=== PATIENT | female | born 1980 | race African-American/Black ===

== ENCOUNTER 2016-12-01 13:32 | Observation (INO) | payer MEDICAID, OTHER ==
--- NOTE | 2016-12-01 14:06 | ED ---
Chest Pain HPI - General Source: patient, RN notes reviewed Mode of arrival: EMS Limitations: no limitations <Stefany Garcia - Last Filed: 12/01/16 17:13> <Anthony House - Last Filed: 12/01/16 17:14> - General Chief Complaint: Chest Pain Stated Complaint: CHEST PAIN Time Seen by Provider: 12/01/16 13:35 - History of Present Illness Initial Comments: 36-year-old female with past medical history of hypertension and anxiety presents to the emergency Department chief complaint of chest pain. Patient states she woke up with is achy type chest pain that wraps around her left breast down her left arm and up the side of her left face. Patient states she has chest pain on and off that she normally attributed to anxiety. Patient states that this seemed different. Patient states that she had no nausea vomiting that she was sweating throughout the night. Patient denies any cough cold runny nose like symptoms with this. Patient states the EMS to give her aspirin and nitro and her pain is down to about a 3. Patient states that she was concerned due to the pain so she thought that she should be evaluated. Patient denies any recent fever, chills, shortness of breath, back pain, abdominal pain, nausea vomiting, numbness or tingling, dysuria or hematuria, constipation or diarrhea, headaches or visual changes, or any other current symptoms. (Stefany Garcia) - Related Data Home Medications Medication Instructions Recorded Confirmed Loratadine [Claritin] 10 mg PO DAILY 05/04/14 12/01/16 Montelukast Sodium [Singulair] 10 mg PO HS 05/04/14 12/01/16 Dicyclomine [Bentyl] 20 mg PO TID PRN 05/05/14 12/01/16 Albuterol Nebulized [Ventolin 2.5 mg INHALATION RT-Q6H PRN 09/01/15 12/01/16 Nebulized] Diphenox-Atrop 2.5-0.025 mg 1 tab PO QID PRN 09/01/15 12/01/16 [Lomotil] Albuterol Sulfate [Proair Hfa] 1 - 2 puff INHALATION RT-Q6H PRN 04/02/16 Venlafaxine HCl [Effexor XR] 225 mg PO DAILY 07/03/16 12/01/16 Acetaminophen [Tylenol Arthritis] 650 mg PO Q6HR PRN 08/04/16 12/01/16 Butalbital/Aspirin/Caffeine 1 cap PO DAILY PRN 08/04/16 12/01/16 [Kbypcgiutl-WKZ-Aesnceyr Cap] Hydrochlorothiazide 25 mg PO DAILY 08/04/16 12/01/16 SUMAtriptan SUCCINATE [Imitrex] 100 mg PO BID PRN 09/02/16 12/01/16 Mometasone/Formoterol [Dulera 100 2 puff INHALATION RT-BID 12/01/16 12/01/16 Mcg/5 Mcg Inhaler] Topiramate [Topamax] 25 mg PO DAILY 12/01/16 12/01/16 amLODIPine [Norvasc] 10 mg PO DAILY 12/01/16 12/01/16 Previous Rx's Medication Instructions Recorded Ibuprofen [Motrin] 800 mg PO Q6HR PRN #20 tab 08/20/14 predniSONE 20 mg PO BID #10 tab 10/13/16 Allergies Allergy/AdvReac Type Severity Reaction Status Date / Time metronidazole [From Flagyl] Allergy Dyspnea Verified 12/01/16 14:02 Metronidazole HCl Allergy Dyspnea Verified 12/01/16 14:02 [From Flagyl] morphine Allergy Rash/Hives Verified 12/01/16 14:02 orange flavor AdvReac Abdominal Verified 12/01/16 14:02 Pain tomato [Tomato] AdvReac Abdominal Verified 12/01/16 14:02 Pain wheat AdvReac Abdominal Verified 12/01/16 14:02 Pain Review of Systems ROS Other: All systems not noted in ROS Statement are negative. <Stefany Garcia - Last Filed: 12/01/16 17:13> ROS Other: All systems not noted in ROS Statement are negative. <Anthony House - Last Filed: 12/01/16 17:14> ROS Statement: Those systems with pertinent positive or pertinent negative responses have been documented in the HPI. EKG Findings - EKG Comments: EKG Findings:: normal sinus rhythm 75 bpm, normal axis, no atopy, no S-T depressions or elevations, patient does appear to have a T wave inversion in aVF as well as lead 3 <Stefany Garcia - Last Filed: 12/01/16 17:13> Past Medical History Past Medical History: Asthma, Chest Pain / Angina, GERD/Reflux, Pneumonia Additional Past Medical History / Comment(s): HIATAL HERNIA, ibs, chronic sinusitis/seasonal allergies,UTI, ATYPICAL CHEST PAIN 05/04/14 THEN 05-20-14 STRESS TEST NEG., adjustment disorder, and major depressive disorder. History of Any Multi-Drug Resistant Organisms: None Reported Past Surgical History: Section, Cholecystectomy, Tubal Ligation Additional Past Surgical History / Comment(s): sinus surgery Past Anesthesia/Blood Transfusion Reactions: Previous Problems w/ Anesthesia Additional Past Anesthesia/Blood Transfusion Reaction / Comment(s): Pt did not go all the way under. Pt could hear, but not feel anything Past Psychological History: Anxiety, Bipolar, Depression Additional Psychological History / Comment(s): pt stated is under some personal stress at home and has trouble getting and staying alseep and appetite decreased this past month. 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 Smoking Status: Current some day smoker Past Alcohol Use History: Occasional Additional Past Alcohol Use History / Comment(s): STARTED SMOKING AGE 22,QUIT 2012, SMOKED 1/2 TO 1 PPD. Past Drug Use History: None Reported Additional Drug Use History / Comment(s): STOPPED MARIJANA 2005 - Past Family History Father Family Medical History: Congestive Heart Failure (CHF), Coronary Artery Disease (CAD), Diabetes Mellitus Additional Family Medical History / Comment(s): stents,depression anxiety Mother Family Medical History: Cancer, Diabetes Mellitus, Hypertension Additional Family Medical History / Comment(s): colon cancer, adha, bipolar, split personaltiy disorder. <Stefany Garcia - Last Filed: 12/01/16 17:13> General Exam Limitations: no limitations <Stefany Garcai - Last Filed: 12/01/16 17:13> <Anthony House - Last Filed: 12/01/16 17:14> - General Exam Comments Initial Comments: General: The patient is awake and alert, in no distress, and does not appear acutely ill. Eye: Pupils are equal, round and reactive to light, extra-ocular movements are intact; there is normal conjunctiva bilaterally. No signs of icterus. Ears, nose, mouth and throat: There are moist mucous membranes and no oral lesions. Neck: The neck is supple, there is no tenderness. Cardiovascular: There is a regular rate and rhythm. No murmur, rub or gallop is appreciated. Respiratory: Lungs are clear to auscultation, respirations are non-labored, breath sounds are equal. No wheezes, stridor, rales, or rhonchi. Gastrointestinal: Soft, non-distended, non-tender abdomen without masses or organomegaly noted. There is no rebound or guarding present. No CVA tenderness. Bowel sounds are unremarkable. Back: There is no tenderness to palpation in the midline. There is no obvious deformity. No rashes noted. Musculoskeletal: Normal ROM, no tenderness, There is no pedal edema. There is no calf tenderness or swelling. Sensation intact. Pulses equal bilaterally 2+. Neurological: CN II-XII intact, There are no obvious motor or sensory deficits. Coordination appears grossly intact. Speech is normal. Skin: Skin is warm and dry and no rashes or lesions are noted. Psychiatric: Cooperative, appropriate mood & affect, normal judgment. (Stefany Garcia) Course <Stefany Garcia - Last Filed: 12/01/16 17:13> <Anthony House - Last Filed: 12/01/16 17:14> Vital Signs 12/01/16 12/01/16 13:34 15:01 Temperature 99.2 F 97.7 F Pulse Rate 75 81 Respiratory 18 16 Rate Blood Pressure 134/63 142/63 O2 Sat by Pulse 97 98 Oximetry - Reevaluation(s) Reevaluation #1: 12/01/16 17:13 Patient reevaluated by myself, Dr. House. Patient is resting comfortably in bed. Patient states she got better with nitroglycerin. Patient had an ache in her chest with associated dyspnea that is near resolved. Case was discussed in detail with Dr. Shelton, who will admit his patient. No consults at this time. (Anthony House) Chest Pain MDM <Stefany Garcia - Last Filed: 12/01/16 17:13> <Anthony House - Last Filed: 12/01/16 17:14> - MDM This patient's lab work was reviewed. There does appear to be normal troponin at this time. Patient did however have improvement with the nitro. Dr. Barton was called regarding case we will admit to Dr. Barton we will start heparin for the patient as well as Nitropaste. This was discussed with patient she is negative. The plan. All her questions have been answered. She will be admitted. (Stefany Garcia) Disposition Time of Disposition: 16:57 Decision Date: 12/01/16 Decision Time: 17:13 <Stefany Garcia - Last Filed: 12/01/16 17:13> <Anthoyn House - Last Filed: 12/01/16 17:14> Clinical Impression: Unstable angina pectoris Disposition: ADMITTED IP TO THIS HOSP Condition: Stable Referrals: Sang Shelton MD [Primary Care Provider] - 1-2 days
[2016-12-01] MEDS ORDERED: SODIUM CHLORIDE 0.9% 500 ML IV STA (14:07)
[2016-12-01] MEDS ORDERED: METOCLOPRAMIDE 5 MG/ML 2 ML VIAL IVP STA (14:24)
[2016-12-01 15:05] LABS: ALT 47 U/L (9-52); AST 35 U/L (14-36); Alkaline Phosphatase 81 U/L (38-126); Anion Gap 10 mmol/L; Blood Urea Nitrogen 10 mg/dL (7-17); Calcium 9.1 mg/dL (8.4-10.2); Carbon Dioxide 28 mmol/L (22-30); Chloride 102 mmol/L (98-107); Glucose 109 mg/dL (74-99); Non-African American GFR(MDRD) >60 (>60 ml/min/1.73 sqM); Potassium 4.4 mmol/L (3.5-5.1); Sodium 140 mmol/L (137-145); Total Bilirubin 0.7 mg/dL (0.2-1.3); Total Protein 7.2 g/dL (6.3-8.2)
[2016-12-01 15:07] LABS: Basophils % (A) 0 %; CH 27.8; CHCM 33.5; Eosinophils # (A) 0.2 k/uL (0-0.7); Eosinophils % (A) 2 %; HGB 12.7 gm/dL (11.4-16.0); Large Platelets Flag Moderate; Luc # (Auto) 0.13; Luc % (Auto) 1; Lymphocytes % (A) 34 %; MCH 27.9 pg (25.0-35.0); MCHC 33.5 g/dL (31.0-37.0); MCV 83.2 fL (80.0-100.0); Monocytes # (A) 0.4 k/uL (0-1.0); Monocytes % (A) 4 %; Neutrophils # (A) 5.2 k/uL (1.3-7.7); Neutrophils % (A) 59 %; RBC 4.57 m/uL (3.80-5.40); RDW 13.3 % (11.5-15.5); WBC 8.9 k/uL (3.8-10.6); WBC (Perox) 8.99
[2016-12-01 15:11] LABS: Creatine Kinase 88 U/L (30-135)
[2016-12-01 15:18] LABS: Manual Review Performed; RBC Morphology Normal
[2016-12-01 15:24] LABS: Creatine Kinase MB 0.6 ng/mL (0.0-2.4); Troponin I <0.012 ng/mL (0.000-0.034)
--- NOTE | 2016-12-01 15:25 | XR ---
EXAMINATION TYPE: XR chest 2V DATE OF EXAM: 12/01/2016 3:19 PM COMPARISON: Prior chest x-ray four October 2016 HISTORY: Chest pain TECHNIQUE: Frontal and lateral views of the chest are obtained. FINDINGS: There is no focal air space opacity, pleural effusion, or pneumothorax seen. The cardiac silhouette size is within normal limits. There are overlying cardiac leads. The osseous structures a re intact. IMPRESSION: No acute cardiopulmonary process.
[2016-12-01] MEDS ORDERED: HEPARIN SODIUM,PORCINE 5,000 UNIT/ML 1 ML VIAL IV ONE (17:13)
[2016-12-01] MEDS ORDERED: NITROGLYCERIN SL TABS 0.4 MG TAB SUBLINGUAL PRN (17:13)
[2016-12-01] MEDS ORDERED: DIPHENOX-ATROP 2.5-0.025 MG 1 EACH TAB PO PRN (17:15)
[2016-12-01] MEDS ORDERED: ACETAMINOPHEN TAB 325 MG TAB PO PRN (17:15)
[2016-12-01] MEDS ORDERED: BUTALBITAL PO PRN (17:15)
[2016-12-01] MEDS ORDERED: HEPARIN SODIUM,PORCINE/D5W PMX 25,000 UNIT in DEXTROSE/WATER 1 500ML.BAG IV SCH (17:15)
[2016-12-01] MEDS ORDERED: IBUPROFEN 800 MG TAB PO PRN (17:15)
[2016-12-01] MEDS ORDERED: ALBUTEROL NEBULIZED 2.5 MG/3 ML INHALATION PRN ×2 (17:15)
[2016-12-01] MEDS ORDERED: DICYCLOMINE 20 MG TAB PO PRN (17:15)
[2016-12-01] MEDS ORDERED: CAFFEINE PO PRN (17:15)
[2016-12-01] MEDS ORDERED: ASPIRIN PO PRN (17:15)
[2016-12-01] MEDS ORDERED: SUMAtriptan SUCCINATE 50 MG TAB PO PRN (17:15)
[2016-12-01 17:36] LABS: Partial Thromboplastin Time 23.1 sec (22.0-30.0); Prothrombin Time 9.8 sec (9.0-12.0)
[2016-12-01] MEDS: SODIUM CHLORIDE 0.9% 1,000 ML IV SCH (18:23)
[2016-12-01 20:45] LABS: Creatine Kinase 83 U/L (30-135)
[2016-12-01 20:59] LABS: Creatine Kinase MB 0.5 ng/mL (0.0-2.4); Troponin I <0.012 ng/mL (0.000-0.034)
[2016-12-01] MEDS ORDERED: predniSONE 20 MG TAB PO SCH (21:00)
[2016-12-01] MEDS: SYMBICORT 80-4.5 MCG INHALER INHALATION SCH (22:42)
[2016-12-02 03:19] LABS: Cholesterol 176 mg/dL (<200); HDL Cholesterol 62 mg/dL (40-60); Triglycerides 105 mg/dL (<150)
[2016-12-02 03:26] LABS: Creatine Kinase 76 U/L (30-135)
[2016-12-02 03:40] LABS: Creatine Kinase MB 0.5 ng/mL (0.0-2.4); Troponin I <0.012 ng/mL (0.000-0.034)
[2016-12-02] MEDS ORDERED: HEPARIN SODIUM,PORCINE 5,000 UNIT/ML 1 ML VIAL IV STA (04:08)
[2016-12-02] MEDS: SODIUM CHLORIDE 0.9% 1,000 ML IV SCH (04:54)
[2016-12-02] MEDS: MONTELUKAST 10 MG TAB PO SCH ×2 (05:00→05:16)
[2016-12-02] MEDS: NITROGLYCERIN OINT 1 INCH/GM PACKET TOPICAL SCH (07:13)
[2016-12-02 07:52] VITALS: BP 125/74
[2016-12-02] MEDS: SYMBICORT 80-4.5 MCG INHALER INHALATION SCH (08:43)
[2016-12-02] MEDS ORDERED: VENLAFAXINE HCL ER 75 MG CAP PO SCH (09:00)
[2016-12-02] MEDS ORDERED: HYDROCHLOROTHIAZIDE 25 MG TAB PO SCH (09:00)
[2016-12-02] MEDS ORDERED: LORATADINE 10 MG TAB PO SCH (09:00)
[2016-12-02] MEDS ORDERED: TOPIRAMATE 25 MG TAB PO SCH (09:00)
[2016-12-02] MEDS ORDERED: ASPIRIN 325 MG TAB PO SCH (09:00)
[2016-12-02] MEDS ORDERED: amLODIPine 10 MG TAB PO SCH (09:00)
--- NOTE | 2016-12-02 09:35 | P.DS ---
Providers Date of admission: 12/01/16 17:13 Expected date of discharge: 12/02/16 Attending physician: Sang Saldaña Primary care physician: Sang Saldaña [facility] Course: 36-year-old female presented on the day of admission to the emergency room with a chief complaint of developing chest discomfort that wrapped around the left breast down the left arm and left side of the face on the left. Patient stated that it was intermittent. Patient stated that she normally contributed to anxiety. But this morning woke up with the symptoms. Patient does have a past medical history of hypertension and anxiety. Patient states she was started on new blood pressure medication by her PCP Mike and had been compliant with taking her pain medication. Patient states that she does see a primary home and family living professor Milly Villaseñor. Patient was seen on 08/06/2016 at that time did undergo a dobutamine stress echo which was normal additionally underwent an echocardiogram left ventricular systolic function was normal EF between 55 and 60%. Patient states in the emergency room her blood pressure was elevated systolic in the 150s. Patient troponin 3 were negative. The chest pain was felt not to be cardiac in origin. The 12-lead EKG showed no ischemic changes. Patient stated that her PCP had been discussing with her that the Effexor may be contributing to her blood pressure being elevated and that he would start tapering it in the office in the outpatient setting Patient was felt to be hemodynamically stable and appropriate proceed with a discharge home with the plan the patient with see the PCP in the office within the next 24-48 hours Impression discharge diagnosis Present on admission chest pain atypical no evidence of acute coronary syndrome Anxiety disorder Morbid obesity BMI 48 History of hypertension a central benign Echocardiogram July 2016 normal EF between 55 and 60% A stress test 08/05/2016 negative no evidence of ischemia The above dictated assessment and findings were discussed with dr saldaña Impression and the plan of care have been dictated as directed. Rissa Meneses nurse practitioner acting as a scribe for dr saldaña Patient Condition at Discharge: Stable Plan - Discharge Summary Discharge Medication List Loratadine [Claritin] 10 mg PO DAILY 05/04/14 [History] Montelukast Sodium [Singulair] 10 mg PO HS 05/04/14 [History] Dicyclomine [Bentyl] 20 mg PO TID PRN 05/05/14 [History] Ibuprofen [Motrin] 800 mg PO Q6HR PRN #20 tab 08/20/14 [Rx] Albuterol Nebulized [Ventolin Nebulized] 2.5 mg INHALATION RT-Q6H PRN 09/01/15 [ History] Diphenox-Atrop 2.5-0.025 mg [Lomotil] 1 tab PO QID PRN 09/01/15 [History] Albuterol Sulfate [Proair Hfa] 1 - 2 puff INHALATION RT-Q6H PRN 04/02/16 [ History] Venlafaxine HCl [Effexor XR] 225 mg PO DAILY 07/03/16 [History] Acetaminophen [Tylenol Arthritis] 650 mg PO Q6HR PRN 08/04/16 [History] Butalbital/Aspirin/Caffeine [Jwdfckwzvm-KHG-Tubgevmf Cap] 1 cap PO DAILY PRN [History] Hydrochlorothiazide 25 mg PO DAILY 08/04/16 [History] SUMAtriptan SUCCINATE [Imitrex] 100 mg PO BID PRN 09/02/16 [History] predniSONE 20 mg PO BID #10 tab 10/13/16 [Rx] Mometasone/Formoterol [Dulera 100 Mcg/5 Mcg Inhaler] 2 puff INHALATION RT-BID [History] Topiramate [Topamax] 25 mg PO DAILY 12/01/16 [History] amLODIPine [Norvasc] 10 mg PO DAILY 12/01/16 [History] Follow up Appointment(s)/Referral(s): Sang Saldaña MD [Primary Care Provider] - 1-2 days Discharge Disposition: HOME SELF-CARE
[2016-12-02 09:58] VITALS: PULSE 88; RESP 17; TEMP 97.7
--- NOTE | 2016-12-02 19:16 | HP ---
DATE OF ADMISSION: 12/01/2016 CHIEF COMPLAINT: Chest pain. HISTORY OF PRESENT ILLNESS: This is another recent admission for this 36-year-old female. She went through cardiac work-up last fall here, and then another in [place] and nothing could be found. She came back in this time again complaining of chest pain. She had no associated shortness of breath, diaphoresis, nausea, vomiting, or radiation of the pain, etc. Enzymes in the emergency room ( ), but she was admitted to observation to complete the series. REVIEW OF SYSTEMS: She has had no headaches, chest pain, cough, hemoptysis, pleurisy, history of heart disease, orthopnea, PND, murmurs, abdominal pain, indigestion, nausea, vomiting, hematemesis, melena, hematochezia, jaundice, renal disease, diabetes, etc. Past medical history, family history and personal and social histories are all otherwise unremarkable and unchanged. She is on: 1. Effexor 225 once a day. 2. Imitrex 100 mg p.r.n. migraine. 3. Lomotil p.r.n. 4. Dulera updrafts q.i.d. and p.r.n. 5. Hydrochlorothiazide 25 mg once a day. 6. Pro-Air HFA MDI. 7. Fiorinal p.r.n. 8. Loratadine 10 mg once a day. 9. Ibuprofen 800 mg q.i.d. p.r.n. 10. Bentyl 20 4 times a day. 11. Xolair 150 mg IM once a month. 12. Singulair 10. 13. Albuterol MDI p.r.n. The remainder of her history is unremarkable and unchanged. She used to smoke but does not any longer. PHYSICAL EXAMINATION: VITAL SIGNS: Blood pressure 128/90 with a pulse of 86 and regular, respiration 18, temperature 97.8. GENERAL: She appeared to be overweight and in no acute distress. SKIN: Skin color is normal. Skin is warm and dry. Lymph nodes are not enlarged. Head, ears, eyes, nose, mouth, and throat were normal. NECK: Neck veins not distended. Thyroid is not enlarged. Chest is clear. Cardiac exam is normal. No murmurs or extra sounds. She is in sinus rhythm. ABDOMEN: Soft, protuberant. EXTREMITIES: Normal. Neurologically she intact. IMPRESSION: Chest pain, noncardiac. PLAN: 1. Bed rest. 2. IV fluids. 3. Serial EKGs and enzymes and then home if they are negative.
--- NOTE | 2016-12-02 20:24 | PN ---
DATE OF SERVICE: 12/02/2016 HISTORY OF PRESENT ILLNESS: This young lady is doing well and pain is gone. She has had no other trouble. Enzymes have been normal. PHYSICAL EXAMINATION: Chest is clear. Cardiac exam is normal. ABDOMEN: Soft, nontender. Vital signs are normal. IMPRESSION: Chest pain, atypical. PLAN: Home and followup in the office.
== END 2016-12-02 09:57 | disposition home or self-care (01) ==
LOC: EC 13:32 → 3OBS 17:13
PROVIDERS: ADMIT Family Medicine; ATTEND Family Medicine
DX: R07.89 Other chest pain (principal); F41.9 Anxiety disorder, unspecified; E66.01 Morbid (severe) obesity due to excess calories; Z68.42 Body mass index [BMI] 45.0-49.9, adult; I10 Essential (primary) hypertension; J45.909 Unspecified asthma, uncomplicated; K21.9 Gastro-esophageal reflux disease without esophagitis; K58.9 Irritable bowel syndrome, unspecified; F32.9 Major depressive disorder, single episode, unspecified; F43.20 Adjustment disorder, unspecified; F17.200 Nicotine dependence, unspecified, uncomplicated; Z79.899 Other long term (current) drug therapy; Z88.1 Allergy status to other antibiotic agents; Z88.5 Allergy status to narcotic agent; Z88.8 Allergy status to other drugs, medicaments and biological substances; Z82.49 Family history of ischemic heart disease and other diseases of the circulatory system
CPT/HCPCS: 96375 ×3; 96366 ×17; 96376 ×4; 96361 ×2; 96365 ×2; 99285 ×2; 36415; 94640; 93005 ×2; 80061; 80053; 82550 ×2; 82553 ×2; 83735; 84484 ×2; 85025; 85610; 85730 ×2; 71020; G0378 ×2; J1644 ×3; J2765; J7512

== ENCOUNTER 2017-02-22 19:52 | Emergency (ER) | payer MEDICAID, OTHER ==
[2017-02-22] MEDS ORDERED: ACETAMINOPHEN TAB 500 MG TAB PO STA (20:05)
--- NOTE | 2017-02-22 20:35 | ED ---
URI HPI - General Chief Complaint: Upper Respiratory Infection Stated Complaint: chest congestion KATIUSKA Time Seen by Provider: 02/22/17 20:05 Source: patient, family, RN notes reviewed Mode of arrival: ambulatory Limitations: no limitations - History of Present Illness Initial Comments: Patient is a 29-year-old female chief complaint of cough and laryngitis for approximately one week. She reports that she is that he auvv-lao-adiseei medication is not helping. She reports that she has had a fever but had no Motrin or Tylenol today. She denies any specific chest pain. She denies any shortness of breath. She states that she's had a sore throat to the multiple episodes of coughing. Patient states that she's tried lxnu-kvy-axlbkvr products such as Mucinex and Robitussin over does not help. Patient denies any recent fever, chills, shortness of breath, chest pain, back pain, abdominal pain , nausea vomiting, numbness or tingling, dysuria or hematuria, constipation or diarrhea, headaches or visual changes, or any other current symptoms - Related Data Home Medications Medication Instructions Recorded Confirmed Loratadine [Claritin] 10 mg PO DAILY 05/04/14 02/22/17 Montelukast Sodium [Singulair] 10 mg PO HS 05/04/14 02/22/17 Dicyclomine [Bentyl] 20 mg PO TID PRN 05/05/14 02/22/17 Albuterol Nebulized [Ventolin 2.5 mg INHALATION RT-Q6H PRN 09/01/15 02/22/17 Nebulized] Diphenox-Atrop 2.5-0.025 mg 1 tab PO QID PRN 09/01/15 02/22/17 [Lomotil] Albuterol Sulfate [Proair Hfa] 1 - 2 puff INHALATION RT-Q6H PRN 04/02/16 Acetaminophen [Tylenol Arthritis] 650 mg PO Q6HR PRN 08/04/16 02/22/17 Butalbital/Aspirin/Caffeine 1 cap PO DAILY PRN 08/04/16 02/22/17 [Jfohmyqore-KZY-Vrwqbyry Cap] Hydrochlorothiazide 25 mg PO DAILY 08/04/16 02/22/17 SUMAtriptan SUCCINATE [Imitrex] 100 mg PO BID PRN 09/02/16 02/22/17 Mometasone/Formoterol [Dulera 100 2 puff INHALATION RT-BID 12/01/16 02/22/17 Mcg/5 Mcg Inhaler] Topiramate [Topamax] 50 mg PO DAILY 12/01/16 02/22/17 amLODIPine [Norvasc] 10 mg PO DAILY 12/01/16 02/22/17 Amitriptyline HCl [Elavil] 50 mg PO HS 02/22/17 02/22/17 Venlafaxine HCl [Effexor] 150 mg PO DIRECTED 02/22/17 02/22/17 Previous Rx's Medication Instructions Recorded Ibuprofen [Motrin] 800 mg PO Q6HR PRN #20 tab 08/20/14 predniSONE 20 mg PO BID #10 tab 10/13/16 Azithromycin [Zithromax Z-pack] 250 mg PO DIRECTED #6 tab 02/22/17 methylPREDNISolone Dose Pack 4 mg PO DIRECTED #21 package 02/22/17 [Medrol Dose Pack] Allergies Allergy/AdvReac Type Severity Reaction Status Date / Time metronidazole [From Flagyl] Allergy Dyspnea Verified 02/22/17 19:59 Metronidazole HCl Allergy Dyspnea Verified 02/22/17 19:59 [From Flagyl] morphine Allergy Rash/Hives Verified 02/22/17 19:59 orange flavor AdvReac Abdominal Verified 02/22/17 19:59 Pain tomato [Tomato] AdvReac Abdominal Verified 02/22/17 19:59 Pain wheat AdvReac Abdominal Verified 02/22/17 19:59 Pain Review of Systems ROS Statement: Those systems with pertinent positive or pertinent negative responses have been documented in the HPI. ROS Other: All systems not noted in ROS Statement are negative. Past Medical History Past Medical History: Asthma, Chest Pain / Angina, GERD/Reflux, Pneumonia Additional Past Medical History / Comment(s): HIATAL HERNIA, ibs, chronic sinusitis/seasonal allergies,UTI, ATYPICAL CHEST PAIN, 7--14 STRESS TEST NEG. , bronchitis, colitis, IBS, migraines, occasional low back pain. History of Any Multi-Drug Resistant Organisms: None Reported Past Surgical History: Section, Cholecystectomy, Tubal Ligation Additional Past Surgical History / Comment(s): sinus surgery, D&C, x 4 , EGD/colonoscopy. Past Anesthesia/Blood Transfusion Reactions: Previous Problems w/ Anesthesia, Postoperative Nausea & Vomiting (PONV) Additional Past Anesthesia/Blood Transfusion Reaction / Comment(s): Pt did not go all the way under. Pt could hear, but not feel anything Past Psychological History: Anxiety, Depression Additional Psychological History / Comment(s): Pt resides with family and 4 children, 2 of which are under age 18 yrs. She is independent. She states her medication for depression works well. She denies bipolar. 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 Smoking Status: Former smoker Past Alcohol Use History: None Reported Additional Past Alcohol Use History / Comment(s): STARTED SMOKING AGE 22,QUIT 2012, SMOKED 1/2 TO 1 PPD. Past Drug Use History: None Reported Additional Drug Use History / Comment(s): STOPPED MARIJANA 2005 - Past Family History Father Family Medical History: Congestive Heart Failure (CHF), Coronary Artery Disease (CAD), Diabetes Mellitus Additional Family Medical History / Comment(s): stents,depression anxiety Mother Family Medical History: Cancer, Diabetes Mellitus, Hypertension Additional Family Medical History / Comment(s): colon cancer, adhd, bipolar, split personaltiy disorder. General Exam - General Exam Comments Initial Comments: Pleasant 29-year-old female. No distress. Limitations: no limitations General appearance: alert, in no apparent distress Head exam: Present: atraumatic, normocephalic, normal inspection Eye exam: Present: normal appearance, PERRL, EOMI. Absent: scleral icterus, conjunctival injection, periorbital swelling ENT exam: Present: normal exam, mucous membranes moist Neck exam: Present: normal inspection. Absent: tenderness, meningismus, lymphadenopathy Respiratory exam: Present: normal lung sounds bilaterally, other (Patient has a scratchy voice consistent with laryngitis.). Absent: respiratory distress, wheezes, rales, rhonchi, stridor Cardiovascular Exam: Present: regular rate, normal rhythm, normal heart sounds. Absent: systolic murmur, diastolic murmur, rubs, gallop, clicks GI/Abdominal exam: Present: soft, normal bowel sounds. Absent: distended, tenderness, guarding, rebound, rigid Extremities exam: Present: normal inspection, full ROM, normal capillary refill. Absent: tenderness, pedal edema, joint swelling, calf tenderness Back exam: Present: normal inspection Neurological exam: Present: alert, oriented X3, CN II-XII intact Psychiatric exam: Present: normal affect, normal mood Course Vital Signs 02/22/17 02/22/17 19:56 21:10 Temperature 100 F H 98.0 F Pulse Rate 115 H 67 Respiratory 20 18 Rate Blood Pressure 173/95 130/79 O2 Sat by Pulse 97 98 Oximetry Medical Decision Making - Medical Decision Making Patient is a 37 year old female with cough, and losing her voice for 1 week. patient has erythematous oropharynx, and fever. Influenza is negative. Will treat patient with azithromycin and medrol dose pack. Discussed follow up with PCP. Return parameters discussed. - Lab Data Lab Results 02/22/17 Range/Units 20:16 Influenza Type A RNA Not Detected (Not Detectd) Influenza Type B (PCR) Not Detected (Not Detectd) Disposition Clinical Impression: Upper respiratory infection, Bronchitis Disposition: HOME SELF-CARE Condition: Good Instructions: Upper Respiratory Infection (ED) Additional Instructions: Patient is to rest, increase fluids. Patient needs to take Motrin Tylenol for fever. Completely anabiotic prescription. Return to emergency Department if any alarming signs or symptoms occur. Prescriptions: Azithromycin [Zithromax Z-pack] 250 mg PO DIRECTED #6 tab methylPREDNISolone Dose Pack [Medrol Dose Pack] 4 mg PO DIRECTED #21 package Referrals: Sang Shelton MD [Primary Care Provider] - 1-2 days Time of Disposition: 20:59
--- NOTE | 2017-02-22 20:44 | XR ---
EXAMINATION TYPE: XR chest 2V DATE OF EXAM: 02/22/2017 8:25 PM COMPARISON: Prior chest x-ray 01 December 2016 HISTORY: Cough and congestion, shortness of breath TECHNIQUE: Frontal and lateral views of the chest are obtained. FINDINGS: There is no focal air space opacity, pleural effusion, or pneumothorax seen. The cardiac silhouette size is within normal limits. The osseous structures are intact. IMPRESSION: No acute cardiopulmonary process.
[2017-02-22 21:11] VITALS: BP 130/79; PULSE 67; RESP 18; TEMP 98
== END 2017-02-22 21:10 | disposition home or self-care (01) ==
LOC: EC 19:52
DX: J06.9 Acute upper respiratory infection, unspecified (principal); J45.909 Unspecified asthma, uncomplicated; F32.9 Major depressive disorder, single episode, unspecified; F41.9 Anxiety disorder, unspecified; Z87.891 Personal history of nicotine dependence; Z79.51 Long term (current) use of inhaled steroids; Z79.899 Other long term (current) drug therapy; Z88.1 Allergy status to other antibiotic agents; Z88.5 Allergy status to narcotic agent; Z91.018 Allergy to other foods
CPT/HCPCS: 71020; 87502; 99283

== ENCOUNTER 2017-03-07 12:32 | Emergency (ER) | payer MEDICAID, OTHER ==
[2017-03-07] MEDS ORDERED: IPRATROPIUM-ALBUTEROL 3 ML NEB INHALATION STA (13:26)
--- NOTE | 2017-03-07 13:28 | ED ---
URI HPI - General Chief Complaint: Upper Respiratory Infection Stated Complaint: KATIUSKA- Congestion Time Seen by Provider: 03/07/17 13:05 Source: patient, RN notes reviewed Mode of arrival: ambulatory Limitations: no limitations - History of Present Illness Initial Comments: Patient is a 37-year-old female presents to the emergency room for evaluation of cough. Patient states she was here about 2 weeks ago and was diagnosed with bronchitis. Patient states she was placed on a Z-Theo and Medrol Dosepak. Patient states she finished her medications and was feeling better. Patient states Friday night she began developing a cough again. Patient states after she coughs she felt short of breath. Patient does admit to having a history of asthma. Patient denies smoking. Patient states she had a low-grade fever last night. Patient states she is up-to-date on her immunizations. Patient states her ears are popping but denies any pain. Patient states her throat feels scratchy but denies any pain. Patient denies chest pain. Patient denies abdominal pain. Patient denies nausea or vomiting. - Related Data Home Medications Medication Instructions Recorded Confirmed Loratadine [Claritin] 10 mg PO DAILY 05/04/14 03/07/17 Montelukast Sodium [Singulair] 10 mg PO HS 05/04/14 03/07/17 Dicyclomine [Bentyl] 20 mg PO TID PRN 05/05/14 03/07/17 Albuterol Nebulized [Ventolin 2.5 mg INHALATION RT-Q6H PRN 09/01/15 03/07/17 Nebulized] Diphenox-Atrop 2.5-0.025 mg 1 tab PO QID PRN 09/01/15 03/07/17 [Lomotil] Albuterol Sulfate [Proair Hfa] 1 - 2 puff INHALATION RT-Q6H PRN 04/02/16 Acetaminophen [Tylenol Arthritis] 650 mg PO Q6HR PRN 08/04/16 03/07/17 Butalbital/Aspirin/Caffeine 1 cap PO DAILY PRN 08/04/16 03/07/17 [Zkpnmeqwbs-JBO-Nwaptrml Cap] Hydrochlorothiazide 25 mg PO DAILY 08/04/16 03/07/17 SUMAtriptan SUCCINATE [Imitrex] 100 mg PO BID PRN 09/02/16 03/07/17 Mometasone/Formoterol [Dulera 100 2 puff INHALATION RT-BID 12/01/16 03/07/17 Mcg/5 Mcg Inhaler] Topiramate [Topamax] 50 mg PO DAILY 12/01/16 03/07/17 amLODIPine [Norvasc] 10 mg PO DAILY 12/01/16 03/07/17 Amitriptyline HCl [Elavil] 50 mg PO HS 02/22/17 03/07/17 Venlafaxine HCl [Effexor] 150 mg PO DIRECTED 02/22/17 03/07/17 Previous Rx's Medication Instructions Recorded Ibuprofen [Motrin] 800 mg PO Q6HR PRN #20 tab 08/20/14 Albuterol Inhaler [Ventolin Hfa 1 - 2 puff INHALATION Q6HR PRN #1 03/07/17 Inhaler] inhaler Albuterol Nebulized [Ventolin 2.5 mg INHALATION Q6H PRN #30 nebu 03/07/17 Nebulized] methylPREDNISolone Dose Pack 4 mg PO DIRECTED #21 package 03/07/17 [Medrol Dose Pack] Allergies Allergy/AdvReac Type Severity Reaction Status Date / Time metronidazole [From Flagyl] Allergy Dyspnea Verified 03/07/17 13:37 Metronidazole HCl Allergy Dyspnea Verified 03/07/17 13:37 [From Flagyl] morphine Allergy Rash/Hives Verified 03/07/17 13:37 orange flavor AdvReac Abdominal Verified 03/07/17 13:37 Pain tomato [Tomato] AdvReac Abdominal Verified 03/07/17 13:37 Pain wheat AdvReac Abdominal Verified 03/07/17 13:37 Pain Review of Systems ROS Statement: Those systems with pertinent positive or pertinent negative responses have been documented in the HPI. ROS Other: All systems not noted in ROS Statement are negative. Past Medical History Past Medical History: Asthma, Chest Pain / Angina, GERD/Reflux, Pneumonia Additional Past Medical History / Comment(s): HIATAL HERNIA, ibs, chronic sinusitis/seasonal allergies,UTI, ATYPICAL CHEST PAIN, 05-20-14 STRESS TEST NEG. , bronchitis, colitis, IBS, migraines, occasional low back pain. History of Any Multi-Drug Resistant Organisms: None Reported Past Surgical History: Section, Cholecystectomy, Tubal Ligation Additional Past Surgical History / Comment(s): sinus surgery, D&C, x 4 , EGD/colonoscopy. Past Anesthesia/Blood Transfusion Reactions: Previous Problems w/ Anesthesia, Postoperative Nausea & Vomiting (PONV) Additional Past Anesthesia/Blood Transfusion Reaction / Comment(s): Pt did not go all the way under. Pt could hear, but not feel anything Past Psychological History: Anxiety, Depression Additional Psychological History / Comment(s): Pt resides with family and 4 children, 2 of which are under age 18 yrs. She is independent. She states her medication for depression works well. She denies bipolar. 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 Smoking Status: Former smoker Past Alcohol Use History: None Reported Additional Past Alcohol Use History / Comment(s): STARTED SMOKING AGE 22,QUIT 2012, SMOKED 1/2 TO 1 PPD. Past Drug Use History: None Reported Additional Drug Use History / Comment(s): STOPPED MARIJANA 2005 - Past Family History Father Family Medical History: Congestive Heart Failure (CHF), Coronary Artery Disease (CAD), Diabetes Mellitus Additional Family Medical History / Comment(s): stents,depression anxiety Mother Family Medical History: Cancer, Diabetes Mellitus, Hypertension Additional Family Medical History / Comment(s): colon cancer, adhd, bipolar, split personaltiy disorder. General Exam - General Exam Comments Initial Comments: Sitting in exam room, no acute distress. Limitations: no limitations General appearance: alert, in no apparent distress Head exam: Present: atraumatic, normocephalic, normal inspection Eye exam: Present: normal appearance ENT exam: Present: normal exam Neck exam: Present: normal inspection Respiratory exam: Present: wheezes. Absent: respiratory distress Cardiovascular Exam: Present: regular rate, normal rhythm, normal heart sounds GI/Abdominal exam: Present: soft, normal bowel sounds. Absent: distended, tenderness, guarding, rebound, rigid Extremities exam: Present: normal inspection Back exam: Present: normal inspection Neurological exam: Present: alert, oriented X3, CN II-XII intact, normal gait Psychiatric exam: Present: normal affect, normal mood Skin exam: Present: warm, dry, intact, normal color. Absent: rash Course Vital Signs 03/07/17 03/07/17 03/07/17 12:37 13:49 14:05 Temperature 98.7 F Pulse Rate 90 92 94 Respiratory 20 Rate Blood Pressure 142/92 O2 Sat by Pulse 98 Oximetry Medical Decision Making - Medical Decision Making Patient is a 37-year-old female presents emergency room for about a cough. Patient does have a history of asthma. Patient denies smoking. Chest x-ray shows no signs of pneumonia, pleural effusions or pneumothorax. Will place patient on another Medrol dose pack, rescue inhaler and albuterol nebulizer treatments. Advised patient to follow-up with her primary care provider on Friday she still not feeling better. Patient states she understands everything that was discussed with her. Return parameters discussed. Case discussed with Dr. Dumont. - Radiology Data Radiology results: report reviewed, image reviewed Disposition Clinical Impression: Asthmatic bronchitis Disposition: HOME SELF-CARE Condition: Good Instructions: Wheezing (ED), Acute Bronchitis (ED) Additional Instructions: Take medications as directed. Please follow up with primary care provider if symptoms are not improving on Friday. If any new symptom arises or symptoms worsen, return to ER as soon as possible. Prescriptions: Albuterol Inhaler [Ventolin Hfa Inhaler] 1 - 2 puff INHALATION Q6HR PRN #1 inhaler PRN Reason: Shortness Of Breath Albuterol Nebulized [Ventolin Nebulized] 2.5 mg INHALATION Q6H PRN #30 nebu PRN Reason: Shortness Of Breath methylPREDNISolone Dose Pack [Medrol Dose Pack] 4 mg PO DIRECTED #21 package Referrals: Sang Shelton MD [Primary Care Provider] - 1-2 days Time of Disposition: 14:09
--- NOTE | 2017-03-07 13:50 | XR ---
EXAMINATION TYPE: XR chest 2V DATE OF EXAM: 03/07/2017 1:44 PM COMPARISON: Prior chest x-ray February 22, 2017. HISTORY: Cough, congestion, and difficulty in breathing. TECHNIQUE: Frontal and lateral views of the chest are obtained. FINDINGS: There is no focal air space opacity, pleural effusion, or pneumothorax seen. The cardiac silhouette size is within normal limits. The osseous structures are intact. IMPRESSION: No acute cardiopulmonary process. No significant change from prior.
[2017-03-07 14:24] VITALS: BP 136/89; PULSE 69; RESP 16; TEMP 99
== END 2017-03-07 14:28 | disposition home or self-care (01) ==
LOC: EC 12:32
DX: J45.909 Unspecified asthma, uncomplicated (principal); R50.9 Fever, unspecified; F41.9 Anxiety disorder, unspecified; F32.9 Major depressive disorder, single episode, unspecified; Z87.891 Personal history of nicotine dependence; Z88.1 Allergy status to other antibiotic agents; Z88.5 Allergy status to narcotic agent; Z91.018 Allergy to other foods; Z91.02 Food additives allergy status; Z79.899 Other long term (current) drug therapy; Z79.51 Long term (current) use of inhaled steroids; G43.909 Migraine, unspecified, not intractable, without status migrainosus
CPT/HCPCS: 71020; 94640; 99283

== ENCOUNTER 2017-03-10 12:52 | Emergency (ER) | payer MEDICAID, OTHER ==
[2017-03-10 12:57] VITALS: TEMP 97.7
[2017-03-10] MEDS ORDERED: SODIUM CHLORIDE 0.9% 1,000 ML IV STA ×2 (13:15)
--- NOTE | 2017-03-10 13:21 | ED ---
General Adult HPI - General Chief complaint: Neuro Symptoms/Deficit Stated complaint: neck pain Time Seen by Provider: 03/10/17 13:07 Source: patient Mode of arrival: EMS Limitations: no limitations - History of Present Illness Initial comments: This 37-year-old -[place] female presents with a complaint of some facial numbness. She states that she feels somewhat in a fog or out of sorts. She relates a 3 week history of bronchitis. She initially was treated with some antibiotics and seemed to get better but then her symptoms recurred this past week. She was seen in the emergency department 2 days ago and was told that it likely was a virus. She was prescribed albuterol as well as a Medrol Dosepak. She states that her symptoms of the facial numbness started today. She denies any actual pain anywhere. She is still had a dry cough. She complains of a low-grade fever between 99 and 100. She denies any previous similar incidents. She denies any possibility of . She's been drinking well but has had a decrease in her appetite. She denies any chest pain or shortness of breath. She does have a history of asthma. She denies any other complaints or modifying factors. - Related Data Home Medications Medication Instructions Recorded Confirmed Loratadine [Claritin] 10 mg PO DAILY 05/04/14 03/10/17 Montelukast Sodium [Singulair] 10 mg PO HS 05/04/14 03/10/17 Dicyclomine [Bentyl] 20 mg PO TID PRN 05/05/14 03/10/17 Albuterol Nebulized [Ventolin 2.5 mg INHALATION RT-Q6H PRN 09/01/15 03/10/17 Nebulized] Diphenox-Atrop 2.5-0.025 mg 1 tab PO QID PRN 09/01/15 03/10/17 [Lomotil] Albuterol Sulfate [Proair Hfa] 2 puff INHALATION RT-Q6H PRN 04/02/16 03/10/17 Butalbital/Aspirin/Caffeine 1 cap PO DAILY PRN 08/04/16 03/10/17 [Gckzutesby-HWA-Vkhzcuzo Cap] Hydrochlorothiazide 25 mg PO DAILY 08/04/16 03/10/17 SUMAtriptan SUCCINATE [Imitrex] 100 mg PO BID PRN 09/02/16 03/10/17 Mometasone/Formoterol [Dulera 100 2 puff INHALATION RT-BID 12/01/16 03/10/17 Mcg/5 Mcg Inhaler] Topiramate [Topamax] 50 mg PO DAILY 12/01/16 03/10/17 amLODIPine [Norvasc] 10 mg PO DAILY 12/01/16 03/10/17 Amitriptyline HCl [Elavil] 50 mg PO HS 02/22/17 03/10/17 Venlafaxine HCl [Effexor] 150 mg PO DIRECTED 02/22/17 03/10/17 Previous Rx's Medication Instructions Recorded Ibuprofen [Motrin] 800 mg PO Q6HR PRN #20 tab 08/20/14 methylPREDNISolone Dose Pack 4 mg PO DIRECTED #21 package 03/07/17 [Medrol Dose Pack] Amoxic-Pot Clav 875-125Mg 1 each PO Q12HR #20 tablet 03/10/17 [Augmentin Xr 875-125] Allergies Allergy/AdvReac Type Severity Reaction Status Date / Time metronidazole [From Flagyl] Allergy Dyspnea Verified 03/10/17 14:41 Metronidazole HCl Allergy Dyspnea Verified 03/10/17 14:41 [From Flagyl] morphine Allergy Rash/Hives Verified 03/10/17 14:41 orange flavor AdvReac Abdominal Verified 03/10/17 14:41 Pain tomato [Tomato] AdvReac Abdominal Verified 03/10/17 14:41 Pain wheat AdvReac Abdominal Verified 03/10/17 14:41 Pain Review of Systems ROS Statement: Those systems with pertinent positive or pertinent negative responses have been documented in the HPI. ROS Other: All systems not noted in ROS Statement are negative. Past Medical History Past Medical History: Asthma, Chest Pain / Angina, GERD/Reflux, Pneumonia Additional Past Medical History / Comment(s): HIATAL HERNIA, ibs, chronic sinusitis/seasonal allergies,UTI, ATYPICAL CHEST PAIN, 7--14 STRESS TEST NEG. , bronchitis, colitis, IBS, migraines, occasional low back pain. History of Any Multi-Drug Resistant Organisms: None Reported Past Surgical History: Section, Cholecystectomy, Tubal Ligation Additional Past Surgical History / Comment(s): sinus surgery, D&C, x 4 , EGD/colonoscopy. Past Anesthesia/Blood Transfusion Reactions: Previous Problems w/ Anesthesia, Postoperative Nausea & Vomiting (PONV) Additional Past Anesthesia/Blood Transfusion Reaction / Comment(s): Pt did not go all the way under. Pt could hear, but not feel anything Past Psychological History: Anxiety, Depression Additional Psychological History / Comment(s): Pt resides with family and 4 children, 2 of which are under age 18 yrs. She is independent. She states her medication for depression works well. She denies bipolar. 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. Smoking Status: Former smoker Past Alcohol Use History: None Reported Additional Past Alcohol Use History / Comment(s): STARTED SMOKING AGE 22,QUIT 2012, SMOKED 1/2 TO 1 PPD. Past Drug Use History: None Reported Additional Drug Use History / Comment(s): STOPPED MARIJANA 2005 - Past Family History Father Family Medical History: Congestive Heart Failure (CHF), Coronary Artery Disease (CAD), Diabetes Mellitus Additional Family Medical History / Comment(s): stents,depression anxiety Mother Family Medical History: Cancer, Diabetes Mellitus, Hypertension Additional Family Medical History / Comment(s): colon cancer, adhd, bipolar, split personaltiy disorder. General Exam - General Exam Comments Initial Comments: GENERAL: The patient is well nourished and well hydrated. VITAL SIGNS: Heart rate, blood pressure, respiratory rate reviewed as recorded in nurse's notes. EYES: Pupils are round and reactive. Extraocular movements are intact. No conjunctival / lid redness or swelling. ENT: No external evidence of injury, swelling, or ecchymosis. Airway is patent. Throat is clear. NECK: Nontender. No swelling or evidence of injury. No subcutaneous emphysema. Trachea is midline. No thyroid mass. HEART: Regular rate and rhythm. Good peripheral pulses. LUNGS/CHEST: Breath sounds clear and equal bilaterally. No rales, rhonchi, or wheezes. No ecchymosis, subcutaneous emphysema, or tenderness. ABDOMEN: Abdomen soft without tenderness. No palpable masses or organomegaly. No peritoneal signs. No abdominal wall swelling or ecchymosis. EXTREMITIES: No extremity tenderness. Normal muscle tone and function. No thoracolumbar tenderness. NEUROLOGIC: There is some subjective numbness to face bilaterally. Cranial nerve exam reveals face is symmetrical, tongue is midline, speech is clear. SKIN: No abrasions or ecchymosis is noted. No induration or masses noted. PSYCHIATRIC: Alert and oriented. Appropriate behavior and judgment. Limitations: no limitations Course Vital Signs 03/10/17 12:54 Temperature 97.7 F Pulse Rate 85 Respiratory 16 Rate Blood Pressure 146/85 O2 Sat by Pulse 100 Oximetry Medical Decision Making - Medical Decision Making The patient was seen and examined. All diagnostics were reviewed. An EKG was done and shows a normal sinus rhythm at a rate of 81. No acute ST-T wave changes are identified. The ME interval is 154, QRS duration is 92, and the QTc interval is 427. The chest x-ray did not show any acute processes. The laboratory showed mild leukocytosis. She is in no distress on recheck. The exact cause of her symptoms are not definitively determined. The possibility of her having a recurrent bronchitis certainly is possible. Another course of antibiotics will be prescribed. Is felt as though she is stable for discharge and leaves in no identifiable distress. - Lab Data Result diagrams: 03/10/17 13:55 03/10/17 13:55 Lab Results 03/10/17 03/10/17 Range/Units 13:55 13:55 WBC 12.0 H (3.8-10.6) k/uL RBC 4.54 (3.80-5.40) m/uL Hgb 12.3 (11.4-16.0) gm/dL Hct 37.9 (34.0-46.0) % MCV 83.5 (80.0-100.0) fL MCH 27.1 (25.0-35.0) pg MCHC 32.5 (31.0-37.0) g/dL RDW 14.3 (11.5-15.5) % Plt Count 266 (150-450) k/uL Neutrophils % 61 % Lymphocytes % 31 % Monocytes % 4 % Eosinophils % 3 % Basophils % 1 % Neutrophils # 7.3 (1.3-7.7) k/uL Lymphocytes # 3.7 (1.0-4.8) k/uL Monocytes # 0.4 (0-1.0) k/uL Eosinophils # 0.4 (0-0.7) k/uL Basophils # 0.1 (0-0.2) k/uL Sodium 137 (137-145) mmol/L Potassium 4.1 (3.5-5.1) mmol/L Chloride 104 (98-107) mmol/L Carbon Dioxide 25 (22-30) mmol/L Anion Gap 8 mmol/L BUN 10 (7-17) mg/dL Creatinine 0.59 (0.52-1.04) mg/dL Est GFR (MDRD) Af Amer >60 (>60 ml/min/1.73 sqM) Est GFR (MDRD) Non-Af >60 (>60 ml/min/1.73 sqM) Glucose 116 H (74-99) mg/dL Calcium 9.2 (8.4-10.2) mg/dL Phosphorus 3.7 (2.5-4.5) mg/dL Magnesium 2.0 (1.6-2.3) mg/dL Total Bilirubin 0.4 (0.2-1.3) mg/dL AST 22 (14-36) U/L ALT 43 (9-52) U/L Alkaline Phosphatase 90 (38-126) U/L Total Protein 7.2 (6.3-8.2) g/dL Albumin 4.0 (3.5-5.0) g/dL TSH 2.630 (0.465-4.680) mIU/L Disposition Clinical Impression: Facial numbness, Bronchitis, Paresthesia, Leukocytosis Disposition: HOME SELF-CARE Condition: Good Instructions: Acute Bronchitis (ED), Paresthesia (ED) Prescriptions: Amoxic-Pot Clav 875-125Mg [Augmentin Xr 875-125] 1 each PO Q12HR #20 tablet Referrals: Sang Shelton MD [Primary Care Provider] - 1-2 days Time of Disposition: 15:13
--- NOTE | 2017-03-10 13:50 | XR ---
EXAMINATION TYPE: XR chest 2V DATE OF EXAM: 03/10/2017 1:45 PM HISTORY: altered mental status. REFERENCE: Previous study dated 03/07/2017. FINDINGS: The lungs are clear. Pleural spaces are clear. Heart size is normal. IMPRESSION: NORMAL CHEST.
[2017-03-10 14:12] LABS: Basophils # (A) 0.1 k/uL (0-0.2); Basophils % (A) 1 %; CH 27.3; CHCM 32.8; Eosinophils # (A) 0.4 k/uL (0-0.7); Eosinophils % (A) 3 %; HCT 37.9 % (34.0-46.0); HGB 12.3 gm/dL (11.4-16.0); Luc # (Auto) 0.11; Luc % (Auto) 1; Lymphocytes # (A) 3.7 k/uL (1.0-4.8); Lymphocytes % (A) 31 %; MCH 27.1 pg (25.0-35.0); MCHC 32.5 g/dL (31.0-37.0); MCV 83.5 fL (80.0-100.0); Mean Platelet Volume 6.7; Monocytes # (A) 0.4 k/uL (0-1.0); Monocytes % (A) 4 %; Neutrophils # (A) 7.3 k/uL (1.3-7.7); Neutrophils % (A) 61 %; RBC 4.54 m/uL (3.80-5.40); RDW 14.3 % (11.5-15.5); WBC (Perox) 11.56
[2017-03-10 14:19] LABS: ALT 43 U/L (9-52); AST 22 U/L (14-36); Alkaline Phosphatase 90 U/L (38-126); Anion Gap 8 mmol/L; Blood Urea Nitrogen 10 mg/dL (7-17); Calcium 9.2 mg/dL (8.4-10.2); Carbon Dioxide 25 mmol/L (22-30); Chloride 104 mmol/L (98-107); Glucose 116 mg/dL (74-99); Non-African American GFR(MDRD) >60 (>60 ml/min/1.73 sqM); Phosphorous 3.7 mg/dL (2.5-4.5); Potassium 4.1 mmol/L (3.5-5.1); Sodium 137 mmol/L (137-145); Total Bilirubin 0.4 mg/dL (0.2-1.3); Total Protein 7.2 g/dL (6.3-8.2)
[2017-03-10 15:25] VITALS: BP 137/86; PULSE 82; RESP 18
== END 2017-03-10 15:24 | disposition home or self-care (01) ==
LOC: EC 12:52
DX: R20.0 Anesthesia of skin (principal); J40 Bronchitis, not specified as acute or chronic; R20.9 Unspecified disturbances of skin sensation; D72.829 Elevated white blood cell count, unspecified; M54.2 Cervicalgia; K21.9 Gastro-esophageal reflux disease without esophagitis; K58.9 Irritable bowel syndrome, unspecified; F32.9 Major depressive disorder, single episode, unspecified; F41.9 Anxiety disorder, unspecified; Z87.891 Personal history of nicotine dependence; Z79.51 Long term (current) use of inhaled steroids; Z79.899 Other long term (current) drug therapy; Z88.1 Allergy status to other antibiotic agents; Z88.5 Allergy status to narcotic agent; Z91.018 Allergy to other foods
CPT/HCPCS: 36415; 71020; 80053; 83735; 84100; 84443; 85025; 93005; 96360; 99284

== ENCOUNTER 2017-04-24 07:29 | Emergency (ER) | payer MEDICAID, OTHER ==
[2017-04-24] MEDS: SODIUM CHLORIDE 0.9% 1,000 ML IV STA (08:26)
[2017-04-24] MEDS: KETOROLAC 30 MG/ML 1 ML VIAL IVP STA (08:27)
[2017-04-24] MEDS: ONDANSETRON 4 MG/2 ML VIAL IVP STA (08:27)
[2017-04-24] MEDS: HYDROmorphone 1 MG/ML 1 ML SYRINGE IVP STA ×2 (08:28→10:20)
[2017-04-24 08:30] LABS: Basophils % (A) 0 %; CH 27.7; CHCM 33.3; Eosinophils # (A) 0.2 k/uL (0-0.7); Eosinophils % (A) 3 %; HCT 36.6 % (34.0-46.0); HDW 2.71; HGB 12.2 gm/dL (11.4-16.0); Luc # (Auto) 0.19; Luc % (Auto) 2; Lymphocytes # (A) 2.7 k/uL (1.0-4.8); Lymphocytes % (A) 30 %; MCH 27.9 pg (25.0-35.0); MCHC 33.3 g/dL (31.0-37.0); MCV 83.6 fL (80.0-100.0); Mean Platelet Volume 6.8; Monocytes # (A) 0.3 k/uL (0-1.0); Monocytes % (A) 3 %; Neutrophils # (A) 5.5 k/uL (1.3-7.7); Neutrophils % (A) 62 %; RBC 4.38 m/uL (3.80-5.40); RDW 14.3 % (11.5-15.5); WBC (Perox) 9.65
--- NOTE | 2017-04-24 08:33 | ED ---
General Adult HPI - General Chief complaint: Abdominal Pain Stated complaint: kidney stone pain Time Seen by Provider: 04/24/17 08:09 Source: patient, RN notes reviewed Mode of arrival: ambulatory Limitations: no limitations - History of Present Illness Initial comments: Patient 37-year-old female significant past medical history of kidney stones, who presents emergency room today with a chief complaint of increased left- sided flank pain. Does admit that she was recently at [facility] just [address] obtained showing kidney stone. She states she also had a urinary tract infection at that time is currently on Macrobid. States been using Douglas at home for the pain with little relief over the last day. Does have an appointment with her urologist this afternoon at 2 PM. Missed the pain left flank and nausea currently. Patient denies any recent fever, chills, shortness of breath, chest pain, numbness or tingling, dysuria or hematuria, constipation or diarrhea, headaches or visual changes, or any other complaints. - Related Data Home Medications Medication Instructions Recorded Confirmed Loratadine [Claritin] 10 mg PO DAILY 05/04/14 04/24/17 Montelukast Sodium [Singulair] 10 mg PO HS 05/04/14 04/24/17 Dicyclomine [Bentyl] 20 mg PO TID PRN 05/05/14 04/24/17 Albuterol Nebulized [Ventolin 2.5 mg INHALATION RT-Q6H PRN 09/01/15 04/24/17 Nebulized] Diphenox-Atrop 2.5-0.025 mg 1 tab PO QID PRN 09/01/15 04/24/17 [Lomotil] Albuterol Sulfate [Proair Hfa] 2 puff INHALATION RT-Q6H PRN 04/02/16 04/24/17 Hydrochlorothiazide 25 mg PO DAILY 08/04/16 04/24/17 SUMAtriptan SUCCINATE [Imitrex] 100 mg PO BID PRN 09/02/16 04/24/17 Mometasone/Formoterol [Dulera 100 2 puff INHALATION RT-BID 12/01/16 04/24/17 Mcg/5 Mcg Inhaler] Topiramate [Topamax] 50 mg PO DAILY 12/01/16 04/24/17 amLODIPine [Norvasc] 10 mg PO DAILY 12/01/16 04/24/17 HYDROcodone/APAP 5-325MG [Douglas 1 tab PO Q6H PRN 04/24/17 04/24/17 5-325] Nitrofurantoin Monohyd/M-Cryst 100 mg PO Q12HR 04/24/17 04/24/17 [Macrobid] Venlafaxine HCl [Effexor] 37.5 mg PO DAILY 04/24/17 04/24/17 Previous Rx's Medication Instructions Recorded Ibuprofen [Motrin] 800 mg PO Q6HR PRN #20 tab 08/20/14 Allergies Allergy/AdvReac Type Severity Reaction Status Date / Time metronidazole [From Flagyl] Allergy Dyspnea Verified 04/24/17 08:20 Metronidazole HCl Allergy Dyspnea Verified 04/24/17 08:20 [From Flagyl] morphine Allergy Rash/Hives Verified 04/24/17 08:20 orange flavor AdvReac Abdominal Verified 04/24/17 08:20 Pain tomato [Tomato] AdvReac Abdominal Verified 04/24/17 08:20 Pain wheat AdvReac Abdominal Verified 04/24/17 08:20 Pain Review of Systems ROS Statement: Those systems with pertinent positive or pertinent negative responses have been documented in the HPI. ROS Other: All systems not noted in ROS Statement are negative. Past Medical History Past Medical History: Asthma, Chest Pain / Angina, GERD/Reflux, Pneumonia Additional Past Medical History / Comment(s): HIATAL HERNIA, ibs, chronic sinusitis/seasonal allergies,UTI, ATYPICAL CHEST PAIN, 7-11-14 STRESS TEST NEG. , bronchitis, colitis, IBS, migraines, occasional low back pain. KIDNEY STONES History of Any Multi-Drug Resistant Organisms: None Reported Past Surgical History: Section, Cholecystectomy, Tubal Ligation Additional Past Surgical History / Comment(s): sinus surgery, D&C, x 4 , EGD/colonoscopy. Past Anesthesia/Blood Transfusion Reactions: Previous Problems w/ Anesthesia, Postoperative Nausea & Vomiting (PONV) Additional Past Anesthesia/Blood Transfusion Reaction / Comment(s): Pt did not go all the way under. Pt could hear, but not feel anything Past Psychological History: Anxiety, Depression Additional Psychological History / Comment(s): Pt resides with family and 4 children, 2 of which are under age 18 yrs. She is independent. She states her medication for depression works well. She denies bipolar. 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 Smoking Status: Former smoker Past Alcohol Use History: None Reported Additional Past Alcohol Use History / Comment(s): STARTED SMOKING AGE 22,QUIT 2012, SMOKED 1/2 TO 1 PPD. Past Drug Use History: None Reported Additional Drug Use History / Comment(s): STOPPED MARIJANA 2005 - Past Family History Father Family Medical History: Congestive Heart Failure (CHF), Coronary Artery Disease (CAD), Diabetes Mellitus Additional Family Medical History / Comment(s): stents,depression anxiety Mother Family Medical History: Cancer, Diabetes Mellitus, Hypertension Additional Family Medical History / Comment(s): colon cancer, adhd, bipolar, split personaltiy disorder. General Exam - General Exam Comments Initial Comments: General: The patient is awake and alert, in no distress, and does not appear acutely ill. Eye: Pupils are equal, round and reactive to light, extra-ocular movements are intact. No nystagmus. There is normal conjunctiva bilaterally. No signs of icterus. Ears, nose, mouth and throat: There are moist mucous membranes and no oral lesions. Neck: The neck is supple, there is no tenderness or JVD. Cardiovascular: There is a regular rate and rhythm. No murmur, rub or gallop is appreciated. Respiratory: Lungs are clear to auscultation, respirations are non-labored, breath sounds are equal. No wheezes, stridor, rales, or rhonchi. Gastrointestinal: [Soft, non-distended, non-tender abdomen without masses or organomegaly noted. There is no rebound or guarding present. No CVA tenderness. Bowel sounds are unremarkable.] Musculoskeletal: Normal ROM, no tenderness. Strength 5/5. Sensation intact. Pulses equal bilaterally 2+. Neurological: A&O x 3. CN II-XII intact, There are no obvious motor or sensory deficits. Coordination appears grossly intact. Speech is normal. Skin: Skin is warm and dry and no rashes or lesions are noted. Psychiatric: Cooperative, appropriate mood & affect, normal judgment. Limitations: no limitations Course Vital Signs 04/24/17 04/24/17 04/24/17 07:42 08:33 09:01 Temperature 98.1 F 98.0 F 98.0 F Pulse Rate 85 76 81 Respiratory 17 16 16 Rate Blood Pressure 146/83 148/72 131/79 O2 Sat by Pulse 97 98 96 Oximetry Medical Decision Making - Medical Decision Making Case discussed in detail with attending physician Dr. Whitney. Patient reexamined at this time shows no signs of distress resting comfortable. States still experiencing some pain left flank does have an appointment with urologist she states at 145 this afternoon. Patient's urinalysis reviewed and does show evidence for infection. Patient's vitals are stable. No fever. No elevated white count. Patient's CT from [facility] was reviewed and does show or renal calculi on the left measuring approximately 3 mm. These results were discussed with the patient. At this time is felt to be beneficial to make her urology appointment down in [place]. Patient has been given dose of Rocephin here in the emergency room to cover for infection and a culture is pending. Patient will be discharged home advised to make her urology appointment return for any other concerns. She states understanding and is in agreement. - Lab Data Result diagrams: 04/24/17 08:15 04/24/17 08:46 Lab Results 04/24/17 04/24/17 04/24/17 Range/Units 08:12 08:15 08:46 WBC 9.0 (3.8-10.6) k/uL RBC 4.38 (3.80-5.40) m/uL Hgb 12.2 (11.4-16.0) gm/dL Hct 36.6 (34.0-46.0) % MCV 83.6 (80.0-100.0) fL MCH 27.9 (25.0-35.0) pg MCHC 33.3 (31.0-37.0) g/dL RDW 14.3 (11.5-15.5) % Plt Count 256 (150-450) k/uL Neutrophils % 62 % Lymphocytes % 30 % Monocytes % 3 % Eosinophils % 3 % Basophils % 0 % Neutrophils # 5.5 (1.3-7.7) k/uL Lymphocytes # 2.7 (1.0-4.8) k/uL Monocytes # 0.3 (0-1.0) k/uL Eosinophils # 0.2 (0-0.7) k/uL Basophils # 0.0 (0-0.2) k/uL Sodium 139 (137-145) mmol/L Potassium 3.9 (3.5-5.1) mmol/L Chloride 109 H (98-107) mmol/L Carbon Dioxide 19 L (22-30) mmol/L Anion Gap 11 mmol/L BUN 10 (7-17) mg/dL Creatinine 0.55 (0.52-1.04) mg/dL Est GFR (MDRD) Af Amer >60 (>60 ml/min/1.73 sqM) Est GFR (MDRD) Non-Af >60 (>60 ml/min/1.73 sqM) Glucose 125 H (74-99) mg/dL Calcium 8.8 (8.4-10.2) mg/dL Total Bilirubin 0.6 (0.2-1.3) mg/dL AST 25 (14-36) U/L ALT 39 (9-52) U/L Alkaline Phosphatase 63 (38-126) U/L Total Protein 6.9 (6.3-8.2) g/dL Albumin 3.8 (3.5-5.0) g/dL Amylase 37 (30-110) U/L Lipase 75 (23-300) U/L Urine Color Yellow Urine Appearance Cloudy H (Clear) Urine pH 6.0 (5.0-8.0) Ur Specific [place] 1.017 (1.001-1.035) Urine Protein Trace H (Negative) Urine Glucose (UA) Negative (Negative) Urine Ketones 1+ H (Negative) Urine Blood Trace H (Negative) Urine Nitrite Negative (Negative) Urine Bilirubin Negative (Negative) Urine Urobilinogen <2.0 (<2.0) mg/dL Ur Leukocyte Esterase Large H (Negative) Urine RBC 78 H (0-5) /hpf Urine WBC 63 H (0-5) /hpf Ur Squamous Epith Cells 12 H (0-4) /hpf Disposition Clinical Impression: Kidney stone Disposition: HOME SELF-CARE Condition: Good Instructions: Kidney Stones (ED) Additional Instructions: Please make it to your urology appointment at 145 this afternoon. Please continue previous to prescribed medications. Please return to emergency room symptoms increase or worsen or for any other concerns. Referrals: Morena Garcia MD [Primary Care Provider] - 1-2 days Time of Disposition: 09:45
[2017-04-24 08:39] LABS: Appearance,Urine Cloudy (Clear); Bilirubin,Urine Negative (Negative); Glucose,Urine (UA) Negative (Negative); Ketones,Urine 1+ (Negative); Leukocyte Esterase,Urine Large (Negative); Nitrite,Urine Negative (Negative); Particle Count 19769; Protein,Urine Trace (Negative); RBC,Urine 78 /hpf (0-5); Specific Gravity,Urine 1.017 (1.001-1.035); Squamous Epithelial Cell,Urine 12 /hpf (0-4); UA Billing (MACRO vs. MICRO) MICRO; Urobilinogen,Urine <2.0 mg/dL (<2.0); WBC,Urine 63 /hpf (0-5)
[2017-04-24 08:41] VITALS: RESP 16
--- NOTE | 2017-04-24 09:07 | XR ---
EXAMINATION TYPE: XR KUB DATE OF EXAM: 04/24/2017 COMPARISON: 05/09/2015 HISTORY: Left flank pain TECHNIQUE: One view abdominal series FINDINGS: The osseous structures are intact. The bowel gas pattern is nonspecific. Lung bases are clear. Surg ical clips in the right upper quadrant. Stable right-sided hemipelvic calcifications likely vascular. IMPRESSION: 1. Nonspecific abdomen.
[2017-04-24 09:32] LABS: ALT 39 U/L (9-52); AST 25 U/L (14-36); Alkaline Phosphatase 63 U/L (38-126); Amylase 37 U/L (30-110); Anion Gap 11 mmol/L; Blood Urea Nitrogen 10 mg/dL (7-17); Calcium 8.8 mg/dL (8.4-10.2); Carbon Dioxide 19 mmol/L (22-30); Chloride 109 mmol/L (98-107); Glucose 125 mg/dL (74-99); Non-African American GFR(MDRD) >60 (>60 ml/min/1.73 sqM); Potassium 3.9 mmol/L (3.5-5.1); Sodium 139 mmol/L (137-145); Total Bilirubin 0.6 mg/dL (0.2-1.3); Total Protein 6.9 g/dL (6.3-8.2)
[2017-04-24 10:07] VITALS: BP 137/72; TEMP 97.8
[2017-04-24 10:29] VITALS: PULSE 89
== END 2017-04-24 10:33 | disposition home or self-care (01) ==
LOC: EC 07:29
DX: N20.0 Calculus of kidney (principal); R11.0 Nausea; J45.909 Unspecified asthma, uncomplicated; F32.9 Major depressive disorder, single episode, unspecified; F41.9 Anxiety disorder, unspecified; Z87.891 Personal history of nicotine dependence; Z79.51 Long term (current) use of inhaled steroids; Z79.899 Other long term (current) drug therapy; Z88.1 Allergy status to other antibiotic agents; Z88.5 Allergy status to narcotic agent; Z91.018 Allergy to other foods; Z87.440 Personal history of urinary (tract) infections; Z86.79 Personal history of other diseases of the circulatory system
CPT/HCPCS: 99284; 96365; 96375 ×3; 96376; 96361; 36415; 80053; 82150; 83690; 85025; 81001; 87086; 74000; J2405; J0696; J1885; J1170

== ENCOUNTER 2017-04-24 21:08 | Emergency (ER) | payer MEDICAID, OTHER ==
[2017-04-24 21:14] VITALS: TEMP 98.8
[2017-04-24] MEDS ORDERED: SODIUM CHLORIDE 0.9% 1,000 ML IV STA (21:56)
[2017-04-24] MEDS ORDERED: HYDROmorphone 1 MG/ML 1 ML SYRINGE IVP STA (21:56)
--- NOTE | 2017-04-24 22:01 | ED ---
Abdominal Pain HPI - General Chief Complaint: Abdominal Pain Stated Complaint: Flank Pain Time Seen by Provider: 04/24/17 21:17 Source: patient, RN notes reviewed, old records reviewed Mode of arrival: ambulatory Limitations: no limitations - History of Present Illness Initial Comments: This is a 37-year-old female presenting to the emergency Department chief complaint into the left flank pain. Patient was seen earlier today and was given IV Rocephin and pain medication before she could see her urologist appointment this afternoon. Patient was discovered to have found multiple kidney stones within the left ureter. Patient reports that she follow up with her urologist today and her urologist placed her on Bactrim for a kidney infection. Patient reports that she has been taking Warroad for the past few days due to her pain and is close to being out of it. Patient reports that she called her primary care provider she is continuing to have pain despite the antibiotics and taking the Warroad. Patient's primary care provider recommended that she come to the emergency department for IV antibiotics. Patient denies any fever. She denies any changes in urination or bowel movement. She states that she's had no vomiting. Patient reports that her primary care provider did not like the choice of antibiotic because it does not cover for a kidney infection well. - Related Data Home Medications Medication Instructions Recorded Confirmed Loratadine [Claritin] 10 mg PO DAILY 05/04/14 04/24/17 Montelukast Sodium [Singulair] 10 mg PO HS 05/04/14 04/24/17 Dicyclomine [Bentyl] 20 mg PO TID PRN 05/05/14 04/24/17 Albuterol Nebulized [Ventolin 2.5 mg INHALATION RT-Q6H PRN 09/01/15 04/24/17 Nebulized] Diphenox-Atrop 2.5-0.025 mg 1 tab PO QID PRN 09/01/15 04/24/17 [Lomotil] Albuterol Sulfate [Proair Hfa] 2 puff INHALATION RT-Q6H PRN 04/02/16 04/24/17 Hydrochlorothiazide 25 mg PO DAILY 08/04/16 04/24/17 SUMAtriptan SUCCINATE [Imitrex] 100 mg PO BID PRN 09/02/16 04/24/17 Mometasone/Formoterol [Dulera 100 2 puff INHALATION RT-BID 12/01/16 04/24/17 Mcg/5 Mcg Inhaler] Topiramate [Topamax] 50 mg PO DAILY 12/01/16 04/24/17 amLODIPine [Norvasc] 10 mg PO DAILY 12/01/16 04/24/17 HYDROcodone/APAP 5-325MG [Warroad 1 tab PO Q6H PRN 04/24/17 04/24/17 5-325] Nitrofurantoin Monohyd/M-Cryst 100 mg PO Q12HR 04/24/17 04/24/17 [Macrobid] Venlafaxine HCl [Effexor] 37.5 mg PO DAILY 04/24/17 04/24/17 Previous Rx's Medication Instructions Recorded Ibuprofen [Motrin] 800 mg PO Q6HR PRN #20 tab 08/20/14 Ciprofloxacin HCl [Cipro] 500 mg PO Q12HR #14 tablet 04/24/17 HYDROcodone/APAP 10-325MG [Warroad 1 tab PO Q6H PRN #15 tab 04/24/17 10-325] Allergies Allergy/AdvReac Type Severity Reaction Status Date / Time metronidazole [From Flagyl] Allergy Dyspnea Verified 04/24/17 21:17 Metronidazole HCl Allergy Dyspnea Verified 04/24/17 21:17 [From Flagyl] morphine Allergy Rash/Hives Verified 04/24/17 21:17 orange flavor AdvReac Abdominal Verified 04/24/17 21:17 Pain tomato [Tomato] AdvReac Abdominal Verified 04/24/17 21:17 Pain wheat AdvReac Abdominal Verified 04/24/17 21:17 Pain Review of Systems ROS Statement: Those systems with pertinent positive or pertinent negative responses have been documented in the HPI. ROS Other: All systems not noted in ROS Statement are negative. Past Medical History Past Medical History: Asthma, Chest Pain / Angina, GERD/Reflux, Pneumonia Additional Past Medical History / Comment(s): HIATAL HERNIA, ibs, chronic sinusitis/seasonal allergies,UTI, ATYPICAL CHEST PAIN, 05-20-14 STRESS TEST NEG. , bronchitis, colitis, IBS, migraines, occasional low back pain. KIDNEY STONES History of Any Multi-Drug Resistant Organisms: None Reported Past Surgical History: Section, Cholecystectomy, Tubal Ligation Additional Past Surgical History / Comment(s): sinus surgery, D&C, x 4 , EGD/colonoscopy. Past Anesthesia/Blood Transfusion Reactions: Previous Problems w/ Anesthesia, Postoperative Nausea & Vomiting (PONV) Additional Past Anesthesia/Blood Transfusion Reaction / Comment(s): Pt did not go all the way under. Pt could hear, but not feel anything Past Psychological History: Anxiety, Depression Smoking Status: Former smoker Past Alcohol Use History: None Reported Past Drug Use History: None Reported - Past Family History Father Family Medical History: Congestive Heart Failure (CHF), Coronary Artery Disease (CAD), Diabetes Mellitus Additional Family Medical History / Comment(s): stents,depression anxiety Mother Family Medical History: Cancer, Diabetes Mellitus, Hypertension Additional Family Medical History / Comment(s): colon cancer, adhd, bipolar, split personaltiy disorder. General Exam - General Exam Comments Initial Comments: Pleasant 37-year-old female. No acute distress. Limitations: no limitations General appearance: alert, in no apparent distress Head exam: Present: atraumatic, normocephalic, normal inspection Eye exam: Present: normal appearance, PERRL, EOMI. Absent: scleral icterus, conjunctival injection, periorbital swelling ENT exam: Present: normal exam, mucous membranes moist Neck exam: Present: normal inspection. Absent: tenderness, meningismus, lymphadenopathy Respiratory exam: Present: normal lung sounds bilaterally. Absent: respiratory distress, wheezes, rales, rhonchi, stridor Cardiovascular Exam: Present: regular rate, normal rhythm, normal heart sounds. Absent: systolic murmur, diastolic murmur, rubs, gallop, clicks GI/Abdominal exam: Present: soft, normal bowel sounds. Absent: distended, tenderness, guarding, rebound, rigid Extremities exam: Present: normal inspection, full ROM, normal capillary refill. Absent: tenderness, pedal edema, joint swelling, calf tenderness Back exam: Present: normal inspection Neurological exam: Present: alert, oriented X3, CN II-XII intact Psychiatric exam: Present: normal affect, normal mood Skin exam: Present: warm, dry, intact, normal color. Absent: rash Course Vital Signs 04/24/17 21:12 Temperature 98.8 F Pulse Rate 84 Respiratory 16 Rate Blood Pressure 173/98 O2 Sat by Pulse 99 Oximetry Medical Decision Making - Medical Decision Making Is a 37-year-old female presenting to emergency Department with chief complaint of left flank pain. She was seen in the emergency department earlier today and given IM of the Rocephin. She did follow-up with her urologist to recommended she be placed on Bactrim for a kidney infection. She called her primary care provider who is unhappy with the choice of antibiotic in urgent patient to come in for IV antibiotic. Patient was given repeat lab work. White count is stable and patient is afebrile. Urine does show some improvement from earlier today, no red blood cells or significant decrease in white blood cells. This could be related to the antibiotic dose of Rocephin earlier today. Patient states that she plans to follow-up with her primary care provider for other issues, including needing to schedule a colonoscopy shortly. She does deny any difficulty with bowel movements including constipation or blood in her stools. Patient case was discussed with Dr. Carr. Per her primary care provider we can switch the antibiotic to something with better coverage for nephritis including ciprofloxacin. will be started on Cipro twice a day for the next week. Patient also be written for more Warroad. Patient does not meet admission requirements at this time. Patient was advised on return parameters and patient understands treatment plan will comply. - Lab Data Result diagrams: 04/24/17 22:18 04/24/17 22:15 Lab Results 04/24/17 04/24/17 04/24/17 Range/Units 22:15 22:18 22:34 WBC 7.6 (3.8-10.6) k/uL RBC 4.28 (3.80-5.40) m/uL Hgb 11.8 (11.4-16.0) gm/dL Hct 36.7 (34.0-46.0) % MCV 85.7 (80.0-100.0) fL MCH 27.6 (25.0-35.0) pg MCHC 32.2 (31.0-37.0) g/dL RDW 14.5 (11.5-15.5) % Plt Count 201 (150-450) k/uL Neutrophils % 49 % Lymphocytes % 41 % Monocytes % 4 % Eosinophils % 4 % Basophils % 0 % Neutrophils # 3.8 (1.3-7.7) k/uL Lymphocytes # 3.1 (1.0-4.8) k/uL Monocytes # 0.3 (0-1.0) k/uL Eosinophils # 0.3 (0-0.7) k/uL Basophils # 0.0 (0-0.2) k/uL Sodium 138 (137-145) mmol/L Potassium 3.8 (3.5-5.1) mmol/L Chloride 104 (98-107) mmol/L Carbon Dioxide 24 (22-30) mmol/L Anion Gap 10 mmol/L BUN 9 (7-17) mg/dL Creatinine 0.58 (0.52-1.04) mg/dL Est GFR (MDRD) Af Amer >60 (>60 ml/min/1.73 sqM) Est GFR (MDRD) Non-Af >60 (>60 ml/min/1.73 sqM) Glucose 125 H (74-99) mg/dL Calcium 9.0 (8.4-10.2) mg/dL Total Bilirubin 0.5 (0.2-1.3) mg/dL AST 30 (14-36) U/L ALT 38 (9-52) U/L Alkaline Phosphatase 70 (38-126) U/L Total Protein 7.5 (6.3-8.2) g/dL Albumin 4.1 (3.5-5.0) g/dL Amylase 45 (30-110) U/L Lipase 103 (23-300) U/L Urine Color Light Yellow Urine Appearance Clear (Clear) Urine pH 6.5 (5.0-8.0) Ur Specific [place] 1.011 (1.001-1.035) Urine Protein Negative (Negative) Urine Glucose (UA) Negative (Negative) Urine Ketones Negative (Negative) Urine Blood Negative (Negative) Urine Nitrite Negative (Negative) Urine Bilirubin Negative (Negative) Urine Urobilinogen <2.0 (<2.0) mg/dL Ur Leukocyte Esterase Large H (Negative) Urine RBC 1 (0-5) /hpf Urine WBC 5 (0-5) /hpf Urine WBC Clumps Rare H (None) /hpf Ur Squamous Epith Cells 1 (0-4) /hpf Urine Bacteria Rare H (None) /hpf Urine Mucus Rare H (None) /hpf Disposition Clinical Impression: Left flank pain Disposition: HOME SELF-CARE Condition: Good Instructions: Flank Pain (ED) Additional Instructions: Follow-up tomorrow morning with her primary care physician. Return to the emergency department if any alarming signs or symptoms occur. Prescriptions: Ciprofloxacin HCl [Cipro] 500 mg PO Q12HR #14 tablet HYDROcodone/APAP 10-325MG [Warroad 10-325] 1 tab PO Q6H PRN #15 tab PRN Reason: Pain Referrals: Morena Garcia MD [Primary Care Provider] - 1-2 days Time of Disposition: 23:30
[2017-04-24 22:28] LABS: Basophils % (A) 0 %; CH 27.6; CHCM 32.4; Eosinophils # (A) 0.3 k/uL (0-0.7); Eosinophils % (A) 4 %; HCT 36.7 % (34.0-46.0); HDW 2.55; HGB 11.8 gm/dL (11.4-16.0); Luc % (Auto) 1; Lymphocytes # (A) 3.1 k/uL (1.0-4.8); Lymphocytes % (A) 41 %; MCH 27.6 pg (25.0-35.0); MCHC 32.2 g/dL (31.0-37.0); MCV 85.7 fL (80.0-100.0); Mean Platelet Volume 8.3; Monocytes # (A) 0.3 k/uL (0-1.0); Monocytes % (A) 4 %; Neutrophils # (A) 3.8 k/uL (1.3-7.7); Neutrophils % (A) 49 %; RBC 4.28 m/uL (3.80-5.40); RDW 14.5 % (11.5-15.5); WBC 7.6 k/uL (3.8-10.6); WBC (Perox) 8.32
[2017-04-24 22:46] LABS: ALT 38 U/L (9-52); AST 30 U/L (14-36); Alkaline Phosphatase 70 U/L (38-126); Amylase 45 U/L (30-110); Anion Gap 10 mmol/L; Blood Urea Nitrogen 9 mg/dL (7-17); Carbon Dioxide 24 mmol/L (22-30); Chloride 104 mmol/L (98-107); Glucose 125 mg/dL (74-99); Non-African American GFR(MDRD) >60 (>60 ml/min/1.73 sqM); Potassium 3.8 mmol/L (3.5-5.1); Sodium 138 mmol/L (137-145); Total Bilirubin 0.5 mg/dL (0.2-1.3); Total Protein 7.5 g/dL (6.3-8.2)
[2017-04-24 23:12] LABS: Appearance,Urine Clear (Clear); Bacteria,Urine Rare /hpf; Bilirubin,Urine Negative (Negative); Glucose,Urine (UA) Negative (Negative); Ketones,Urine Negative (Negative); Leukocyte Esterase,Urine Large (Negative); Mucus,Urine Rare /hpf; Nitrite,Urine Negative (Negative); PH, Urine 6.5 (5.0-8.0); Particle Count 832; Protein,Urine Negative (Negative); RBC,Urine 1 /hpf (0-5); Specific Gravity,Urine 1.011 (1.001-1.035); Squamous Epithelial Cell,Urine 1 /hpf (0-4); UA Billing (MACRO vs. MICRO) MICRO; Urobilinogen,Urine <2.0 mg/dL (<2.0); WBC,Urine 5 /hpf (0-5)
[2017-04-24] MEDS ORDERED: KETOROLAC 30 MG/ML 1 ML VIAL IVP STA (23:32)
[2017-04-24 23:50] VITALS: BP 149/90; PULSE 66; RESP 18
== END 2017-04-24 23:51 | disposition home or self-care (01) ==
LOC: EC 21:08
DX: R10.9 Unspecified abdominal pain (principal); K21.9 Gastro-esophageal reflux disease without esophagitis; F32.9 Major depressive disorder, single episode, unspecified; F41.9 Anxiety disorder, unspecified; Z87.891 Personal history of nicotine dependence; Z79.899 Other long term (current) drug therapy; Z88.1 Allergy status to other antibiotic agents; Z88.5 Allergy status to narcotic agent; Z91.018 Allergy to other foods; Z90.49 Acquired absence of other specified parts of digestive tract
CPT/HCPCS: 36415; 80053; 81001; 82150; 83690; 85025; 96374; 96375; 99284

== ENCOUNTER 2017-04-27 18:52 | Emergency (ER) | payer MEDICAID, OTHER ==
[2017-04-27] MEDS ORDERED: PHENAZOPYRIDINE 200 MG TAB PO STA (19:43)
--- NOTE | 2017-04-27 20:25 | US ---
EXAMINATION TYPE: US kidneys/renal and bladder DATE OF EXAM: 04/27/2017 COMPARISON: NONE CLINICAL HISTORY: Pain Lt flank. Hx kidney stones per pt EXAM MEASUREMENTS: Right Kidney: 01.4 x 3.9 x 5.1 cm Left Kidney: 10.1 x 4.9 x 4.8 cm Limited due to bowel gas and body habitus. Right Kidney: No hydronephrosis or masses seen, appears wnl Left Kidney: Appears to have small echogenic foci 2 measured in upper and mid pole possible kidney st ones Bladder: appears wnl Bilateral Jets seen: Yes There is no evidence for hydronephrosis at this point in time. Possible nephrolithiasis' seen in the Left Kidney. No masses are identified. The urinary bladder is anechoic. Bilateral ureteral jets a re seen. IMPRESSION: 1. Possible nonobstructing renal stones discussed above
--- NOTE | 2017-04-27 20:46 | ED ---
General Adult HPI - General Chief complaint: Recheck/Abnormal Lab/Rx Stated complaint: rt flank pain Time Seen by Provider: 04/27/17 19:13 Source: patient Mode of arrival: ambulatory Limitations: no limitations - History of Present Illness Initial comments: Patient's a 37-year-old female presenting with worsening left flank pain. She was seen multiple times in different emergency rooms for her left flank pain. She was started on Arley's 5 and escalated to Arley's 10 for her pain. Nothing seems to help her pain. Patient states she had a CAT scan that showed possible kidney stones - not ureteral stones or hydronephrosis. She was diagnosed with a possible urinary tract infection and started on Macrobid which was changed to Bactrim and later changed to Cipro. Patient states she went to [facility] 04/20/2017 diagnosed with nephrolithiasis and urinary tract infection. She was started on Macrobid at that time. Patient presented to the clinic for here on 04/24/2017 for worsening pain. Patient had a UA which was contaminated showing 12 epithelial cells with 63 urine WBCs, 78 urine RBCs. Urine culture from that time showed skin and genital anayeli. Patient had normal vital signs and unremarkable laboratory workup. Patient was given a total of 2 mg Dilaudid and 30 mg of Toradol. Patient was also given IV Rocephin. Patient states she follow up with her urologist Dr. Lockwood in [place] who placed her on Bactrim for possible kidney infection. Patient return to the ER the evening of 04/24/2017 for worsening pain. At that time she was given 0.5mg of Dilaudid and 30 mg of Toradol. - Related Data Home Medications Medication Instructions Recorded Confirmed Loratadine [Claritin] 10 mg PO DAILY 05/04/14 04/27/17 Montelukast Sodium [Singulair] 10 mg PO HS 05/04/14 04/27/17 Dicyclomine [Bentyl] 20 mg PO TID PRN 05/05/14 04/27/17 Albuterol Nebulized [Ventolin 2.5 mg INHALATION RT-QID PRN 09/01/15 04/27/17 Nebulized] Diphenox-Atrop 2.5-0.025 mg 1 tab PO QID PRN 09/01/15 04/27/17 [Lomotil] Albuterol Sulfate [Proair Hfa] 2 puff INHALATION RT-QID PRN 04/02/16 04/27/17 Hydrochlorothiazide 25 mg PO DAILY 08/04/16 04/27/17 SUMAtriptan SUCCINATE [Imitrex] 100 mg PO BID PRN 09/02/16 04/27/17 Mometasone/Formoterol [Dulera 100 2 puff INHALATION RT-BID 12/01/16 04/27/17 Mcg/5 Mcg Inhaler] amLODIPine [Norvasc] 10 mg PO DAILY 12/01/16 04/27/17 Ibuprofen [Motrin] 800 mg PO TID PRN 04/27/17 04/27/17 Topiramate [Topamax] 50 mg PO DAILY 04/27/17 04/27/17 Venlafaxine HCl [Effexor XR] 75 mg PO DAILY 04/27/17 04/27/17 Previous Rx's Medication Instructions Recorded Ciprofloxacin HCl [Cipro] 500 mg PO Q12HR #14 tablet 04/24/17 HYDROcodone/APAP 10-325MG [Arley 1 tab PO Q6H PRN #15 tab 04/24/17 10-325] Allergies Allergy/AdvReac Type Severity Reaction Status Date / Time metronidazole [From Flagyl] Allergy Dyspnea Verified 04/27/17 18:57 morphine Allergy Rash/Hives Verified 04/27/17 18:57 orange flavor AdvReac Abdominal Verified 04/27/17 18:57 Pain tomato [Tomato] AdvReac Abdominal Verified 04/27/17 18:57 Pain wheat AdvReac Abdominal Verified 04/27/17 18:57 Pain Review of Systems ROS Statement: Those systems with pertinent positive or pertinent negative responses have been documented in the HPI. Constitutional: No fever and no chills. HENT: No congestion, no rhinorrhea and no sore throat. Eyes: No discharge and no redness. Respiratory: No cough and no shortness of breath. Cardiovascular: No chest pain and no palpitations. Gastrointestinal: No nausea, no vomiting, no abdominal pain and no diarrhea. Genitourinary: + Left flank pain. No dysuria and no hematuria. Musculoskeletal: No back pain and no arthralgias. Skin: No pallor and no rash. Neurological: No dizziness and No headaches. ROS Other: All systems not noted in ROS Statement are negative. Past Medical History Past Medical History: Asthma, Chest Pain / Angina, GERD/Reflux, Pneumonia Additional Past Medical History / Comment(s): HIATAL HERNIA, ibs, chronic sinusitis/seasonal allergies,UTI, ATYPICAL CHEST PAIN, 7--14 STRESS TEST NEG. , bronchitis, colitis, IBS, migraines, occasional low back pain. KIDNEY STONES History of Any Multi-Drug Resistant Organisms: None Reported Past Surgical History: Section, Cholecystectomy, Tubal Ligation Additional Past Surgical History / Comment(s): sinus surgery, D&C, x 4 , EGD/colonoscopy. Past Anesthesia/Blood Transfusion Reactions: Previous Problems w/ Anesthesia, Postoperative Nausea & Vomiting (PONV) Additional Past Anesthesia/Blood Transfusion Reaction / Comment(s): Pt did not go all the way under. Pt could hear, but not feel anything Past Psychological History: Anxiety, Depression Smoking Status: Former smoker Past Alcohol Use History: None Reported Past Drug Use History: None Reported - Past Family History Father Family Medical History: Congestive Heart Failure (CHF), Coronary Artery Disease (CAD), Diabetes Mellitus Additional Family Medical History / Comment(s): stents,depression anxiety Mother Family Medical History: Cancer, Diabetes Mellitus, Hypertension Additional Family Medical History / Comment(s): colon cancer, adhd, bipolar, split personaltiy disorder. General Exam - General Exam Comments Initial Comments: Constitutional: Patient appears well-developed and well-nourished. No distress. Obese. Head: Normocephalic and atraumatic. Eyes: Conjunctivae and EOM are normal. Right eye exhibits no discharge. Left eye exhibits no discharge. No scleral icterus. Neck: Normal range of motion. Neck supple. Cardiovascular: Normal rate and regular rhythm. No murmur heard. Pulmonary/Chest: Effort normal and breath sounds normal. No respiratory distress. No wheezes. Abdominal: Soft. No distension. There is no tenderness. There is no rebound and no guarding. Musculoskeletal: Normal range of motion. No edema or tenderness. Neurological: Patient alert and oriented to person, place, and time. Skin: Skin is warm and dry. Not diaphoretic. No rash. Nursing notes and vitals reviewed. Limitations: no limitations Course Vital Signs 04/27/17 04/27/17 04/27/17 18:55 20:48 21:53 Temperature 98.5 F 98.1 F Pulse Rate 90 79 Respiratory 20 20 16 Rate Blood Pressure 139/75 142/94 O2 Sat by Pulse 98 98 Oximetry 04/27/17 21:59 Temperature 97.8 F Pulse Rate 65 Respiratory 18 Rate Blood Pressure 151/85 O2 Sat by Pulse 95 Oximetry - Reevaluation(s) Reevaluation #1: 04/27/17 22:02 Patient updated on results and feeling better/stable to home with follow-up with PCP tomorrow. Medical Decision Making - Medical Decision Making Patient is a 37-year-old female presenting with flank pain that started since . Initial concern was for urinary tract infection for which she was on Macrobid which was later switched which she is currently on Cipro. Multiple urinalysis do not show concern for urinary tract infection. Patient with nephrolithiasis without ureterolithiasis or hydronephrosis. Patient afebrile and vital signs stable. Patient with normal CBC, BMP. UA shows moderate blood. Abdominal x-ray as well as abdominal ultrasound shows concern for left nephrolithiasis without hydronephrosis or ureterolithiasis. Patient was given a trial of Pyridium to see if numbing the urinary tract would changed symptoms. Patient did not notice a difference here. Patient does have enough pain pills at home patient is not requesting a refill. She is agreeable to following up with PCP for further evaluation of the cause for left flank pain. Prior to discharge, patient was resting comfortably in bed. Course of stay stable for outpatient management. Tolerable pain. Discussed physical exam and diagnostic tests with patient. Questions answered and patient is agreeable to discharge with close follow up with Primary Care Physician. Instructed to return to Emergency Department if symptoms worsen. - Lab Data Result diagrams: 04/27/17 20:40 04/27/17 20:40 Lab Results 04/27/17 04/27/17 04/27/17 Range/Units 20:40 20:40 21:10 WBC 8.2 (3.8-10.6) k/uL RBC 4.28 (3.80-5.40) m/uL Hgb 11.6 (11.4-16.0) gm/dL Hct 36.0 (34.0-46.0) % MCV 84.0 (80.0-100.0) fL MCH 27.0 (25.0-35.0) pg MCHC 32.1 (31.0-37.0) g/dL RDW 14.3 (11.5-15.5) % Plt Count 245 (150-450) k/uL Neutrophils % 65 % Lymphocytes % 28 % Monocytes % 2 % Eosinophils % 3 % Basophils % 1 % Neutrophils # 5.4 (1.3-7.7) k/uL Lymphocytes # 2.3 (1.0-4.8) k/uL Monocytes # 0.2 (0-1.0) k/uL Eosinophils # 0.2 (0-0.7) k/uL Basophils # 0.0 (0-0.2) k/uL Sodium 139 (137-145) mmol/L Potassium 4.0 (3.5-5.1) mmol/L Chloride 105 (98-107) mmol/L Carbon Dioxide 24 (22-30) mmol/L Anion Gap 10 mmol/L BUN 8 (7-17) mg/dL Creatinine 0.60 (0.52-1.04) mg/dL Est GFR (MDRD) Af Amer >60 (>60 ml/min/1.73 sqM) Est GFR (MDRD) Non-Af >60 (>60 ml/min/1.73 sqM) Glucose 151 H (74-99) mg/dL Calcium 9.3 (8.4-10.2) mg/dL Urine Color Yellow Urine Appearance Clear (Clear) Urine pH 6.5 (5.0-8.0) Ur Specific [place] 1.011 (1.001-1.035) Urine Protein Negative (Negative) Urine Glucose (UA) Negative (Negative) Urine Ketones Negative (Negative) Urine Blood Moderate H (Negative) Urine Nitrite Negative (Negative) Urine Bilirubin Negative (Negative) Urine Urobilinogen <2.0 (<2.0) mg/dL Ur Leukocyte Esterase Trace H (Negative) Urine RBC 41 H (0-5) /hpf Urine WBC 4 (0-5) /hpf Disposition Clinical Impression: Hematuria, Left flank pain Disposition: HOME SELF-CARE Condition: Good Instructions: Hematuria (ED), Flank Pain (ED) Referrals: Morena Garcia MD [Primary Care Provider] - 1-2 days
[2017-04-27 20:51] LABS: Basophils % (A) 1 %; CH 27.6; Eosinophils # (A) 0.2 k/uL (0-0.7); Eosinophils % (A) 3 %; HGB 11.6 gm/dL (11.4-16.0); Luc # (Auto) 0.11; Luc % (Auto) 1; Lymphocytes # (A) 2.3 k/uL (1.0-4.8); Lymphocytes % (A) 28 %; MCHC 32.1 g/dL (31.0-37.0); Mean Platelet Volume 6.9; Monocytes # (A) 0.2 k/uL (0-1.0); Monocytes % (A) 2 %; Neutrophils # (A) 5.4 k/uL (1.3-7.7); Neutrophils % (A) 65 %; RBC 4.28 m/uL (3.80-5.40); RDW 14.3 % (11.5-15.5); WBC 8.2 k/uL (3.8-10.6); WBC (Perox) 8.53
[2017-04-27 21:12] LABS: Anion Gap 10 mmol/L; Blood Urea Nitrogen 8 mg/dL (7-17); Calcium 9.3 mg/dL (8.4-10.2); Carbon Dioxide 24 mmol/L (22-30); Chloride 105 mmol/L (98-107); Glucose 151 mg/dL (74-99); Non-African American GFR(MDRD) >60 (>60 ml/min/1.73 sqM); Sodium 139 mmol/L (137-145)
[2017-04-27 21:25] LABS: Appearance,Urine Clear (Clear); Bilirubin,Urine Negative (Negative); Glucose,Urine (UA) Negative (Negative); Ketones,Urine Negative (Negative); Leukocyte Esterase,Urine Trace (Negative); Nitrite,Urine Negative (Negative); PH, Urine 6.5 (5.0-8.0); Particle Count 1257; Protein,Urine Negative (Negative); RBC,Urine 41 /hpf (0-5); Specific Gravity,Urine 1.011 (1.001-1.035); UA Billing (MACRO vs. MICRO) MICRO; Urobilinogen,Urine <2.0 mg/dL (<2.0); WBC,Urine 4 /hpf (0-5)
--- NOTE | 2017-04-27 21:27 | XR ---
EXAMINATION TYPE: XR KUB DATE OF EXAM: 04/27/2017 COMPARISON: NONE INDICATION: Pain TECHNIQUE: Single view abdomen upright view FINDINGS: There is a normal bowel gas pattern. No free air is evident. Cholecystectomy clips are present. A arnoldo nt 0.4 cm calcification overlying the inferior pole left kidney. Psoas margins are normal. No organomegaly is present. IMPRESSION: 1. Possible left renal stone. 2. Nonspecific abdomen.
[2017-04-27 22:00] VITALS: BP 151/85; PULSE 65; RESP 18; TEMP 97.8
== END 2017-04-27 22:00 | disposition home or self-care (01) ==
LOC: EC 18:52
DX: R31.9 Hematuria, unspecified (principal); R10.9 Unspecified abdominal pain; F41.9 Anxiety disorder, unspecified; F32.9 Major depressive disorder, single episode, unspecified; J45.909 Unspecified asthma, uncomplicated; E66.9 Obesity, unspecified; Z87.891 Personal history of nicotine dependence; Z79.51 Long term (current) use of inhaled steroids; Z79.899 Other long term (current) drug therapy; Z88.1 Allergy status to other antibiotic agents; Z88.5 Allergy status to narcotic agent; Z91.018 Allergy to other foods; Z86.69 Personal history of other diseases of the nervous system and sense organs; Z87.01 Personal history of pneumonia (recurrent); Z90.49 Acquired absence of other specified parts of digestive tract; Z80.0 Family history of malignant neoplasm of digestive organs; Z68.42 Body mass index [BMI] 45.0-49.9, adult
CPT/HCPCS: 36415; 74000; 76770; 80048; 81001; 85025; 87086; 99284

== ENCOUNTER → 2017-04-29 | Outpatient (CLI) | payer MEDICAID, OTHER ==
--- NOTE | 2017-04-29 16:05 | XR ---
PA chest x-ray with left RIBS HISTORY: Left flank pain, R 10.9 Frontal view of the chest and 4 views of the left ribs correlated to prior chest x-ray 03/10/2017 There is no increased lung opacity, pneumothorax, or pleural effusion. Cardiac mediastinal silhouette , pulmonary vascularity and robert are stable. No evident displaced rib fracture. IMPRESSION: No acute abnormality. Bone scan could be performed for increased sensitivity as indicated .
== END | disposition home or self-care (01) ==
LOC: RADXRMAIN 15:11
PROVIDERS: ATTEND Family Medicine
DX: R10.9 Unspecified abdominal pain (principal)

== ENCOUNTER 2017-05-16 23:21 | Emergency (ER) | payer MEDICAID, OTHER ==
[2017-05-16 23:56] VITALS: RESP 18
[2017-05-17] MEDS ORDERED: CHLORPHEN-HYDROcod 8-10mg/5ml 5 ML ORAL.SYRG PO STA (00:04)
[2017-05-17] MEDS ORDERED: IPRATROPIUM-ALBUTEROL 3 ML NEB INHALATION STA (00:04)
[2017-05-17] MEDS ORDERED: predniSONE 50 MG TAB PO STA (00:06)
[2017-05-17] MEDS ORDERED: IBUPROFEN 600 MG TAB PO STA (00:06)
--- NOTE | 2017-05-17 00:44 | ED ---
URI HPI - General Chief Complaint: Upper Respiratory Infection Stated Complaint: Congestion Time Seen by Provider: 05/16/17 23:59 Source: patient, family, RN notes reviewed Mode of arrival: ambulatory Limitations: no limitations - History of Present Illness Initial Comments: 37-year-old female presented emergency Department chief complaint of cough and cold like symptoms since 2 days. Patient was seen at her work and which she works at [employer] and states that they did a strep, chest x-ray and told that she had a sinus pressure. Patient was started on Augmentin today. Patient states that she has not developed fever states that she's having difficulty with her asthma. She has been doing updrafts which helped. She states that she cannot stop coughing at times and feels that she still wheezing. Patient denies any headache, dizziness persisted to some facial pressure and pressure in her ears. - Related Data Home Medications Medication Instructions Recorded Confirmed Loratadine [Claritin] 10 mg PO DAILY 05/04/14 05/16/17 Montelukast Sodium [Singulair] 10 mg PO HS 05/04/14 05/16/17 Dicyclomine [Bentyl] 20 mg PO TID PRN 05/05/14 05/16/17 Albuterol Nebulized [Ventolin 2.5 mg INHALATION RT-QID PRN 09/01/15 05/16/17 Nebulized] Albuterol Sulfate [Proair Hfa] 2 puff INHALATION RT-QID PRN 04/02/16 05/16/17 Hydrochlorothiazide 25 mg PO DAILY 08/04/16 05/16/17 SUMAtriptan SUCCINATE [Imitrex] 100 mg PO BID PRN 09/02/16 05/16/17 Mometasone/Formoterol [Dulera 100 2 puff INHALATION RT-BID 12/01/16 05/16/17 Mcg/5 Mcg Inhaler] amLODIPine [Norvasc] 10 mg PO DAILY 12/01/16 05/16/17 Ibuprofen [Motrin] 800 mg PO TID PRN 04/27/17 05/16/17 Topiramate [Topamax] 50 mg PO DAILY 04/27/17 05/16/17 Venlafaxine HCl [Effexor XR] 75 mg PO DAILY 04/27/17 05/16/17 Amoxic-Pot Clav 500-125 mg 1 tab PO Q12HR 05/16/17 05/16/17 [Augmentin 500-125 mg] Previous Rx's Medication Instructions Recorded CHLORPHEN-HYDROcod 8-10mg/5ml 5 ml PO Q12HR #120 ml 05/17/17 [Tussionex] predniSONE 50 mg PO DAILY #4 tab 05/17/17 Allergies Allergy/AdvReac Type Severity Reaction Status Date / Time metronidazole [From Flagyl] Allergy Dyspnea Verified 05/16/17 23:42 morphine Allergy Rash/Hives Verified 05/16/17 23:42 orange flavor AdvReac Abdominal Verified 05/16/17 23:42 Pain tomato [Tomato] AdvReac Abdominal Verified 05/16/17 23:42 Pain wheat AdvReac Abdominal Verified 05/16/17 23:42 Pain Review of Systems ROS Statement: Those systems with pertinent positive or pertinent negative responses have been documented in the HPI. ROS Other: All systems not noted in ROS Statement are negative. Past Medical History Past Medical History: Asthma, Chest Pain / Angina, GERD/Reflux, Pneumonia Additional Past Medical History / Comment(s): HIATAL HERNIA, ibs, chronic sinusitis/seasonal allergies,UTI, ATYPICAL CHEST PAIN, 7--14 STRESS TEST NEG. , bronchitis, colitis, IBS, migraines, occasional low back pain. KIDNEY STONES History of Any Multi-Drug Resistant Organisms: None Reported Past Surgical History: Section, Cholecystectomy, Tubal Ligation Additional Past Surgical History / Comment(s): sinus surgery, D&C, x 4 , EGD/colonoscopy. Past Anesthesia/Blood Transfusion Reactions: Previous Problems w/ Anesthesia, Postoperative Nausea & Vomiting (PONV) Additional Past Anesthesia/Blood Transfusion Reaction / Comment(s): Pt did not go all the way under. Pt could hear, but not feel anything Past Psychological History: Anxiety, Depression Smoking Status: Former smoker Past Alcohol Use History: None Reported Past Drug Use History: None Reported - Past Family History Father Family Medical History: Congestive Heart Failure (CHF), Coronary Artery Disease (CAD), Diabetes Mellitus Additional Family Medical History / Comment(s): stents,depression anxiety Mother Family Medical History: Cancer, Diabetes Mellitus, Hypertension Additional Family Medical History / Comment(s): colon cancer, adhd, bipolar, split personaltiy disorder. General Exam Limitations: no limitations General appearance: alert, in no apparent distress Head exam: Present: atraumatic, normocephalic, normal inspection Eye exam: Present: normal appearance, PERRL, EOMI. Absent: scleral icterus, conjunctival injection, periorbital swelling ENT exam: Present: mucous membranes moist, TM's normal bilaterally, normal external ear exam. Absent: normal exam, normal oropharynx (Postnasal drainage) Neck exam: Present: normal inspection. Absent: tenderness, meningismus, lymphadenopathy Respiratory exam: Present: normal lung sounds bilaterally. Absent: respiratory distress, wheezes, rales, rhonchi, stridor Cardiovascular Exam: Present: normal rhythm, tachycardia, normal heart sounds. Absent: systolic murmur, diastolic murmur, rubs, gallop, clicks GI/Abdominal exam: Present: soft, normal bowel sounds. Absent: distended, tenderness, guarding, rebound, rigid Neurological exam: Present: alert, oriented X3, CN II-XII intact Skin exam: Present: warm, dry, intact, normal color. Absent: rash Course Vital Signs 05/16/17 05/16/17 05/17/17 23:28 23:48 00:25 Temperature 100 F H Pulse Rate 101 H 100 Respiratory 20 18 Rate Blood Pressure 162/93 O2 Sat by Pulse 98 Oximetry 05/17/17 00:30 Temperature Pulse Rate 104 H Respiratory Rate Blood Pressure O2 Sat by Pulse Oximetry Medical Decision Making - Medical Decision Making 37-year-old female presented for URI symptoms. Patient has acute sinusitis diagnosed bipolar [facility]. Patient did develop fever but there is no evidence of pneumonia. Patient feels better after cough syrup and breathing treatment. Patient does have albuterol at home. She'll be given steroids for last few days along with cough syrup. Return parameters were discussed. Disposition Clinical Impression: Sinusitis, Asthma Disposition: HOME SELF-CARE Condition: Stable Instructions: Upper Respiratory Infection (ED) Additional Instructions: Please return to the Emergency Department if symptoms worsen or any other concerns. Prescriptions: CHLORPHEN-HYDROcod 8-10mg/5ml [Tussionex] 5 ml PO Q12HR #120 ml predniSONE 50 mg PO DAILY #4 tab Referrals: Morena Garcia MD [Primary Care Provider] - 1-2 days Time of Disposition: 01:03
--- NOTE | 2017-05-17 01:00 | XR ---
EXAM: XR Chest, 2 Views CLINICAL HISTORY: Reason: Cough/pain TECHNIQUE: Frontal and lateral views of the chest. COMPARISON: PA and lateral views of the chest dated 03/10/2017 FINDINGS: Lungs: Unremarkable. No consolidation. Pleural space: Unremarkable. No pneumothorax. Heart: Unremarkable. No cardiomegaly. Mediastinum: Unremarkable. Bones/joints: Unremarkable. IMPRESSION: Normal chest x-rays. No significant interval change.
[2017-05-17 01:09] VITALS: BP 132/64; PULSE 79; TEMP 98.2
== END 2017-05-17 01:09 | disposition home or self-care (01) ==
LOC: EC 23:21
DX: J32.9 Chronic sinusitis, unspecified (principal); J45.909 Unspecified asthma, uncomplicated; F32.9 Major depressive disorder, single episode, unspecified; Z87.891 Personal history of nicotine dependence; Z88.1 Allergy status to other antibiotic agents; Z88.5 Allergy status to narcotic agent; Z91.02 Food additives allergy status; Z91.018 Allergy to other foods; Z79.51 Long term (current) use of inhaled steroids; Z79.899 Other long term (current) drug therapy
CPT/HCPCS: 99283; 94640; 71020; J7512

== ENCOUNTER 2017-08-03 14:31 | Emergency (ER) | payer MEDICAID, OTHER ==
[2017-08-03] MEDS ORDERED: methylPREDNISolone SOD SUCCI 125 MG/2 ML VIAL IV STA (14:56)
[2017-08-03] MEDS ORDERED: diphenhydrAMINE 50 MG/ML 1 ML VIAL IVP STA (14:56)
[2017-08-03] MEDS ORDERED: FAMOTIDINE 20 MG/2 ML VIAL IV STA (14:56)
[2017-08-03 16:10] LABS: Basophils % (A) 0 %; CH 27.7; CHCM 33.2; Eosinophils # (A) 0.1 k/uL (0-0.7); Eosinophils % (A) 1 %; HCT 40.4 % (34.0-46.0); HDW 2.66; HGB 12.8 gm/dL (11.4-16.0); Luc # (Auto) 0.13; Luc % (Auto) 1; Lymphocytes # (A) 3.5 k/uL (1.0-4.8); Lymphocytes % (A) 31 %; MCH 26.6 pg (25.0-35.0); MCHC 31.7 g/dL (31.0-37.0); MCV 83.9 fL (80.0-100.0); Mean Platelet Volume 7.7; Monocytes # (A) 0.3 k/uL (0-1.0); Monocytes % (A) 2 %; Neutrophils # (A) 7.1 k/uL (1.3-7.7); Neutrophils % (A) 64 %; RBC 4.82 m/uL (3.80-5.40); RDW 14.9 % (11.5-15.5); WBC 11.1 k/uL (3.8-10.6); WBC (Perox) 11.89
[2017-08-03 16:22] LABS: Anion Gap 12 mmol/L; Blood Urea Nitrogen 8 mg/dL (7-17); Calcium 9.4 mg/dL (8.4-10.2); Carbon Dioxide 21 mmol/L (22-30); Chloride 104 mmol/L (98-107); Glucose 153 mg/dL (74-99); Non-African American GFR(MDRD) >60 (>60 ml/min/1.73 sqM); Sodium 137 mmol/L (137-145)
--- NOTE | 2017-08-03 16:45 | ED ---
Allergic Reaction HPI - General Chief complaint: Allergic Reaction Stated complaint: Rash/Neck Time Seen by Provider: 08/03/17 14:42 Source: patient Mode of arrival: ambulatory Limitations: no limitations - History of Present Illness Initial Comments: 37-year-old -[place] female presented for evaluation of ALLERGIC reaction. She states that she was recently started on metronidazole and states that she has an ALLERGY to it. Last time she had Trichomonas she was admitted and sent to the ICU for sensitization therapy and a slow infusion. At that time she had no reaction however she was informed to use with caution in the future. Her Trichomonas continued and she was told by her tractor trailer truck driver to cut her pills in half and take them slowly throughout the weekend. She started on Friday and finished on Friday however at 1 AM this morning she started to have pruritic urticaria show up on her right upper thigh which has since spread to bilateral thighs, trunk, and proximal arms. She denies any shortness of breath, cough, deep breathing, airway swelling. There is no flushing of the skin to her face, fevers, chills, intractable nausea and vomiting, and she denies alcohol use. She has no other complaints at this time. - Related Data Home Medications Medication Instructions Recorded Confirmed Loratadine [Claritin] 10 mg PO DAILY 05/04/14 08/03/17 Montelukast Sodium [Singulair] 10 mg PO HS 05/04/14 08/03/17 Dicyclomine [Bentyl] 20 mg PO TID PRN 05/05/14 08/03/17 Albuterol Nebulized [Ventolin 2.5 mg INHALATION RT-QID PRN 09/01/15 08/03/17 Nebulized] Albuterol Sulfate [Proair Hfa] 2 puff INHALATION RT-QID PRN 04/02/16 08/03/17 Hydrochlorothiazide 25 mg PO DAILY 08/04/16 08/03/17 SUMAtriptan SUCCINATE [Imitrex] 100 mg PO BID PRN 09/02/16 08/03/17 Mometasone/Formoterol [Dulera 100 2 puff INHALATION RT-BID 12/01/16 08/03/17 Mcg/5 Mcg Inhaler] amLODIPine [Norvasc] 10 mg PO DAILY 12/01/16 08/03/17 Ibuprofen [Motrin] 800 mg PO TID PRN 04/27/17 08/03/17 Topiramate [Topamax] 50 mg PO DAILY 04/27/17 08/03/17 Diphenox-Atrop 2.5-0.025 mg 1 tab PO QID PRN 08/03/17 08/03/17 [Lomotil] Escitalopram [Lexapro] 10 mg PO HS 08/03/17 08/03/17 Omalizumab [Xolair] 1 dose SQ Q14D 08/03/17 08/03/17 Tiotropium 18 Mcg/Puff [Spiriva] 1 cap INHALATION RT-DAILY 08/03/17 08/03/17 Previous Rx's Medication Instructions Recorded Famotidine [Pepcid] 40 mg PO HS #20 tab 08/03/17 predniSONE 50 mg PO DAILY #5 tab 08/03/17 Allergies Allergy/AdvReac Type Severity Reaction Status Date / Time metronidazole [From Flagyl] Allergy Dyspnea Verified 08/03/17 15:03 morphine Allergy Rash/Hives Verified 08/03/17 15:03 orange flavor AdvReac Abdominal Verified 08/03/17 15:03 Pain tomato [Tomato] AdvReac Abdominal Verified 08/03/17 15:03 Pain wheat AdvReac Abdominal Verified 08/03/17 15:03 Pain Review of Systems ROS Statement: Those systems with pertinent positive or pertinent negative responses have been documented in the HPI. ROS Other: All systems not noted in ROS Statement are negative. Constitutional: Denies: fever, chills Eyes: Denies: eye pain, eye discharge ENT: Denies: ear pain, throat pain Respiratory: Denies: cough, dyspnea, wheezes, stridor Cardiovascular: Denies: chest pain, palpitations Endocrine: Denies: fatigue, polydipsia Gastrointestinal: Denies: abdominal pain, nausea, vomiting Genitourinary: Denies: urgency, dysuria Musculoskeletal: Denies: back pain, joint swelling, myalgia Skin: Reports: rash, change in color, pruritus Neurological: Denies: headache, weakness Psychiatric: Denies: anxiety, depression Hematological/Lymphatic: Denies: easy bleeding, easy bruising Past Medical History Past Medical History: Asthma, Chest Pain / Angina, GERD/Reflux, Pneumonia Additional Past Medical History / Comment(s): HIATAL HERNIA, ibs, chronic sinusitis/seasonal allergies,UTI, ATYPICAL CHEST PAIN, 7--14 STRESS TEST NEG. , bronchitis, colitis, IBS, migraines, occasional low back pain. KIDNEY STONES History of Any Multi-Drug Resistant Organisms: None Reported Past Surgical History: Section, Cholecystectomy, Tubal Ligation Additional Past Surgical History / Comment(s): sinus surgery, D&C, x 4 , EGD/colonoscopy. Past Anesthesia/Blood Transfusion Reactions: Previous Problems w/ Anesthesia, Postoperative Nausea & Vomiting (PONV) Additional Past Anesthesia/Blood Transfusion Reaction / Comment(s): Pt did not go all the way under. Pt could hear, but not feel anything Past Psychological History: Anxiety, Depression Smoking Status: Current some day smoker Past Alcohol Use History: None Reported Past Drug Use History: None Reported - Past Family History Father Family Medical History: Congestive Heart Failure (CHF), Coronary Artery Disease (CAD), Diabetes Mellitus Additional Family Medical History / Comment(s): stents,depression anxiety Mother Family Medical History: Cancer, Diabetes Mellitus, Hypertension Additional Family Medical History / Comment(s): colon cancer, adhd, bipolar, split personaltiy disorder. General Exam Limitations: no limitations General appearance: alert, in no apparent distress Head exam: Present: atraumatic, normocephalic, normal inspection Eye exam: Present: normal appearance, PERRL, EOMI. Absent: scleral icterus, conjunctival injection, periorbital swelling ENT exam: Present: normal exam, mucous membranes moist Neck exam: Present: normal inspection. Absent: tenderness, meningismus, lymphadenopathy Respiratory exam: Present: normal lung sounds bilaterally. Absent: respiratory distress, wheezes, rales, rhonchi, stridor Cardiovascular Exam: Present: regular rate, normal rhythm, normal heart sounds. Absent: systolic murmur, diastolic murmur, rubs, gallop, clicks GI/Abdominal exam: Present: soft, normal bowel sounds. Absent: distended, tenderness, guarding, rebound, rigid Rectal exam: Present: deferred Extremities exam: Present: normal inspection, full ROM, normal capillary refill. Absent: tenderness, pedal edema, joint swelling, calf tenderness Back exam: Present: normal inspection Neurological exam: Present: alert, oriented X3, CN II-XII intact Psychiatric exam: Present: normal affect, normal mood Skin exam: Present: warm, dry, intact, normal color. Absent: rash Course Vital Signs 08/03/17 14:38 Temperature 98.6 F Pulse Rate 95 Respiratory 18 Rate Blood Pressure 115/78 O2 Sat by Pulse 99 Oximetry Medical Decision Making - Medical Decision Making 37 year-old female presenting for evaluation of ALLERGIC reaction. She states that she has an ALLERGY to metronidazole and on her previous use was admitted to the ICU for sensitization and slow infusion. At that time she had no reaction but was receiving concomitant therapy. She started taking her metronidazole over the weekend and states she is completed the course on of the instruction of her tractor trailer truck driver however 1 AM this morning the pruritic and urticarial lesions started. On physical examination there is no stridor or wheezing noted however there is an urticarial rash across the proximal upper and lower extremities and her trunk. Consistent with allergic reaction and less so for disufirum reaction. We'll obtain baseline labs and provide ALLERGIC reaction cocktail. Following cocktail patient had near complete resolution of symptoms. She states she is completed the course of metronidazole and that she will not be taking any more. She is advised to follow-up with her primary care doctor or her tractor trailer truck driver as an outpatient this week. She is further informed that she would be given prescriptions for Axid and prednisone. She was offered a prescription for Benadryl however she states that she has at home and she was instructed on the appropriate dosing. She was further advised to return to this facility if her symptoms should worsen or persist. The patient acknowledged an understanding of this information and agreed with this plan of care. - Lab Data Result diagrams: 08/03/17 15:48 08/03/17 15:48 Lab Results 08/03/17 08/03/17 Range/Units 15:48 15:48 WBC 11.1 H (3.8-10.6) k/uL RBC 4.82 (3.80-5.40) m/uL Hgb 12.8 (11.4-16.0) gm/dL Hct 40.4 (34.0-46.0) % MCV 83.9 (80.0-100.0) fL MCH 26.6 (25.0-35.0) pg MCHC 31.7 (31.0-37.0) g/dL RDW 14.9 (11.5-15.5) % Plt Count 306 (150-450) k/uL Neutrophils % 64 % Lymphocytes % 31 % Monocytes % 2 % Eosinophils % 1 % Basophils % 0 % Neutrophils # 7.1 (1.3-7.7) k/uL Lymphocytes # 3.5 (1.0-4.8) k/uL Monocytes # 0.3 (0-1.0) k/uL Eosinophils # 0.1 (0-0.7) k/uL Basophils # 0.0 (0-0.2) k/uL Sodium 137 (137-145) mmol/L Potassium 4.0 (3.5-5.1) mmol/L Chloride 104 (98-107) mmol/L Carbon Dioxide 21 L (22-30) mmol/L Anion Gap 12 mmol/L BUN 8 (7-17) mg/dL Creatinine 0.60 (0.52-1.04) mg/dL Est GFR (MDRD) Af Amer >60 (>60 ml/min/1.73 sqM) Est GFR (MDRD) Non-Af >60 (>60 ml/min/1.73 sqM) Glucose 153 H (74-99) mg/dL Calcium 9.4 (8.4-10.2) mg/dL Disposition Clinical Impression: Allergic reaction Disposition: HOME SELF-CARE Condition: Stable Instructions: Anaphylaxis (ED) Additional Instructions: Please use medication as discussed. Please follow up with family doctor if symptoms have not improved over the next two days. Please return to the emergency room if your symptoms increase or worsen or for any other concerns. Prescriptions: Famotidine [Pepcid] 40 mg PO HS #20 tab predniSONE 50 mg PO DAILY #5 tab Referrals: Morena Garcia MD [Primary Care Provider] - 1-2 days Time of Disposition: 16:45
[2017-08-03 17:21] VITALS: BP 119/73; PULSE 84; RESP 16; TEMP 97.8
== END 2017-08-03 17:30 | disposition home or self-care (01) ==
LOC: EC 14:31
DX: L50.0 Allergic urticaria (principal); T37.8X5A Adverse effect of other specified systemic anti-infectives and antiparasitics, initial encounter; J45.909 Unspecified asthma, uncomplicated; F32.9 Major depressive disorder, single episode, unspecified; F41.9 Anxiety disorder, unspecified; F17.200 Nicotine dependence, unspecified, uncomplicated; Z88.1 Allergy status to other antibiotic agents; Z88.5 Allergy status to narcotic agent; Z91.018 Allergy to other foods; Z79.51 Long term (current) use of inhaled steroids; Z79.899 Other long term (current) drug therapy
CPT/HCPCS: 99283; 96374; 96375 ×2; 36415; 80048; 85025; J1200; J2930

== ENCOUNTER 2017-08-06 14:23 | Inpatient (IN) | payer MEDICAID ==
[2017-08-06] MEDS ORDERED: methylPREDNISolone SOD SUCCI 125 MG/2 ML VIAL IV STA (15:14)
[2017-08-06] MEDS ORDERED: EPINEPHrine 1 MG/ML 1 ML AMP IM STA (15:14)
[2017-08-06] MEDS ORDERED: SODIUM CHLORIDE 0.9% 1,000 ML IV STA (15:14)
[2017-08-06] MEDS ORDERED: diphenhydrAMINE 50 MG CAP PO STA (15:14)
[2017-08-06] MEDS ORDERED: FAMOTIDINE 20 MG/2 ML VIAL IV STA (15:14)
[2017-08-06] MEDS ORDERED: KETOROLAC 30 MG/ML 1 ML VIAL IVP STA (15:15)
[2017-08-06] MEDS ORDERED: ACETAMINOPHEN IV (For NPO) 1,000 MG in EMPTY BAG 1 BAG IVPB STA (15:15)
--- NOTE | 2017-08-06 16:07 | ED ---
General Adult HPI - General Chief complaint: Allergic Reaction Stated complaint: allergic reaction/meds-revisit Time Seen by Provider: 08/06/17 14:57 Source: patient, RN notes reviewed, old records reviewed Mode of arrival: ambulatory Limitations: no limitations - History of Present Illness Initial comments: This is a 29-year-old female to the ER for evaluation today. Patient has a for evaluation regarding ALLERGIC reaction. This patient's fourth evaluation in regards to ALLERGIC reaction. Patient states she has been seen both on an outpatient basis and he had emergency room regarding ALLERGIC reaction to Flagyl. Patient has no reaction to Flagyl, she does and did take Flagyl recently for urinary tract infection, patient states during while taking the medication she had no ALLERGIC reaction with ALLERGIC reaction has continued to persist since. Patient complaining of diffuse hives all over body itching and urticaria. No shortness of breath - Related Data Home Medications Medication Instructions Recorded Confirmed Loratadine [Claritin] 10 mg PO HS 05/04/14 08/06/17 Montelukast Sodium [Singulair] 10 mg PO HS 05/04/14 08/06/17 Dicyclomine [Bentyl] 20 mg PO TID PRN 05/05/14 08/06/17 Albuterol Nebulized [Ventolin 2.5 mg INHALATION RT-QID PRN 09/01/15 08/06/17 Nebulized] Albuterol Sulfate [Proair Hfa] 2 puff INHALATION RT-QID PRN 04/02/16 08/06/17 Hydrochlorothiazide 25 mg PO DAILY 08/04/16 08/06/17 SUMAtriptan SUCCINATE [Imitrex] 100 mg PO BID PRN 09/02/16 08/06/17 Mometasone/Formoterol [Dulera 100 2 puff INHALATION RT-BID 12/01/16 08/06/17 Mcg/5 Mcg Inhaler] amLODIPine [Norvasc] 10 mg PO DAILY 12/01/16 08/06/17 Ibuprofen [Motrin] 800 mg PO TID PRN 04/27/17 08/06/17 Topiramate [Topamax] 50 mg PO DAILY 04/27/17 08/06/17 Diphenox-Atrop 2.5-0.025 mg 1 tab PO QID PRN 08/03/17 08/06/17 [Lomotil] Escitalopram [Lexapro] 10 mg PO HS 08/03/17 08/06/17 Omalizumab [Xolair] 150 mg SQ Q14D 08/03/17 08/06/17 Tiotropium 18 Mcg/Puff [Spiriva] 1 cap INHALATION RT-DAILY 08/03/17 08/06/17 Famotidine [Pepcid] 40 mg PO DAILY 08/05/17 08/06/17 diphenhydrAMINE ELIXIR [Benadryl 50 mg PO Q4H 08/05/17 08/06/17 Elixir] Previous Rx's Medication Instructions Recorded predniSONE 50 mg PO DAILY #5 tab 08/03/17 hydrOXYzine HCL [Atarax] 25 mg PO QID PRN #20 tab 08/05/17 Allergies Allergy/AdvReac Type Severity Reaction Status Date / Time metronidazole [From Flagyl] Allergy Dyspnea Verified 08/06/17 15:29 morphine Allergy Rash/Hives Verified 08/06/17 15:29 orange flavor AdvReac Abdominal Verified 08/06/17 15:29 Pain tomato [Tomato] AdvReac Abdominal Verified 08/06/17 15:29 Pain wheat AdvReac Abdominal Verified 08/06/17 15:29 Pain Review of Systems ROS Statement: Those systems with pertinent positive or pertinent negative responses have been documented in the HPI. ROS Other: All systems not noted in ROS Statement are negative. Past Medical History Past Medical History: Asthma, Chest Pain / Angina, GERD/Reflux, Pneumonia Additional Past Medical History / Comment(s): HIATAL HERNIA, ibs, chronic sinusitis/seasonal allergies,UTI, ATYPICAL CHEST PAIN, 7--14 STRESS TEST NEG. , bronchitis, colitis, IBS, migraines, occasional low back pain. KIDNEY STONES History of Any Multi-Drug Resistant Organisms: None Reported Past Surgical History: Section, Cholecystectomy, Tubal Ligation Additional Past Surgical History / Comment(s): sinus surgery, D&C, x 4 , EGD/colonoscopy. Past Anesthesia/Blood Transfusion Reactions: Previous Problems w/ Anesthesia, Postoperative Nausea & Vomiting (PONV) Additional Past Anesthesia/Blood Transfusion Reaction / Comment(s): Pt did not go all the way under. Pt could hear, but not feel anything Past Psychological History: Anxiety, Depression Smoking Status: Current some day smoker Past Alcohol Use History: None Reported Past Drug Use History: None Reported - Past Family History Father Family Medical History: Congestive Heart Failure (CHF), Coronary Artery Disease (CAD), Diabetes Mellitus Additional Family Medical History / Comment(s): stents,depression anxiety Mother Family Medical History: Cancer, Diabetes Mellitus, Hypertension Additional Family Medical History / Comment(s): colon cancer, adhd, bipolar, split personaltiy disorder. General Exam - General Exam Comments Initial Comments: Diffuse urticaria Limitations: no limitations General appearance: alert, in no apparent distress Head exam: Present: atraumatic, normocephalic, normal inspection Eye exam: Present: normal appearance, PERRL, EOMI. Absent: scleral icterus, conjunctival injection, periorbital swelling ENT exam: Present: normal exam, mucous membranes moist Neck exam: Present: normal inspection. Absent: tenderness, meningismus, lymphadenopathy Respiratory exam: Present: normal lung sounds bilaterally. Absent: respiratory distress, wheezes, rales, rhonchi, stridor Cardiovascular Exam: Present: regular rate, normal rhythm, normal heart sounds. Absent: systolic murmur, diastolic murmur, rubs, gallop, clicks GI/Abdominal exam: Present: soft, normal bowel sounds. Absent: distended, tenderness, guarding, rebound, rigid Extremities exam: Present: normal inspection, full ROM, normal capillary refill. Absent: tenderness, pedal edema, joint swelling, calf tenderness Back exam: Present: normal inspection Neurological exam: Present: alert, oriented X3, CN II-XII intact Psychiatric exam: Present: normal affect, normal mood Skin exam: Present: warm, dry, intact, normal color. Absent: rash Course Vital Signs 08/06/17 08/06/17 14:28 18:31 Temperature 100 F H Pulse Rate 94 89 Respiratory 18 17 Rate Blood Pressure 147/82 158/85 O2 Sat by Pulse 100 97 Oximetry - Reevaluation(s) Reevaluation #1: 08/06/17 18:52 Patient does have improvement here in the emergency room with urticaria Reevaluation #2: 08/06/17 18:52 Patient's medical records and prior ER visits are thoroughly reviewed Medical Decision Making - Medical Decision Making 37 female to ER for evaluation. Patient was SCI today for evaluation regarding urticaria. Diffuse body reaction rash. Patient will be admitted for symptom management and symptom control. Further evaluation and treatment - Lab Data Result diagrams: 08/06/17 16:25 08/06/17 16:25 Lab Results 08/06/17 08/06/17 08/06/17 Range/Units 16:25 16:25 16:41 WBC 17.6 H (3.8-10.6) k/uL RBC 4.59 (3.80-5.40) m/uL Hgb 12.6 (11.4-16.0) gm/dL Hct 39.1 (34.0-46.0) % MCV 85.1 (80.0-100.0) fL MCH 27.4 (25.0-35.0) pg MCHC 32.2 (31.0-37.0) g/dL RDW 14.3 (11.5-15.5) % Plt Count 244 (150-450) k/uL Neutrophils % 88 % Lymphocytes % 8 % Monocytes % 3 % Eosinophils % 1 % Basophils % 0 % Neutrophils # 15.4 H (1.3-7.7) k/uL Lymphocytes # 1.5 (1.0-4.8) k/uL Monocytes # 0.5 (0-1.0) k/uL Eosinophils # 0.1 (0-0.7) k/uL Basophils # 0.0 (0-0.2) k/uL Hypochromasia Slight Sodium 137 (137-145) mmol/L Potassium 5.1 (3.5-5.1) mmol/L Chloride 107 (98-107) mmol/L Carbon Dioxide 19 L (22-30) mmol/L Anion Gap 11 mmol/L BUN 16 (7-17) mg/dL Creatinine 0.60 (0.52-1.04) mg/dL Est GFR (MDRD) Af Amer >60 (>60 ml/min/1.73 sqM) Est GFR (MDRD) Non-Af >60 (>60 ml/min/1.73 sqM) Glucose 305 H (74-99) mg/dL Calcium 9.3 (8.4-10.2) mg/dL Total Bilirubin 0.6 (0.2-1.3) mg/dL AST 31 (14-36) U/L ALT 36 (9-52) U/L Alkaline Phosphatase 71 (38-126) U/L Total Protein 7.0 (6.3-8.2) g/dL Albumin 3.8 (3.5-5.0) g/dL Urine Color Yellow Urine Appearance Clear (Clear) Urine pH 6.5 (5.0-8.0) Ur Specific [place] 1.022 (1.001-1.035) Urine Protein Trace H (Negative) Urine Glucose (UA) 4+ H (Negative) Urine Ketones 1+ H (Negative) Urine Blood Negative (Negative) Urine Nitrite Negative (Negative) Urine Bilirubin Negative (Negative) Urine Urobilinogen <2.0 (<2.0) mg/dL Ur Leukocyte Esterase Negative (Negative) Disposition Clinical Impression: Urticaria, Allergic reaction, Failure of outpatient treatment Disposition: HOME SELF-CARE Condition: Good
[2017-08-06 16:45] LABS: Basophils % (A) 0 %; CH 26.5; CHCM 31.3; Eosinophils # (A) 0.1 k/uL (0-0.7); Eosinophils % (A) 1 %; HCT 39.1 % (34.0-46.0); HDW 2.81; HGB 12.6 gm/dL (11.4-16.0); Hypochromasia Slight; Luc % (Auto) 1; Lymphocytes # (A) 1.5 k/uL (1.0-4.8); Lymphocytes % (A) 8 %; MCH 27.4 pg (25.0-35.0); MCHC 32.2 g/dL (31.0-37.0); MCV 85.1 fL (80.0-100.0); Monocytes # (A) 0.5 k/uL (0-1.0); Monocytes % (A) 3 %; Neutrophils # (A) 15.4 k/uL (1.3-7.7); Neutrophils % (A) 88 %; RBC 4.59 m/uL (3.80-5.40); RDW 14.3 % (11.5-15.5); WBC 17.6 k/uL (3.8-10.6); WBC (Perox) 17.86
[2017-08-06 16:53] LABS: ALT 36 U/L (9-52); AST 31 U/L (14-36); Alkaline Phosphatase 71 U/L (38-126); Anion Gap 11 mmol/L; Blood Urea Nitrogen 16 mg/dL (7-17); Calcium 9.3 mg/dL (8.4-10.2); Carbon Dioxide 19 mmol/L (22-30); Chloride 107 mmol/L (98-107); Glucose 305 mg/dL (74-99); Non-African American GFR(MDRD) >60 (>60 ml/min/1.73 sqM); Sodium 137 mmol/L (137-145); Total Bilirubin 0.6 mg/dL (0.2-1.3)
[2017-08-06 16:53] LABS: Appearance,Urine Clear (Clear); Bilirubin,Urine Negative (Negative); Glucose,Urine (UA) 4+ (Negative); Ketones,Urine 1+ (Negative); Leukocyte Esterase,Urine Negative (Negative); Nitrite,Urine Negative (Negative); PH, Urine 6.5 (5.0-8.0); Protein,Urine Trace (Negative); Specific Gravity,Urine 1.022 (1.001-1.035); UA Billing (MACRO vs. MICRO) CHEM; Urobilinogen,Urine <2.0 mg/dL (<2.0)
[2017-08-06 17:19] LABS: Potassium 5.1 mmol/L (3.5-5.1)
[2017-08-06] MEDS ORDERED: ALBUTEROL NEBULIZED 2.5 MG/3 ML INHALATION PRN (18:55)
[2017-08-06] MEDS ORDERED: DIPHENOX-ATROP 2.5-0.025 MG 1 EACH TAB PO PRN (18:55)
[2017-08-06] MEDS ORDERED: ALBUTEROL INHALER 60 PUFF/8 GM INHALER INHALATION PRN (18:55)
[2017-08-06] MEDS ORDERED: SUMAtriptan SUCCINATE 50 MG TAB PO PRN (18:55)
[2017-08-06] MEDS ORDERED: DICYCLOMINE 20 MG TAB PO PRN (18:55)
[2017-08-06] MEDS: SODIUM CHLORIDE 0.9% 1,000 ML IV STA ×2 (18:56→20:59)
[2017-08-06] MEDS ORDERED: OMALIZUMAB 150 MG VIAL SQ SCH (19:00)
--- NOTE | 2017-08-06 19:00 | P.HPIM ---
History of Present Illness H&P Date: 08/06/17 Chief Complaint: carie Patient is a 37-year-old -Hung[place] female with a past medical history of hypertension, GERD, persistent severe asthma, and ALLERGIES who presented with complaints of hives. She has a known history of ALLERGIC reaction to Flagyl. 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 She had been desensitized to Flagyl in the ICU in the past. She started taking Flagyl and small doses on Friday with increasing doses. She took her final dose of 500 mg of Flagyl Friday morning at midnight. She reports that Friday and Friday she had some dizziness and confusion. Friday afternoon she developed generalized itching and diarrhea. She then developed a rash on her hip. By 5 AM on Friday morning she had hives and went to the emergency department. She received steroids Benadryl and Pepcid and had resolution of her symptoms. She was discharged home. On Friday she had worsening of her symptoms again and went to the ER at [facility] there she was given IM Solu-Medrol and by mouth Benadryl and discharged home. Her symptoms were worse again yesterday and she re-presented here again got IV steroids Pepcid and Benadryl. She had a prescription for Atarax written. She has been taking her steroids Benadryl and Atarax at home without improvement. Today her rash and itching again got worse as well as some shortness of breath and she therefore presented to the emergency department. She is also been taking hydrocortisone cream. She denies any other triggers such as changes in her food, hair products, detergents , cleaning supplies, spray for pesticides, or any other allergen use. She does note that she resumed Lexapro approximately one week ago after having been off of it for 2 years. She sees an solar photovoltaic designer and called him when all of this started and he instructed her to come to the ER. Denies any shortness of breath , choking, or problems dealing with her saliva. She does report an intermittent scratchy throat. She has not had any other symptoms. She denies any exposure to poison hany or poison oak or prolonged periods outside. In the ER she underwent an extensive evaluation. She was found to have a leukocytosis. Her blood sugars on the elevated at 305 and she was slightly acidotic. She had no anion gap. She was given IV steroids, Pepcid, Benadryl, and a dose of epinephrine. She'll be admitted for observation of her ALLERGIC reaction. Review of Systems General: no fever/chills, no rigors, no weight loss/weight gain, no change in appetite Eyes: No double vision, no unusual blurry vision, no loss of vision ENT: No rhinorrhea, congestion, no trush Cardiovascular: No chest pain, no palpitations, no syncope, no edema, No paroxysmal nocturnal dyspnea, No dizziness Pulmonary: No shortness of breath, no wheezing, no cough, hemoptysis Abdominal: No abdominal pain, no constipation, no diarrhea, no vomiting, no nausea, no distention Genitourinary: No dysuria, no urinary frequency, no hematuria, no unusual discharge/odor Neuro: No unusual paresthesias, no unusual paresis/paralysis, no headache Dermatologic: Diffuse hives, no unusual lesions, no unusual changes in nails Endocrinology: No intolerance to heat/cold, no excessive thirst,] no unusual fatigue Hematologic: No unusual bruising or bleeding, no unusual cervical lymphadenopathy Psychiatric: No changes in mood or behaviors, no changes in sleep pattern Past Medical History Past Medical History: Asthma, Chest Pain / Angina, GERD/Reflux, Hypertension, Pneumonia Additional Past Medical History / Comment(s): HIATAL HERNIA, ibs, chronic sinusitis/seasonal allergies,UTI, ATYPICAL CHEST PAIN, 7--14 STRESS TEST NEG. , bronchitis, colitis, IBS, migraines, occasional low back pain. KIDNEY STONES History of Any Multi-Drug Resistant Organisms: None Reported Past Surgical History: Section, Cholecystectomy, Tubal Ligation Additional Past Surgical History / Comment(s): sinus surgery, D&C, x 4 , EGD/colonoscopy. Past Anesthesia/Blood Transfusion Reactions: Previous Problems w/ Anesthesia, Postoperative Nausea & Vomiting (PONV) Additional Past Anesthesia/Blood Transfusion Reaction / Comment(s): Pt did not go all the way under. Pt could hear, but not feel anything Past Psychological History: Anxiety, Depression Smoking Status: Former smoker Past Alcohol Use History: None Reported Past Drug Use History: None Reported - Past Family History Father Family Medical History: Congestive Heart Failure (CHF), Coronary Artery Disease (CAD), Diabetes Mellitus Additional Family Medical History / Comment(s): stents,depression anxiety Mother Family Medical History: Cancer, Diabetes Mellitus, Hypertension Additional Family Medical History / Comment(s): colon cancer, adhd, bipolar, split personaltiy disorder. Medications and Allergies Home Medications Medication Instructions Recorded Confirmed Type Loratadine [Claritin] 10 mg PO HS 05/04/14 08/06/17 History Montelukast Sodium [Singulair] 10 mg PO HS 05/04/14 08/06/17 History Dicyclomine [Bentyl] 20 mg PO TID PRN 05/05/14 08/06/17 History Albuterol Nebulized [Ventolin 2.5 mg INHALATION RT-QID PRN 09/01/15 08/06/17 History Nebulized] Albuterol Sulfate [Proair Hfa] 2 puff INHALATION RT-QID PRN 04/02/16 08/06/17 History Hydrochlorothiazide 25 mg PO DAILY 08/04/16 08/06/17 History SUMAtriptan SUCCINATE [Imitrex] 100 mg PO BID PRN 09/02/16 08/06/17 History Mometasone/Formoterol [Dulera 100 2 puff INHALATION RT-BID 12/01/16 08/06/17 History Mcg/5 Mcg Inhaler] amLODIPine [Norvasc] 10 mg PO DAILY 12/01/16 08/06/17 History Ibuprofen [Motrin] 800 mg PO TID PRN 04/27/17 08/06/17 History Topiramate [Topamax] 50 mg PO DAILY 04/27/17 08/06/17 History Diphenox-Atrop 2.5-0.025 mg 1 tab PO QID PRN 08/03/17 08/06/17 History [Lomotil] Escitalopram [Lexapro] 10 mg PO HS 08/03/17 08/06/17 History Omalizumab [Xolair] 150 mg SQ Q14D 08/03/17 08/06/17 History Tiotropium 18 Mcg/Puff [Spiriva] 1 cap INHALATION RT-DAILY 08/03/17 08/06/17 History predniSONE 50 mg PO DAILY #5 tab 08/03/17 08/06/17 Rx Famotidine [Pepcid] 40 mg PO DAILY 08/05/17 08/06/17 History diphenhydrAMINE ELIXIR [Benadryl 50 mg PO Q4H 08/05/17 08/06/17 History Elixir] hydrOXYzine HCL [Atarax] 25 mg PO QID PRN #20 tab 08/05/17 08/06/17 Rx Allergies Allergy/AdvReac Type Severity Reaction Status Date / Time metronidazole [From Flagyl] Allergy Dyspnea Verified 08/06/17 15:29 morphine Allergy Rash/Hives Verified 08/06/17 15:29 orange flavor AdvReac Abdominal Verified 08/06/17 15:29 Pain tomato [Tomato] AdvReac Abdominal Verified 08/06/17 15:29 Pain wheat AdvReac Abdominal Verified 08/06/17 15:29 Pain Physical Exam Osteopathic Statement: *. No significant issues noted on an osteopathic structural exam other than those noted in the History and Physical/Consult. Vitals: Vital Signs Temp Pulse Resp BP Pulse Ox 08/06/17 14:28 100 F H 94 18 147/82 100 Intake and Output 08/06/17 08/06/17 08/06/17 06:59 14:59 22:59 Other: Weight 113.398 kg Patient Weight 08/07/17 06:59 Weight 113.398 kg General: non toxic, no distress, appears at stated age, obese Derm: : Diffuse urticaria with dermatographia over chest, back, face, upper extremities, and lower extremities, no lesions, no ulcers, no unusual ecchymoses Head: atraumatic, normocephalic, symmetric Eyes: EOMI, no lid lag, anicteric sclera, pupils equal round reactive to light ENT: no post nasal drip, no thrush , nearest patent, no pharyngeal erythema Neck: No thyromegaly, no cervical lymphadenopathy, trachea midline, supple Mouth: no lip lesion, mucus membranes moist Cardiovascular: S1S2 reg, no murmur, positive posterior tibial pulse bilateral, no edema , no JVD, no clubbing, no cyanosis, capillary refill less than 2 seconds Lungs: CTA bilateral, no rhonchi, no rales , no accessory muscle use Abdominal: soft, nontender to palpation, no guarding, no appreciable organomegaly, normal bowel sounds Ext: no gross muscle atrophy, muscle strength 5 out of 5 in all 4 extremities grossly, no contractures, Neuro: CN II-XI grossly intact, light touch intact all 4 extremities, finger to nose within normal limits, Psych: Alert, oriented, appropriate affect Results CBC & Chem 7: 08/06/17 16:25 08/06/17 16:25 Labs: Abnormal Lab Results - Last 24 Hours (Table) 08/06/17 08/06/17 08/06/17 Range/Units 16:25 16:25 16:41 WBC 17.6 H (3.8-10.6) k/uL Neutrophils # 15.4 H (1.3-7.7) k/uL Carbon Dioxide 19 L (22-30) mmol/L Glucose 305 H (74-99) mg/dL Urine Protein Trace H (Negative) Urine Glucose (UA) 4+ H (Negative) Urine Ketones 1+ H (Negative) Thrombosis Risk Factor Assmnt - DVT/VTE Prophylaxis DVT/VTE Prophylaxis: Mechanical Prophylaxis ordered Assessment and Plan Plan: #Diffuse urticaria secondary to drug eruption -Status post epinephrine -IV steroids, Pepcid, Benadryl, Claritin -Can have diet for now -May need to stop Lexapro if symptoms do not wear off greater than 72 hours from Flagyl use #Hyperglycemia -Accu-Cheks, sliding scale insulin -Check hemoglobin A1c to rule out diabetes #Hypertension, controlled -Follow up though blood pressures -Continue home medications of #Obesity -Structured outpatient weight loss #Severe persistent asthma without exacerbation -Continue home inhaler and nebulizer regimen -Patient states she sometimes has recurrent exacerbations with weaning from steroids and she will need a slow steroid taper #GERD -H2 jose Chronic: IBS Seasonal ALLERGIES Depression Bronchitis Colitis Surrogate decision-maker: Mother Kiya Carnes [phone] CODE STATUS:full DVT prophylaxis: scd Discussed with: patient, family, ED physician Anticipated discharge: 24-[address]: home A total of 65 minutes was spent on the care of this complex patient more than 50 % of the time was spent in counseling and care coordination.
[2017-08-06] MEDS: SYMBICORT 80-4.5 MCG INHALER INHALATION SCH (20:16)
[2017-08-06] MEDS: MONTELUKAST 10 MG TAB PO SCH (20:58)
[2017-08-06] MEDS: FAMOTIDINE 20 MG/2 ML VIAL IV SCH (20:58)
[2017-08-06] MEDS: ESCITALOPRAM 10 MG TAB PO SCH (20:58)
[2017-08-06] MEDS: SODIUM CHLORIDE 0.9% 1,000 ML IV SCH (20:59)
[2017-08-06 21:17] LABS: Glucose,Whole Blood 389 mg/dL (75-99)
[2017-08-06] MEDS: INSULIN LISPRO (humaLOG) 300 UNIT/3 ML VIAL SQ SCH (21:24)
[2017-08-06] MEDS: LORATADINE 10 MG TAB PO SCH (21:24)
[2017-08-06] MEDS: HYDROCORTISONE 1% CREAM 30 GM TUBE TOPICAL PRN (21:36)
[2017-08-06] MEDS: hydrOXYzine HCL 25 MG TAB PO PRN (23:01)
[2017-08-06] MEDS: diphenhydrAMINE 50 MG/ML 1 ML VIAL IVP PRN (23:02)
[2017-08-06] MEDS: methylPREDNISolone SOD SUCCI 125 MG/2 ML VIAL IV SCH (23:33)
[2017-08-07] MEDS: SODIUM CHLORIDE 0.9% 1,000 ML IV SCH ×3 (03:53→20:51)
[2017-08-07] MEDS: hydrOXYzine HCL 25 MG TAB PO PRN (04:39)
[2017-08-07] MEDS: diphenhydrAMINE 50 MG/ML 1 ML VIAL IVP PRN (04:40)
[2017-08-07] MEDS: methylPREDNISolone SOD SUCCI 125 MG/2 ML VIAL IV SCH ×2 (05:55→12:25)
[2017-08-07 06:50] LABS: Glucose,Whole Blood 228 mg/dL (75-99)
[2017-08-07] MEDS: SYMBICORT 80-4.5 MCG INHALER INHALATION SCH ×2 (08:23→20:06)
[2017-08-07] MEDS: IPRATROPIUM 0.5 MG/2.5 ML NEBU INHALATION SCH ×4 (08:24→19:47)
[2017-08-07] MEDS: TOPIRAMATE 25 MG TAB PO SCH (08:42)
[2017-08-07] MEDS: amLODIPine 10 MG TAB PO SCH (08:42)
[2017-08-07] MEDS: HYDROCHLOROTHIAZIDE 25 MG TAB PO SCH (08:42)
[2017-08-07] MEDS: FAMOTIDINE 20 MG/2 ML VIAL IV SCH (08:43)
[2017-08-07] MEDS: INSULIN LISPRO (humaLOG) 300 UNIT/3 ML VIAL SQ SCH ×4 (08:43→20:42)
[2017-08-07] MEDS ORDERED: NON-FORMULARY DRUG (Famotidine [Pepcid] 40 MG) PO SCH (09:00)
[2017-08-07 09:33] LABS: Anion Gap 13 mmol/L; Blood Urea Nitrogen 12 mg/dL (7-17); C Reactive Protein 24.5 mg/L (<10.0); Calcium 9.1 mg/dL (8.4-10.2); Carbon Dioxide 20 mmol/L (22-30); Chloride 105 mmol/L (98-107); Glucose 326 mg/dL (74-99); Non-African American GFR(MDRD) >60 (>60 ml/min/1.73 sqM); Potassium 4.1 mmol/L (3.5-5.1); Sodium 138 mmol/L (137-145)
[2017-08-07] MEDS ORDERED: ALPRAZolam 0.5 MG TAB PO PRN (10:45)
[2017-08-07 11:52] LABS: CH 26.6; CHCM 31.3; HCT 38.1 % (34.0-46.0); HDW 2.61; HGB 12.1 gm/dL (11.4-16.0); Hypochromasia Slight; MCH 27.1 pg (25.0-35.0); MCHC 31.7 g/dL (31.0-37.0); MCV 85.4 fL (80.0-100.0); Mean Platelet Volume 7.9; RBC 4.46 m/uL (3.80-5.40); RDW 14.1 % (11.5-15.5); WBC 21.8 k/uL (3.8-10.6)
[2017-08-07 11:56] LABS: Glucose,Whole Blood 218 mg/dL (75-99)
[2017-08-07 12:20] LABS: Hepatitis B Surface Ag Index 0.05
--- NOTE | 2017-08-07 12:31 | P.PN ---
Subjective Principal diagnosis: rash Patient is a 37-year-old -[place]ren[place] female with a past medical history of hypertension, GERD, persistent severe asthma, and ALLERGIES who presented with complaints of hives. She has a known history of ALLERGIC reaction to Flagyl. 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 She had been desensitized to Flagyl in the ICU in the past. She started taking Flagyl and small doses on Friday with increasing doses. She took her final dose of 500 mg of Flagyl Friday morning at midnight. She reports that Friday and Friday she had some dizziness and confusion. Friday afternoon she developed generalized itching and diarrhea. She then developed a rash on her hip. By 5 AM on Friday morning she had hives and went to the emergency department. She received steroids Benadryl and Pepcid and had resolution of her symptoms. She was discharged home. On Friday she had worsening of her symptoms again and went to the ER at [facility] there she was given IM Solu-Medrol and by mouth Benadryl and discharged home. Her symptoms were worse again yesterday and she re-presented here again got IV steroids Pepcid and Benadryl. She had a prescription for Atarax written. She has been taking her steroids Benadryl and Atarax at home without improvement. In the ER she underwent an extensive evaluation. She was found to have a leukocytosis. Her blood sugars on the elevated at 305 and she was slightly acidotic. She had no anion gap. She was given IV steroids, Pepcid, Benadryl, and a dose of epinephrine. She was admitted for observation of her hives. She had slight improvement in her hives until approximately midnight. She then noted a worsening of the rash, increase in intensity, and increase in itching and painfulness. Her CRP was slightly elevated. Patient seen and examined at bedside. She states her rash is painful to the touch and feels slightly burning. She states it is worse than yesterday. It is now involving the soles of her feet and she has red palms. She has also noted hand swelling. She does state that she has chronic joint pain and flank pain. She states she has been worked up for lupus in the past. She reports a butterfly rash intermittently. She states that she was tested for hepatitis B and C in the past and they were negative. She denies any family history of vasculitis. She is not having any headache confusion. She denies any shortness of breath or wheezing. She states that her rash got better after a dose of epinephrine but then came back starting at midnight and she has been unable to sleep. She now describes the rash being painful when touched. Objective - Vital Signs Vital signs: Vital Signs Temp 98.1 F 08/07/17 08:00 Pulse 72 08/07/17 08:36 Resp 18 08/07/17 08:00 BP 150/91 08/07/17 08:00 Pulse Ox 95 08/07/17 08:00 Intake & Output 08/06/17 08/07/17 08/07/17 18:59 06:59 18:59 Intake Total 1999 240 Balance 1999 240 Weight 112.945 kg 115.8 kg Intake: Intake, IV Titration 700 Amount Sodium Chloride 0.9% 1, 700 000 ml @ 100 mls/hr IV . Q10H LIANNA Rx#:[id number] Oral 1300 240 Other: Voiding Method Toilet Toilet # Voids 3 - Exam General: non toxic, mild distress, appears at stated age, obese Derm: Diffuse rash, linear with areas of bradycardia, reddening of palms and soles., no lesions Head: atraumatic, normocephalic, symmetric Eyes: EOMI, no lid lag, anicteric sclera ENT: no post nasal drip, no thrush Mouth: no lip lesion, mucus membranes moist Cardiovascular: S1S2 reg, no murmur, positive posterior tibial pulse bilateral, Lungs: CTA bilateral, no rhonchi, no rales , no accessory muscle use Abdominal: soft, nontender to palpation, no guarding, no appreciable organomegaly Ext: no gross muscle atrophy, edema bilateral hands, no contractures Neuro: CN II-XI grossly intact, no focal neuro deficits Psych: Alert, oriented, appropriate affect - Labs CBC & Chem 7: 08/07/17 10:51 08/07/17 08:27 Labs: Abnormal Lab Results - Last 24 Hours (Table) 08/06/17 08/06/17 08/06/17 Range/Units 16:25 16:25 16:41 WBC 17.6 H (3.8-10.6) k/uL Neutrophils # 15.4 H (1.3-7.7) k/uL Carbon Dioxide 19 L (22-30) mmol/L Glucose 305 H (74-99) mg/dL POC Glucose (mg/dL) (75-99) mg/dL C-Reactive Protein (<10.0) mg/L Urine Protein Trace H (Negative) Urine Glucose (UA) 4+ H (Negative) Urine Ketones 1+ H (Negative) 08/06/17 08/07/17 08/07/17 Range/Units 21:13 06:47 08:27 WBC (3.8-10.6) k/uL Neutrophils # (1.3-7.7) k/uL Carbon Dioxide 20 L (22-30) mmol/L Glucose 326 H (74-99) mg/dL POC Glucose (mg/dL) 389 H 228 H (75-99) mg/dL C-Reactive Protein 24.5 H (<10.0) mg/L Urine Protein (Negative) Urine Glucose (UA) (Negative) Urine Ketones (Negative) 08/07/17 08/07/17 Range/Units 10:51 11:52 WBC 21.8 H (3.8-10.6) k/uL Neutrophils # (1.3-7.7) k/uL Carbon Dioxide (22-30) mmol/L Glucose (74-99) mg/dL POC Glucose (mg/dL) 218 H (75-99) mg/dL C-Reactive Protein (<10.0) mg/L Urine Protein (Negative) Urine Glucose (UA) (Negative) Urine Ketones (Negative) Microbiology - Last 24 Hours (Table) 08/06/17 16:41 Urine Culture - Preliminary Urine,Voided Assessment and Plan Plan: #Diffuse urticaria -Possibly secondary to drug eruption but Flagyl should be out of her system and she has not taken any since Friday morning. Also could consider urticarial vasculitis, infectious mediated, vs other -CRP elevated -Status post epinephrine -IV steroids, Pepcid, Benadryl, Claritin - xanax for anxeity - Consult ID for possible rxn to viral illness (more likely children), infectious mediated - CRP is elevated, we ESR, check an GUICHO & complement levels to rule out vasculitis -Rheumatology consult could be consistent with urticarial vasculitis as it is now painful to the touch and she is having vision changes. #Hyperglycemia -Accu-Cheks, sliding scale insulin -await hemoglobin A1c to rule out diabetes #Hypertension, controlled -Follow up though blood pressures -Continue home medications #Obesity -Structured outpatient weight loss #Severe persistent asthma without exacerbation -Continue home inhaler and nebulizer regimen -Patient states she sometimes has recurrent exacerbations with weaning from steroids and she will need a slow steroid taper #GERD -H2 jose Chronic: IBS Seasonal ALLERGIES Depression Bronchitis Colitis DVT prophylaxis: scd Discussed with: patient Anticipated discharge: [address]: home A total of 45 minutes was spent on the care of this complex patient more than 50 % of the time was spent in counseling and care coordination.
[2017-08-07 12:37] LABS: Hepatitis C Virus IgG Ab Negative (Negative); Hepatitis C Virus IgG Index 0.01
[2017-08-07 13:35] LABS: Erythrocyte Sedimentation Rate 20 mm/hr (0-20)
[2017-08-07 16:13] LABS: Hepatitis B Surface Antibody Reactive (Non-Reactive)
[2017-08-07] MEDS: diphenhydrAMINE 50 MG CAP PO PRN (16:56)
[2017-08-07] MEDS: HYDROCORTISONE 1% CREAM 30 GM TUBE TOPICAL PRN (16:56)
[2017-08-07 16:59] LABS: Glucose,Whole Blood 278 mg/dL (75-99)
[2017-08-07] MEDS: methylPREDNISolone SOD SUCCI 125 MG/2 ML VIAL IM SCH (18:08)
[2017-08-07 18:28] LABS: ANA w/Reflex to Titer NEGATIVE (NEGATIVE)
[2017-08-07 20:31] LABS: Glucose,Whole Blood 344 mg/dL (75-99)
[2017-08-07] MEDS: FAMOTIDINE 20 MG TAB PO SCH (20:42)
[2017-08-07] MEDS: LORATADINE 10 MG TAB PO SCH (20:42)
[2017-08-07] MEDS: ESCITALOPRAM 10 MG TAB PO SCH (20:42)
[2017-08-07] MEDS: MONTELUKAST 10 MG TAB PO SCH (20:42)
[2017-08-07] MEDS: DOXEPIN 25 MG CAP PO SCH (21:00)
--- NOTE | 2017-08-07 21:06 | P.CONS ---
History of Present Illness - Reason for Consult Consult date: 08/07/17 - Chief Complaint Pruritic rash - History of Present Illness 37-year-old -[place] female presents emergency center actually several days in a row because of difficulties with hives increasing pruritus and feeling quite poorly. The patient relates that during the earlier part of the year she is having difficulties with Trichomonas. She apparently was desensitized with metronidazole and was treated in the past. She relates that she's had difficulties with relapse over time. She does relate a prior partner was treated but has not been sexually active as of late. Despite this she was having increasing amounts of vaginal drainage and pruritus. She was again diagnosed with Trichomonas. She was getting a treatment with metronidazole instead of a 2 g dose having a broken up to 250 mg doses. She did well for the first few doses then she started to develop the pruritic rash with hives. Is not she presented to the emergency center and was treated with steroids, Benadryl and Pepcid. She improved the symptoms then again worsened and she again was treated in the emergency center. Had improvement and went and was sent back to home. However she now is considerably worse. The hives have markedly worsened. She has diffuse pruritus including the palms of her hands. Fortunately no she's not had any difficulties with her respiratory status. Also no difficulties with swallowing. She constantly has been admitted to hospital and treated with multiple agents that include Solu-Medrol, Benadryl, Atarax and Pepcid. She was given 1 dose of epinephrine which gave some significant relief of the hives, but his epinephrine waned she then had significant worsening of the hives again. Today she is having significant pruritus, hives and generalized malaise and feels quite poorly. This evening she has no shortness of breath or throat tightening. She is denying fevers, chills or rigors. She's having no severe cough or sputum production. No abdominal pain or diarrhea. The hives are pruritic but they are not blistering opening or draining. She relates that her vaginal discharge has improved with the most recent treatment. Review of Systems HEENT:Denies headache or acute visual change. Denies sinus or mouth discomforts. Denies neck stiffness or pain. Denies significant oral cavity pain. Denies difficulty on swallowing. Lungs: Denies significant shortness of breath, cough, sputum production, or hemoptysis. Cardiovascular: Denies significant shortness of breath, chest pain, chest wall pain, orthopnea, dyspnea on exertion, syncope Gastrointestinal:Denies nausea, vomiting, diarrhea, constipation, hematemesis, melena, hematochezia. No no significant change of bowel habit noticed. Musculoskeletal: denies significant myalgias or arthralgias. No new joint swelling. Denies new back pain. Skin: As per the HPI Neuro: Denies headache or visual change. Denies any new onset weakness or difficulty with ambulation. Denies falls or seizures. Psychiatric:Denies anxiety or depression. Endocrine: Denies significant fatigue, denies significant weight loss or weight gain. Past Medical History Past Medical History: Asthma, Chest Pain / Angina, GERD/Reflux, Hypertension, Pneumonia Additional Past Medical History / Comment(s): HIATAL HERNIA, ibs, chronic sinusitis/seasonal allergies,UTI, ATYPICAL CHEST PAIN, 7-14 STRESS TEST NEG. , bronchitis, colitis, IBS, migraines, occasional low back pain. KIDNEY STONES History of Any Multi-Drug Resistant Organisms: None Reported Past Surgical History: Section, Cholecystectomy, Tubal Ligation Additional Past Surgical History / Comment(s): sinus surgery, D&C, x 4 , EGD/colonoscopy. Past Anesthesia/Blood Transfusion Reactions: Previous Problems w/ Anesthesia, Postoperative Nausea & Vomiting (PONV) Additional Past Anesthesia/Blood Transfusion Reaction / Comm: Pt did not go all the way under. 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 No current tobacco use. No alcohol use. No recreational drug use. Relates that she is currently not sexually active. Her prior partner was treated for Trichomonas. Adult daughter is well. No animals in the home. No international travel. No experience. Smoking Status: Former smoker Past Alcohol Use History: None Reported Past Drug Use History: None Reported - Past Family History Father Family Medical History: Congestive Heart Failure (CHF), Coronary Artery Disease (CAD), Diabetes Mellitus Additional Family Medical History / Comment(s): stents,depression anxiety Mother Family Medical History: Cancer, Diabetes Mellitus, Hypertension Additional Family Medical History / Comment(s): colon cancer, adhd, bipolar, split personaltiy disorder. Medications and Allergies Home Medications and Allergies Comment(s): Current Medications Albuterol Sulfate (Ventolin Nebulized) 2.5 mg INHALATION RT-QID PRN PRN Reason: Shortness Of Breath Last Admin: 08/06/17 20:17 Dose: 2.5 mg Alprazolam (Xanax) 0.5 mg PO TID PRN PRN Reason: Anxiety Last Admin: 08/07/17 12:23 Dose: 0.5 mg Amlodipine Besylate (Norvasc) 10 mg PO DAILY [facility] Last Admin: 08/07/17 08:42 Dose: 10 mg Budesonide/Formoterol Fumarate (Symbicort 80-4.5 Mcg Inhaler) 2 puff INHALATION RT-BID [facility] Last Admin: 08/07/17 08:23 Dose: 2 puff Dicyclomine HCl (Bentyl) 20 mg PO TID PRN PRN Reason: IBS Diphenhydramine HCl (Benadryl) 25 mg IVP Q6HR PRN PRN Reason: Allergy Symptoms Last Admin: 08/07/17 04:40 Dose: 25 mg Diphenhydramine HCl (Benadryl) 50 mg PO QID PRN PRN Reason: Itching Last Admin: 08/07/17 16:56 Dose: 50 mg Diphenoxylate HCl/Atropine (Lomotil) 1 each PO QID PRN PRN Reason: Loose Stool Doxepin HCl (Sinequan) 50 mg PO TID [facility] Last Admin: 08/07/17 21:00 Dose: 50 mg Escitalopram Oxalate (Lexapro) 10 mg PO HS [facility] Last Admin: 08/07/17 20:42 Dose: 10 mg Famotidine (Pepcid) 20 mg PO Q12HR [facility] Last Admin: 08/07/17 20:42 Dose: 20 mg Hydrochlorothiazide (Hydrodiuril) 25 mg PO DAILY [facility] Last Admin: 08/07/17 08:42 Dose: 25 mg Hydrocortisone (Hydrocortisone 1% Cream) 1 applic TOPICAL QID PRN PRN Reason: Skin Irritation Last Admin: 08/07/17 16:56 Dose: 1 applic Hydroxyzine HCl (Atarax) 25 mg PO QID PRN PRN Reason: Itching Last Admin: 08/07/17 04:39 Dose: 25 mg Sodium Chloride (Saline 0.9%) 1,000 mls @ 100 mls/hr IV .Q10H [facility] Last Admin: 08/07/17 20:51 Dose: Not Given Insulin Human Lispro (Humalog) 0 unit SQ ACHS [facility] PRN Reason: Protocol Last Admin: 08/07/17 20:42 Dose: 9 unit Ipratropium [place] (Atrovent Nebulized) 0.5 mg INHALATION RT-QID [facility] Last Admin: 08/07/17 19:47 Dose: Not Given Loratadine (Claritin) [address] [facility] Last Admin: 08/07/17 20:42 Dose: 10 mg Methylprednisolone Sodium Succinate (Solu-Medrol) 60 mg IM Q6HR [facility] Last Admin: 08/07/17 18:08 Dose: 60 mg Montelukast Sodium (Singulair) [address] [facility] Last Admin: 08/07/17 20:42 Dose: 10 mg Sumatriptan Succinate (Imitrex) 100 mg PO BID PRN PRN Reason: Migraine Headache Topiramate (Topamax) 50 mg PO DAILY [facility] Last Admin: 08/07/17 08:42 Dose: 50 mg Home Medications Medication Instructions Recorded Confirmed Type Loratadine [Claritin] 10 mg PO 05/04/14 08/06/17 History Montelukast Sodium [Singulair] 10 mg PO 05/04/14 08/06/17 History Dicyclomine [Bentyl] 20 mg PO TID PRN 05/05/14 08/06/17 History Albuterol Nebulized [Ventolin 2.5 mg INHALATION RT-QID PRN 09/01/15 08/06/17 History Nebulized] Albuterol Sulfate [Proair Hfa] 2 puff INHALATION RT-QID PRN 04/02/16 08/06/17 History Hydrochlorothiazide 25 mg PO DAILY 08/04/16 08/06/17 History SUMAtriptan SUCCINATE [Imitrex] 100 mg PO BID PRN 09/02/16 08/06/17 History Mometasone/Formoterol [Dulera 100 2 puff INHALATION RT-BID 12/01/16 08/06/17 History Mcg/5 Mcg Inhaler] amLODIPine [Norvasc] 10 mg PO DAILY 12/01/16 08/06/17 History Ibuprofen [Motrin] 800 mg PO TID PRN 04/27/17 08/06/17 History Topiramate [Topamax] 50 mg PO DAILY 04/27/17 08/06/17 History Diphenox-Atrop 2.5-0.025 mg 1 tab PO QID PRN 08/03/17 08/06/17 History [Lomotil] Escitalopram [Lexapro] 10 mg PO HS 08/03/17 08/06/17 History Omalizumab [Xolair] 150 mg SQ Q14D 08/03/17 08/06/17 History Tiotropium 18 Mcg/Puff [Spiriva] 1 cap INHALATION RT-DAILY 08/03/17 08/06/17 History predniSONE 50 mg PO DAILY #5 tab 08/03/17 08/06/17 Rx Famotidine [Pepcid] 40 mg PO DAILY 08/05/17 08/06/17 History diphenhydrAMINE ELIXIR [Benadryl 50 mg PO Q4H 08/05/17 08/06/17 History Elixir] hydrOXYzine HCL [Atarax] 25 mg PO QID PRN #20 tab 08/05/17 08/06/17 Rx Melatonin 3 mg PO HS PRN 08/06/17 08/06/17 History Allergies Allergy/AdvReac Type Severity Reaction Status Date / Time metronidazole [From Flagyl] Allergy Dyspnea Verified 08/06/17 20:45 morphine Allergy Rash/Hives Verified 08/06/17 20:45 orange flavor AdvReac Abdominal Verified 08/06/17 20:45 Pain tomato [Tomato] AdvReac Abdominal Verified 08/06/17 20:45 Pain wheat AdvReac Abdominal Verified 08/06/17 20:45 Pain Physical Exam Vitals: Vital Signs Temp Pulse Pulse Resp BP Pulse Ox 08/07/17 19:42 75 18 08/07/17 16:09 84 08/07/17 15:57 83 08/07/17 15:42 97.8 F 75 18 154/82 97 08/07/17 13:09 84 08/07/17 13:00 84 08/07/17 08:36 72 08/07/17 08:24 68 08/07/17 08:00 98.1 F 58 L 18 150/91 95 08/07/17 04:00 69 18 08/07/17 00:15 98.4 F 69 18 146/86 97 08/07/17 00:00 69 18 Intake and Output 08/07/17 08/07/17 08/07/17 06:59 14:59 22:59 Intake Total 1500 480 240 Balance 1500 480 240 Intake: Intake, IV Titration 700 Amount Sodium Chloride 0.9% 1, 700 000 ml @ 100 mls/hr IV . Q10H [facility] Rx#:[id number] Oral 800 480 240 Other: Voiding Method Toilet Toilet Toilet # Voids 3 1 Pleasant 37-year-old woman who is complaining of some generalized rash and pruritus. Did not sleep well last night. Currently the arms and legs significant area of the greatest pruritus. Room the day it was her anterior chest wall and her scratching resulted in a few bruising. HEENT: Anicteric conjunctiva are pink and moist nasal mucosa grossly intact without significant lesions, there is no thrush. Neck: The neck is supple without significant lymphadenopathy or thyromegaly. Lungs: Good bilateral air entry without significant crackles or wheezing. There is no significant bronchial sounds. There is no egophony or dullness. Heart: Regular rate and rhythm with an audible S1-S2, no S3 no S4. There is no significant murmur click or rub, PMI was nondisplaced. Abdomen: Obese, Positive bowel sounds soft and nontender without palpable masses or organomegaly. There was no guarding or rebound. Extremities: The upper extremities have excellent pulses they are symmetric, no significant petechiae or telangiectasia. No splinter hemorrhages were noted. The lower extremities are free from significant edema. The peripheral pulses were 2+ and symmetric. Skin: Evidence of a somewhat patchy with diffuse erythematous raised papular rash. There are no vesicles. There is no drainage. It is not distinctly tender. He has noted it is very pruritic. It involves her face, neck, anterior chest wall, abdominal wall, upper and lower extremities. The palms have some erythema but no hives. The soles are spared. There are a few areas on her back and on the dorsum of the feet. Neuro: Awake alert oriented to person place and time. There are no acute new gross focal sensory motor deficits. Results CBC & Chem 7: 08/07/17 10:51 08/07/17 08:27 Labs: Abnormal Lab Results - Last 24 Hours (Table) 0908/07/17 08/07/17 Range/Units 21:13 06:47 08:27 WBC (3.8-10.6) k/uL Carbon Dioxide 20 L (22-30) mmol/L Glucose 326 H (74-99) mg/dL POC Glucose (mg/dL) 389 H 228 H (75-99) mg/dL Hemoglobin A1c (4.2-6.1) % C-Reactive Protein 24.5 H (<10.0) mg/L 08/07/17 08/07/17 08/07/17 Range/Units 08:27 10:51 11:52 WBC 21.8 H (3.8-10.6) k/uL Carbon Dioxide (22-30) mmol/L Glucose (74-99) mg/dL POC Glucose (mg/dL) 218 H (75-99) mg/dL Hemoglobin A1c 7.0 H (4.2-6.1) % C-Reactive Protein (<10.0) mg/L 08/07/17 08/07/17 Range/Units 16:57 20:28 WBC (3.8-10.6) k/uL Carbon Dioxide (22-30) mmol/L Glucose (74-99) mg/dL POC Glucose (mg/dL) 278 H 344 H (75-99) mg/dL Hemoglobin A1c (4.2-6.1) % C-Reactive Protein (<10.0) mg/L Microbiology - Last 24 Hours (Table) 08/06/17 17:42 Blood Culture - Preliminary Blood No Growth after 24 hours 08/06/17 16:41 Urine Culture - Preliminary Urine,Voided Laboratory Results WBC 21.8 k/uL (3.8-10.6) H 08/07/17 10:51 RBC 4.46 m/uL (3.80-5.40) 08/07/17 10:51 Hgb 12.1 gm/dL (11.4-16.0) 08/07/17 10:51 Hct 38.1 % (34.0-46.0) 08/07/17 10:51 MCV 85.4 fL (80.0-100.0) 08/07/17 10:51 MCH 27.1 pg (25.0-35.0) 08/07/17 10:51 MCHC 31.7 g/dL (31.0-37.0) 08/07/17 10:51 RDW 14.1 % (11.5-15.5) 08/07/17 10:51 Plt Count 279 k/uL (150-450) 08/07/17 10:51 Neutrophils % 88 % 08/06/17 16:25 Lymphocytes % 8 % 08/06/17 16:25 Monocytes % 3 % 08/06/17 16:25 Eosinophils % 1 % 08/06/17 16:25 Basophils % 0 % 08/06/17 16:25 Neutrophils # 15.4 k/uL (1.3-7.7) H 08/06/17 16:25 Lymphocytes # 1.5 k/uL (1.0-4.8) 08/06/17 16:25 Monocytes # 0.5 k/uL (0-1.0) 08/06/17 16:25 Eosinophils # 0.1 k/uL (0-0.7) 08/06/17 16:25 Basophils # 0.0 k/uL (0-0.2) 08/06/17 16:25 Hypochromasia Slight 08/07/17 10:51 ESR 20 mm/hr (0-20) 08/07/17 10:51 Sodium 138 mmol/L (137-145) 08/07/17 08:27 Potassium 4.1 mmol/L (3.5-5.1) 08/07/17 08:27 Chloride 105 mmol/L (98-107) 08/07/17 08:27 Carbon Dioxide 20 mmol/L (22-30) L 08/07/17 08:27 Anion Gap 13 mmol/L 08/07/17 08:27 BUN 12 mg/dL (7-17) 08/07/17 08:27 Creatinine 0.60 mg/dL (0.52-1.04) 08/07/17 08:27 Est GFR (MDRD) Af Amer >60 (>60 ml/min/1.73 sqM) 08/07/17 08:27 Est GFR (MDRD) Non-Af >60 (>60 ml/min/1.73 sqM) 08/07/17 08:27 Glucose 326 mg/dL (74-99) H 08/07/17 08:27 POC Glucose (mg/dL) 344 mg/dL (75-99) H 08/07/17 20:28 POC Glu Polygraph Technician ID Karina Lima 08/07/17 20:[address] Glu mg/dL 154 mg/dL 08/07/17 08:27 Hemoglobin A1c 7.0 % (4.2-6.1) H 08/07/17 08:27 Calcium 9.1 mg/dL (8.4-10.2) 08/07/17 08:27 Total Bilirubin 0.6 mg/dL (0.2-1.3) 08/06/17 16:25 AST 31 U/L (14-36) 08/06/17 16:25 ALT 36 U/L (9-52) 08/06/17 16:25 Alkaline Phosphatase 71 U/L (38-126) 08/06/17 16:25 C-Reactive Protein 24.5 mg/L (<10.0) H 08/07/17 08:27 Total Protein 7.0 g/dL (6.3-8.2) 08/06/17 16:25 Albumin 3.8 g/dL (3.5-5.0) 08/06/17 16:25 Urine Color Yellow 08/06/17 16:41 Urine Appearance Clear (Clear) 08/06/17 16:41 Urine pH 6.5 (5.0-8.0) 08/06/17 16:41 Ur Specific [place] 1.022 (1.001-1.035) 08/06/17 16:41 Urine Protein Trace (Negative) H 08/06/17 16:41 Urine Glucose (UA) 4+ (Negative) H 08/06/17 16:41 Urine Ketones 1+ (Negative) H 08/06/17 16:41 Urine Blood Negative (Negative) 08/06/17 16:41 Urine Nitrite Negative (Negative) 08/06/17 16:41 Urine Bilirubin Negative (Negative) 08/06/17 16:41 Urine Urobilinogen <2.0 mg/dL (<2.0) 08/06/17 16:41 Ur Leukocyte Esterase Negative (Negative) 08/06/17 16:41 Complement C4 28 mg/dL (14-44) 08/07/17 10:51 Chlamydia Source Urine 08/06/17 16:41 Chlamydia DNA (PCR) Negative (Neg,Equiv) 08/06/17 16:41 Hep Bs Antigen Negative 08/07/17 10:51 Hep C IgG Ab Negative (Negative) 08/07/17 10:51 N. gonorrhoeae Source Urine 08/06/17 16:41 N.gonorrhoeae DNA Probe Negative (Neg,Equiv) 08/06/17 16:41 Assessment and Plan (1) Acute urticaria Narrative/Plan: 37-year-old woman presents to Hospital with increasing difficulties to her skin with hives, rash and intense pruritus. She had several outpatient treatments that did not lower significant improvement. Currently without IV access she is receiving intramuscular steroids and several oral agents that include Benadryl, Atarax and Pepcid. She is still quite miserable. We'll add doxepin to see if this cannot help with her severe pruritus. It is likely she's having eruption related to the rechallenge of metronidazole. After the last dose it takes at least 4 days for the metronidazole to be metabolized away. In likely is still driving some of the significant pruritus. As the drug level fades she should hopefully have some improvement. Other concern is underlying viral infection causing erythema migrans, herpes virus titers are requested. Checking urine for Trichomonas PCR has been requested to ensure that she has cleared the infection. Continue oral fluids and general supportive care. She is urged to not scratch to prevent secondary infection. Status: Acute (2) Failure of outpatient treatment Status: Acute
[2017-08-08] MEDS: methylPREDNISolone SOD SUCCI 125 MG/2 ML VIAL IM SCH ×2 (00:21→06:16)
[2017-08-08 06:54] LABS: Glucose,Whole Blood 278 mg/dL (75-99)
[2017-08-08] MEDS: SYMBICORT 80-4.5 MCG INHALER INHALATION SCH ×2 (06:54→19:20)
[2017-08-08] MEDS: IPRATROPIUM 0.5 MG/2.5 ML NEBU INHALATION SCH ×4 (06:54→19:21)
[2017-08-08] MEDS: diphenhydrAMINE 50 MG CAP PO PRN (07:29)
[2017-08-08] MEDS: DOXEPIN 25 MG CAP PO SCH ×3 (08:20→21:47)
[2017-08-08] MEDS: amLODIPine 10 MG TAB PO SCH (08:20)
[2017-08-08] MEDS: FAMOTIDINE 20 MG TAB PO SCH ×2 (08:20→20:33)
[2017-08-08] MEDS: HYDROCHLOROTHIAZIDE 25 MG TAB PO SCH (08:20)
[2017-08-08] MEDS: TOPIRAMATE 25 MG TAB PO SCH (08:21)
[2017-08-08] MEDS ORDERED: LIDOCAINE 2% INJ 20 MG/ML SQ ONE (09:03)
[2017-08-08] MEDS: INSULIN LISPRO (humaLOG) 300 UNIT/3 ML VIAL SQ SCH ×4 (09:27→20:29)
[2017-08-08 09:29] LABS: Glucose,Whole Blood 267 mg/dL (75-99)
[2017-08-08 10:08] LABS: CH 27.4; HDW 2.66; HGB 12.9 gm/dL (11.4-16.0); MCH 27.1 pg (25.0-35.0); MCHC 32.3 g/dL (31.0-37.0); MCV 83.6 fL (80.0-100.0); Mean Platelet Volume 9.4; RBC 4.78 m/uL (3.80-5.40); RDW 14.7 % (11.5-15.5); WBC 16.9 k/uL (3.8-10.6)
[2017-08-08 10:25] LABS: ALT 32 U/L (9-52); AST 14 U/L (14-36); Alkaline Phosphatase 70 U/L (38-126); Anion Gap 10 mmol/L; Blood Urea Nitrogen 15 mg/dL (7-17); Calcium 9.2 mg/dL (8.4-10.2); Carbon Dioxide 26 mmol/L (22-30); Chloride 100 mmol/L (98-107); Glucose 293 mg/dL (74-99); Non-African American GFR(MDRD) >60 (>60 ml/min/1.73 sqM); Sodium 136 mmol/L (137-145); Total Bilirubin 0.6 mg/dL (0.2-1.3); Total Protein 6.8 g/dL (6.3-8.2)
--- NOTE | 2017-08-08 10:29 | P.PN ---
Subjective Principal diagnosis: rash Patient is a 37-year-old -Citizen Of [place] female with a past medical history of hypertension, GERD, persistent severe asthma, and ALLERGIES who presented with complaints of hives. She has a known history of ALLERGIC reaction to Flagyl. 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 She had been desensitized to Flagyl in the ICU in the past. She started taking Flagyl and small doses on Friday with increasing doses. She took her final dose of 500 mg of Flagyl Friday morning at midnight. She reports that Friday and Friday she had some dizziness and confusion. Friday afternoon she developed generalized itching and diarrhea. She then developed a rash on her hip. By 5 AM on Friday morning she had hives and went to the emergency department. She received steroids Benadryl and Pepcid and had resolution of her symptoms. She was discharged home. On Friday she had worsening of her symptoms again and went to the ER at [facility] there she was given IM Solu-Medrol and by mouth Benadryl and discharged home. Her symptoms were worse again yesterday and she re-presented here again got IV steroids Pepcid and Benadryl. She had a prescription for Atarax written. She has been taking her steroids Benadryl and Atarax at home without improvement. In the ER she underwent an extensive evaluation. She was found to have a leukocytosis. Her blood sugars on the elevated at 305 and she was slightly acidotic. She had no anion gap. She was given IV steroids, Pepcid, Benadryl, and a dose of epinephrine. She was admitted for observation of her hives. She had slight improvement in her hives until approximately midnight. She then noted a worsening of the rash, increase in intensity, and increase in itching and painfulness. Her CRP was slightly elevated. Disease was consult it felt this might still be a reaction secondary to Flagyl. She was maintained on IV steroids. Her hemoglobin A1c did come back and 7 and she will be initiated on metformin therapy for discharge. Patient seen and examined at bedside. She states that after the doxepin her rash became less itchy but became more painful. She states that her rash was more violaceous last night and then improved again this morning. She states that her hands are feeling stiff secondary to swelling. Discussed case with rheumatology over follow feels that this may be a vasculitis. They recommend prednisone therapy at discharge with a slow taper and follow-up with them in 4 weeks. Objective - Vital Signs Vital signs: Vital Signs Temp 98.0 F 08/08/17 07:36 Pulse 69 08/08/17 07:36 Resp 18 08/08/17 07:36 BP 142/89 08/08/17 07:36 Pulse Ox 99 08/08/17 07:36 Intake & Output 08/07/17 08/08/17 08/08/17 18:59 06:59 18:59 Intake Total 720 1200 Balance 720 1200 Intake: Oral 720 1200 Other: Voiding Method Toilet Toilet Toilet # Voids 1 2 - Exam General: non toxic, mild distress, appears at stated age, obese Derm: Diffuse rash, linear with areas of bradycardia, reddening of palms and soles., no lesions Head: atraumatic, normocephalic, symmetric Eyes: EOMI, no lid lag, anicteric sclera ENT: no post nasal drip, no thrush Mouth: no lip lesion, mucus membranes moist Cardiovascular: S1S2 reg, no murmur, positive posterior tibial pulse bilateral, Lungs: CTA bilateral, no rhonchi, no rales , no accessory muscle use Abdominal: soft, nontender to palpation, no guarding, no appreciable organomegaly Ext: no gross muscle atrophy, + edema bilateral hands, no contractures Neuro: CN II-XI grossly intact, no focal neuro deficits Psych: Alert, oriented, appropriate affect - Labs CBC & Chem 7: 08/08/17 09:42 08/08/17 09:42 Labs: Abnormal Lab Results - Last 24 Hours (Table) 08/07/17 08/07/17 08/07/17 Range/Units 08:27 10:51 10:51 WBC 21.8 H (3.8-10.6) k/uL Sodium (137-145) mmol/L Glucose (74-99) mg/dL POC Glucose (mg/dL) (75-99) mg/dL Hemoglobin A1c 7.0 H (4.2-6.1) % Hep Bs Antibody Reactive H (Non-Reactive) 08/07/17 08/07/17 08/07/17 Range/Units 11:52 16:57 20:28 WBC (3.8-10.6) k/uL Sodium (137-145) mmol/L Glucose (74-99) mg/dL POC Glucose (mg/dL) 218 H 278 H 344 H (75-99) mg/dL Hemoglobin A1c (4.2-6.1) % Hep Bs Antibody (Non-Reactive) 08/08/17 08/08/17 08/08/17 Range/Units 06:52 09:26 09:42 WBC 16.9 H (3.8-10.6) k/uL Sodium (137-145) mmol/L Glucose (74-99) mg/dL POC Glucose (mg/dL) 278 H 267 H (75-99) mg/dL Hemoglobin A1c (4.2-6.1) % Hep Bs Antibody (Non-Reactive) 08/08/17 Range/Units 09:42 WBC (3.8-10.6) k/uL Sodium 136 L (137-145) mmol/L Glucose 293 H (74-99) mg/dL POC Glucose (mg/dL) (75-99) mg/dL Hemoglobin A1c (4.2-6.1) % Hep Bs Antibody (Non-Reactive) Microbiology - Last 24 Hours (Table) 08/06/17 16:41 Urine Culture - Final Urine,Voided Strep agalactiae - (group b) 08/06/17 17:42 Blood Culture - Preliminary Blood No Growth after 24 hours Assessment and Plan Plan: #Diffuse urticaria, with urticarial vaculitis -Possibly secondary to drug eruption but Flagyl should be out of her system and she has not taken any since Friday morning. Also could consider urticarial vasculitis, infectious mediated, vs other -CRP elevated -Status post epinephrine -IV steroids, Pepcid, Benadryl, Claritin - xanax for anxeity - IV recommendations appreciated - CRP is elevated, ESR and GUICHO are negative, complement levels are normal which I would anticipate to be high in this case -Rheumatology has recommended outpatient slow steroid taper #Type 2 diabetes mellitus, newly discovered -Accu-Cheks, sliding scale insulin - hemoglobin A1c 7 -Consult credit correspondence clerk -Consult dietitian #Hypertension, controlled -Follow up though blood pressures -Continue home medications #Obesity -Structured outpatient weight loss #Severe persistent asthma without exacerbation -Continue home inhaler and nebulizer regimen -Patient states she sometimes has recurrent exacerbations with weaning from steroids and she will need a slow steroid taper #GERD -H2 jose Chronic: IBS Seasonal ALLERGIES Depression Bronchitis Colitis DVT prophylaxis: scd Discussed with: patient Anticipated discharge: [address]: home A total of 35 minutes was spent on the care of this complex patient more than 50 % of the time was spent in counseling and care coordination.
[2017-08-08 11:57] LABS: Glucose,Whole Blood 380 mg/dL (75-99)
[2017-08-08] MEDS: methylPREDNISolone SOD SUCCI 125 MG/2 ML VIAL IV SCH ×2 (16:08→23:30)
[2017-08-08 16:31] LABS: HSV I IgG Interp NEGATIVE (NEGATIVE); HSV II IgG Interp NEGATIVE (NEGATIVE)
[2017-08-08 17:09] LABS: Glucose,Whole Blood 342 mg/dL (75-99)
--- NOTE | 2017-08-08 17:35 | P.PN ---
Subjective Principal diagnosis: Uticaria 37-year-old -[place] female presents emergency center actually several days in a row because of difficulties with hives increasing pruritus and feeling quite poorly. The patient relates that during the earlier part of the year she is having difficulties with Trichomonas. She apparently was desensitized with metronidazole and was treated in the past. She relates that she's had difficulties with relapse over time. She does relate a prior partner was treated but has not been sexually active as of late. Despite this she was having increasing amounts of vaginal drainage and pruritus. She was again diagnosed with Trichomonas. She was getting a treatment with metronidazole instead of a 2 g dose having a broken up to 250 mg doses. She did well for the first few doses then she started to develop the pruritic rash with hives. Is not she presented to the emergency center and was treated with steroids, Benadryl and Pepcid. She improved the symptoms then again worsened and she again was treated in the emergency center. Had improvement and went and was sent back to home. However she now is considerably worse. The hives have markedly worsened. She has diffuse pruritus including the palms of her hands. Fortunately no she's not had any difficulties with her respiratory status. Also no difficulties with swallowing. She constantly has been admitted to hospital and treated with multiple agents that include Solu-Medrol, Benadryl, Atarax and Pepcid. She was given 1 dose of epinephrine which gave some significant relief of the hives, but his epinephrine waned she then had significant worsening of the hives again. Today she is having significant pruritus, hives and generalized malaise and feels quite poorly. This evening she has no shortness of breath or throat tightening. She is denying fevers, chills or rigors. She's having no severe cough or sputum production. No abdominal pain or diarrhea. The hives are pruritic but they are not blistering opening or draining. She relates that her vaginal discharge has improved with the most recent treatment. Objective - Vital Signs Vital signs: Vital Signs Temp 98.8 F 08/08/17 16:00 Pulse 76 08/08/17 16:00 Resp 18 08/08/17 16:00 BP 124/74 08/08/17 16:00 Pulse Ox 96 08/08/17 16:00 Intake & Output 08/07/17 08/08/17 08/08/17 18:59 06:59 18:59 Intake Total 720 1200 Balance 720 1200 Intake: Oral 720 1200 Other: Voiding Method Toilet Toilet Toilet # Voids 1 2 1 - Exam Pleasant 37-year-old woman who is complaining of some generalized rash and pruritus. Did not sleep well last night. Currently the arms and legs significant area of the greatest pruritus. Room the day it was her anterior chest wall and her scratching resulted in a few bruising. HEENT: Anicteric conjunctiva are pink and moist nasal mucosa grossly intact without significant lesions, there is no thrush. Neck: The neck is supple without significant lymphadenopathy or thyromegaly. Lungs: Good bilateral air entry without significant crackles or wheezing. There is no significant bronchial sounds. There is no egophony or dullness. Heart: Regular rate and rhythm with an audible S1-S2, no S3 no S4. There is no significant murmur click or rub, PMI was nondisplaced. Abdomen: Obese, Positive bowel sounds soft and nontender without palpable masses or organomegaly. There was no guarding or rebound. Extremities: The upper extremities have excellent pulses they are symmetric, no significant petechiae or telangiectasia. No splinter hemorrhages were noted. The lower extremities are free from significant edema. The peripheral pulses were 2+ and symmetric. Skin: Evidence of a somewhat patchy with diffuse erythematous raised papular rash. There are no vesicles. There is no drainage. It is not distinctly tender. He has noted it is very pruritic. It involves her face, neck, anterior chest wall, abdominal wall, upper and lower extremities. The palms have some erythema but no hives. The soles are spared. There are a few areas on her back and on the dorsum of the feet. Fortunately the skin is somewhat improved today. Neuro: Awake alert oriented to person place and time. There are no acute new gross focal sensory motor deficits. - Labs CBC & Chem 7: 08/08/17 09:42 08/08/17 09:42 Labs: Abnormal Lab Results - Last 24 Hours (Table) 08/07/17 08/07/17 08/08/17 Range/Units 10:51 20:28 06:52 WBC (3.8-10.6) k/uL Sodium (137-145) mmol/L Glucose (74-99) mg/dL POC Glucose (mg/dL) 344 H 278 H (75-99) mg/dL Hep Bs Antibody Reactive H (Non-Reactive) 08/08/17 08/08/17 08/08/17 Range/Units 09:26 09:42 09:42 WBC 16.9 H (3.8-10.6) k/uL Sodium 136 L (137-145) mmol/L Glucose 293 H (74-99) mg/dL POC Glucose (mg/dL) 267 H (75-99) mg/dL Hep Bs Antibody (Non-Reactive) 08/08/17 08/08/17 Range/Units 11:54 16:59 WBC (3.8-10.6) k/uL Sodium (137-145) mmol/L Glucose (74-99) mg/dL POC Glucose (mg/dL) 380 H 342 H (75-99) mg/dL Hep Bs Antibody (Non-Reactive) Microbiology - Last 24 Hours (Table) 08/06/17 16:41 Urine Culture - Final Urine,Voided Strep agalactiae - (group b) 08/06/17 17:42 Blood Culture - Preliminary Blood No Growth after 24 hours Assessment and Plan (1) Acute urticaria Narrative/Plan: 37-year-old woman presents to Hospital with increasing difficulties to her skin with hives, rash and intense pruritus. She had several outpatient treatments that did not lower significant improvement. Currently without IV access she is receiving intramuscular steroids and several oral agents that include Benadryl, Atarax and Pepcid. She is still quite miserable. We'll add doxepin to see if this cannot help with her severe pruritus. It is likely she's having eruption related to the rechallenge of metronidazole. After the last dose it takes at least 4 days for the metronidazole to be metabolized away. In likely is still driving some of the significant pruritus. As the drug level fades she should hopefully have some improvement. Other concern is underlying viral infection causing erythema migrans, herpes virus titers are requested. Checking urine for Trichomonas PCR has been requested to ensure that she has cleared the infection. Continue oral fluids and general supportive care. She is urged to not scratch to prevent secondary infection. 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 Status: Acute (2) Failure of outpatient treatment Status: Acute
[2017-08-08] MEDS: metFORMIN 500 MG TAB PO SCH (18:40)
[2017-08-08 20:15] LABS: Glucose,Whole Blood 347 mg/dL (75-99)
[2017-08-08] MEDS: ESCITALOPRAM 10 MG TAB PO SCH (20:33)
[2017-08-08] MEDS: LORATADINE 10 MG TAB PO SCH (20:33)
[2017-08-08] MEDS: MONTELUKAST 10 MG TAB PO SCH (20:33)
[2017-08-08] MEDS ORDERED: INSULIN DETEMIR 100 UNIT/ML 10 ML VIAL SQ SCH (21:00)
[2017-08-09] VITALS: RESP 16
[2017-08-09 06:35] LABS: CH 27.6; CHCM 32.8; HCT 36.9 % (34.0-46.0); HGB 11.9 gm/dL (11.4-16.0); MCH 27.3 pg (25.0-35.0); MCHC 32.3 g/dL (31.0-37.0); MCV 84.4 fL (80.0-100.0); Mean Platelet Volume 7.8; RBC 4.37 m/uL (3.80-5.40); RDW 14.9 % (11.5-15.5); WBC 14.4 k/uL (3.8-10.6)
[2017-08-09 06:47] LABS: ALT 31 U/L (9-52); AST 10 U/L (14-36); Alkaline Phosphatase 62 U/L (38-126); Anion Gap 9 mmol/L; Blood Urea Nitrogen 16 mg/dL (7-17); Carbon Dioxide 28 mmol/L (22-30); Chloride 99 mmol/L (98-107); Glucose 279 mg/dL (74-99); Non-African American GFR(MDRD) >60 (>60 ml/min/1.73 sqM); Potassium 3.9 mmol/L (3.5-5.1); Sodium 136 mmol/L (137-145); Total Bilirubin 0.4 mg/dL (0.2-1.3); Total Protein 6.2 g/dL (6.3-8.2)
[2017-08-09] MEDS: SYMBICORT 80-4.5 MCG INHALER INHALATION SCH (07:20)
[2017-08-09] MEDS: IPRATROPIUM 0.5 MG/2.5 ML NEBU INHALATION SCH ×2 (07:24→11:35)
[2017-08-09] MEDS: methylPREDNISolone SOD SUCCI 125 MG/2 ML VIAL IV SCH (08:46)
[2017-08-09] MEDS: metFORMIN 500 MG TAB PO SCH (08:46)
[2017-08-09] MEDS: TOPIRAMATE 25 MG TAB PO SCH (08:46)
[2017-08-09] MEDS: amLODIPine 10 MG TAB PO SCH (08:46)
[2017-08-09] MEDS: FAMOTIDINE 20 MG TAB PO SCH (08:46)
[2017-08-09] MEDS: DOXEPIN 25 MG CAP PO SCH (08:46)
[2017-08-09] MEDS: HYDROCHLOROTHIAZIDE 25 MG TAB PO SCH (08:46)
[2017-08-09 08:51] LABS: Glucose,Whole Blood 306 mg/dL (75-99)
[2017-08-09] MEDS: INSULIN LISPRO (humaLOG) 300 UNIT/3 ML VIAL SQ SCH ×2 (08:56→13:13)
[2017-08-09 09:01] VITALS: BP 143/86; PULSE 74; TEMP 98.1
[2017-08-09 10:52] VITALS: BMI 45.1
[2017-08-09 12:22] LABS: Glucose,Whole Blood 299 mg/dL (75-99)
--- NOTE | 2017-08-09 17:42 | P.DS ---
Providers Date of admission: 08/08/17 15:00 Expected date of discharge: 08/09/17 Attending physician: Zee Green DO Consults: 08/07/17 10:42 Consult Physician Routine Consulting Provider: Jarret Hernandez Consult Reason/Comments: rash, recent trichamonas Do you want consulting provider notified?: Yes 08/07/17 12:32 Consult Physician Routine Consulting Provider: Bell King Consult Reason/Comments: possible vasculitis Do you want consulting provider notified?: Yes Primary care physician: [place] [facility] Course: Patient is a 37-year-old -[place]ones[place] female with a past medical history of hypertension, GERD, persistent severe asthma, and ALLERGIES who presented with complaints of hives. She has a known history of ALLERGIC reaction to Flagyl. 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 She had been desensitized to Flagyl in the ICU in the past. She started taking Flagyl in small doses on Friday with increasing doses. She took her final dose of 500 mg of Flagyl Friday morning at midnight. She reports that Friday and Friday she had some dizziness and confusion. Friday afternoon she developed generalized itching and diarrhea. She then developed a rash on her hip. By 5 AM on Friday morning she had hives and went to the emergency department. She received steroids Benadryl and Pepcid and had resolution of her symptoms. She was discharged home. On Friday she had worsening of her symptoms again and went to the ER at [facility] there she was given IM Solu-Medrol and by mouth Benadryl and discharged home. Her symptoms were worse again yesterday and she re-presented here again got IV steroids Pepcid and Benadryl. She had a prescription for Atarax written. She has been taking her steroids Benadryl and Atarax at home without improvement. In the ER she underwent an extensive evaluation. She was found to have a leukocytosis. Her blood sugars on the elevated at 305 and she was slightly acidotic. She had no anion gap. She was given IV steroids, Pepcid, Benadryl, and a dose of epinephrine. She was admitted for observation of her hives. She had slight improvement in her hives until approximately midnight. She then noted a worsening of the rash, increase in intensity, and increase in itching and painfulness. Her CRP was slightly elevated. Infectious disease was consult it felt this might still be a reaction secondary to Flagyl. She was maintained on IV steroids. Her hemoglobin A1c did come back and 7 and she was initiated on metformin therapy for discharge. 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 DAVID was negative, complements were normal. Rheumatology recommended a slow steroid wean over 6 weeks. Her rash finally improved on 9:30 after multiple doses of IV steroids and she was determined stable for discharge home. She was transitioned off of insulin into oral metformin. She was given instructions on a diabetic diet. [place] paperwork was filled I will cover her acute hospitalization. I stressed with her the importance of following up with her family physician next week for more diabetic education and a repeat on her blood sugars. She is given a prescription for a glucometer. She was discharged home in stable condition. Patient seen and examined at bedside. States that rashes better, pain is decreasing, no shortness of breath. As needed fill out [facility] paperwork and I discussed that I would cover her acute hospitalization and through part of next week but she must follow up with her family doctor if she needs further time off. Vital signs reviewed and stable. General: non toxic, no distress, appears at stated age Derm: Severity, intensity, and number of hives significantly decreased, resolution of palpable hives, no lesions Head: atraumatic, normocephalic, symmetric Eyes: EOMI, no lid lag, anicteric sclera ENT: no post nasal drip, no thrush Mouth: no lip lesion, mucus membranes moist Cardiovascular: S1S2 reg, no murmur, positive posterior tibial pulse bilateral, Lungs: CTA bilateral, no rhonchi, no rales , no accessory muscle use Abdominal: soft, nontender to palpation, no guarding, no appreciable organomegaly Ext: no gross muscle atrophy, no edema, no contractures Neuro: CN II-XI grossly intact, no focal neuro deficits Psych: Alert, oriented, appropriate affect A total of 35 minutes of time were spent preparing this complex discharge summary . Pertinent Studies: None Patient Condition at Discharge: Good Plan - Discharge Summary New Discharge Prescriptions: New diphenhydrAMINE [Benadryl] 50 mg PO QID PRN cap PRN Reason: Itching Doxepin [SINEquan] 25 mg PO HS #14 cap Hydrocortisone Cream [Hydrocortisone 1% Cream] 1 applic TOPICAL QID PRN dose PRN Reason: Skin Irritation metFORMIN HCL [Glucophage] 500 mg PO BID-W/MEALS #60 tab predniSONE 10 mg PO DIRECTED #100 tab Continue Montelukast Sodium [Singulair] 10 mg PO HS Loratadine [Claritin] 10 mg PO HS Dicyclomine [Bentyl] 20 mg PO TID PRN PRN Reason: IBS Albuterol Nebulized [Ventolin Nebulized] 2.5 mg INHALATION RT-QID PRN PRN Reason: Shortness Of Breath Albuterol Sulfate [Proair Hfa] 2 puff INHALATION RT-QID PRN PRN Reason: Shortness Of Breath Hydrochlorothiazide 25 mg PO DAILY SUMAtriptan SUCCINATE [Imitrex] 100 mg PO BID PRN PRN Reason: Migraine Headache amLODIPine [Norvasc] 10 mg PO DAILY Mometasone/Formoterol [Dulera 100 Mcg/5 Mcg Inhaler] 2 puff INHALATION RT-BID Topiramate [Topamax] 50 mg PO DAILY Tiotropium 18 Mcg/Puff [Spiriva] 1 cap INHALATION RT-DAILY Omalizumab [Xolair] 150 mg SQ Q14D Diphenox-Atrop 2.5-0.025 mg [Lomotil] 1 tab PO QID PRN PRN Reason: Loose Stool Escitalopram [Lexapro] 10 mg PO HS Famotidine [Pepcid] 40 mg PO DAILY hydrOXYzine HCL [Atarax] 25 mg PO QID PRN #20 tab PRN Reason: Itching Melatonin 3 mg PO HS PRN PRN Reason: insomnia Discontinued Ibuprofen [Motrin] 800 mg PO TID PRN PRN Reason: Pain predniSONE 50 mg PO DAILY #5 tab diphenhydrAMINE ELIXIR [Benadryl Elixir] 50 mg PO Q4H Discharge Medication List Loratadine [Claritin] 10 mg PO HS 05/04/14 [History] Montelukast Sodium [Singulair] 10 mg PO HS 05/04/14 [History] Dicyclomine [Bentyl] 20 mg PO TID PRN 05/05/14 [History] Albuterol Nebulized [Ventolin Nebulized] 2.5 mg INHALATION RT-QID PRN 09/01/15 [ History] Albuterol Sulfate [Proair Hfa] 2 puff INHALATION RT-QID PRN 04/02/16 [History] Hydrochlorothiazide 25 mg PO DAILY 08/04/16 [History] SUMAtriptan SUCCINATE [Imitrex] 100 mg PO BID PRN 09/02/16 [History] Mometasone/Formoterol [Dulera 100 Mcg/5 Mcg Inhaler] 2 puff INHALATION RT-BID [History] amLODIPine [Norvasc] 10 mg PO DAILY 12/01/16 [History] Topiramate [Topamax] 50 mg PO DAILY 04/27/17 [History] Diphenox-Atrop 2.5-0.025 mg [Lomotil] 1 tab PO QID PRN 08/03/17 [History] Escitalopram [Lexapro] 10 mg PO HS 08/03/17 [History] Omalizumab [Xolair] 150 mg SQ Q14D 08/03/17 [History] Tiotropium 18 Mcg/Puff [Spiriva] 1 cap INHALATION RT-DAILY 08/03/17 [History] Famotidine [Pepcid] 40 mg PO DAILY 08/05/17 [History] hydrOXYzine HCL [Atarax] 25 mg PO QID PRN #20 tab 08/05/17 [Rx] Melatonin 3 mg PO HS PRN 08/06/17 [History] Doxepin [SINEquan] 25 mg PO HS #14 cap 08/09/17 [Rx] Hydrocortisone Cream [Hydrocortisone 1% Cream] 1 applic TOPICAL QID PRN dose [Rx] diphenhydrAMINE [Benadryl] 50 mg PO QID PRN cap 08/09/17 [Rx] metFORMIN HCL [Glucophage] 500 mg PO BID-W/MEALS #60 tab 08/09/17 [Rx] predniSONE 10 mg PO DIRECTED #100 tab 08/09/17 [Rx] Follow up Appointment(s)/Referral(s): Morena Garcia MD [Primary Care Provider] - 1-2 days Bell King MD [STAFF PHYSICIAN] - 09/05/17 9:30 am (Arrive to office 30 minutes early for registration) Patient Instructions/Handouts: Urticaria (GEN), Antibiotic Medication Allergy ( DC) Activity/Diet/Wound Care/Special Instructions: Low carb diet, activity as tolerated. Follow-up with your health policy nurse next week Discharge Disposition: HOME SELF-CARE Pending Studies Pending Results: Trichmonas PCR Herpes IgG 1and 2
--- NOTE | 2017-08-11 08:59 | IR ---
PICC LINE PLACEMENT: HISTORY: Infection requiring long-term antibiotic therapy PROCEDURE: Ultrasound and fluoroscopic guidance of PICC line placement. COMPLICATIONS: None ANESTHESIA: 1. 1% Lidocaine locally. FINDINGS/TECHNIQUE: The procedure was explained to the patient. The risks, complications, benefits and alternatives were discussed and any questions were answered. Informed consent was obtained. The patient was placed supine on the fluoroscopic table and prepped and draped in the usual sterile fas ion. Utilizing a 21 gauge needle and sonographic and fluoroscopic guidance, access in the vein was achieved and there is placement of a 0.018 guidewire. The vein is patent. A 4-F sheath was placed o ivette the guidewire. The guidewire and dilator were removed and a 4-F. PICC line was placed through th e sheath with the tip at the level of the SVC. The sheath was removed, the catheter was flushed and sutured into position. The patient was stable throughout the procedure and remained stable upon disc harge from the Department of Radiology. The vein puncture was patent under ultrasound. A collado scale image was obtained to document patency of the vein punctured. All elements of the maximal barrier technique were utilized. FLUOROSCOPY TIME: 0.6 minutes, one image submitted. IMPRESSION: Successful PICC line placement under ultrasound and fluoroscopic guidance.
== END 2017-08-09 15:19 | disposition home or self-care (01) | DRG 607 ==
LOC: EC 14:23 → 3OBS 17:39 → OBSVTOIN 08-08 15:00 → 5MS5E 08-08 21:05
PROVIDERS: ADMIT Internal Medicine; ATTEND Internal Medicine
PROC: 02HV33Z Insertion of Infusion Device into Superior Vena Cava, Percutaneous Approach (ICD-10-PCS; principal; 2017-08-08 08:45)
DX: L27.0 Generalized skin eruption due to drugs and medicaments taken internally (principal); E87.2 Acidosis; Z68.42 Body mass index [BMI] 45.0-49.9, adult; T37.3X5A Adverse effect of other antiprotozoal drugs, initial encounter; I10 Essential (primary) hypertension; J45.50 Severe persistent asthma, uncomplicated; E11.65 Type 2 diabetes mellitus with hyperglycemia; M54.5 Low back pain; K44.9 Diaphragmatic hernia without obstruction or gangrene; D72.829 Elevated white blood cell count, unspecified; L50.0 Allergic urticaria; E66.9 Obesity, unspecified; G89.29 Other chronic pain; M25.50 Pain in unspecified joint; K58.0 Irritable bowel syndrome with diarrhea; G43.909 Migraine, unspecified, not intractable, without status migrainosus; F32.9 Major depressive disorder, single episode, unspecified; F41.9 Anxiety disorder, unspecified; R42 Dizziness and giddiness; K21.9 Gastro-esophageal reflux disease without esophagitis; Z83.3 Family history of diabetes mellitus; Z82.49 Family history of ischemic heart disease and other diseases of the circulatory system; Z79.899 Other long term (current) drug therapy; Z87.442 Personal history of urinary calculi; Z80.0 Family history of malignant neoplasm of digestive organs; Z71.3 Dietary counseling and surveillance; Z87.891 Personal history of nicotine dependence; Z87.01 Personal history of pneumonia (recurrent); Z87.440 Personal history of urinary (tract) infections; Z98.51 Tubal ligation status; Z90.49 Acquired absence of other specified parts of digestive tract; Z88.1 Allergy status to other antibiotic agents; Z91.02 Food additives allergy status; Z88.5 Allergy status to narcotic agent; Z91.018 Allergy to other foods; Z79.1 Long term (current) use of non-steroidal anti-inflammatories (NSAID); Z86.19 Personal history of other infectious and parasitic diseases; Z87.42 Personal history of other diseases of the female genital tract; Z87.09 Personal history of other diseases of the respiratory system
CPT/HCPCS: 36415; 36569; 76937; 77001; 80048; 80053; 81003; 83036; 85025; 85027; 85652; 86038; 86140; 86160; 86162; 86695; 86696; 86704; 86705; 86706; 86803; 87040; 87086; 87340; 87491; 87591; 87661; 94640; 96365; 96366; 96372; 96375; 99284

== ENCOUNTER 2017-11-17 21:11 | Emergency (ER) | payer MEDICAID ==
[2017-11-17 21:48] VITALS: BP 139/87; PULSE 92; TEMP 99
[2017-11-17 21:58] VITALS: RESP 22
--- NOTE | 2017-11-17 22:13 | ED ---
General Adult HPI - General Chief complaint: Upper Respiratory Infection Stated complaint: Congestion/SOB Time Seen by Provider: 11/17/17 21:54 Source: patient, RN notes reviewed Mode of arrival: ambulatory Limitations: no limitations - History of Present Illness Initial comments: This is a 37-year-old female who presents to the emergency department with chief complaint of congestion. Patient states that she was seen by her primary care provider last and was diagnosed with a viral illness. Patient states that she felt well through the weekend and then began to have increasing congestion and runny nose today. Patient states that she has a low-grade fever and chills. She states that she has been exposed to two people who have tested positive for influenza A. She states that her chest has a burning sensation but denies any shortness of breath or cough. Patient states that she has nasal drainage and sore throat. Denies any abdominal pain, nausea vomiting, diarrhea or constipation. - Related Data Home Medications Medication Instructions Recorded Confirmed Loratadine [Claritin] 10 mg PO HS 05/04/14 11/17/17 Montelukast Sodium [Singulair] 10 mg PO HS 05/04/14 11/17/17 Albuterol Nebulized [Ventolin 2.5 mg INHALATION RT-QID PRN 09/01/15 11/17/17 Nebulized] Albuterol Sulfate [Proair Hfa] 2 puff INHALATION RT-QID PRN 04/02/16 11/17/17 Mometasone/Formoterol [Dulera 100 2 puff INHALATION RT-BID 12/01/16 11/17/17 Mcg/5 Mcg Inhaler] amLODIPine [Norvasc] 10 mg PO DAILY 12/01/16 11/17/17 Topiramate [Topamax] 50 mg PO DAILY 04/27/17 11/17/17 Diphenox-Atrop 2.5-0.025 mg 1 tab PO QID PRN 08/03/17 11/17/17 [Lomotil] Escitalopram [Lexapro] 10 mg PO HS 08/03/17 11/17/17 Tiotropium 18 Mcg/Puff [Spiriva] 1 cap INHALATION RT-DAILY 08/03/17 11/17/17 Melatonin 3 mg PO HS PRN 08/06/17 11/17/17 Butalb/Asprin/Caff 50-325-40Mg 1 cap PO BID PRN 11/17/17 11/17/17 [Fiorinal 50-325-40 MG] Ibuprofen [Motrin] 200 - 400 mg PO Q6HR PRN 11/17/17 11/17/17 Multi Symptom Cold Otc 1 tab PO DIRECTED PRN 11/17/17 11/17/17 metFORMIN HCL 1,000 mg PO BID 11/17/17 11/17/17 Allergies Allergy/AdvReac Type Severity Reaction Status Date / Time metronidazole [From Flagyl] Allergy Dyspnea Verified 11/17/17 22:26 morphine Allergy Rash/Hives Verified 11/17/17 22:26 orange flavor AdvReac Abdominal Verified 11/17/17 22:26 Pain tomato [Tomato] AdvReac Abdominal Verified 11/17/17 22:26 Pain wheat AdvReac Abdominal Verified 11/17/17 22:26 Pain Review of Systems ROS Statement: Those systems with pertinent positive or pertinent negative responses have been documented in the HPI. ROS Other: All systems not noted in ROS Statement are negative. Past Medical History Past Medical History: Asthma, Chest Pain / Angina, Diabetes Mellitus, GERD/ Reflux, Hypertension, Pneumonia Additional Past Medical History / Comment(s): HIATAL HERNIA, ibs, chronic sinusitis/seasonal allergies,UTI, ATYPICAL CHEST PAIN, 7-11-14 STRESS TEST NEG. , bronchitis, colitis, IBS, migraines, occasional low back pain. KIDNEY STONES History of Any Multi-Drug Resistant Organisms: None Reported Past Surgical History: Section, Cholecystectomy, Tubal Ligation Additional Past Surgical History / Comment(s): sinus surgery, D&C, x 4 , EGD/colonoscopy. Past Anesthesia/Blood Transfusion Reactions: Previous Problems w/ Anesthesia, Postoperative Nausea & Vomiting (PONV) Additional Past Anesthesia/Blood Transfusion Reaction / Comment(s): Pt did not go all the way under. Pt could hear, but not feel anything Past Psychological History: Anxiety, Depression Smoking Status: Former smoker Past Alcohol Use History: Occasional Past Drug Use History: None Reported - Past Family History Father Family Medical History: Congestive Heart Failure (CHF), Coronary Artery Disease (CAD), Diabetes Mellitus Additional Family Medical History / Comment(s): stents,depression anxiety Mother Family Medical History: Cancer, Diabetes Mellitus, Hypertension Additional Family Medical History / Comment(s): colon cancer, adhd, bipolar, split personaltiy disorder. General Exam - General Exam Comments Initial Comments: General: Awake and alert, well-developed; in no apparent distress. Does not appear to be acutely ill. HEENT: Head atraumatic, normocephalic. Pupils are equal, round and reactive to light. Extraocular movements intact. Oropharynx moist without erythema or exudate. Neck: Supple. Normal ROM. No adenopathy. Cardiovascular: Regular rate and rhythm. No murmurs, rubs or gallops. Chest symmetrical. Respiratory: Lungs clear to auscultation bilaterally. No wheezes, rales or rhonchi. Normal respiratory effort with no use of accessory muscles. Musculoskeletal: Normal ROM, no tenderness bilateral upper and lower extremities. Ambulating normally. Skin: [place], warm and dry without rashes or lesions. Neurological: Alert and oriented x3. CN II-XII grossly intact. Speech is fluent and answers are appropriate. No focal neuro deficits. Psychiatric: Normal mood and affect. No overt signs of depression or anxiety noted. Limitations: no limitations Course Vital Signs 11/17/17 11/17/17 21:44 21:55 Temperature 99.0 F Pulse Rate 92 Respiratory 18 22 Rate Blood Pressure 139/87 O2 Sat by Pulse 99 Oximetry Medical Decision Making - Medical Decision Making This is a 37-year-old female who presents to the emergency department with chief complaint of congestion. On presentation, patient's vital signs are stable and she is afebrile. Chest x-ray revealed no acute abnormalities. Influenza was negative. Patient likely suffering from a viral upper respiratory infection. These findings were discussed with patient. She will be discharged home. She is in agreement voices understanding. Return parameters were discussed. All questions were answered. - Radiology Data Radiology results: report reviewed Chest x-ray impression: Normal chest. No change. Disposition Clinical Impression: Upper respiratory infection Disposition: HOME SELF-CARE Condition: Good Instructions: Upper Respiratory Infection (ED) Additional Instructions: Please increase fluid intake. Please follow up with primary care provider within 1-2 days. Return to emergency department if symptoms should worsen or any concerns arise. Referrals: Morena Garcia MD [Primary Care Provider] - 1-2 days Time of Disposition: 22:45
--- NOTE | 2017-11-17 22:27 | XR ---
EXAMINATION TYPE: XR chest 2V DATE OF EXAM: 11/17/2017 COMPARISON: 05/17/2017 HISTORY: Cough TECHNIQUE: Frontal and lateral views of the chest are obtained. FINDINGS: Heart and mediastinum are normal. Lungs are clear. Diaphragm is normal. Bony thorax appear s normal. IMPRESSION: Normal chest. No change.
== END 2017-11-17 22:50 | disposition home or self-care (01) ==
LOC: EC 21:11
DX: J06.9 Acute upper respiratory infection, unspecified (principal); E11.9 Type 2 diabetes mellitus without complications; I10 Essential (primary) hypertension; J45.909 Unspecified asthma, uncomplicated; F41.9 Anxiety disorder, unspecified; F32.9 Major depressive disorder, single episode, unspecified; Z87.891 Personal history of nicotine dependence; Z86.69 Personal history of other diseases of the nervous system and sense organs; Z79.52 Long term (current) use of systemic steroids; Z79.899 Other long term (current) drug therapy; Z79.84 Long term (current) use of oral hypoglycemic drugs; Z88.1 Allergy status to other antibiotic agents; Z88.5 Allergy status to narcotic agent; Z91.018 Allergy to other foods
CPT/HCPCS: 71046; 87502; 99283

== ENCOUNTER 2017-11-27 13:08 | Emergency (ER) | payer MEDICAID, OTHER ==
[2017-11-27 13:24] VITALS: RESP 18
--- NOTE | 2017-11-27 13:29 | ED ---
General Adult HPI - General Chief complaint: Chest Pain Stated complaint: Chest pain Time Seen by Provider: 11/27/17 13:11 Source: patient, EMS, RN notes reviewed, old records reviewed Mode of arrival: EMS Limitations: no limitations - History of Present Illness Initial comments: This is a 29-year-old female to the ER for evaluation. Patient resents regards to chest pain. Patient has anterior chest pain nonspecific. History of prior hospital admissions for chest pain stress tests that were negative. Patient denies fever cough or congestion no travel history no modifying factors for pain at home. - Related Data Home Medications Medication Instructions Recorded Confirmed Loratadine [Claritin] 10 mg PO HS 05/04/14 11/27/17 Montelukast Sodium [Singulair] 10 mg PO HS 05/04/14 11/27/17 Albuterol Nebulized [Ventolin 2.5 mg INHALATION RT-QID PRN 09/01/15 11/27/17 Nebulized] Albuterol Sulfate [Proair Hfa] 2 puff INHALATION RT-QID PRN 04/02/16 11/27/17 Mometasone/Formoterol [Dulera 100 2 puff INHALATION RT-BID 12/01/16 11/27/17 Mcg/5 Mcg Inhaler] amLODIPine [Norvasc] 10 mg PO DAILY 12/01/16 11/27/17 Diphenox-Atrop 2.5-0.025 mg 1 tab PO QID PRN 08/03/17 11/27/17 [Lomotil] Escitalopram [Lexapro] 10 mg PO HS 08/03/17 11/27/17 Tiotropium 18 Mcg/Puff [Spiriva] 1 cap INHALATION RT-DAILY 08/03/17 11/27/17 Melatonin 3 mg PO HS PRN 08/06/17 11/27/17 Butalb/Asprin/Caff 50-325-40Mg 1 cap PO BID PRN 11/17/17 11/27/17 [Fiorinal 50-325-40 MG] Ibuprofen [Motrin] 200 - 400 mg PO Q6HR PRN 11/17/17 11/27/17 metFORMIN HCL 1,000 mg PO BID 11/17/17 11/27/17 SUMAtriptan SUCCINATE [Imitrex] 100 mg PO DAILY PRN 11/27/17 11/27/17 Topiramate [Topamax] 100 mg PO DAILY 11/27/17 11/27/17 Allergies Allergy/AdvReac Type Severity Reaction Status Date / Time metronidazole [From Flagyl] Allergy Dyspnea Verified 11/27/17 14:37 morphine Allergy Rash/Hives Verified 11/27/17 14:37 orange flavor AdvReac Abdominal Verified 11/27/17 14:37 Pain tomato [Tomato] AdvReac Abdominal Verified 11/27/17 14:37 Pain wheat AdvReac Abdominal Verified 11/27/17 14:37 Pain Review of Systems ROS Statement: Those systems with pertinent positive or pertinent negative responses have been documented in the HPI. ROS Other: All systems not noted in ROS Statement are negative. Past Medical History Past Medical History: Asthma, Chest Pain / Angina, Diabetes Mellitus, GERD/ Reflux, Hypertension, Pneumonia Additional Past Medical History / Comment(s): HIATAL HERNIA, ibs, chronic sinusitis/seasonal allergies,UTI, ATYPICAL CHEST PAIN, 7-11-14 STRESS TEST NEG. , bronchitis, colitis, IBS, migraines, occasional low back pain. KIDNEY STONES History of Any Multi-Drug Resistant Organisms: None Reported Past Surgical History: Section, Cholecystectomy, Tubal Ligation Additional Past Surgical History / Comment(s): sinus surgery, D&C, x 4 , EGD/colonoscopy. Past Anesthesia/Blood Transfusion Reactions: Previous Problems w/ Anesthesia, Postoperative Nausea & Vomiting (PONV) Additional Past Anesthesia/Blood Transfusion Reaction / Comment(s): Pt did not go all the way under. Pt could hear, but not feel anything Past Psychological History: Anxiety, Depression Smoking Status: Former smoker Past Alcohol Use History: Occasional Past Drug Use History: None Reported - Past Family History Father Family Medical History: Congestive Heart Failure (CHF), Coronary Artery Disease (CAD), Diabetes Mellitus Additional Family Medical History / Comment(s): stents,depression anxiety Mother Family Medical History: Cancer, Diabetes Mellitus, Hypertension Additional Family Medical History / Comment(s): colon cancer, adhd, bipolar, split personaltiy disorder. General Exam Limitations: no limitations General appearance: alert, in no apparent distress Head exam: Present: atraumatic, normocephalic, normal inspection Eye exam: Present: normal appearance, PERRL, EOMI. Absent: scleral icterus, conjunctival injection, periorbital swelling ENT exam: Present: normal exam, mucous membranes moist Neck exam: Present: normal inspection. Absent: tenderness, meningismus, lymphadenopathy Respiratory exam: Present: normal lung sounds bilaterally. Absent: respiratory distress, wheezes, rales, rhonchi, stridor Cardiovascular Exam: Present: regular rate, normal rhythm, normal heart sounds. Absent: systolic murmur, diastolic murmur, rubs, gallop, clicks GI/Abdominal exam: Present: soft, normal bowel sounds. Absent: distended, tenderness, guarding, rebound, rigid Extremities exam: Present: normal inspection, full ROM, normal capillary refill. Absent: tenderness, pedal edema, joint swelling, calf tenderness Back exam: Present: normal inspection Neurological exam: Present: alert, oriented X3, CN II-XII intact Psychiatric exam: Present: normal affect, normal mood Skin exam: Present: warm, dry, intact, normal color. Absent: rash Course Vital Signs 11/27/17 11/27/17 11/27/17 13:23 14:33 14:41 Temperature 97.8 F Pulse Rate 70 67 69 Respiratory 18 Rate Blood Pressure 129/72 O2 Sat by Pulse 99 Oximetry - Reevaluation(s) Reevaluation #1: 11/27/17 15:30 Patient's chest pain is improved with medication here in the ER Reevaluation #2: 11/27/17 15:30 Prior medical history and ER visits are reviewed EKG Findings - EKG Comments: EKG Findings:: EKG shows normal sinus rhythm rate of 66, TN 174, QRS 100, QTC 398 Medical Decision Making - Medical Decision Making 37 female the ER chest pain nonspecific chest pain, patient is improved with medication here in the ER, patient will be discharged home - Lab Data Result diagrams: 11/27/17 14:21 11/27/17 14:21 Lab Results 11/27/17 11/27/17 11/27/17 Range/Units 14:21 14:21 14:21 WBC 8.1 (3.8-10.6) k/uL RBC 4.61 (3.80-5.40) m/uL Hgb 12.1 (11.4-16.0) gm/dL Hct 38.8 (34.0-46.0) % MCV 84.2 (80.0-100.0) fL MCH 26.3 (25.0-35.0) pg MCHC 31.2 (31.0-37.0) g/dL RDW 15.1 (11.5-15.5) % Plt Count 256 (150-450) k/uL Neutrophils % 57 % Lymphocytes % 35 % Monocytes % 3 % Eosinophils % 3 % Basophils % 0 % Neutrophils # 4.6 (1.3-7.7) k/uL Lymphocytes # 2.9 (1.0-4.8) k/uL Monocytes # 0.2 (0-1.0) k/uL Eosinophils # 0.3 (0-0.7) k/uL Basophils # 0.0 (0-0.2) k/uL Hypochromasia Slight Sodium 141 (137-145) mmol/L Potassium 4.9 (3.5-5.1) mmol/L Chloride 109 H (98-107) mmol/L Carbon Dioxide 20 L (22-30) mmol/L Anion Gap 12 mmol/L BUN 13 (7-17) mg/dL Creatinine 0.65 (0.52-1.04) mg/dL Est GFR (MDRD) Af Amer >60 (>60 ml/min/1.73 sqM) Est GFR (MDRD) Non-Af >60 (>60 ml/min/1.73 sqM) Glucose 95 (74-99) mg/dL Calcium 9.4 (8.4-10.2) mg/dL Magnesium 2.1 (1.6-2.3) mg/dL Total Bilirubin 0.5 (0.2-1.3) mg/dL AST 26 (14-36) U/L ALT 39 (9-52) U/L Alkaline Phosphatase 64 (38-126) U/L Total Creatine Kinase 71 (30-135) U/L CK-MB (CK-2) 0.4 (0.0-2.4) ng/mL CK-MB (CK-2) Rel Index 0.6 Troponin I <0.012 (0.000-0.034) ng/mL Total Protein 7.6 (6.3-8.2) g/dL Albumin 4.2 (3.5-5.0) g/dL Lipase 97 (23-300) U/L - Radiology Data Radiology results: report reviewed (Chest x-rays negative for acute disease), image reviewed Disposition Clinical Impression: Chest pain, Atypical chest pain Disposition: ADMITTED IP TO THIS HOSP Condition: Good Instructions: Chest Pain (ED), Costochondritis (ED) Referrals: Morena Garcia MD [Primary Care Provider] - 1-2 days
--- NOTE | 2017-11-27 14:09 | XR ---
EXAMINATION TYPE: XR chest 2V DATE OF EXAM: 11/27/2017 COMPARISON: NONE TECHNIQUE: PA and lateral views submitted. HISTORY: Chest pains FINDINGS: The lungs are clear and there is no pneumothorax, pleural effusion, or focal pneumonia. Hypertrophi c change of the spine. Surgical clips in the abdomen. Atherosclerotic change aorta. IMPRESSION: 1. No acute process.
[2017-11-27] MEDS ORDERED: IBUPROFEN 800 MG TAB PO STA (14:19)
[2017-11-27] MEDS ORDERED: predniSONE 20 MG TAB PO STA (14:19)
[2017-11-27] MEDS ORDERED: HYDROcodone/APAP 5-325MG 1 EACH TAB PO STA (14:19)
[2017-11-27] MEDS ORDERED: IPRATROPIUM-ALBUTEROL 3 ML NEB INHALATION STA (14:19)
[2017-11-27 14:30] LABS: Basophils % (A) 0 %; Eosinophils # (A) 0.3 k/uL (0-0.7); Eosinophils % (A) 3 %; HCT 38.8 % (34.0-46.0); HGB 12.1 gm/dL (11.4-16.0); Hypochromasia Slight; Lymphocytes # (A) 2.9 k/uL (1.0-4.8); Lymphocytes % (A) 35 %; MCH 26.3 pg (25.0-35.0); MCHC 31.2 g/dL (31.0-37.0); MCV 84.2 fL (80.0-100.0); Mean Platelet Volume 7.4; Monocytes # (A) 0.2 k/uL (0-1.0); Monocytes % (A) 3 %; Neutrophils # (A) 4.6 k/uL (1.3-7.7); Neutrophils % (A) 57 %; Platelet Count 256 k/uL (150-450); RBC 4.61 m/uL (3.80-5.40); RDW 15.1 % (11.5-15.5); WBC 8.1 k/uL (3.8-10.6)
[2017-11-27 14:51] LABS: ALT 39 U/L (9-52); AST 26 U/L (14-36); Albumin 4.2 g/dL (3.5-5.0); Alkaline Phosphatase 64 U/L (38-126); Anion Gap 12 mmol/L; Blood Urea Nitrogen 13 mg/dL (7-17); Calcium 9.4 mg/dL (8.4-10.2); Carbon Dioxide 20 mmol/L (22-30); Chloride 109 mmol/L (98-107); Glucose 95 mg/dL (74-99); Lipase 97 U/L (23-300); Magnesium 2.1 mg/dL (1.6-2.3); Sodium 141 mmol/L (137-145); Total Bilirubin 0.5 mg/dL (0.2-1.3); Total Protein 7.6 g/dL (6.3-8.2)
[2017-11-27 14:53] LABS: Creatine Kinase 71 U/L (30-135)
[2017-11-27 14:57] LABS: Potassium 4.9 mmol/L (3.5-5.1)
[2017-11-27 15:05] LABS: Creatine Kinase MB 0.4 ng/mL (0.0-2.4); Troponin I <0.012 ng/mL (0.000-0.034)
[2017-11-27 16:10] VITALS: BP 142/72; PULSE 68; TEMP 98
== END 2017-11-27 16:10 | disposition other institution (70) ==
LOC: EC 13:08
DX: R07.89 Other chest pain (principal); J45.909 Unspecified asthma, uncomplicated; I10 Essential (primary) hypertension; E11.9 Type 2 diabetes mellitus without complications; F32.9 Major depressive disorder, single episode, unspecified; F41.9 Anxiety disorder, unspecified; Z87.891 Personal history of nicotine dependence; Z79.51 Long term (current) use of inhaled steroids; Z79.84 Long term (current) use of oral hypoglycemic drugs; Z79.899 Other long term (current) drug therapy; Z88.1 Allergy status to other antibiotic agents; Z88.5 Allergy status to narcotic agent; Z91.02 Food additives allergy status; Z91.018 Allergy to other foods; Z87.01 Personal history of pneumonia (recurrent); Z86.69 Personal history of other diseases of the nervous system and sense organs; Z82.49 Family history of ischemic heart disease and other diseases of the circulatory system
CPT/HCPCS: 36415; 94640; 93005; 80053; 82550; 82553; 83690; 83735; 84484; 85025; 71046; 99285; J7512

== ENCOUNTER 2018-03-24 12:20 | Observation (INO) | payer MEDICAID, OTHER ==
--- NOTE | 2018-03-24 13:24 | ED ---
General Adult HPI <Anthony House - Last Filed: 03/24/18 15:58> - General Source: patient, RN notes reviewed Mode of arrival: wheelchair Limitations: no limitations <Tyrone Gerard - Last Filed: 03/24/18 16:15> - General Chief complaint: Chest Pain Stated complaint: CHEST PAIN, PAIN IN RT CALF Time Seen by Provider: 03/24/18 12:50 - History of Present Illness Initial comments: Patient 38-year-old female presents emergency room today with a chief complaint of experiencing some chest pain today. Patient admits that she's also had some right calf pain over the last 3 days. Patient states that she does have a history of chest pain has a chief counsel through [facility]. She states she is currently supposed to be wearing a heart monitor but it broke and the replacement was was comfortably. Patient states that this chest pain is located in the front but she feels it radiate to the back is well. Patient states this started earlier this morning. She denies anything that makes it better or worse. She states seems to come and go somewhat. Patient missed pain to the right calf. She states feels swollen to her. Patient admits to a history of bronchitis is had cough congestion is currently finishing a Z-Theo last doses today. Patient has history of asthma. She denies any other complaints or symptoms at this time. Patient denies any recent shortness of breath, abdominal pain, nausea or vomiting, numbness or tingling, dysuria or hematuria, constipation or diarrhea, headaches or visual changes, or any other complaints. (Tyrone Gerard) - Related Data Home Medications Medication Instructions Recorded Confirmed Loratadine [Claritin] 10 mg PO HS 05/04/14 03/24/18 Montelukast Sodium [Singulair] 10 mg PO HS 05/04/14 03/24/18 Albuterol Sulfate [Proair Hfa] 2 puff INHALATION RT-QID PRN 04/02/16 03/24/18 Mometasone/Formoterol [Dulera 100 2 puff INHALATION RT-BID 12/01/16 03/24/18 Mcg/5 Mcg Inhaler] amLODIPine [Norvasc] 10 mg PO DAILY 12/01/16 03/24/18 Butalb/Asprin/Caff 50-325-40Mg 1 cap PO BID PRN 11/17/17 03/24/18 [Fiorinal 50-325-40 MG] metFORMIN HCL 1,000 mg PO BID 11/17/17 03/24/18 Topiramate [Topamax] 200 mg PO DAILY 11/27/17 03/24/18 Rizatriptan Benzoate [Maxalt] 10 mg PO BID PRN 03/24/18 03/24/18 Allergies Allergy/AdvReac Type Severity Reaction Status Date / Time metronidazole [From Flagyl] Allergy Dyspnea Verified 03/24/18 13:13 morphine Allergy Rash/Hives Verified 03/24/18 13:13 orange flavor AdvReac Abdominal Verified 03/24/18 13:13 Pain tomato [Tomato] AdvReac Abdominal Verified 03/24/18 13:13 Pain wheat AdvReac Abdominal Verified 03/24/18 13:13 Pain Review of Systems ROS Other: All systems not noted in ROS Statement are negative. <Anthony House - Last Filed: 03/24/18 15:58> ROS Other: All systems not noted in ROS Statement are negative. <Tyrone Gerard - Last Filed: 03/24/18 16:15> ROS Statement: Those systems with pertinent positive or pertinent negative responses have been documented in the HPI. Past Medical History Past Medical History: Asthma, Chest Pain / Angina, Diabetes Mellitus, GERD/ Reflux, Hypertension, Pneumonia Additional Past Medical History / Comment(s): HIATAL HERNIA, ibs, chronic sinusitis/seasonal allergies,UTI, ATYPICAL CHEST PAIN, 7-11-14 STRESS TEST NEG. , bronchitis, colitis, IBS, migraines, occasional low back pain. KIDNEY STONES History of Any Multi-Drug Resistant Organisms: None Reported Past Surgical History: Section, Cholecystectomy, Tubal Ligation Additional Past Surgical History / Comment(s): sinus surgery, D&C, x 4 , EGD/colonoscopy. Past Anesthesia/Blood Transfusion Reactions: Previous Problems w/ Anesthesia, Postoperative Nausea & Vomiting (PONV) Additional Past Anesthesia/Blood Transfusion Reaction / Comment(s): Pt did not go all the way under. Pt could hear, but not feel anything Past Psychological History: Anxiety, Depression Smoking Status: Former smoker Past Alcohol Use History: Occasional Past Drug Use History: None Reported - Past Family History Father Family Medical History: Congestive Heart Failure (CHF), Coronary Artery Disease (CAD), Diabetes Mellitus Additional Family Medical History / Comment(s): stents,depression anxiety Mother Family Medical History: Cancer, Diabetes Mellitus, Hypertension Additional Family Medical History / Comment(s): colon cancer, adhd, bipolar, split personaltiy disorder. <Tyrone Gerard - Last Filed: 03/24/18 16:15> General Exam <Anthony House - Last Filed: 03/24/18 15:58> Limitations: no limitations <Tyrone Gerard - Last Filed: 03/24/18 16:15> - General Exam Comments Initial Comments: General: The patient is awake and alert, in no distress, and does not appear acutely ill. Eye: Pupils are equal, round and reactive to light, extra-ocular movements are intact. No nystagmus. There is normal conjunctiva bilaterally. No signs of icterus. Ears, nose, mouth and throat: There are moist mucous membranes and no oral lesions. Neck: The neck is supple, there is no tenderness or JVD. Cardiovascular: There is a regular rate and rhythm. No murmur, rub or gallop is appreciated. Respiratory: Lungs are clear to auscultation, respirations are non-labored, breath sounds are equal. No wheezes, stridor, rales, or rhonchi. Musculoskeletal: Normal ROM. Appearance the right lower extremity no obvious swelling. Patient does have tenderness with dorsiflexion of the right foot in the calf area. Strength 5/5. Sensation intact. Pulses equal bilaterally 2+. Neurological: A&O x 3. CN II-XII intact, There are no obvious motor or sensory deficits. Coordination appears grossly intact. Speech is normal. Skin: Skin is warm and dry and no rashes or lesions are noted. Psychiatric: Cooperative, appropriate mood & affect, normal judgment. (Tyrone Gerard) Course <Anthony House - Last Filed: 03/24/18 15:58> <Tyrone Gerard - Last Filed: 03/24/18 16:15> Vital Signs 03/24/18 03/24/18 12:44 15:04 Temperature 98.8 F 97.8 F Pulse Rate 77 78 Respiratory 16 18 Rate Blood Pressure 138/66 158/71 O2 Sat by Pulse 98 100 Oximetry - Reevaluation(s) Reevaluation #1: 03/24/18 15:59 Patient was reevaluated by myself, Dr. House. Patient resting comfortably in bed. Discomfort is only mild at this time. Results reviewed including EKG. Patient updated on results and plan. Case was discussed in detail with Dr. Graham, who will admit for Dr. Shahnaz Correia. D-dimer has been added. (Anthony House ) EKG Findings - EKG Comments: EKG Findings:: EKG performed at 1300: Shows normal sinus rhythm at 76 beats per minute. PA interval 166. QRS 94. to/QTC 384/432. No acute changes. <Tyrone Gerard - Last Filed: 03/24/18 16:15> Medical Decision Making - Lab Data Result diagrams: 03/24/18 13:30 03/24/18 13:30 <Anthony House - Last Filed: 03/24/18 15:58> - Lab Data Result diagrams: 03/24/18 13:30 03/24/18 13:30 <Tyrone Gerard - Last Filed: 03/24/18 16:15> - Medical Decision Making Patient's ultrasound is negative for any evidence of DVT. Patient's d-dimer negative. Patient's cardiac enzymes negative chest x-ray negative. Patient will be admitted for chest pain rule out. Patient was seen by attending physician Dr. House discussed with Dr. Graham who will admit the patient. ( Tyrone Gerard) - Lab Data Lab Results 03/24/18 03/24/18 03/24/18 Range/Units 13:30 13:30 13:30 WBC 8.6 (3.8-10.6) k/uL RBC 4.31 (3.80-5.40) m/uL Hgb 11.3 L (11.4-16.0) gm/dL Hct 35.4 (34.0-46.0) % MCV 81.9 (80.0-100.0) fL MCH 26.1 (25.0-35.0) pg MCHC 31.8 (31.0-37.0) g/dL RDW 13.8 (11.5-15.5) % Plt Count 266 (150-450) k/uL Neutrophils % 53 % Lymphocytes % 38 % Monocytes % 4 % Eosinophils % 4 % Basophils % 0 % Neutrophils # 4.5 (1.3-7.7) k/uL Lymphocytes # 3.3 (1.0-4.8) k/uL Monocytes # 0.3 (0-1.0) k/uL Eosinophils # 0.3 (0-0.7) k/uL Basophils # 0.0 (0-0.2) k/uL PT (9.0-12.0) sec INR (<1.2) APTT (22.0-30.0) sec D-Dimer (<0.60) mg/L FEU Sodium 140 (137-145) mmol/L Potassium 4.8 (3.5-5.1) mmol/L Chloride 110 H (98-107) mmol/L Carbon Dioxide 18 L (22-30) mmol/L Anion Gap 12 mmol/L BUN 11 (7-17) mg/dL Creatinine 0.58 (0.52-1.04) mg/dL Est GFR (CKD-EPI)AfAm >90 (>60 ml/min/1.73 sqM) Est GFR (CKD-EPI)NonAf >90 (>60 ml/min/1.73 sqM) Glucose 95 (74-99) mg/dL Calcium 9.0 (8.4-10.2) mg/dL Total Bilirubin 0.5 (0.2-1.3) mg/dL AST 27 (14-36) U/L ALT 28 (9-52) U/L Alkaline Phosphatase 64 (38-126) U/L Total Creatine Kinase 155 H (30-135) U/L CK-MB (CK-2) 0.5 (0.0-2.4) ng/mL CK-MB (CK-2) Rel Index 0.3 Troponin I <0.012 (0.000-0.034) ng/mL NT-Pro-B Natriuret Pep pg/mL Total Protein 6.7 (6.3-8.2) g/dL Albumin 3.9 (3.5-5.0) g/dL Urine Color Urine Appearance (Clear) Urine pH (5.0-8.0) Ur Specific Eddy (1.001-1.035) Urine Protein (Negative) Urine Glucose (UA) (Negative) Urine Ketones (Negative) Urine Blood (Negative) Urine Nitrite (Negative) Urine Bilirubin (Negative) Urine Urobilinogen (<2.0) mg/dL Ur Leukocyte Esterase (Negative) Urine RBC (0-5) /hpf Urine WBC (0-5) /hpf Ur Squamous Epith Cells (0-4) /hpf Urine Bacteria (None) /hpf Urine Mucus (None) /hpf Urine HCG, Qual (Not Detectd) 03/24/18 03/24/18 03/24/18 Range/Units 13:30 13:30 13:30 WBC (3.8-10.6) k/uL RBC (3.80-5.40) m/uL Hgb (11.4-16.0) gm/dL Hct (34.0-46.0) % MCV (80.0-100.0) fL MCH (25.0-35.0) pg MCHC (31.0-37.0) g/dL RDW (11.5-15.5) % Plt Count (150-450) k/uL Neutrophils % % Lymphocytes % % Monocytes % % Eosinophils % % Basophils % % Neutrophils # (1.3-7.7) k/uL Lymphocytes # (1.0-4.8) k/uL Monocytes # (0-1.0) k/uL Eosinophils # (0-0.7) k/uL Basophils # (0-0.2) k/uL PT (9.0-12.0) sec INR (<1.2) APTT (22.0-30.0) sec D-Dimer (<0.60) mg/L FEU Sodium (137-145) mmol/L Potassium (3.5-5.1) mmol/L Chloride (98-107) mmol/L Carbon Dioxide (22-30) mmol/L Anion Gap mmol/L BUN (7-17) mg/dL Creatinine (0.52-1.04) mg/dL Est GFR (CKD-EPI)AfAm (>60 ml/min/1.73 sqM) Est GFR (CKD-EPI)NonAf (>60 ml/min/1.73 sqM) Glucose (74-99) mg/dL Calcium (8.4-10.2) mg/dL Total Bilirubin (0.2-1.3) mg/dL AST (14-36) U/L ALT (9-52) U/L Alkaline Phosphatase (38-126) U/L Total Creatine Kinase (30-135) U/L CK-MB (CK-2) (0.0-2.4) ng/mL CK-MB (CK-2) Rel Index Troponin I (0.000-0.034) ng/mL NT-Pro-B Natriuret Pep 45 pg/mL Total Protein (6.3-8.2) g/dL Albumin (3.5-5.0) g/dL Urine Color Light Yellow Urine Appearance Clear (Clear) Urine pH 6.5 (5.0-8.0) Ur Specific Eddy 1.013 (1.001-1.035) Urine Protein Negative (Negative) Urine Glucose (UA) Negative (Negative) Urine Ketones Negative (Negative) Urine Blood Negative (Negative) Urine Nitrite Negative (Negative) Urine Bilirubin Negative (Negative) Urine Urobilinogen <2.0 (<2.0) mg/dL Ur Leukocyte Esterase Small H (Negative) Urine RBC <1 (0-5) /hpf Urine WBC 4 (0-5) /hpf Ur Squamous Epith Cells <1 (0-4) /hpf Urine Bacteria Rare H (None) /hpf Urine Mucus Rare H (None) /hpf Urine HCG, Qual Not Detected (Not Detectd) 03/24/18 Range/Units 15:35 WBC (3.8-10.6) k/uL RBC (3.80-5.40) m/uL Hgb (11.4-16.0) gm/dL Hct (34.0-46.0) % MCV (80.0-100.0) fL MCH (25.0-35.0) pg MCHC (31.0-37.0) g/dL RDW (11.5-15.5) % Plt Count (150-450) k/uL Neutrophils % % Lymphocytes % % Monocytes % % Eosinophils % % Basophils % % Neutrophils # (1.3-7.7) k/uL Lymphocytes # (1.0-4.8) k/uL Monocytes # (0-1.0) k/uL Eosinophils # (0-0.7) k/uL Basophils # (0-0.2) k/uL PT 9.4 (9.0-12.0) sec INR 0.9 (<1.2) APTT 22.4 (22.0-30.0) sec D-Dimer 0.45 (<0.60) mg/L FEU Sodium (137-145) mmol/L Potassium (3.5-5.1) mmol/L Chloride (98-107) mmol/L Carbon Dioxide (22-30) mmol/L Anion Gap mmol/L BUN (7-17) mg/dL Creatinine (0.52-1.04) mg/dL Est GFR (CKD-EPI)AfAm (>60 ml/min/1.73 sqM) Est GFR (CKD-EPI)NonAf (>60 ml/min/1.73 sqM) Glucose (74-99) mg/dL Calcium (8.4-10.2) mg/dL Total Bilirubin (0.2-1.3) mg/dL AST (14-36) U/L ALT (9-52) U/L Alkaline Phosphatase (38-126) U/L Total Creatine Kinase (30-135) U/L CK-MB (CK-2) (0.0-2.4) ng/mL CK-MB (CK-2) Rel Index Troponin I (0.000-0.034) ng/mL NT-Pro-B Natriuret Pep pg/mL Total Protein (6.3-8.2) g/dL Albumin (3.5-5.0) g/dL Urine Color Urine Appearance (Clear) Urine pH (5.0-8.0) Ur Specific Eddy (1.001-1.035) Urine Protein (Negative) Urine Glucose (UA) (Negative) Urine Ketones (Negative) Urine Blood (Negative) Urine Nitrite (Negative) Urine Bilirubin (Negative) Urine Urobilinogen (<2.0) mg/dL Ur Leukocyte Esterase (Negative) Urine RBC (0-5) /hpf Urine WBC (0-5) /hpf Ur Squamous Epith Cells (0-4) /hpf Urine Bacteria (None) /hpf Urine Mucus (None) /hpf Urine HCG, Qual (Not Detectd) Disposition <Anthony House - Last Filed: 03/24/18 15:58> Is patient prescribed a controlled substance at d/c from ED?: No Time of Disposition: 15:35 <Tyrone Gerard - Last Filed: 03/24/18 16:15> Clinical Impression: Chest pain Disposition: ADMITTED IP TO THIS HOSP Condition: Stable
[2018-03-24 13:49] LABS: Basophils % (A) 0 %; Eosinophils # (A) 0.3 k/uL (0-0.7); Eosinophils % (A) 4 %; HCT 35.4 % (34.0-46.0); HGB 11.3 gm/dL (11.4-16.0); Lymphocytes # (A) 3.3 k/uL (1.0-4.8); Lymphocytes % (A) 38 %; MCH 26.1 pg (25.0-35.0); MCHC 31.8 g/dL (31.0-37.0); MCV 81.9 fL (80.0-100.0); Mean Platelet Volume 7.3; Monocytes # (A) 0.3 k/uL (0-1.0); Monocytes % (A) 4 %; Neutrophils # (A) 4.5 k/uL (1.3-7.7); Neutrophils % (A) 53 %; Platelet Count 266 k/uL (150-450); RBC 4.31 m/uL (3.80-5.40); RDW 13.8 % (11.5-15.5); WBC 8.6 k/uL (3.8-10.6)
[2018-03-24 13:54] LABS: ALT 28 U/L (9-52); AST 27 U/L (14-36); Albumin 3.9 g/dL (3.5-5.0); Alkaline Phosphatase 64 U/L (38-126); Anion Gap 12 mmol/L; Blood Urea Nitrogen 11 mg/dL (7-17); Carbon Dioxide 18 mmol/L (22-30); Chloride 110 mmol/L (98-107); Glucose 95 mg/dL (74-99); Sodium 140 mmol/L (137-145); Total Bilirubin 0.5 mg/dL (0.2-1.3); Total Protein 6.7 g/dL (6.3-8.2)
[2018-03-24 14:01] LABS: Potassium 4.8 mmol/L (3.5-5.1)
[2018-03-24 14:08] LABS: Creatine Kinase 155 U/L (30-135)
[2018-03-24 14:09] LABS: Appearance,Urine Clear (Clear); Bacteria,Urine Rare /hpf; Bilirubin,Urine Negative (Negative); Blood,Urine Negative (Negative); Color,Urine Light Yellow; Glucose,Urine (UA) Negative (Negative); Ketones,Urine Negative (Negative); Leukocyte Esterase,Urine Small (Negative); Mucus,Urine Rare /hpf; Nitrite,Urine Negative (Negative); PH, Urine 6.5 (5.0-8.0); Protein,Urine Negative (Negative); RBC,Urine <1 /hpf (0-5); Specific Gravity,Urine 1.013 (1.001-1.035); Squamous Epithelial Cell,Urine <1 /hpf (0-4); Urobilinogen,Urine <2.0 mg/dL (<2.0); WBC,Urine 4 /hpf (0-5)
[2018-03-24 14:20] LABS: Creatine Kinase MB 0.5 ng/mL (0.0-2.4); Troponin I <0.012 ng/mL (0.000-0.034)
--- NOTE | 2018-03-24 14:39 | US ---
EXAMINATION TYPE: US venous doppler duplex LE RT DATE OF EXAM: 03/24/2018 2:31 PM COMPARISON: CLINICAL HISTORY: Pain. No hx of blood clots. Right calf pain extending to groin. No redness. No s welling. SIDE PERFORMED: Right TECHNIQUE: The lower extremity deep venous system is examined utilizing real time linear array sonog elizabeth with graded compression, doppler sonography and color-flow sonography. VESSELS IMAGED: External Iliac Vein (EIV) Common Femoral Vein Deep Femoral Vein Greater Saphenous Vein * Femoral Vein Popliteal Vein Small Saphenous Vein * Proximal Calf Veins (* superficial vessels) Limited exam due to patient body habitus Right Leg: Negative for DVT Grayscale, color doppler, spectral doppler imaging performed of the deep veins of the lower extremiti es. There is normal flow, compressibility, vascular waveforms. IMPRESSION: No evident deep venous thrombosis at or above the right knee. Technologist reports a so mewhat limited exam due to patient body habitus. Follow-up as indicated.
--- NOTE | 2018-03-24 15:21 | XR ---
EXAMINATION TYPE: XR chest 2V DATE OF EXAM: 03/24/2018 COMPARISON: Prior chest x-ray 11/27/2017 HISTORY: Chest pain TECHNIQUE: Frontal and lateral views of the chest are obtained. FINDINGS: There is no focal air space opacity, pleural effusion, or pneumothorax seen. The cardiac silhouette size is stable. The osseous structures are intact. There are overlying cardiac leads. IMPRESSION: No acute cardiopulmonary process.
[2018-03-24] MEDS ORDERED: SODIUM CHLORIDE 0.9% 1,000 ML IV ONE (15:43)
[2018-03-24] MEDS ORDERED: ASPIRIN 81 MG PO STA (15:43)
[2018-03-24] MEDS ORDERED: NITROGLYCERIN SL TABS 0.4 MG TAB SUBLINGUAL PRN (15:43)
[2018-03-24 16:11] LABS: D-Dimer 0.45 mg/L FEU (<0.60); INR 0.9 (<1.2); Partial Thromboplastin Time 22.4 sec (22.0-30.0); Prothrombin Time 9.4 sec (9.0-12.0)
[2018-03-24] MEDS ORDERED: ALBUTEROL NEBULIZED 2.5 MG/3 ML INHALATION PRN (17:10)
[2018-03-24] MEDS ORDERED: NON-FORMULARY DRUG (Butalb/Asprin/Caff 50-325-40mg 1 CAP) PO PRN (17:10)
--- NOTE | 2018-03-24 17:32 | P.HPIM ---
History of Present Illness Patient is a pleasant 38-year-old female came in with complaints of chest pressure-like sensation nonexertional not nonpleuritic not associated with food started today morning lasted for a few hours nonradiating about the physis last 10 in severity completely resolved after a few hours without any medication radiating between the shoulder blades, doesn't have gallbladder anymore. Denied any fever chills and a cough runny nose d-dimer was negative. EKG did not show any acute ST-T wave changes. Patient had a recent stress test earlier this year by her dialysis equipment technician which did not show any inducible ischemia patient is supposed to wear a Holter monitor for 5 more days , broke her Holter monitor yesterday supposed to receive one today and her dialysis equipment technician is looking for any cardiac rhythm abnormalities contributing to her frequent chest pains which often happens during the nighttime. Patient never had any cardiac catheterization. Patient had symptoms of gastroesophageal reflux disease in the past and her symptoms are not consistent with that. In first troponin is negative, we will obtain second and third sets of troponin along with EKG. Patient is single and family history of premature coronary artery disease in mother and father does have history of hypertension and diabetes mellitus. Review of Systems REVIEW OF SYSTEMS: CONSTITUTIONAL: No fever, no malaise, no fatigue. HEENT: No recent visual problems or hearing problems. Denied any sore throat. CARDIOVASCULAR: No orthopnea, PND, no palpitations, no syncope. PULMONARY: No shortness of breath, no cough, no hemoptysis. GASTROINTESTINAL: No diarrhea, no nausea, no vomiting, no abdominal pain. Normoactive bowel sounds. NEUROLOGICAL: No headaches, no weakness, no numbness. HEMATOLOGICAL: Denies any bleeding or petechiae. GENITOURINARY: Denies any burning micturition, frequency, or urgency. MUSCULOSKELETAL/RHEUMATOLOGICAL: Denies any joint pain, swelling, or any muscle pain. ENDOCRINE: Denies any polyuria or polydipsia. The rest of the 14-point review of systems is negative. Past Medical History Past Medical History: Asthma, Chest Pain / Angina, Diabetes Mellitus, GERD/ Reflux, Hypertension, Pneumonia Additional Past Medical History / Comment(s): HIATAL HERNIA, ibs, chronic sinusitis/seasonal allergies,UTI, ATYPICAL CHEST PAIN, 05-20-14 STRESS TEST NEG. , bronchitis, colitis, IBS, migraines, occasional low back pain. KIDNEY STONES History of Any Multi-Drug Resistant Organisms: None Reported Past Surgical History: Section, Cholecystectomy, Tubal Ligation Additional Past Surgical History / Comment(s): sinus surgery, D&C, x 4 , EGD/colonoscopy. Past Anesthesia/Blood Transfusion Reactions: Previous Problems w/ Anesthesia, Postoperative Nausea & Vomiting (PONV) Additional Past Anesthesia/Blood Transfusion Reaction / Comment(s): Pt did not go all the way under. Pt could hear, but not feel anything Past Psychological History: Anxiety, Depression Smoking Status: Former smoker Past Alcohol Use History: Occasional Past Drug Use History: None Reported - Past Family History Father Family Medical History: Congestive Heart Failure (CHF), Coronary Artery Disease (CAD), Diabetes Mellitus Additional Family Medical History / Comment(s): stents,depression anxiety Mother Family Medical History: Cancer, Diabetes Mellitus, Hypertension Additional Family Medical History / Comment(s): colon cancer, adhd, bipolar, split personaltiy disorder. Medications and Allergies Home Medications Medication Instructions Recorded Confirmed Type Loratadine [Claritin] 10 mg PO HS 05/04/14 03/24/18 History Montelukast Sodium [Singulair] 10 mg PO HS 05/04/14 03/24/18 History Albuterol Sulfate [Proair Hfa] 2 puff INHALATION RT-QID PRN 04/02/16 03/24/18 History Mometasone/Formoterol [Dulera 100 2 puff INHALATION RT-BID 12/01/16 03/24/18 History Mcg/5 Mcg Inhaler] amLODIPine [Norvasc] 10 mg PO DAILY 12/01/16 03/24/18 History Butalb/Asprin/Caff 50-325-40Mg 1 cap PO BID PRN 11/17/17 03/24/18 History [Fiorinal 50-325-40 MG] metFORMIN HCL 1,000 mg PO BID 11/17/17 03/24/18 History Topiramate [Topamax] 200 mg PO DAILY 11/27/17 03/24/18 History Rizatriptan Benzoate [Maxalt] 10 mg PO BID PRN 03/24/18 03/24/18 History Allergies Allergy/AdvReac Type Severity Reaction Status Date / Time metronidazole [From Flagyl] Allergy Dyspnea Verified 03/24/18 13:13 morphine Allergy Rash/Hives Verified 03/24/18 13:13 orange flavor AdvReac Abdominal Verified 03/24/18 13:13 Pain tomato [Tomato] AdvReac Abdominal Verified 03/24/18 13:13 Pain wheat AdvReac Abdominal Verified 03/24/18 13:13 Pain Physical Exam Vitals: Vital Signs Temp Pulse Resp BP Pulse Ox 03/24/18 16:49 98.9 F 72 16 142/87 98 03/24/18 15:04 97.8 F 78 18 158/71 100 03/24/18 12:44 98.8 F 77 16 138/66 98 Intake and Output 03/24/18 03/24/18 03/24/18 06:59 14:59 22:59 Other: Weight 111.13 kg PHYSICAL EXAMINATION: GENERAL: The patient is alert and oriented x3, not in any acute distress. Well developed, well nourished. HEENT: Pupils are round and equally reacting to light. EOMI. No scleral icterus. No conjunctival pallor. Normocephalic, atraumatic. No pharyngeal erythema. No thyromegaly. CARDIOVASCULAR: S1 and S2 present. No murmurs, rubs, or gallops. PULMONARY: Chest is clear to auscultation, no wheezing or crackles. ABDOMEN: Soft, nontender, nondistended, normoactive bowel sounds. No palpable organomegaly. MUSCULOSKELETAL: No joint swelling or deformity. EXTREMITIES: No cyanosis, clubbing, or pedal edema. NEUROLOGICAL: Gross neurological examination did not reveal any focal deficits. SKIN: No rashes. Results CBC & Chem 7: 03/24/18 13:30 03/24/18 13:30 Labs: Abnormal Lab Results - Last 24 Hours (Table) 03/24/18 03/24/18 03/24/18 Range/Units 13:30 13:30 13:30 Hgb 11.3 L (11.4-16.0) gm/dL Chloride 110 H (98-107) mmol/L Carbon Dioxide 18 L (22-30) mmol/L Total Creatine Kinase 155 H (30-135) U/L Ur Leukocyte Esterase (Negative) Urine Bacteria (None) /hpf Urine Mucus (None) /hpf 03/24/18 Range/Units 13:30 Hgb (11.4-16.0) gm/dL Chloride (98-107) mmol/L Carbon Dioxide (22-30) mmol/L Total Creatine Kinase (30-135) U/L Ur Leukocyte Esterase Small H (Negative) Urine Bacteria Rare H (None) /hpf Urine Mucus Rare H (None) /hpf Assessment and Plan Plan: -Chest pain we'll rule out a acute coronary syndromes and unstable angina, cardiology will evaluate the patient. Her chest pain appears to be atypical noncardiac, although etiology is not clear -Hypertension -Type 2 diabetes mellitus: Hold off metformin patient was started on sliding scale insulin -Gastroesophageal reflux disease -History of recording use quit years ago For above-mentioned chronic medical problems patient will be resumed on appropriate home medications.
[2018-03-24] MEDS ORDERED: metFORMIN 500 MG TAB PO SCH (18:00)
[2018-03-24 19:30] LABS: Creatine Kinase 66 U/L (30-135)
[2018-03-24 19:43] LABS: Creatine Kinase MB 0.5 ng/mL (0.0-2.4); Troponin I <0.012 ng/mL (0.000-0.034)
[2018-03-24] MEDS: SUMAtriptan SUCCINATE 50 MG TAB PO PRN ×2 (20:15→22:51)
[2018-03-24 20:26] LABS: Glucose,Whole Blood 136 mg/dL (75-99)
[2018-03-24] MEDS ORDERED: LORATADINE 10 MG TAB PO SCH (21:00)
[2018-03-24] MEDS ORDERED: MONTELUKAST 10 MG TAB PO SCH (21:00)
[2018-03-24] MEDS: SYMBICORT 80-4.5 MCG INHALER INHALATION SCH (21:15)
[2018-03-25 01:38] LABS: Creatine Kinase 71 U/L (30-135)
[2018-03-25 01:50] LABS: Creatine Kinase MB 0.4 ng/mL (0.0-2.4); Troponin I <0.012 ng/mL (0.000-0.034)
[2018-03-25 03:30] LABS: HDL Cholesterol 61 mg/dL (40-60); Triglycerides 115 mg/dL (<150)
[2018-03-25 03:36] VITALS: RESP 18
[2018-03-25 03:56] LABS: Cholesterol 174 mg/dL (<200); LDL Cholesterol,Calculated 90 mg/dL (0-99)
[2018-03-25 04:17] LABS: Hemoglobin A1C 5.9 % (4.0-6.0)
[2018-03-25] MEDS: SUMAtriptan SUCCINATE 50 MG TAB PO PRN (06:26)
[2018-03-25 07:00] LABS: Glucose,Whole Blood 108 mg/dL (75-99)
[2018-03-25] MEDS: SYMBICORT 80-4.5 MCG INHALER INHALATION SCH (07:43)
--- NOTE | 2018-03-25 08:26 | CONS ---
CONSULTATION Mrs. Maciel is a 38-year-old female with known history of diabetes and hypertension, who is followed by Dr. Monreal in [facility] who presented with symptoms of chest discomfort. She has been having chest discomfort on and off for the last few years, has underwent a stress test according to her early this year that was unremarkable. It appears that she had a cardiac CT angiogram that was unremarkable as well. She also has history of palpitation. She was given an event monitor and battery broke and she was awaiting for replacement. She had episode of chest discomfort yesterday that was not activity related. It persisted and because of that she came into the emergency room. She has minimal dyspnea on exertion. Occasional peripheral edema. At the end of the day, no PND, no orthopnea. She has the occasional palpitation. She feels dizzy at times related to her migraine headache. Her coronary risk factors are remarkable for diabetes, hypertension. She is nonsmoker. Her lipid profile is not available. Her medications include Maxalt on a p.r.n. basis, Claritin, Fiorinal on a p.r.n. basis, ProAir, metformin 1 gram twice a day, Norvasc 10 mg daily, Topamax 200 mg daily, Singulair 10 mg daily, and Dulera. REVIEW OF SYSTEMS: RESPIRATORY SYSTEM: She has no recent wheezing. No cough. She has history of asthma. GI SYSTEM: No recent GI bleeding. No peptic ulcer disease. SYSTEM: No dysuria or hematuria. NERVOUS SYSTEM: She has a history of migraine. PHYSICAL EXAMINATION: She is a 38-year-old female, alert, oriented, no apparent distress. Blood pressure 104/60 with the heart rate in 70s. HEAD: Normocephalic. EYES: Sclerae anicteric. NECK: Good upstroke. No bruit. No jugular venous distention. LUNGS: Clear to auscultation. HEART: Regular rate and rhythm. S1, S2. No S3. No rub. ABDOMEN: Soft, nontender. Positive bowel sounds. No organomegaly. EXTREMITIES: No edema. Intact distal pulses. LAB DATA: Lab data revealed troponin less than 0.012 for 3 samples. BUN and creatinine of 11 and 0.58. Potassium 4.8. Hemoglobin of 11.3. EKG revealed a sinus mechanism with T-wave inversion in lead III and voltage criteria for LVH. Chest x-ray shows no acute infiltrate. Duplex scan of the lower extremities revealed no evidence of deep vein thrombosis. IMPRESSION: 1. Chest discomfort, atypical for ischemic heart disease, probably noncardiac. 2. Palpitation, appear to be benign. 3. Hypertension. 4. History of diabetes mellitus. RECOMMENDATION: I will obtain the results of her stress that was obtained recently and if it appears to be normal, then I expect she should be able to be discharged home today and follow up with her primary strap cutting machine operator as an outpatient. Thank you for this consult. We will follow with you. MMODL / IJN: [id number] /
[2018-03-25 08:30] VITALS: TEMP 97.8
[2018-03-25] MEDS ORDERED: amLODIPine 10 MG TAB PO SCH (09:00)
[2018-03-25] MEDS ORDERED: TOPIRAMATE 100 MG TAB PO SCH (09:00)
[2018-03-25] MEDS ORDERED: ASPIRIN 325 MG TAB PO SCH (09:00)
[2018-03-25 11:44] VITALS: BP 122/69; PULSE 76
[2018-03-25 12:26] LABS: Glucose,Whole Blood 153 mg/dL (75-99)
--- NOTE | 2018-03-25 14:36 | P.DS ---
Providers Date of admission: 03/24/18 15:59 Attending physician: Hanna Correia Consults: 03/24/18 15:43 Consult Physician Stat Consulting Provider: [facility] Consult Reason/Comments: chest pain Do you want consulting provider notified?: Yes Primary care physician: [facility] Course: 58-year-old female admitted with chest pain patient had atypical chest pain, troponins were negative EKGs did not show any significant abnormality patient had a recent stress test earlier this year. 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 Patient denied any chest pain since yesterday. PHYSICAL EXAMINATION: GENERAL: The patient is alert and oriented x3, not in any acute distress. Well developed, well nourished. HEENT: Pupils are round and equally reacting to light. EOMI. No scleral icterus. No conjunctival pallor. Normocephalic, atraumatic. No pharyngeal erythema. No thyromegaly. CARDIOVASCULAR: S1 and S2 present. No murmurs, rubs, or gallops. PULMONARY: Chest is clear to auscultation, no wheezing or crackles. ABDOMEN: Soft, nontender, nondistended, normoactive bowel sounds. No palpable organomegaly. MUSCULOSKELETAL: No joint swelling or deformity. EXTREMITIES: No cyanosis, clubbing, or pedal edema. NEUROLOGICAL: Gross neurological examination did not reveal any focal deficits. SKIN: No rashes. The rest of her chronic medical problems hospitalization course please refer to my dictation of H&P from yesterday Patient Condition at Discharge: Stable Plan - Discharge Summary Discharge Rx Participant: Yes New Discharge Prescriptions: No Action Montelukast Sodium [Singulair] 10 mg PO HS Loratadine [Claritin] 10 mg PO HS Albuterol Sulfate [Proair Hfa] 2 puff INHALATION RT-QID PRN PRN Reason: Shortness Of Breath amLODIPine [Norvasc] 10 mg PO DAILY Mometasone/Formoterol [Dulera 100 Mcg/5 Mcg Inhaler] 2 puff INHALATION RT-BID Butalb/Asprin/Caff 50-325-40Mg [Fiorinal 50-325-40 MG] 1 cap PO BID PRN PRN Reason: Pain metFORMIN HCL 1,000 mg PO BID Topiramate [Topamax] 200 mg PO DAILY Rizatriptan Benzoate [Maxalt] 10 mg PO BID PRN PRN Reason: Headache Discharge Medication List Loratadine [Claritin] 10 mg PO HS 05/04/14 [History] Montelukast Sodium [Singulair] 10 mg PO HS 05/04/14 [History] Albuterol Sulfate [Proair Hfa] 2 puff INHALATION RT-QID PRN 04/02/16 [History] Mometasone/Formoterol [Dulera 100 Mcg/5 Mcg Inhaler] 2 puff INHALATION RT-BID [History] amLODIPine [Norvasc] 10 mg PO DAILY 12/01/16 [History] Butalb/Asprin/Caff 50-325-40Mg [Fiorinal 50-325-40 MG] 1 cap PO BID PRN [History] metFORMIN HCL 1,000 mg PO BID 11/17/17 [History] Topiramate [Topamax] 200 mg PO DAILY 11/27/17 [History] Rizatriptan Benzoate [Maxalt] 10 mg PO BID PRN 03/24/18 [History] Follow up Appointment(s)/Referral(s): Morena Garcia MD [Primary Care Provider] - 3 Days Discharge Disposition: HOME SELF-CARE
== END 2018-03-25 14:51 | disposition home or self-care (01) ==
LOC: EC 12:20 → 3OBS 15:59
PROVIDERS: ADMIT Hospitalist; ATTEND Hospitalist
DX: R07.89 Other chest pain (principal); R00.2 Palpitations; R06.00 Dyspnea, unspecified; M79.661 Pain in right lower leg; I10 Essential (primary) hypertension; E11.9 Type 2 diabetes mellitus without complications; J40 Bronchitis, not specified as acute or chronic; J45.909 Unspecified asthma, uncomplicated; G43.909 Migraine, unspecified, not intractable, without status migrainosus; K21.9 Gastro-esophageal reflux disease without esophagitis; M54.5 Low back pain; R60.0 Localized edema; J30.2 Other seasonal allergic rhinitis; J32.9 Chronic sinusitis, unspecified; Z79.899 Other long term (current) drug therapy; Z79.84 Long term (current) use of oral hypoglycemic drugs; Z87.01 Personal history of pneumonia (recurrent); Z87.442 Personal history of urinary calculi; Z87.891 Personal history of nicotine dependence; Z87.440 Personal history of urinary (tract) infections; Z88.1 Allergy status to other antibiotic agents; Z88.5 Allergy status to narcotic agent; Z91.018 Allergy to other foods; Z80.0 Family history of malignant neoplasm of digestive organs; Z81.8 Family history of other mental and behavioral disorders; Z82.49 Family history of ischemic heart disease and other diseases of the circulatory system; Z90.49 Acquired absence of other specified parts of digestive tract
CPT/HCPCS: 99285; 36415; 94640 ×2; 93005; 85379; 83880; 80061; 80053; 82550 ×2; 82553 ×2; 83605; 84484 ×2; 85025; 85610; 85730; 81001; 81025; 83036; 71046; 93971; G0378 ×2

== ENCOUNTER 2018-05-29 13:47 | Emergency (ER) | payer MEDICAID, OTHER ==
[2018-05-29 14:09] VITALS: RESP 18
[2018-05-29] MEDS ORDERED: FAMOTIDINE 20 MG/2 ML VIAL IV STA (15:07)
[2018-05-29] MEDS ORDERED: ASPIRIN 81 MG PO STA (15:07)
[2018-05-29] MEDS ORDERED: SODIUM CHLORIDE 0.9% 1,000 ML IV STA ×2 (15:07)
--- NOTE | 2018-05-29 15:33 | ED ---
Chest Pain HPI - General Chief Complaint: Chest Pain Stated Complaint: Chest discomfort Time Seen by Provider: 05/29/18 14:50 Source: patient, RN notes reviewed, old records reviewed Mode of arrival: ambulatory Limitations: no limitations - History of Present Illness Initial Comments: 38-year-old female with a history of diabetes hypertension presents emergency Department with 1 day of chest pain. She reports that yesterday evening he thought that she was having GI upset. She reported she had some pain to the right upper quadrant and left upper quadrant. Patient states she went to sleep last night and today she complained of some pain within her chest and heaviness. No shortness of breath or diaphoresis. She states she felt somewhat dizzy. Patient states that she had a history of GERD. She states her pain seems different than the previous acid reflux pain. She denies any fevers or chills, shortness of breath. She states that at this time her pain is a 5 out of 10. - Related Data Home Medications Medication Instructions Recorded Confirmed Albuterol Sulfate [Proair Hfa] 2 puff INHALATION RT-QID PRN 04/02/16 05/29/18 Mometasone/Formoterol [Dulera 100 2 puff INHALATION RT-BID 12/01/16 05/29/18 Mcg/5 Mcg Inhaler] Butalb/Asprin/Caff 50-325-40Mg 1 cap PO BID PRN 11/17/17 05/29/18 [Fiorinal 50-325-40 MG] metFORMIN HCL 1,000 mg PO BID 11/17/17 05/29/18 Rizatriptan Benzoate [Maxalt] 10 mg PO BID PRN 03/24/18 05/29/18 Amitriptyline HCl [Elavil] 25 mg PO HS 05/29/18 05/29/18 Escitalopram [Lexapro] 20 mg PO HS 05/29/18 05/29/18 Ibuprofen [Motrin Ib] 800 mg PO TID PRN 05/29/18 05/29/18 Tiotropium 18 Mcg/Puff [Spiriva] 1 cap INHALATION RT-DAILY 05/29/18 05/29/18 Allergies Allergy/AdvReac Type Severity Reaction Status Date / Time metronidazole [From Flagyl] Allergy Dyspnea Verified 05/29/18 15:06 morphine Allergy Rash/Hives Verified 05/29/18 15:06 orange flavor AdvReac Abdominal Verified 05/29/18 15:06 Pain tomato [Tomato] AdvReac Abdominal Verified 05/29/18 15:06 Pain wheat AdvReac Abdominal Verified 05/29/18 15:06 Pain Review of Systems ROS Statement: Those systems with pertinent positive or pertinent negative responses have been documented in the HPI. ROS Other: All systems not noted in ROS Statement are negative. EKG Findings - EKG Comments: EKG Findings:: EKG shows normal sinus rhythm. Cannot rule out anterior inferior infarct. Abnormal EKG. Vent rate 73. Pulse 62. QRS duration 80. QTC 382/420 ms. Past Medical History Past Medical History: Asthma, Chest Pain / Angina, Diabetes Mellitus, GERD/ Reflux, Hypertension, Pneumonia Additional Past Medical History / Comment(s): HIATAL HERNIA, ibs, chronic sinusitis/seasonal allergies,UTI, ATYPICAL CHEST PAIN, 05-20- and in 2018- STRESS TEST NEG., bronchitis, colitis, IBS, migraines, occasional low back pain. KIDNEY STONES History of Any Multi-Drug Resistant Organisms: None Reported Past Surgical History: Section, Cholecystectomy, Tubal Ligation Additional Past Surgical History / Comment(s): sinus surgery, D&C, x 4 , EGD/colonoscopy. Past Anesthesia/Blood Transfusion Reactions: Previous Problems w/ Anesthesia, Postoperative Nausea & Vomiting (PONV) Additional Past Anesthesia/Blood Transfusion Reaction / Comment(s): Pt did not go all the way under. Pt could hear, but not feel anything Past Psychological History: Anxiety, Depression Smoking Status: Former smoker Past Alcohol Use History: None Reported Past Drug Use History: None Reported - Past Family History Father Family Medical History: Congestive Heart Failure (CHF), Coronary Artery Disease (CAD), Diabetes Mellitus Additional Family Medical History / Comment(s): stents,depression anxiety Mother Family Medical History: Cancer, Diabetes Mellitus, Hypertension Additional Family Medical History / Comment(s): colon cancer, adhd, bipolar, split personaltiy disorder. General Exam - General Exam Comments Initial Comments: 38-year-old Limitations: no limitations General appearance: alert, in no apparent distress Head exam: Present: atraumatic, normocephalic, normal inspection Eye exam: Present: normal appearance, PERRL, EOMI. Absent: scleral icterus, conjunctival injection, periorbital swelling ENT exam: Present: normal exam, mucous membranes moist Neck exam: Present: normal inspection. Absent: tenderness, meningismus, lymphadenopathy Respiratory exam: Present: normal lung sounds bilaterally. Absent: respiratory distress, wheezes, rales, rhonchi, stridor Cardiovascular Exam: Present: regular rate, normal rhythm, normal heart sounds. Absent: systolic murmur, diastolic murmur, rubs, gallop, clicks GI/Abdominal exam: Present: soft, normal bowel sounds. Absent: distended, tenderness, guarding, rebound, rigid Extremities exam: Present: normal inspection, full ROM, normal capillary refill. Absent: tenderness, pedal edema, joint swelling, calf tenderness Back exam: Present: normal inspection Neurological exam: Present: alert, oriented X3, CN II-XII intact Psychiatric exam: Present: normal affect, normal mood Skin exam: Present: warm, dry, intact, normal color. Absent: rash Course Vital Signs 05/29/18 05/29/18 14:06 16:59 Temperature 98.6 F Pulse Rate 80 63 Respiratory 18 18 Rate Blood Pressure 112/72 123/82 O2 Sat by Pulse 97 10 L Oximetry Disposition Clinical Impression: Chest pain Disposition: HOME SELF-CARE Condition: Good Instructions: Chest Pain (ED) Additional Instructions: Patient advised to follow-up promptly with primary care physician. Return to the emergency department if any alarming signs or symptoms occur. Is patient prescribed a controlled substance at d/c from ED?: No When asked, does pt state using other controlled substances?: No If prescribed controlled substance>3 days was MAPS reviewed?: No If opioid is for acute pain is fill amount 7 days or less?: No If Rx opioid, was Start Talking consent form obtained?: No Referrals: Morena Garcia MD [Primary Care Provider] - 1-2 days Time of Disposition: 17:42
[2018-05-29 16:47] LABS: Basophils % (A) 0 %; Eosinophils # (A) 0.2 k/uL (0-0.7); Eosinophils % (A) 3 %; HCT 40.7 % (34.0-46.0); HGB 12.6 gm/dL (11.4-16.0); Hypochromasia Slight; Lymphocytes # (A) 3.1 k/uL (1.0-4.8); Lymphocytes % (A) 36 %; MCH 25.5 pg (25.0-35.0); MCHC 30.8 g/dL (31.0-37.0); MCV 82.6 fL (80.0-100.0); Mean Platelet Volume 6.7; Monocytes # (A) 0.3 k/uL (0-1.0); Monocytes % (A) 4 %; Neutrophils # (A) 4.7 k/uL (1.3-7.7); Neutrophils % (A) 55 %; Platelet Count 287 k/uL (150-450); RBC 4.93 m/uL (3.80-5.40); RDW 14.1 % (11.5-15.5); WBC 8.6 k/uL (3.8-10.6)
[2018-05-29 16:58] LABS: INR 0.9 (<1.2); Partial Thromboplastin Time 22.1 sec (22.0-30.0); Prothrombin Time 9.4 sec (9.0-12.0)
--- NOTE | 2018-05-29 17:01 | XR ---
EXAMINATION TYPE: XR chest 2V DATE OF EXAM: 05/29/2018 COMPARISON: 03/24/2018 HISTORY: Chest pressure TECHNIQUE: Frontal and lateral views of the chest are obtained. FINDINGS: Heart and mediastinum are normal. Lungs are clear. Diaphragm is normal. Bony thorax appear s normal. IMPRESSION: Normal chest. No change.
[2018-05-29 17:14] LABS: ALT 30 U/L (9-52); AST 23 U/L (14-36); Albumin 4.2 g/dL (3.5-5.0); Alkaline Phosphatase 71 U/L (38-126); Anion Gap 10 mmol/L; Blood Urea Nitrogen 10 mg/dL (7-17); Calcium 9.1 mg/dL (8.4-10.2); Carbon Dioxide 22 mmol/L (22-30); Chloride 105 mmol/L (98-107); Glucose 85 mg/dL (74-99); Magnesium 2.2 mg/dL (1.6-2.3); Potassium 4.5 mmol/L (3.5-5.1); Sodium 137 mmol/L (137-145); Total Bilirubin 0.3 mg/dL (0.2-1.3); Total Protein 7.1 g/dL (6.3-8.2)
[2018-05-29 17:18] LABS: Creatine Kinase 79 U/L (30-135)
[2018-05-29 17:30] LABS: Creatine Kinase MB 0.3 ng/mL (0.0-2.4); Troponin I <0.012 ng/mL (0.000-0.034)
[2018-05-29 17:52] VITALS: BP 116/78; PULSE 61; TEMP 97.8
== END 2018-05-29 17:51 | disposition home or self-care (01) ==
LOC: EC 13:47
DX: R07.89 Other chest pain (principal); R10.11 Right upper quadrant pain; R10.12 Left upper quadrant pain; R42 Dizziness and giddiness; J45.909 Unspecified asthma, uncomplicated; E11.9 Type 2 diabetes mellitus without complications; F41.9 Anxiety disorder, unspecified; F32.9 Major depressive disorder, single episode, unspecified; Z87.891 Personal history of nicotine dependence; Z79.51 Long term (current) use of inhaled steroids; Z79.84 Long term (current) use of oral hypoglycemic drugs; Z79.899 Other long term (current) drug therapy; Z88.1 Allergy status to other antibiotic agents; Z88.5 Allergy status to narcotic agent; Z91.02 Food additives allergy status; Z91.018 Allergy to other foods; Z90.49 Acquired absence of other specified parts of digestive tract; Z82.49 Family history of ischemic heart disease and other diseases of the circulatory system; Z80.0 Family history of malignant neoplasm of digestive organs
CPT/HCPCS: 36415; 71046; 80053; 82550; 82553; 83735; 84484; 85025; 85610; 85730; 93005; 96361; 96374; 99285

== ENCOUNTER 2018-08-30 13:10 | Emergency (ER) | payer MEDICAID, OTHER ==
[2018-08-30 13:22] VITALS: BP 122/91; PULSE 90; RESP 18; TEMP 98
--- NOTE | 2018-08-30 13:40 | ED ---
Lower Extremity Injury HPI - General Chief Complaint: Extremity Injury, Lower Stated Complaint: rt leg pain/calf Time Seen by Provider: 08/30/18 13:28 Source: patient, RN notes reviewed Mode of arrival: ambulatory Limitations: no limitations - History of Present Illness Initial Comments: 38-year-old female presents emergency Department chief complaint of right calf pain. Patient states started a few days ago has progressively gotten worse. Patient states that she only tried some ibuprofen and muscle relaxers. Patient states that it radiates from her right calf tenderness to the arch of her right foot. Patient denies any paresthesias. Denies any trauma. She states that she does work for her shift and is on her feet also time. Patient states that she's had no prior injuries to her right leg. Patient states it is better at rest. - Related Data Home Medications Medication Instructions Recorded Confirmed Albuterol Sulfate [Proair Hfa] 2 puff INHALATION RT-QID PRN 04/02/16 05/29/18 Mometasone/Formoterol [Dulera 100 2 puff INHALATION RT-BID 12/01/16 05/29/18 Mcg/5 Mcg Inhaler] Butalb/Asprin/Caff 50-325-40Mg 1 cap PO BID PRN 11/17/17 05/29/18 [Fiorinal 50-325-40 MG] metFORMIN HCL 1,000 mg PO BID 11/17/17 05/29/18 Rizatriptan Benzoate [Maxalt] 10 mg PO BID PRN 03/24/18 05/29/18 Amitriptyline HCl [Elavil] 25 mg PO HS 05/29/18 05/29/18 Escitalopram [Lexapro] 20 mg PO HS 05/29/18 05/29/18 Ibuprofen [Motrin Ib] 800 mg PO TID PRN 05/29/18 05/29/18 Tiotropium 18 Mcg/Puff [Spiriva] 1 cap INHALATION RT-DAILY 05/29/18 05/29/18 Previous Rx's Medication Instructions Recorded Ibuprofen [Motrin] 600 mg PO Q8HR PRN #30 tab 08/30/18 Allergies Allergy/AdvReac Type Severity Reaction Status Date / Time metronidazole [From Flagyl] Allergy Dyspnea Verified 08/30/18 13:22 morphine Allergy Rash/Hives Verified 10/21/18 13:22 orange flavor AdvReac Abdominal Verified 08/30/18 13:22 Pain tomato [Tomato] AdvReac Abdominal Verified 08/30/18 13:22 Pain wheat AdvReac Abdominal Verified 08/30/18 13:22 Pain Review of Systems ROS Statement: Those systems with pertinent positive or pertinent negative responses have been documented in the HPI. ROS Other: All systems not noted in ROS Statement are negative. Past Medical History Past Medical History: Asthma, Chest Pain / Angina, Diabetes Mellitus, GERD/ Reflux, Hypertension, Pneumonia Additional Past Medical History / Comment(s): HIATAL HERNIA, ibs, chronic sinusitis/seasonal allergies,UTI, ATYPICAL CHEST PAIN, -- and in 2018- STRESS TEST NEG., bronchitis, colitis, IBS, migraines, occasional low back pain. KIDNEY STONES History of Any Multi-Drug Resistant Organisms: None Reported Past Surgical History: Section, Cholecystectomy, Tubal Ligation Additional Past Surgical History / Comment(s): sinus surgery, D&C, x 4 , EGD/colonoscopy. Past Anesthesia/Blood Transfusion Reactions: Previous Problems w/ Anesthesia, Postoperative Nausea & Vomiting (PONV) Additional Past Anesthesia/Blood Transfusion Reaction / Comment(s): Pt did not go all the way under. Pt could hear, but not feel anything Past Psychological History: Anxiety, Depression Smoking Status: Former smoker Past Alcohol Use History: None Reported Past Drug Use History: None Reported - Past Family History Father Family Medical History: Congestive Heart Failure (CHF), Coronary Artery Disease (CAD), Diabetes Mellitus Additional Family Medical History / Comment(s): stents,depression anxiety Mother Family Medical History: Cancer, Diabetes Mellitus, Hypertension Additional Family Medical History / Comment(s): colon cancer, adhd, bipolar, split personaltiy disorder. General Exam Limitations: no limitations General appearance: alert, in no apparent distress Head exam: Present: atraumatic, normocephalic, normal inspection Respiratory exam: Present: normal lung sounds bilaterally. Absent: respiratory distress, wheezes, rales, rhonchi, stridor Cardiovascular Exam: Present: regular rate, normal rhythm, normal heart sounds. Absent: systolic murmur, diastolic murmur, rubs, gallop, clicks Extremities exam: Present: other (Right calf there is mild tenderness, neurovascular intact right leg full range of motion of knee, right ankle and foot there is tenderness over the distal Achilles region with no ecchymosis or erythema) Skin exam: Present: warm, dry, intact, normal color. Absent: rash Course Vital Signs 08/30/18 13:19 Temperature 98 F Pulse Rate 90 Respiratory 18 Rate Blood Pressure 122/91 O2 Sat by Pulse 99 Oximetry Medical Decision Making - Medical Decision Making 38-year-old female presented to emergency department for right calf pain. Patient was concerned about possible blood clot. Ultrasound was obtained which was negative for acute DVT. Patient has a right Achilles tendinitis. Patient will be given anti-inflammatories, pain control is advised to follow-up with orthopedics on Friday for possible range of motion walking. Disposition Clinical Impression: Achilles tendinitis Disposition: HOME SELF-CARE Condition: Stable Instructions: Achilles Tendinitis (ED) Additional Instructions: Please return to the Emergency Department if symptoms worsen or any other concerns. Prescriptions: Ibuprofen [Motrin] 600 mg PO Q8HR PRN #30 tab PRN Reason: Pain Is patient prescribed a controlled substance at d/c from ED?: No Referrals: Morena Garcia MD [Primary Care Provider] - 1-2 days Aman Yeager MD [Medical Doctor] - 1-2 days Time of Disposition: 14:15
--- NOTE | 2018-08-30 14:11 | US ---
EXAMINATION TYPE: US venous doppler duplex LE RT DATE OF EXAM: 08/30/2018 2:03 PM COMPARISON: Previous study dated 03/24/2018. CLINICAL HISTORY: Pain. Right leg pain SIDE PERFORMED: Right TECHNIQUE: The lower extremity deep venous system is examined utilizing real time linear array sonog elizabeth with graded compression, doppler sonography and color-flow sonography. VESSELS IMAGED: External Iliac Vein (EIV) Common Femoral Vein Deep Femoral Vein Greater Saphenous Vein * Femoral Vein Popliteal Vein Small Saphenous Vein * Proximal Calf Veins (* superficial vessels) Technically difficult exam due to being performed portably on patient with large body habitus. Right Leg: Negative for DVT No popliteal fossa lesion is seen. IMPRESSION: THIS EXAMINATION IS NEGATIVE FOR DVT WITHIN THE RIGHT LEG.
[2018-08-30] MEDS ORDERED: ACET/COD 300 MG/30 MG STARTER PACK 6 TAB BTL PO STA (14:15)
== END 2018-08-30 14:30 | disposition home or self-care (01) ==
LOC: EC 13:10
DX: M76.61 Achilles tendinitis, right leg (principal); J45.909 Unspecified asthma, uncomplicated; F41.9 Anxiety disorder, unspecified; F32.9 Major depressive disorder, single episode, unspecified; Z87.891 Personal history of nicotine dependence; Z88.1 Allergy status to other antibiotic agents; Z88.5 Allergy status to narcotic agent; Z91.02 Food additives allergy status; Z91.018 Allergy to other foods; Z79.51 Long term (current) use of inhaled steroids; Z79.84 Long term (current) use of oral hypoglycemic drugs; Z79.899 Other long term (current) drug therapy
CPT/HCPCS: 99283

== ENCOUNTER 2018-09-03 13:10 | Observation (INO) | payer MEDICAID, OTHER ==
[2018-09-03] MEDS ORDERED: ASPIRIN 81 MG PO STA (13:28)
--- NOTE | 2018-09-03 14:24 | XR ---
EXAMINATION TYPE: XR chest 2V DATE OF EXAM: 09/03/2018 COMPARISON: 05/29/2018 HISTORY: Chest pain TECHNIQUE: Frontal and lateral views of the chest are obtained. FINDINGS: There is no focal air space opacity. No evidence for pneumothorax. No pleural effusion. The cardiac silhouette size is within normal limits. The osseous structures are grossly intact. IMPRESSION: 1. No acute cardiopulmonary process.
--- NOTE | 2018-09-03 14:34 | ED ---
Chest Pain HPI - General Source: patient, RN notes reviewed Mode of arrival: wheelchair Limitations: no limitations <Ivan Garcia - Last Filed: 09/03/18 16:34> <Anthony House - Last Filed: 09/03/18 17:17> - General Chief Complaint: Chest Pain Stated Complaint: chest & left arm discomfort Time Seen by Provider: 09/03/18 13:28 - History of Present Illness Initial Comments: 38-year-old female presents emergency Department chief complaint of chest discomfort. Patient states he felt she has some indigestion yesterday but worsened today with some left arm pain. Patient states that she's felt dizzy, lightheaded flushed feeling. Patient states she is generally does not feel well. Patient denies any URI symptoms. Patient states that she has been diagnosed with angina. She states that she had CT angiography 2 years ago which it was normal. Patient states she is diabetic has a history of hypertension denies hyperlipidemia. (Ivan Garcia) - Related Data Home Medications Medication Instructions Recorded Confirmed Albuterol Sulfate [Proair Hfa] 2 puff INHALATION RT-QID PRN 04/02/16 09/03/18 Rizatriptan Benzoate [Maxalt] 10 mg PO BID PRN 03/24/18 09/03/18 Amitriptyline HCl [Elavil] 25 mg PO HS 05/29/18 09/03/18 Escitalopram [Lexapro] 20 mg PO HS 05/29/18 09/03/18 Ibuprofen [Motrin Ib] 800 mg PO TID PRN 05/29/18 09/03/18 Albuterol Nebulized [Ventolin 2.5 mg INHALATION RT-Q4H PRN 09/03/18 09/03/18 Nebulized] Loratadine [Claritin] 10 mg PO DAILY 09/03/18 09/03/18 Topiramate [Trokendi Xr] 200 mg PO DAILY 09/03/18 09/03/18 Allergies Allergy/AdvReac Type Severity Reaction Status Date / Time metronidazole [From Flagyl] Allergy Dyspnea Verified 09/03/18 13:40 morphine Allergy Rash/Hives Verified 09/03/18 13:40 orange flavor AdvReac Abdominal Verified 09/03/18 13:40 Pain tomato [Tomato] AdvReac Abdominal Verified 09/03/18 13:40 Pain wheat AdvReac Abdominal Verified 09/03/18 13:40 Pain Review of Systems ROS Other: All systems not noted in ROS Statement are negative. <Ivan Garcia - Last Filed: 09/03/18 16:34> ROS Other: All systems not noted in ROS Statement are negative. <Anthony House - Last Filed: 09/03/18 17:17> ROS Statement: Those systems with pertinent positive or pertinent negative responses have been documented in the HPI. EKG Findings - EKG Comments: EKG Findings:: EKG performed at 14:07 normal sinus rhythm with a rate of 77 SD 168 QRS 100 QT/QTC 364/411 <Ivan Garcia - Last Filed: 09/03/18 16:34> Past Medical History Past Medical History: Asthma, Chest Pain / Angina, Diabetes Mellitus, GERD/ Reflux, Hypertension, Pneumonia Additional Past Medical History / Comment(s): HIATAL HERNIA, ibs, chronic sinusitis/seasonal allergies,UTI, ATYPICAL CHEST PAIN, 7--14 and in 2018- STRESS TEST NEG., bronchitis, colitis, IBS, migraines, occasional low back pain. KIDNEY STONES History of Any Multi-Drug Resistant Organisms: None Reported Past Surgical History: Section, Cholecystectomy, Tubal Ligation Additional Past Surgical History / Comment(s): sinus surgery, D&C, x 4 , EGD/colonoscopy. Past Anesthesia/Blood Transfusion Reactions: Previous Problems w/ Anesthesia, Postoperative Nausea & Vomiting (PONV) Additional Past Anesthesia/Blood Transfusion Reaction / Comment(s): Pt did not go all the way under. Pt could hear, but not feel anything Past Psychological History: Anxiety, Depression Smoking Status: Former smoker Past Alcohol Use History: None Reported Past Drug Use History: None Reported - Past Family History Father Family Medical History: Congestive Heart Failure (CHF), Coronary Artery Disease (CAD), Diabetes Mellitus Additional Family Medical History / Comment(s): stents,depression anxiety Mother Family Medical History: Cancer, Diabetes Mellitus, Hypertension Additional Family Medical History / Comment(s): colon cancer, adhd, bipolar, split personaltiy disorder. <Ivan Garcia - Last Filed: 09/03/18 16:34> General Exam Limitations: no limitations General appearance: alert, in no apparent distress Head exam: Present: atraumatic, normocephalic, normal inspection Eye exam: Present: normal appearance, PERRL, EOMI. Absent: scleral icterus, conjunctival injection, periorbital swelling ENT exam: Present: normal exam, mucous membranes moist Neck exam: Present: normal inspection. Absent: tenderness, meningismus, lymphadenopathy Respiratory exam: Present: normal lung sounds bilaterally. Absent: respiratory distress, wheezes, rales, rhonchi, stridor Cardiovascular Exam: Present: regular rate, normal rhythm, normal heart sounds. Absent: systolic murmur, diastolic murmur, rubs, gallop, clicks GI/Abdominal exam: Present: soft, normal bowel sounds. Absent: distended, tenderness, guarding, rebound, rigid <Ivan Garcia - Last Filed: 09/03/18 16:34> Course <Ivan Garcia - Last Filed: 09/03/18 16:34> <Anthony House - Last Filed: 09/03/18 17:17> Vital Signs 09/03/18 09/03/18 13:20 15:15 Temperature 98.2 F Pulse Rate 85 84 Respiratory 20 18 Rate Blood Pressure 149/82 125/62 O2 Sat by Pulse 100 100 Oximetry - Reevaluation(s) Reevaluation #1: 09/03/18 17:17 Patient reevaluated and resting comfortably in bed. No discomfort at this time. Patient does have risk factors. Patient believes last stress test was approximately one year ago. Patient updated on results and plan. Case was discussed in detail with Dr. Perkins, who will admit for Dr. Blackwell/Masood. (Anthony House) Disposition <Ivan Garcia - Last Filed: 09/03/18 16:34> <Anthony House - Last Filed: 09/03/18 17:17> Clinical Impression: Chest pain Disposition: ADMITTED IP TO THIS [facility] Condition: Stable Referrals: Morena Garcia MD [Primary Care Provider] - 1-2 days
[2018-09-03 14:54] LABS: ALT 42 U/L (9-52); AST 34 U/L (14-36); Albumin 4.3 g/dL (3.5-5.0); Alkaline Phosphatase 66 U/L (38-126); Anion Gap 11 mmol/L; Blood Urea Nitrogen 10 mg/dL (7-17); Calcium 9.9 mg/dL (8.4-10.2); Carbon Dioxide 20 mmol/L (22-30); Chloride 108 mmol/L (98-107); Glucose 98 mg/dL (74-99); Potassium 4.4 mmol/L (3.5-5.1); Sodium 139 mmol/L (137-145); Total Bilirubin 0.5 mg/dL (0.2-1.3)
[2018-09-03 14:57] LABS: Basophils # (A) 0.1 k/uL (0-0.2); Basophils % (A) 1 %; Eosinophils # (A) 0.3 k/uL (0-0.7); Eosinophils % (A) 3 %; HGB 13.1 gm/dL (11.4-16.0); Lymphocytes # (A) 2.9 k/uL (1.0-4.8); Lymphocytes % (A) 33 %; MCH 26.6 pg (25.0-35.0); MCV 83.1 fL (80.0-100.0); Monocytes # (A) 0.4 k/uL (0-1.0); Monocytes % (A) 4 %; Neutrophils # (A) 5.1 k/uL (1.3-7.7); Neutrophils % (A) 58 %; Platelet Count 129 k/uL (150-450); RBC 4.93 m/uL (3.80-5.40); RDW 14.8 % (11.5-15.5); WBC 8.7 k/uL (3.8-10.6)
[2018-09-03 15:45] LABS: Creatine Kinase 85 U/L (30-135)
[2018-09-03 15:57] LABS: Creatine Kinase MB 0.7 ng/mL (0.0-2.4); Troponin I <0.012 ng/mL (0.000-0.034)
[2018-09-03] MEDS ORDERED: HEPARIN SODIUM,PORCINE 5,000 UNIT/ML 1 ML VIAL IV ONE (16:35)
[2018-09-03] MEDS ORDERED: NITROGLYCERIN SL TABS 0.4 MG TAB SUBLINGUAL PRN (16:35)
[2018-09-03] MEDS ORDERED: HEPARIN SOD,PORK IN 0.45% NACL 25,000 UNIT in 0.45% NACL 1 500ML.BAG IV SCH (16:45)
[2018-09-03 21:52] LABS: Creatine Kinase 80 U/L (30-135)
[2018-09-03 22:06] LABS: Creatine Kinase MB 0.6 ng/mL (0.0-2.4); Troponin I <0.012 ng/mL (0.000-0.034)
[2018-09-04] MEDS ORDERED: HEPARIN SODIUM,PORCINE 5,000 UNIT/ML 1 ML VIAL IV PRN (01:57)
[2018-09-04] MEDS ORDERED: IBUPROFEN 800 MG TAB PO STA (02:34)
[2018-09-04 04:01] LABS: Cholesterol 164 mg/dL (<200); HDL Cholesterol 58 mg/dL (40-60); LDL Cholesterol,Calculated 62 mg/dL (0-99); Triglycerides 218 mg/dL (<150)
[2018-09-04 04:16] LABS: Creatine Kinase 73 U/L (30-135)
[2018-09-04 04:31] LABS: Creatine Kinase MB 0.5 ng/mL (0.0-2.4); Troponin I <0.012 ng/mL (0.000-0.034)
[2018-09-04 06:38] LABS: Glucose,Whole Blood 105 mg/dL (75-99)
[2018-09-04 07:40] VITALS: BP 126/70; PULSE 78; RESP 18; TEMP 97.8
[2018-09-04] MEDS ORDERED: ASPIRIN 325 MG TAB PO SCH (09:00)
--- NOTE | 2018-09-04 09:34 | P.HPIM ---
History of Present Illness This is a pleasant 38 years old female with past medical history of diabetes mellitus, GERD, hypertension, asthma, coronary artery disease and gr, chronic low back pain. The presents because of chest pain. Patient states that 2 days ago she was complaining of from stomach pain associated with some nausea, loose bowel movement and lightheadedness. And chest associated with some left-sided chest pressure that woke her up in the morning. Yesterday she woke up again with the chest discomfort in her left arm and with heaviness and more discomfort in her chest which brought her here to the hospital, associated also with worse lightheadedness however patient did not have bowel movement for the last 2 days and no nausea currently. Patient has occasional cough with occasional mild phlegm rupture of the color because she swallow it. Patient has been evaluated by tsa screener and cleared her for discharge after having serial negative cardiac enzymes atrophy when her EKG. On the day of discharge patient was feeling better Review of Systems CONSTITUTIONAL: No fever, no malaise, no fatigue. HEENT: No recent visual problems or hearing problems. Denied any sore throat. CARDIOVASCULAR: No orthopnea, PND, no palpitations, no syncope. PULMONARY: No shortness of breath, no cough, no hemoptysis. GASTROINTESTINAL: No diarrhea, no nausea, no vomiting, no abdominal pain. Normoactive bowel sounds. NEUROLOGICAL: No headaches, no weakness, no numbness. HEMATOLOGICAL: Denies any bleeding or petechiae. GENITOURINARY: Denies any burning micturition, frequency, or urgency. MUSCULOSKELETAL/RHEUMATOLOGICAL: Denies any joint pain, swelling, or any muscle pain. ENDOCRINE: Denies any polyuria or polydipsia. Past Medical History Past Medical History: Asthma, Chest Pain / Angina, Diabetes Mellitus, GERD/ Reflux, Hypertension, Pneumonia Additional Past Medical History / Comment(s): HIATAL HERNIA, chronic sinusitis/ seasonal allergies,UTI, ATYPICAL CHEST PAIN, 05-20- and in 2018-STRESS TEST NEG., bronchitis, colitis, IBS, migraines, occasional low back pain. KIDNEY STONES History of Any Multi-Drug Resistant Organisms: None Reported Past Surgical History: Section, Cholecystectomy, Tubal Ligation Additional Past Surgical History / Comment(s): sinus surgery, D&C, x 4 , EGD/colonoscopy. Past Anesthesia/Blood Transfusion Reactions: Previous Problems w/ Anesthesia, Postoperative Nausea & Vomiting (PONV) Additional Past Anesthesia/Blood Transfusion Reaction / Comment(s): Pt did not go all the way under. 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 Medications and Allergies Home Medications Medication Instructions Recorded Confirmed Type Albuterol Sulfate [Proair Hfa] 2 puff INHALATION RT-QID PRN 04/02/16 09/03/18 History Rizatriptan Benzoate [Maxalt] 10 mg PO BID PRN 03/24/18 09/03/18 History Amitriptyline HCl [Elavil] 25 mg PO HS 05/29/18 09/03/18 History Escitalopram [Lexapro] 20 mg PO HS 05/29/18 09/03/18 History Ibuprofen [Motrin Ib] 800 mg PO TID PRN 05/29/18 09/03/18 History Albuterol Nebulized [Ventolin 2.5 mg INHALATION RT-Q4H PRN 09/03/18 09/03/18 History Nebulized] Loratadine [Claritin] 10 mg PO DAILY 09/03/18 09/03/18 History Topiramate [Trokendi Xr] 200 mg PO DAILY 09/03/18 09/03/18 History Butalb/APAP/Caff 50-325-40Mg 1 tab PO Q4H PRN 09/04/18 09/04/18 History [Fioricet 50-325-40] Allergies Allergy/AdvReac Type Severity Reaction Status Date / Time metronidazole [From Flagyl] Allergy Dyspnea Verified 09/04/18 02:29 morphine Allergy Rash/Hives Verified 09/04/18 02:29 orange flavor AdvReac Abdominal Verified 09/04/18 02:29 Pain tomato [Tomato] AdvReac Abdominal Verified 09/04/18 02:29 Pain wheat AdvReac Abdominal Verified 09/04/18 02:29 Pain Physical Exam Vitals: Vital Signs Temp Pulse Pulse Resp BP BP Pulse Ox 09/04/18 07:20 97.8 F 78 18 126/70 99 09/04/18 02:26 97.7 F 81 16 134/80 97 09/04/18 02:22 16 09/04/18 00:45 89 16 130/92 99 09/03/18 23:30 81 16 142/85 98 09/03/18 19:45 86 18 153/96 100 09/03/18 15:15 84 18 125/62 100 09/03/18 13:20 98.2 F 85 20 149/82 100 Intake and Output 09/03/18 09/04/18 09/04/18 22:59 06:59 14:59 Intake Total 189.333 Balance 189.333 Intake: Intake, IV Titration 189.333 Amount Heparin Sod,Pork in 0.45% 189.333 NaCl 25,000 unit In 0.45 % NaCl 1 500ml.bag @ 8. 854 UNITS/KG/HR 20 mls/hr IV .Q24H [facility] Rx#: [id number] Other: Voiding Method Toilet # Voids 1 GENERAL: The patient is alert and oriented x3, not in any acute distress. Well developed, well nourished. HEENT: Pupils are round and equally reacting to light. EOMI. No scleral icterus. No conjunctival pallor. Normocephalic, atraumatic. No pharyngeal erythema. No thyromegaly. CARDIOVASCULAR: S1 and S2 present. No murmurs, rubs, or gallops. PULMONARY: Chest is clear to auscultation, no wheezing or crackles. ABDOMEN: Soft, nontender, nondistended, normoactive bowel sounds. No palpable organomegaly. MUSCULOSKELETAL: No joint swelling or deformity. EXTREMITIES: No cyanosis, clubbing, or pedal edema. NEUROLOGICAL: Gross neurological examination did not reveal any focal deficits. SKIN: No rashes. Results CBC & Chem 7: 09/03/18 14:32 09/03/18 14:32 Labs: Abnormal Lab Results - Last 24 Hours (Table) 09/03/18 09/03/18 09/04/18 Range/Units 14:32 14:32 03:15 Plt Count 129 L (150-450) k/uL Chloride 108 H (98-107) mmol/L Carbon Dioxide 20 L (22-30) mmol/L POC Glucose (mg/dL) (75-99) mg/dL Triglycerides 218 H (<150) mg/dL 09/04/18 Range/Units 06:36 Plt Count (150-450) k/uL Chloride (98-107) mmol/L Carbon Dioxide (22-30) mmol/L POC Glucose (mg/dL) 105 H (75-99) mg/dL Triglycerides (<150) mg/dL Thrombosis Risk Factor Assmnt - Choose All That Apply Any of the Below Risk Factors Present?: Yes Each Factor Represents 1 point: Hx of IBD, Obesity (BMI >25), Varicose veins Other Risk Factors: No Other congenital or acquired thrombophilia - If yes, enter type in comment: No Thrombosis Risk Factor Assessment Total Risk Factor Score: 3 Thrombosis Risk Factor Assessment Level: Moderate Risk Assessment and Plan Assessment: Chest pain, acute coronary event has been rule out. Cardiology cleared her for discharge. Resolved Dyspepsia versus mild epigastric upset, resolved history of diabetes mellitus, GERD, Essential hypertension History of chronic artery disease Chronic low back pain Plan: This is a pleasant 38 years old female who presents with chest pain. Cardiology evaluated the patient and cleared her for discharge. Continue with same treatment. Continue with symptomatic treatment. Resume home medication. Monitor lytes and vitals. GI and DVT prophylaxis. Further recommendations based on the clinical course of the patient
--- NOTE | 2018-09-04 09:40 | P.DS ---
Providers Date of admission: 09/03/18 17:17 Attending physician: Jazmyn Perkins Consults: 09/03/18 16:36 Consult Physician Urgent Consulting Provider: Hunter Simmons Consult Reason/Comments: chest pain Do you want consulting provider notified?: Yes Primary care physician: [facility] Course: This is a pleasant 38 years old female with past medical history of diabetes mellitus, GERD, hypertension, asthma, coronary artery disease and gr, chronic low back pain. The presents because of chest pain. Patient states that 2 days ago she was complaining of from stomach pain associated with some nausea, loose bowel movement and lightheadedness. And chest associated with some left-sided chest pressure that woke her up in the morning. Yesterday she woke up again with the chest discomfort in her left arm and with heaviness and more discomfort in her chest which brought her here to the hospital, associated also with worse lightheadedness however patient did not have bowel movement for the last 2 days and no nausea currently. Patient has occasional cough with occasional mild phlegm rupture of the color because she swallow it. Patient has been evaluated by digital print operator and cleared her for discharge after having serial negative cardiac enzymes atrophy when her EKG. On the day of discharge patient was feeling better. She denies to me any chest pain, abdominal pain or any other pain anywhere else. No left arm heaviness. She said she walked to the bathroom with no lightheadedness and she thinks is resolved. Patient herself thinks she can be discharged home and she told me she will call and follow-up with her PCP in one week. Problems and management plan was discussed with the patient and she verbalized understanding and acceptance Patient was found stable and can be discharged home however she needs follow-up as an outpatient. Patient was instructed to follow up with her PCP within one week. Patient agrees as above See H&P note from today for physical exam Time spent more than 35 minutes Patient Condition at Discharge: Stable Plan - Discharge Summary Discharge Rx Participant: No New Discharge Prescriptions: No Action Albuterol Sulfate [Proair Hfa] 2 puff INHALATION RT-QID PRN PRN Reason: Shortness Of Breath Rizatriptan Benzoate [Maxalt] 10 mg PO BID PRN PRN Reason: Headache Escitalopram [Lexapro] 20 mg PO HS Amitriptyline HCl [Elavil] 25 mg PO HS Ibuprofen [Motrin Ib] 800 mg PO TID PRN PRN Reason: Pain Loratadine [Claritin] 10 mg PO DAILY Albuterol Nebulized [Ventolin Nebulized] 2.5 mg INHALATION RT-Q4H PRN PRN Reason: Shortness Of Breath Topiramate [Trokendi Xr] 200 mg PO DAILY Butalb/APAP/Caff 50-325-40Mg [Fioricet 50-325-40] 1 tab PO Q4H PRN PRN Reason: Pain Discharge Medication List Albuterol Sulfate [Proair Hfa] 2 puff INHALATION RT-QID PRN 04/02/16 [History] Rizatriptan Benzoate [Maxalt] 10 mg PO BID PRN 03/24/18 [History] Amitriptyline HCl [Elavil] 25 mg PO HS 05/29/18 [History] Escitalopram [Lexapro] 20 mg PO HS 05/29/18 [History] Ibuprofen [Motrin Ib] 800 mg PO TID PRN 05/29/18 [History] Albuterol Nebulized [Ventolin Nebulized] 2.5 mg INHALATION RT-Q4H PRN 09/03/18 [ History] Loratadine [Claritin] 10 mg PO DAILY 09/03/18 [History] Topiramate [Trokendi Xr] 200 mg PO DAILY 09/03/18 [History] Butalb/APAP/Caff 50-325-40Mg [Fioricet 50-325-40] 1 tab PO Q4H PRN 09/04/18 [ History] Follow up Appointment(s)/Referral(s): Morena Garcia MD [Primary Care Provider] - 1-2 days
--- NOTE | 2018-09-04 11:43 | P.CRDCN ---
History of Present Illness History of present illness: This is a pleasant 38-year-old female past medical history significant for diabetes mellitus, hypertension, GERD and morbid obesity. She denies history of coronary artery disease and follows with Dr. Monreal at [facility]. We have been asked to see her in consultation for chest pain. She states Friday night symptoms of gas, diarrhea, flushed feeling and dizzy with indigestion and nonspecific pain in the left rib\thoracic region. She had multiple bouts of watery diarrhea. She went to sleep that night in no pain but feeling bloated. She woke up in morning with heavy feeling in her chest with ongoing dizziness. Currently chest pain free. Dizziness has resolved. Did have some pain this morning while getting EKG. EKG was sinus mechanism with no acute ST or T-wave abnormalities. She is reassured that T-wave inversion in lead III are normal. No shortness of breath, dizziness or palpitations. Chest x-ray negative for acute cardiopulmonary process. Laboratory data reviewed, WBC 8.7, hemoglobin 13.1, platelets 129, sodium 139, potassium 4.4, magnesium 2.0, creatinine 0.7, cardiac enzymes negative 3, LDL 62. She takes no daily cardiac medications.She states her diabetes has improved with diet changes as well as her blood pressure and she is no longer on metformin or norvasc. 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 CT coronary angio done in 2016 was normal per the patient, details unavailable. At the time of my exam: CONSTITUTIONAL: Denies fever. Denies chills. EYES: Denies blurred vision. Denies vision changes. Denies eye pain. EARS, NOSE, MOUTH & THROAT: Denies headache. Denies sore throat. Denies ear pain. CARDIOVASCULAR: Denies chest pain. Denies shortness of breath. Denies orthopnea. Denies PND. Denies palpitations. RESPIRATORY: Denies cough. GASTROINTESTINAL: Denies abdominal pain. Denies diarrhea. Denies constipation. Denies nausea. Denies vomiting. MUSCULOSKELETAL: Denies myalgias. INTEGUMENTARY: Denies pruitis. Denies rash. NEUROLOGIC: Denies numbness. Denies tingling. Denies weakness. PSYCHIATRIC: Denies anxiety. Denies depression. ENDOCRINE: Denies fatigue. Denies weight change. Denies polydipsia. Denies polyurina. GENITOURINARY: Denies burning, hematuria or urgency with micturation. HEMATOLOGIC: Denies history of anemia. Denies bleeding. Blood pressure 126/70 heart rate 78 afebrile maintaining oxygen saturation on room air GENERAL: This is a 38-year-old -[place] female in no apparent distress at the time of my examination. Morbidly obese. HEENT: Head is atraumatic, normocephalic. Pupils are equal, round. Sclerae anicteric. Conjunctivae are clear. Mucous membranes of the mouth are moist. Neck is supple. There is no jugular venous distention. No carotid bruit is heard. LUNGS: Clear to auscultation no wheezes, rales or rhonchi. No chest wall tenderness is noted on palpation or with deep breathing. HEART: Regular rate and rhythm without murmurs, rubs or gallops. S1 and S2 heard. ABDOMEN: Soft, nontender. Bowel sounds are heard. No organomegaly noted. EXTREMITIES: No evidence of peripheral edema and no calf tenderness noted. VASCULAR: Radial and dorsalis pedis pulses palpated, no evidence of clubbing. NEUROLOGIC: Patient is awake, alert and oriented x3. ASSESSMENT Chest pain, atypical. An acute coronary event has been ruled out with no EKG evidence of ischemia and negative cardiac enzymes. Diarrhea Remote history of diabetes mellitus and hypertension, resolved per the patient. No longer on medications. Morbid obesity PLAN An acute coronary event has been ruled out with no EKG evidence of ischemica and negative cardiac enzymes. She has been seen and examined by Dr. Ennis. Discontinue heparin infusion. Symptoms not indicative of angina, related to GI etiology with diarrhea. Assured the patient her symptoms are not cardiac related and she should follow up with her PCP. Stable from a cardiac perspective. Thank you kindly for this consultation. Nurse Practitioner note has been reviewed, I agree with a documented findings and plan of care. Patient was seen and examined. Past Medical History Past Medical History: Asthma, Chest Pain / Angina, Diabetes Mellitus, GERD/ Reflux, Hypertension, Pneumonia Additional Past Medical History / Comment(s): HIATAL HERNIA, chronic sinusitis/ seasonal allergies,UTI, ATYPICAL CHEST PAIN, 05-20-14 and in 2018-STRESS TEST NEG., bronchitis, colitis, IBS, migraines, occasional low back pain. KIDNEY STONES History of Any Multi-Drug Resistant Organisms: None Reported Past Surgical History: Section, Cholecystectomy, Tubal Ligation Additional Past Surgical History / Comment(s): sinus surgery, D&C, x 4 , EGD/colonoscopy. Past Anesthesia/Blood Transfusion Reactions: Previous Problems w/ Anesthesia, Postoperative Nausea & Vomiting (PONV) Additional Past Anesthesia/Blood Transfusion Reaction / Comment(s): Pt did not go all the way under. 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 Medications and Allergies Home Medications Medication Instructions Recorded Confirmed Type Albuterol Sulfate [Proair Hfa] 2 puff INHALATION RT-QID PRN 04/02/16 09/03/18 History Rizatriptan Benzoate [Maxalt] 10 mg PO BID PRN 03/24/18 09/03/18 History Amitriptyline HCl [Elavil] 25 mg PO HS 05/29/18 09/03/18 History Escitalopram [Lexapro] 20 mg PO HS 05/29/18 09/03/18 History Albuterol Nebulized [Ventolin 2.5 mg INHALATION RT-Q4H PRN 09/03/18 09/03/18 History Nebulized] Loratadine [Claritin] 10 mg PO DAILY 09/03/18 09/03/18 History Topiramate [Trokendi Xr] 200 mg PO DAILY 09/03/18 09/03/18 History Butalb/APAP/Caff 50-325-40Mg 1 tab PO Q4H PRN 09/04/18 09/04/18 History [Fioricet 50-325-40] Allergies Allergy/AdvReac Type Severity Reaction Status Date / Time metronidazole [From Flagyl] Allergy Dyspnea Verified 09/04/18 02:29 morphine Allergy Rash/Hives Verified 09/04/18 02:29 orange flavor AdvReac Abdominal Verified 09/04/18 02:29 Pain tomato [Tomato] AdvReac Abdominal Verified 09/04/18 02:29 Pain wheat AdvReac Abdominal Verified 09/04/18 02:29 Pain Physical Exam Vitals: Vital Signs Temp Pulse Pulse Resp BP BP Pulse Ox 09/04/18 07:20 97.8 F 78 18 126/70 99 09/04/18 02:26 97.7 F 81 16 134/80 97 09/04/18 02:22 16 09/04/18 00:45 89 16 130/92 99 09/03/18 23:30 81 16 142/85 98 09/03/18 19:45 86 18 153/96 100 09/03/18 15:15 84 18 125/62 100 09/03/18 13:20 98.2 F 85 20 149/82 100 Intake and Output 09/03/18 09/04/18 09/04/18 22:59 06:59 14:59 Intake Total 189.333 Balance 189.333 Intake: Intake, IV Titration 189.333 Amount Heparin Sod,Pork in 0.45% 189.333 NaCl 25,000 unit In 0.45 % NaCl 1 500ml.bag @ 8. 854 UNITS/KG/HR 20 mls/hr IV .Q24H [facility] Rx#: [id number] Other: Voiding Method Toilet # Voids 1 Results 09/03/18 14:32 09/03/18 14:32 Cardiac Enzymes 09/03/18 09/03/18 09/03/18 Range/Units 14:32 14:32 21:03 AST 34 (14-36) U/L CK-MB (CK-2) 0.7 0.6 (0.0-2.4) ng/mL Troponin I <0.012 <0.012 (0.000-0.034) ng/mL 09/04/18 Range/Units 03:15 AST (14-36) U/L CK-MB (CK-2) 0.5 (0.0-2.4) ng/mL Troponin I <0.012 (0.000-0.034) ng/mL Coagulation 09/03/18 Range/Units 23:51 APTT 28.4 (22.0-30.0) sec Lipids 09/04/18 Range/Units 03:15 Triglycerides 218 H (<150) mg/dL Cholesterol 164 (<200) mg/dL HDL Cholesterol 58 (40-60) mg/dL CBC 09/03/18 Range/Units 14:32 WBC 8.7 (3.8-10.6) k/uL RBC 4.93 (3.80-5.40) m/uL Hgb 13.1 (11.4-16.0) gm/dL Hct 41.0 (34.0-46.0) % Plt Count 129 L (150-450) k/uL Comprehensive Metabolic Panel 09/03/18 Range/Units 14:32 Sodium 139 (137-145) mmol/L Potassium 4.4 (3.5-5.1) mmol/L Chloride 108 H (98-107) mmol/L Carbon Dioxide 20 L (22-30) mmol/L BUN 10 (7-17) mg/dL Creatinine 0.67 (0.52-1.04) mg/dL Glucose 98 (74-99) mg/dL Calcium 9.9 (8.4-10.2) mg/dL AST 34 (14-36) U/L ALT 42 (9-52) U/L Alkaline Phosphatase 66 (38-126) U/L Total Protein 8.0 (6.3-8.2) g/dL Albumin 4.3 (3.5-5.0) g/dL Current Medications Generic Name Dose Route Start Last Admin Trade Name Freq PRN Reason Stop Dose Admin Aspirin 325 mg 09/04/18 09:00 Aspirin PO DAILY [facility] Heparin Sodium (Porcine) 0 unit 09/04/18 01:57 09/04/18 02:51 Heparin IV 4,000 unit PER PROTOCOL PRN Administration Low PTT Protocol Nitroglycerin 0.4 mg 09/03/18 16:35 Nitrostat SUBLINGUAL Q5M PRN Chest Pain Intake and Output 09/03/18 09/04/18 09/04/18 22:59 06:59 14:59 Intake Total 189.333 Balance 189.333 Intake: Intake, IV Titration 189.333 Amount Heparin Sod,Pork in 0.45% 189.333 NaCl 25,000 unit In 0.45 % NaCl 1 500ml.bag @ 8. 854 UNITS/KG/HR 20 mls/hr IV .Q24H [facility] Rx#: [id number] Other: Voiding Method Toilet # Voids 1 09/03/18 14:32 09/03/18 14:32
[2018-09-04 17:35] LABS: Hemoglobin A1C 6.1 % (4.0-6.0)
== END 2018-09-04 10:30 | disposition home or self-care (01) ==
LOC: EC 13:10 → 1SOBS 17:17
PROVIDERS: ADMIT Internal Medicine; ATTEND Internal Medicine
DX: R07.89 Other chest pain (principal); M79.602 Pain in left arm; K30 Functional dyspepsia; R42 Dizziness and giddiness; R23.2 Flushing; K58.0 Irritable bowel syndrome with diarrhea; K21.9 Gastro-esophageal reflux disease without esophagitis; I25.119 Atherosclerotic heart disease of native coronary artery with unspecified angina pectoris; E66.01 Morbid (severe) obesity due to excess calories; J45.909 Unspecified asthma, uncomplicated; K44.9 Diaphragmatic hernia without obstruction or gangrene; Z68.41 Body mass index [BMI] 40.0-44.9, adult; F41.9 Anxiety disorder, unspecified; F32.9 Major depressive disorder, single episode, unspecified; G89.29 Other chronic pain; M54.5 Low back pain; I83.90 Asymptomatic varicose veins of unspecified lower extremity; Z79.899 Other long term (current) drug therapy; Z88.3 Allergy status to other anti-infective agents; Z88.5 Allergy status to narcotic agent; Z91.018 Allergy to other foods; Z86.79 Personal history of other diseases of the circulatory system; Z87.09 Personal history of other diseases of the respiratory system; Z87.440 Personal history of urinary (tract) infections; Z90.49 Acquired absence of other specified parts of digestive tract; Z98.51 Tubal ligation status; Z87.442 Personal history of urinary calculi; Z87.891 Personal history of nicotine dependence; Z83.3 Family history of diabetes mellitus; Z82.49 Family history of ischemic heart disease and other diseases of the circulatory system; Z80.9 Family history of malignant neoplasm, unspecified; Z81.8 Family history of other mental and behavioral disorders
CPT/HCPCS: 96366 ×3; 96376 ×2; 96365; 99285; 36415; 93005; 80061; 80053; 82550 ×2; 82553 ×2; 83735; 84484 ×2; 85025; 85730; 83036; 71046; G0378 ×2; J1644 ×3

== ENCOUNTER 2018-11-19 14:55 | Observation (INO) | payer MEDICAID, OTHER ==
[2018-11-19] MEDS ORDERED: SODIUM CHLORIDE 0.9% 1,000 ML IV STA (15:49)
[2018-11-19] MEDS ORDERED: ASPIRIN 81 MG PO STA (15:49)
[2018-11-19] MEDS ORDERED: MAG HYDROX/AL HYDROX/SIMETH 30 ML, HYOSCYAMINE ELIXIR 10 ML, CIMETIDINE HCL 300 MG, LID... PO STA ×4 (15:51)
[2018-11-19] MEDS ORDERED: PANTOPRAZOLE 40 MG/10 ML VIAL IVP STA (15:51)
--- NOTE | 2018-11-19 16:06 | ED ---
Chest Pain HPI - General Chief Complaint: Chest Pain Stated Complaint: Chest discomfort Time Seen by Provider: 11/19/18 15:37 Source: patient, RN notes reviewed, old records reviewed Mode of arrival: wheelchair Limitations: no limitations - History of Present Illness Initial Comments: Patient is a 38-year-old female with complaint of chest discomfort. Reports symptoms started earlier today. Over the past few days she's been feeling generally ill any of some epigastric abdominal pain. She initially thought she had the flu. Patient reports with consistent pain she felt she needed be seen. She reports that she has history of hypertension and is prediabetic. Patient states that she is a nonsmoker. Patient claims is some epigastric tenderness associated with her pain. She denies dyspnea or cough. - Related Data Home Medications Medication Instructions Recorded Confirmed Albuterol Sulfate [Proair Hfa] 2 puff INHALATION RT-QID PRN 04/02/16 11/19/18 Rizatriptan Benzoate [Maxalt] 10 mg PO BID PRN 03/24/18 11/19/18 Albuterol Nebulized [Ventolin 2.5 mg INHALATION RT-QID PRN 09/03/18 11/19/18 Nebulized] Topiramate [Trokendi Xr] 200 mg PO DAILY 09/03/18 11/19/18 Butalb/APAP/Caff 50-325-40Mg 1 tab PO Q4H PRN 09/04/18 11/19/18 [Fioricet 50-325-40] Escitalopram [Lexapro] 10 mg PO HS 11/19/18 11/19/18 Ibuprofen [Motrin Ib] 200 - 400 mg PO Q6H PRN 11/19/18 11/19/18 Montelukast [Singulair] 10 mg PO DAILY 11/19/18 11/19/18 metFORMIN HCL [Glucophage] 500 mg PO BID 11/19/18 11/19/18 Allergies Allergy/AdvReac Type Severity Reaction Status Date / Time metronidazole [From Flagyl] Allergy Dyspnea Verified 11/19/18 15:41 morphine Allergy Rash/Hives Verified 11/19/18 15:41 orange flavor AdvReac Abdominal Verified 11/19/18 15:41 Pain tomato [Tomato] AdvReac Abdominal Verified 11/19/18 15:41 Pain wheat AdvReac Abdominal Verified 11/19/18 15:41 Pain Review of Systems ROS Statement: Those systems with pertinent positive or pertinent negative responses have been documented in the HPI. ROS Other: All systems not noted in ROS Statement are negative. EKG Findings - EKG Comments: EKG Findings:: EKG performed at 1509 shows normal sinus rhythm possible inferior infarct age undetermined. Abnormal EKG noted. Ventricular rate of 70 bpm. NC interval is 156 ms. QRS duration is 88 ms. QT QTc is 360/410 ms. T- wave inversions in 3 and aVF. Past Medical History Past Medical History: Asthma, Chest Pain / Angina, Diabetes Mellitus, GERD/ Reflux, Hypertension, Pneumonia Additional Past Medical History / Comment(s): HIATAL HERNIA, chronic sinusitis/ seasonal allergies,UTI, ATYPICAL CHEST PAIN, 05-20- and in 2018-STRESS TEST NEG., bronchitis, colitis, IBS, migraines, occasional low back pain. KIDNEY STONES History of Any Multi-Drug Resistant Organisms: None Reported Past Surgical History: Section, Cholecystectomy, Tubal Ligation Additional Past Surgical History / Comment(s): sinus surgery, D&C, x 4 , EGD/colonoscopy. Past Anesthesia/Blood Transfusion Reactions: Previous Problems w/ Anesthesia, Postoperative Nausea & Vomiting (PONV) Additional Past Anesthesia/Blood Transfusion Reaction / Comment(s): Pt did not go all the way under. Pt could hear, but not feel anything Past Psychological History: Anxiety, Depression Smoking Status: Former smoker Past Alcohol Use History: None Reported Past Drug Use History: None Reported - Past Family History Father Family Medical History: Congestive Heart Failure (CHF), Coronary Artery Disease (CAD), Diabetes Mellitus Additional Family Medical History / Comment(s): stents,depression anxiety Mother Family Medical History: Cancer, Diabetes Mellitus, Hypertension Additional Family Medical History / Comment(s): colon cancer, adhd, bipolar, split personaltiy disorder. General Exam - General Exam Comments Initial Comments: 38-year-old female. Alert and oriented. No distress Limitations: no limitations General appearance: alert, in no apparent distress Head exam: Present: atraumatic, normocephalic, normal inspection Eye exam: Present: normal appearance, PERRL, EOMI. Absent: scleral icterus, conjunctival injection, periorbital swelling ENT exam: Present: normal exam, mucous membranes moist Neck exam: Present: normal inspection. Absent: tenderness, meningismus, lymphadenopathy Respiratory exam: Present: normal lung sounds bilaterally. Absent: respiratory distress, wheezes, rales, rhonchi, stridor Cardiovascular Exam: Present: regular rate, normal rhythm, normal heart sounds. Absent: systolic murmur, diastolic murmur, rubs, gallop, clicks GI/Abdominal exam: Present: soft, tenderness (epigastric tenderness), normal bowel sounds. Absent: distended, guarding, rebound, rigid Extremities exam: Present: normal inspection, full ROM, normal capillary refill. Absent: tenderness, pedal edema, joint swelling, calf tenderness Back exam: Present: normal inspection Neurological exam: Present: alert, oriented X3, CN II-XII intact Psychiatric exam: Present: normal affect, normal mood Skin exam: Present: warm, dry, intact, normal color. Absent: rash Course Vital Signs 11/19/18 11/19/18 14:59 17:01 Temperature 98.3 F Pulse Rate 88 70 Respiratory 20 18 Rate Blood Pressure 125/86 143/82 O2 Sat by Pulse 99 99 Oximetry Chest Pain MDM - MDM 38-year-old female presents today with complaints of chest discomfort. Having GI upset for the past 3 days. Today is it seemed like he was more in her chest. She states she's been taking [id number] antacids with with little relief of her symptoms. Sutures concern was related to her heart. Patient was admitted in August for complaints of chest pain. Will admit the patient for serum troponins. She's had no recent stress test. Patient EKG at this time does show increased T-wave inversion in aVF as well as lead 3. Initial troponin is negative. She complains of continued chest pain after Protonix and GI cocktail. I discussed the limit the Patient for serial cardiac enzymes and slight possibility of cardiology consult stress test. Patient agrees to treatment plan. Disposition Clinical Impression: Unstable angina pectoris Disposition: ADMITTED IP TO THIS HOSP Condition: Stable Is patient prescribed a controlled substance at d/c from ED?: No Referrals: Morena Garcia MD [Primary Care Provider] - 1-2 days Time of Disposition: 19:12
--- NOTE | 2018-11-19 17:30 | XR ---
EXAMINATION TYPE: XR chest 2V DATE OF EXAM: 11/19/2018 COMPARISON: 09/03/2018 HISTORY: Chest pain TECHNIQUE: Frontal and lateral views of the chest are obtained. FINDINGS: Heart and mediastinum are normal. Lungs are clear. Diaphragm is normal. Bony thorax is int act. There are chest leads. IMPRESSION: Normal chest. No change.
[2018-11-19 17:33] LABS: Basophils % (A) 0 %; Eosinophils # (A) 0.3 k/uL (0-0.7); Eosinophils % (A) 3 %; HCT 36.9 % (34.0-46.0); HGB 11.5 gm/dL (11.4-16.0); Hypochromasia Slight; Lymphocytes # (A) 3.2 k/uL (1.0-4.8); Lymphocytes % (A) 32 %; MCH 26.2 pg (25.0-35.0); MCHC 31.3 g/dL (31.0-37.0); MCV 83.7 fL (80.0-100.0); Mean Platelet Volume 6.5; Monocytes # (A) 0.3 k/uL (0-1.0); Monocytes % (A) 3 %; Neutrophils % (A) 59 %; Platelet Count 274 k/uL (150-450); RBC 4.41 m/uL (3.80-5.40); RDW 14.1 % (11.5-15.5); WBC 10.2 k/uL (3.8-10.6)
[2018-11-19 17:47] LABS: INR 0.9 (<1.2); Prothrombin Time 9.4 sec (9.0-12.0)
[2018-11-19 17:49] LABS: Partial Thromboplastin Time 18.6 sec (22.0-30.0)
[2018-11-19 17:53] LABS: ALT 41 U/L (9-52); AST 23 U/L (14-36); Albumin 4.1 g/dL (3.5-5.0); Alkaline Phosphatase 73 U/L (38-126); Amylase 48 U/L (30-110); Anion Gap 8 mmol/L; Blood Urea Nitrogen 9 mg/dL (7-17); Calcium 9.6 mg/dL (8.4-10.2); Carbon Dioxide 27 mmol/L (22-30); Chloride 104 mmol/L (98-107); Glucose 91 mg/dL (74-99); Lipase 88 U/L (23-300); Potassium 4.3 mmol/L (3.5-5.1); Sodium 139 mmol/L (137-145); Total Bilirubin 0.4 mg/dL (0.2-1.3); Total Protein 7.1 g/dL (6.3-8.2)
[2018-11-19 18:03] LABS: Creatine Kinase 80 U/L (30-135)
[2018-11-19 18:16] LABS: Creatine Kinase MB 0.5 ng/mL (0.0-2.4); Troponin I <0.012 ng/mL (0.000-0.034)
[2018-11-19] MEDS ORDERED: NITROGLYCERIN SL TABS 0.4 MG TAB SUBLINGUAL PRN (19:13)
[2018-11-19] MEDS ORDERED: HEPARIN SODIUM,PORCINE 5,000 UNIT/ML 1 ML VIAL IV ONE (19:13)
[2018-11-19] MEDS ORDERED: HEPARIN SOD,PORK IN 0.45% NACL 25,000 UNIT in 0.45% NACL 1 250ML.BAG IV SCH (19:15)
[2018-11-20 00:15] LABS: Creatine Kinase 72 U/L (30-135)
[2018-11-20 00:27] LABS: Creatine Kinase MB 0.3 ng/mL (0.0-2.4); Troponin I <0.012 ng/mL (0.000-0.034)
[2018-11-20] MEDS: ACETAMINOPHEN TAB 325 MG TAB PO PRN ×2 (00:36→10:19)
[2018-11-20 06:19] LABS: Cholesterol 171 mg/dL (<200); HDL Cholesterol 62 mg/dL (40-60); LDL Cholesterol,Calculated 81 mg/dL (0-99); Triglycerides 141 mg/dL (<150)
[2018-11-20 06:42] LABS: Creatine Kinase 74 U/L (30-135)
[2018-11-20 06:55] LABS: Creatine Kinase MB 0.5 ng/mL (0.0-2.4); Troponin I <0.012 ng/mL (0.000-0.034)
[2018-11-20 06:58] LABS: Glucose,Whole Blood 114 mg/dL (75-99)
[2018-11-20] MEDS ORDERED: ASPIRIN 325 MG TAB PO SCH (09:00)
[2018-11-20] MEDS ORDERED: PANTOPRAZOLE 40 MG TABLET PO SCH (11:00)
--- NOTE | 2018-11-20 11:01 | P.CRDCN ---
History of Present Illness History of present illness: This is a pleasant 38-year-old -M[place]ese female past medical history significant for asthma, diabetes, hypertension and gastroesophageal reflux disease. She has no history of coronary artery disease. She follows with Dr. Monreal at [facility]. We've asked her in consultation for chest pain. She complains of upper abdominal/epigastric pain starting around noon yesterday with radiation into mid-sternal region. She took tums with no relief. She had EGD/colonscopy approximately 4 yrs ago, has history of hiatal hernia. She denies any radiation to the arm, back, neck or jaw. She denies associated shortness of breath, dizziness, nausea, vomiting or palpitations. EKG reveals sinus mechanism with T-wave inversions noted inferiorly which is similar to previous EKGs dating back to 2013. Chest x-ray is negative for an acute cardiopulmonary process. Laboratory data reviewed, WBC 10.2, hemoglobin 11.5, platelets 274, sodium 139, potassium 4.3, creatinine 0.58, magnesium 2.0, cardiac enzymes negative 3, LDL 81 and HDL 62. She takes no daily cardiac medications. Most recent echocardiogram reveals preserved left ventricular systolic function with ejection fraction 55-60%. Most recent stress test performed here 2016 was negative for reversible cardiac ischemia. 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 At the time of my exam: CONSTITUTIONAL: Denies fever. Denies chills. EYES: Denies blurred vision. Denies vision changes. Denies eye pain. EARS, NOSE, MOUTH & THROAT: Denies headache. Denies sore throat. Denies ear pain. CARDIOVASCULAR: Denies chest pain. Denies shortness of breath. Denies orthopnea. Denies PND. Denies palpitations. RESPIRATORY: Denies cough. GASTROINTESTINAL: Denies abdominal pain. Denies diarrhea. Denies constipation. Denies nausea. Denies vomiting. MUSCULOSKELETAL: Denies myalgias. INTEGUMENTARY: Denies pruitis. Denies rash. NEUROLOGIC: Denies numbness. Denies tingling. Denies weakness. PSYCHIATRIC: Denies anxiety. Denies depression. ENDOCRINE: Denies fatigue. Denies weight change. Denies polydipsia. Denies polyurina. GENITOURINARY: Denies burning, hematuria or urgency with micturation. HEMATOLOGIC: Denies history of anemia. Denies bleeding. Blood pressure 106/79 heart rate 73 afebrile maintaining oxygen saturation on room air GENERAL: This is a 38-year-old -[place] female in no apparent distress at the time of my examination. Morbidly obese. HEENT: Head is atraumatic, normocephalic. Pupils are equal, round. Sclerae anicteric. Conjunctivae are clear. Mucous membranes of the mouth are moist. Neck is supple. There is no jugular venous distention. No carotid bruit is heard. LUNGS: Clear to auscultation no wheezes, rales or rhonchi. No chest wall tenderness is noted on palpation or with deep breathing. HEART: Regular rate and rhythm without murmurs, rubs or gallops. S1 and S2 heard. ABDOMEN: Soft, nontender. Bowel sounds are heard. No organomegaly noted. EXTREMITIES: No evidence of peripheral edema and no calf tenderness noted. VASCULAR: Radial and dorsalis pedis pulses palpated, no evidence of clubbing. NEUROLOGIC: Patient is awake, alert and oriented x3. ASSESSMENT Epigastric pain and discomfort, atypical for angina. An acute coronary event has been ruled out EKG evidence of ischemia and negative cardiac enzymes. Hypertension Diabetes mellitus Gastroesophageal reflux disease Asthma Morbid obesity, BMI 49 PLAN Symptoms are atypical for angina or cardiac origin. An acute coronary event is ruled out with no EKG evidence of ischemia negative cardiac enzymes. Start the patient on Protonix 40 mg daily. Echocardiogram has been obtained and reviewed. Stable from a cardiac perspective to follow up with her primary textile slitting machine operator. Lifestyle modifications are recommended for weight loss. Thank you kindly for this consultation. Nurse Practitioner note has been reviewed, I agree with a documented findings and plan of care. Patient was seen and examined. Past Medical History Past Medical History: Asthma, Chest Pain / Angina, Diabetes Mellitus, GERD/ Reflux, Hypertension, Pneumonia Additional Past Medical History / Comment(s): HIATAL HERNIA, chronic sinusitis/ seasonal allergies,UTI, ATYPICAL CHEST PAIN, 05-20-14 and in 2018-STRESS TEST NEG., bronchitis, colitis, IBS, migraines, occasional low back pain. KIDNEY STONES History of Any Multi-Drug Resistant Organisms: None Reported Past Surgical History: Section, Cholecystectomy, Tubal Ligation Additional Past Surgical History / Comment(s): sinus surgery, D&C, x 4 , EGD/colonoscopy. Past Anesthesia/Blood Transfusion Reactions: Previous Problems w/ Anesthesia, Postoperative Nausea & Vomiting (PONV) Additional Past Anesthesia/Blood Transfusion Reaction / Comment(s): Pt did not go all the way under. Pt could hear, but not feel anything Smoking Status: Former smoker - Past Family History Father Family Medical History: Congestive Heart Failure (CHF), Coronary Artery Disease (CAD), Diabetes Mellitus Additional Family Medical History / Comment(s): stents,depression anxiety Mother Family Medical History: Cancer, Diabetes Mellitus, Hypertension Additional Family Medical History / Comment(s): colon cancer, adhd, bipolar, split personaltiy disorder. Medications and Allergies Home Medications Medication Instructions Recorded Confirmed Type Albuterol Sulfate [Proair Hfa] 2 puff INHALATION RT-QID PRN 04/02/16 11/19/18 History Rizatriptan Benzoate [Maxalt] 10 mg PO BID PRN 03/24/18 11/19/18 History Albuterol Nebulized [Ventolin 2.5 mg INHALATION RT-QID PRN 09/03/18 11/19/18 History Nebulized] Topiramate [Trokendi Xr] 200 mg PO DAILY 09/03/18 11/19/18 History Butalb/APAP/Caff 50-325-40Mg 1 tab PO Q4H PRN 09/04/18 11/19/18 History [Fioricet 50-325-40] Escitalopram [Lexapro] 10 mg PO HS 11/19/18 11/19/18 History Ibuprofen [Motrin Ib] 200 - 400 mg PO Q6H PRN 11/19/18 11/19/18 History Montelukast [Singulair] 10 mg PO DAILY 11/19/18 11/19/18 History metFORMIN HCL [Glucophage] 500 mg PO BID 11/19/18 11/19/18 History Allergies Allergy/AdvReac Type Severity Reaction Status Date / Time metronidazole [From Flagyl] Allergy Dyspnea Verified 11/19/18 15:41 morphine Allergy Rash/Hives Verified 11/19/18 15:41 orange flavor AdvReac Abdominal Verified 11/19/18 15:41 Pain tomato [Tomato] AdvReac Abdominal Verified 11/19/18 15:41 Pain wheat AdvReac Abdominal Verified 11/19/18 15:41 Pain Physical Exam Vitals: Vital Signs Temp Pulse Pulse Resp BP BP Pulse Ox 11/20/18 08:00 80 18 11/20/18 03:53 80 18 11/20/18 03:48 98.4 F 80 18 143/87 96 11/20/18 00:00 71 18 11/19/18 23:17 98.5 F 71 18 152/80 98 11/19/18 23:13 18 11/19/18 22:21 98.2 F 71 18 131/83 99 11/19/18 19:11 66 18 136/75 99 11/19/18 17:01 70 18 143/82 99 11/19/18 14:59 98.3 F 88 20 125/86 99 Intake and Output 11/19/18 11/20/18 11/20/18 22:59 06:59 14:59 Intake Total 80.667 Balance 80.667 Intake: Intake, IV Titration 80.667 Amount Heparin Sod,Pork in 0.45% 80.667 NaCl 25,000 unit In 0.45 % NaCl 1 250ml.bag @ 8.77 UNITS/KG/HR 10 mls/hr IV .Q24H [facility] Rx#:[id number] Other: Voiding Method Toilet Toilet # Voids 2 Weight 114.033 kg Results 11/19/18 17:00 11/19/18 17:00 Cardiac Enzymes 11/19/18 11/19/18 11/19/18 Range/Units 17:00 17:00 23:20 AST 23 (14-36) U/L CK-MB (CK-2) 0.5 0.3 (0.0-2.4) ng/mL Troponin I <0.012 <0.012 (0.000-0.034) ng/mL 11/20/18 Range/Units 05:28 AST (14-36) U/L CK-MB (CK-2) 0.5 (0.0-2.4) ng/mL Troponin I <0.012 (0.000-0.034) ng/mL Coagulation 11/19/18 11/20/18 Range/Units 17:00 02:21 PT 9.4 (9.0-12.0) sec APTT 18.6 L 23.0 (22.0-30.0) sec Lipids 11/20/18 Range/Units 05:28 Triglycerides 141 (<150) mg/dL Cholesterol 171 (<200) mg/dL HDL Cholesterol 62 H (40-60) mg/dL CBC 11/19/18 Range/Units 17:00 WBC 10.2 (3.8-10.6) k/uL RBC 4.41 (3.80-5.40) m/uL Hgb 11.5 (11.4-16.0) gm/dL Hct 36.9 (34.0-46.0) % Plt Count 274 (150-450) k/uL Comprehensive Metabolic Panel 11/19/18 Range/Units 17:00 Sodium 139 (137-145) mmol/L Potassium 4.3 (3.5-5.1) mmol/L Chloride 104 (98-107) mmol/L Carbon Dioxide 27 (22-30) mmol/L BUN 9 (7-17) mg/dL Creatinine 0.58 (0.52-1.04) mg/dL Glucose 91 (74-99) mg/dL Calcium 9.6 (8.4-10.2) mg/dL AST 23 (14-36) U/L ALT 41 (9-52) U/L Alkaline Phosphatase 73 (38-126) U/L Total Protein 7.1 (6.3-8.2) g/dL Albumin 4.1 (3.5-5.0) g/dL Current Medications Generic Name Dose Route Start Last Admin Trade Name Freq PRN Reason Stop Dose Admin Acetaminophen 650 mg 11/19/18 23:52 11/20/18 00:36 Tylenol Tab PO 650 mg Q6HR PRN Administration Fever and/ or Pain Aspirin 325 mg 11/20/18 09:00 Aspirin PO DAILY LIANNA Heparin Sodium/Sodium Chloride 250 mls @ 10 mls/hr 11/19/18 19:15 11/20/18 03 :41 25,000 unit/ Sodium Chloride IV 11.77 units/kg/hr .Q24H LIANNA 13.42 mls/hr Titration Protocol 8.77 UNITS/KG/HR Nitroglycerin 0.4 mg 11/19/18 19:13 Nitrostat SUBLINGUAL Q5M PRN Chest Pain Intake and Output 11/19/18 11/20/18 11/20/18 22:59 06:59 14:59 Intake Total 80.667 Balance 80.667 Intake: Intake, IV Titration 80.667 Amount Heparin Sod,Pork in 0.45% 80.667 NaCl 25,000 unit In 0.45 % NaCl 1 250ml.bag @ 8.77 UNITS/KG/HR 10 mls/hr IV .Q24H [facility] Rx#:[id number] Other: Voiding Method Toilet Toilet # Voids 2 Weight 114.033 kg 11/19/18 17:00 11/19/18 17:00
--- NOTE | 2018-11-20 11:15 | P.HPIM ---
History of Present Illness H&P Date: 11/20/18 Chief Complaint: Chest pain 38-year-old -[place] female past medical history significant for asthma , diabetes, hypertension and gastroesophageal reflux disease. She has no history of coronary artery disease. She follows with Dr. Monreal at [facility]. We've asked her in consultation for chest pain. She complains of upper abdominal/epigastric pain starting around noon yesterday with radiation into mid-sternal region. She took tums with no relief. She had EGD/colonscopy approximately 4 yrs ago, has history of hiatal hernia. She denies any radiation to the arm, back, neck or jaw. She denies associated shortness of breath, dizziness, nausea, vomiting or palpitations. EKG reveals sinus mechanism with T-wave inversions noted inferiorly which is similar to previous EKGs dating back to 2013. Chest x-ray is negative for an acute cardiopulmonary process. Laboratory data reviewed, WBC 10.2, hemoglobin 11.5, platelets 274, sodium 139, potassium 4.3, creatinine 0.58, magnesium 2.0, cardiac enzymes negative 3, LDL 81 and HDL 62. She takes no daily cardiac medications. Most recent echocardiogram reveals preserved left ventricular systolic function with ejection fraction 55-60%. Most recent stress test performed here 2016 was negative for reversible cardiac ischemia. She states she underwent stress testing with her primary office messenger 2017 which she states was negative. Review of Systems CONSTITUTIONAL: Denies fever. Denies chills. EYES: Denies blurred vision. Denies vision changes. Denies eye pain. EARS, NOSE, MOUTH & THROAT: Denies headache. Denies sore throat. Denies ear pain. CARDIOVASCULAR: Denies chest pain. Denies shortness of breath. Denies orthopnea. Denies PND. Denies palpitations. RESPIRATORY: Denies cough. GASTROINTESTINAL: Denies abdominal pain. Denies diarrhea. Denies constipation. Denies nausea. Denies vomiting. MUSCULOSKELETAL: Denies myalgias. INTEGUMENTARY: Denies pruitis. Denies rash. NEUROLOGIC: Denies numbness. Denies tingling. Denies weakness. PSYCHIATRIC: Denies anxiety. Denies depression. ENDOCRINE: Denies fatigue. Denies weight change. Denies polydipsia. Denies polyurina. GENITOURINARY: Denies burning, hematuria or urgency with micturation. HEMATOLOGIC: Denies history of anemia. Denies bleeding. Past Medical History Past Medical History: Asthma, Chest Pain / Angina, Diabetes Mellitus, GERD/ Reflux, Hypertension, Pneumonia Additional Past Medical History / Comment(s): HIATAL HERNIA, chronic sinusitis/ seasonal allergies,UTI, ATYPICAL CHEST PAIN, 7-- and in 2018-STRESS TEST NEG., bronchitis, colitis, IBS, migraines, occasional low back pain. KIDNEY STONES History of Any Multi-Drug Resistant Organisms: None Reported Past Surgical History: Section, Cholecystectomy, Tubal Ligation Additional Past Surgical History / Comment(s): sinus surgery, D&C, x 4 , EGD/colonoscopy. Past Anesthesia/Blood Transfusion Reactions: Previous Problems w/ Anesthesia, Postoperative Nausea & Vomiting (PONV) Additional Past Anesthesia/Blood Transfusion Reaction / Comment(s): Pt did not go all the way under. Pt could hear, but not feel anything Smoking Status: Former smoker - Past Family History Father Family Medical History: Congestive Heart Failure (CHF), Coronary Artery Disease (CAD), Diabetes Mellitus Additional Family Medical History / Comment(s): stents,depression anxiety Mother Family Medical History: Cancer, Diabetes Mellitus, Hypertension Additional Family Medical History / Comment(s): colon cancer, adhd, bipolar, split personaltiy disorder. Medications and Allergies Home Medications Medication Instructions Recorded Confirmed Type Albuterol Sulfate [Proair Hfa] 2 puff INHALATION RT-QID PRN 04/02/16 11/19/18 History Rizatriptan Benzoate [Maxalt] 10 mg PO BID PRN 03/24/18 11/19/18 History Albuterol Nebulized [Ventolin 2.5 mg INHALATION RT-QID PRN 09/03/18 11/19/18 History Nebulized] Topiramate [Trokendi Xr] 200 mg PO DAILY 09/03/18 11/19/18 History Butalb/APAP/Caff 50-325-40Mg 1 tab PO Q4H PRN 09/04/18 11/19/18 History [Fioricet 50-325-40] Escitalopram [Lexapro] 10 mg PO HS 11/19/18 11/19/18 History Ibuprofen [Motrin Ib] 200 - 400 mg PO Q6H PRN 11/19/18 11/19/18 History Montelukast [Singulair] 10 mg PO DAILY 11/19/18 11/19/18 History metFORMIN HCL [Glucophage] 500 mg PO BID 11/19/18 11/19/18 History Allergies Allergy/AdvReac Type Severity Reaction Status Date / Time metronidazole [From Flagyl] Allergy Dyspnea Verified 11/19/18 15:41 morphine Allergy Rash/Hives Verified 11/19/18 15:41 orange flavor AdvReac Abdominal Verified 11/19/18 15:41 Pain tomato [Tomato] AdvReac Abdominal Verified 11/19/18 15:41 Pain wheat AdvReac Abdominal Verified 11/19/18 15:41 Pain Physical Exam Vitals: Vital Signs Temp Pulse Pulse Resp BP BP Pulse Ox 11/20/18 08:00 98.3 F 73 18 106/76 98 11/20/18 03:53 80 18 11/20/18 03:48 98.4 F 80 18 143/87 96 11/20/18 00:00 71 18 11/19/18 23:17 98.5 F 71 18 152/80 98 11/19/18 23:13 18 11/19/18 22:21 98.2 F 71 18 131/83 99 11/19/18 19:11 66 18 136/75 99 11/19/18 17:01 70 18 143/82 99 11/19/18 14:59 98.3 F 88 20 125/86 99 Intake and Output 11/19/18 11/20/18 11/20/18 22:59 06:59 14:59 Intake Total 80.667 Balance 80.667 Intake: Intake, IV Titration 80.667 Amount Heparin Sod,Pork in 0.45% 80.667 NaCl 25,000 unit In 0.45 % NaCl 1 250ml.bag @ 8.77 UNITS/KG/HR 10 mls/hr IV .Q24H [facility] Rx#:[id number] Other: Voiding Method Toilet Toilet # Voids 2 Weight 114.033 kg Blood pressure 106/79 heart rate 73 afebrile maintaining oxygen saturation on room air GENERAL: This is a 38-year-old -[place] female in no apparent distress at the time of my examination. Morbidly obese. HEENT: Head is atraumatic, normocephalic. Pupils are equal, round. Sclerae anicteric. Conjunctivae are clear. Mucous membranes of the mouth are moist. Neck is supple. There is no jugular venous distention. No carotid bruit is heard. LUNGS: Clear to auscultation no wheezes, rales or rhonchi. No chest wall tenderness is noted on palpation or with deep breathing. HEART: Regular rate and rhythm without murmurs, rubs or gallops. S1 and S2 heard. ABDOMEN: Soft, nontender. Bowel sounds are heard. No organomegaly noted. EXTREMITIES: No evidence of peripheral edema and no calf tenderness noted. VASCULAR: Radial and dorsalis pedis pulses palpated, no evidence of clubbing. NEUROLOGIC: Patient is awake, alert and oriented x3. Results CBC & Chem 7: 11/19/18 17:00 11/19/18 17:00 Labs: Abnormal Lab Results - Last 24 Hours (Table) 11/19/18 11/20/18 11/20/18 Range/Units 17:00 05:28 06:56 APTT 18.6 L (22.0-30.0) sec POC Glucose (mg/dL) 114 H (75-99) mg/dL HDL Cholesterol 62 H (40-60) mg/dL Thrombosis Risk Factor Assmnt - Choose All That Apply Any of the Below Risk Factors Present?: Yes Each Factor Represents 1 point: Obesity (BMI >25) Other Risk Factors: No Thrombosis Risk Factor Assessment Total Risk Factor Score: 1 Thrombosis Risk Factor Assessment Level: Low Risk Assessment and Plan Assessment: 1. Chest pain rule out acute coronary syndrome - Patient is admitted for cardiac telemetry; monitor EKG and troponin - 2-D echocardiogram for left ventricular function - Continue with aspirin 325 mg daily - Consult cardiology for further recommendations 2. Epigastric discomfort; possible GERD versus gastritis - Start patient on Protonix 40 mg daily; we plan to increase it to twice a day dosing if remains symptomatic 3. Diabetes mellitus - Monitor Accu-Cheks with insulin sliding scale while in the hospital - Hold home dose of metformin while in the hospital 4. Hypertension; stable without any antihypertensive medications 5. Asthma not in exacerbation - Continue with albuterol nebulizer treatments when necessary along with Singulair 10 mg daily 6. Morbid obesity; lifestyle modification for weight loss 7. DVT prophylaxis; SCDs CODE STATUS; full code Time with Patient: Greater than 30
[2018-11-20 11:49] LABS: Glucose,Whole Blood 161 mg/dL (75-99)
[2018-11-20 12:40] VITALS: BP 143/87; PULSE 74; RESP 16; TEMP 97.6
--- NOTE | 2018-11-21 06:50 | ECHOF ---
Referral Reason: MEASUREMENTS -------- HEIGHT: 152.4 cm WEIGHT: 113.9 kg BP: IVSd: 1.1 cm (0.6 - 1.1) LVIDd: 4.5 cm (3.9 - 5.3) LVPWd: 1.1 cm (0.6 - 1.1) IVSs: 1.6 cm LVIDs: 2.0 cm LVPWs: 1.9 cm LAESV Index (A-L): 18.56 ml/m Ao Diam: 3.0 cm (2.0 - 3.7) AV Cusp: 2.3 cm (1.5 - 2.6) LA Diam: 2.8 cm (2.7 - 3.8) MV EXCURSION: 14.577 mm (> 18.000) MV EF SLOPE: 114 mm/s (70 - 150) EPSS: 0.7 cm MV E David: 1.14 m/s MV DecT: 145 ms MV A David: 0.71 m/s MV E/A Ratio: 1.60 RAP: 5.00 mmHg RVSP: 13.29 mmHg FINDINGS -------- Sinus rhythm. This was a technically good study. The left ventricular size is normal. Left ventricular wall thickness is normal. Overall left vent ricular systolic function is normal with, an EF between 55 - 60 %. The right ventricle is normal in size and function. The left atrium is normal in size. The right atrium is normal in size. The aortic valve is trileaflet and appears structurally normal. The mitral valve leaflets are mildly thickened. There is trace mitral regurgitation. Trace tricuspid regurgitation present. The right ventricular systolic pressure, as measured by Dopp ler, is 13.29mmHg. Pulmonic valve appears structurally normal. The aortic root size is normal. The pericardium is normal. CONCLUSIONS -------- 1. Sinus rhythm. 2. This was a technically good study. 3. The left ventricular size is normal. 4. Left ventricular wall thickness is normal. 5. Overall left ventricular systolic function is normal with, an EF between 55 - 60 %. 6. The right ventricle is normal in size and function. 7. The left atrium is normal in size. 8. The right atrium is normal in size. 9. The aortic valve is trileaflet and appears structurally normal. 10. The mitral valve leaflets are mildly thickened. 11. There is trace mitral regurgitation. 12. Trace tricuspid regurgitation present. 13. The right ventricular systolic pressure, as measured by Doppler, is 13.29mmHg. 14. Pulmonic valve appears structurally normal. 15. The aortic root size is normal. 16. The pericardium is normal. WASTE HANDLING TECHNICIAN: Sheeba Brannon RDCS
== END 2018-11-20 13:38 | disposition home or self-care (01) ==
LOC: EC 14:55 → 1SOBS 19:13
PROVIDERS: ADMIT Internal Medicine; ATTEND Internal Medicine
DX: R10.13 Epigastric pain (principal); I10 Essential (primary) hypertension; J45.909 Unspecified asthma, uncomplicated; E66.01 Morbid (severe) obesity due to excess calories; Z68.42 Body mass index [BMI] 45.0-49.9, adult; K21.9 Gastro-esophageal reflux disease without esophagitis; E11.9 Type 2 diabetes mellitus without complications; Z88.8 Allergy status to other drugs, medicaments and biological substances; Z91.018 Allergy to other foods; K58.9 Irritable bowel syndrome, unspecified; J30.2 Other seasonal allergic rhinitis; J32.9 Chronic sinusitis, unspecified; K44.9 Diaphragmatic hernia without obstruction or gangrene; Z88.5 Allergy status to narcotic agent; Z90.49 Acquired absence of other specified parts of digestive tract; Z98.51 Tubal ligation status; Z87.440 Personal history of urinary (tract) infections; Z87.442 Personal history of urinary calculi; Z71.3 Dietary counseling and surveillance; Z79.899 Other long term (current) drug therapy; Z80.0 Family history of malignant neoplasm of digestive organs; Z82.49 Family history of ischemic heart disease and other diseases of the circulatory system; Z83.3 Family history of diabetes mellitus; Z87.891 Personal history of nicotine dependence; Z79.84 Long term (current) use of oral hypoglycemic drugs; Z79.82 Long term (current) use of aspirin
CPT/HCPCS: 96366 ×3; 96376; 96361; 96365; 96375; 99285; 36415; 93005; 93306; 80061; 80053; 82150; 82550 ×2; 82553 ×2; 83690; 83735; 84484 ×2; 85025; 85610; 85730 ×2; 71046; G0378 ×2; J1644 ×2; C9113

== ENCOUNTER 2019-01-08 06:45 | Day surgery (SDC) | payer MEDICAID, OTHER ==
[2019-01-06 10:59] VITALS: BMI 48.2
[~2019-01-08 06:45] MED LIST: LACTATED RINGERS 1,000 ML IV SCH
[2019-01-08 07:29] VITALS: TEMP 97.2
[2019-01-08 07:32] LABS: Glucose,Whole Blood 116 mg/dL (75-99)
[2019-01-08] MEDS ORDERED: PROPOFOL 10 MG/ML 20 ML VIAL IV ONE (07:40)
[2019-01-08] MEDS ORDERED: LIDOCAINE 1% INJ 10MG/ML (20 ML MDV) ONE (07:40)
--- NOTE | 2019-01-08 07:45 | P.GSHP ---
History of Present Illness H&P Date: 01/08/19 Chief Complaint: Change in bowel habits Patient today for colonoscopy. Patient is a history of some form of colitis in the past sounds like ischemic in nature. Patient has a family history of colon cancer in her mother. Lately the patient has had intermittent diarrhea and constipation. No rectal bleeding. Here for colonoscopy. Past Medical History Past Medical History: Asthma, Chest Pain / Angina, Diabetes Mellitus, GERD/ Reflux, Hypertension, Pneumonia Additional Past Medical History / Comment(s): HIATAL HERNIA, chronic sinusitis/ seasonal allergies,UTI, ATYPICAL CHEST PAIN PAST HISTORY , bronchitis, colitis, IBS, migraines, occasional low back pain. KIDNEY STONES History of Any Multi-Drug Resistant Organisms: None Reported Past Surgical History: Section, Cholecystectomy, Tubal Ligation Additional Past Surgical History / Comment(s): sinus surgery, D&C, x 4 , EGD/colonoscopy. Past Anesthesia/Blood Transfusion Reactions: Previous Problems w/ Anesthesia, Postoperative Nausea & Vomiting (PONV) Additional Past Anesthesia/Blood Transfusion Reaction / Comment(s): Pt did not go all the way under. Pt could hear, but not feel anything- C SECTION Smoking Status: Former smoker - Past Family History Father Family Medical History: Congestive Heart Failure (CHF), Coronary Artery Disease (CAD), Diabetes Mellitus Additional Family Medical History / Comment(s): stents,depression anxiety Mother Family Medical History: Cancer, Diabetes Mellitus, Hypertension Additional Family Medical History / Comment(s): colon cancer, SKIN CANCER, bipolar, split personaltiy disorder. Medications and Allergies Home Medications Medication Instructions Recorded Confirmed Type Albuterol Sulfate [Proair Hfa] 2 puff INHALATION RT-QID PRN 04/02/16 01/06/19 History Rizatriptan Benzoate [Maxalt] 10 mg PO BID PRN 03/24/18 01/06/19 History Albuterol Nebulized [Ventolin 2.5 mg INHALATION RT-QID PRN 09/03/18 01/06/19 History Nebulized] Topiramate [Trokendi Xr] 200 mg PO DAILY 09/03/18 01/06/19 History Butalb/APAP/Caff 50-325-40Mg 1 tab PO Q4H PRN 09/04/18 01/06/19 History [Fioricet 50-325-40] Escitalopram [Lexapro] 10 mg PO HS 11/19/18 01/08/19 History Ibuprofen [Motrin Ib] 200 - 400 mg PO Q6H PRN 11/19/18 01/06/19 History Montelukast [Singulair] 10 mg PO DAILY 11/19/18 01/08/19 History metFORMIN HCL [Glucophage] 500 mg PO BID 11/19/18 01/08/19 History Aspirin 325 mg PO DAILY tab 11/20/18 01/06/19 Rx Pantoprazole [Protonix] 40 mg PO [id number] 30 Days #30 11/20/18 01/06/19 Rx tablet. Allergies Allergy/AdvReac Type Severity Reaction Status Date / Time metronidazole [From Flagyl] Allergy Anaphylaxis Verified 01/08/19 07:30 morphine Allergy Rash/Hives Verified 01/08/19 07:30 orange flavor AdvReac Abdominal Verified 01/08/19 07:30 Pain tomato [Tomato] AdvReac Abdominal Verified 01/08/19 07:30 Pain wheat AdvReac Abdominal Verified 01/08/19 07:30 Pain Surgical - Exam Vital Signs Temp Pulse Resp BP Pulse Ox 97.2 F L 74 18 131/81 98 01/08/19 07:18 01/08/19 07:18 01/08/19 07:18 01/08/19 07:18 01/08/19 07:18 Physical exam: General: Well-developed, well-nourished HEENT: Normocephalic, sclerae nonicteric Abdomen: Nontender, nondistended Extremities: No edema Neuro: Alert and oriented Results - Labs Abnormal Lab Results - Last 24 Hours (Table) 01/08/19 Range/Units 07:27 POC Glucose (mg/dL) 116 H (75-99) mg/dL Assessment and Plan (1) Change in bowel habits Narrative/Plan: Will proceed with colonoscopy at this time Current Visit: Yes Status: Acute Code(s): R19.4 - CHANGE IN BOWEL HABIT SNOMED Code(s): 572394934
--- NOTE | 2019-01-08 07:56 | P.PCN ---
Date of Procedure: 01/08/19 Procedure(s) Performed: PREOPERATIVE DIAGNOSIS: Change in bowel habits POSTOPERATIVE DIAGNOSIS: Normal exam PROCEDURE: Colonoscopy ANESTHESIA: MAC SURGEON: Tyrone Ulloa M.D. SPECIMENS: None ENDOSCOPIC PROCEDURE: The patient was placed on the endoscopy table in the left decubitus position. The Olympus colonoscope was inserted into the anus and passed under direct visualization to the base of the cecum. The appendiceal orifice was visualized. From that point the scope was slowly withdrawn inspecting all surfaces carefully. There were no neoplastic inflammatory or polypoid lesions throughout the cecum, ascending, transverse, descending, sigmoid and rectum. There was no visible diverticulosis noted. Digital rectal examination was normal. The patient was taken to the recovery room in stable condition per anesthesia guidelines. RECOMMENDATIONS: Increase fiber. Follow-up colonoscopy 5 years given the patient's family history of colon cancer in mother
[2019-01-08 08:06] VITALS: RESP 16
[2019-01-08 08:13] VITALS: BP 130/77; PULSE 75
== END 2019-01-08 08:42 | disposition home or self-care (01) ==
LOC: ORWHC2ENDO 06:45
PROVIDERS: ATTEND Surgery
DX: R19.4 Change in bowel habit (principal); Z80.0 Family history of malignant neoplasm of digestive organs; J45.909 Unspecified asthma, uncomplicated; E13.9 Other specified diabetes mellitus without complications; K21.9 Gastro-esophageal reflux disease without esophagitis; I10 Essential (primary) hypertension; Z87.01 Personal history of pneumonia (recurrent); K44.9 Diaphragmatic hernia without obstruction or gangrene; G43.909 Migraine, unspecified, not intractable, without status migrainosus; Z87.442 Personal history of urinary calculi; J32.9 Chronic sinusitis, unspecified; Z87.891 Personal history of nicotine dependence; Z82.49 Family history of ischemic heart disease and other diseases of the circulatory system; Z83.3 Family history of diabetes mellitus; E66.9 Obesity, unspecified; Z68.42 Body mass index [BMI] 45.0-49.9, adult; K58.9 Irritable bowel syndrome, unspecified; K52.9 Noninfective gastroenteritis and colitis, unspecified; Z79.84 Long term (current) use of oral hypoglycemic drugs; Z79.82 Long term (current) use of aspirin; Z79.899 Other long term (current) drug therapy; Z88.1 Allergy status to other antibiotic agents; Z88.5 Allergy status to narcotic agent; Z91.018 Allergy to other foods; Z91.09 Other allergy status, other than to drugs and biological substances
CPT/HCPCS: 81025; 45378; J2001; J2704

== ENCOUNTER 2019-03-23 01:06 | Emergency (ER) | payer MEDICAID, OTHER ==
[2019-03-23 01:11] VITALS: TEMP 99
[2019-03-23] MEDS ORDERED: SODIUM CHLORIDE 0.9% 1,000 ML IV STA (01:52)
[2019-03-23] MEDS ORDERED: ONDANSETRON 4 MG/2 ML VIAL IVP STA (01:52)
[2019-03-23] MEDS ORDERED: KETOROLAC 30 MG/ML 1 ML VIAL IVP STA (01:52)
[2019-03-23] MEDS ORDERED: FAMOTIDINE 20 MG/2 ML VIAL IV STA (01:53)
[2019-03-23 02:49] LABS: Basophils # (A) 0.1 k/uL (0-0.2); Basophils % (A) 0 %; Eosinophils # (A) 0.4 k/uL (0-0.7); Eosinophils % (A) 3 %; HCT 36.5 % (34.0-46.0); HGB 11.6 gm/dL (11.4-16.0); Hypochromasia Slight; Lymphocytes # (A) 4.2 k/uL (1.0-4.8); Lymphocytes % (A) 36 %; MCH 25.9 pg (25.0-35.0); MCHC 31.8 g/dL (31.0-37.0); MCV 81.6 fL (80.0-100.0); Mean Platelet Volume 8.1; Monocytes # (A) 0.3 k/uL (0-1.0); Monocytes % (A) 3 %; Neutrophils # (A) 6.4 k/uL (1.3-7.7); Neutrophils % (A) 56 %; Platelet Count 224 k/uL (150-450); RBC 4.48 m/uL (3.80-5.40); RDW 14.5 % (11.5-15.5); WBC 11.6 k/uL (3.8-10.6)
[2019-03-23 02:59] LABS: Appearance,Urine Turbid (Clear); Bilirubin,Urine Negative (Negative); Blood,Urine Negative (Negative); Color,Urine Yellow; Glucose,Urine (UA) Negative (Negative); Ketones,Urine Trace (Negative); PH, Urine 5.5 (5.0-8.0); Protein,Urine Negative (Negative); Specific Gravity,Urine 1.025 (1.001-1.035)
[2019-03-23 03:00] LABS: Leukocyte Esterase,Urine Negative (Negative); Nitrite,Urine Negative (Negative); Urobilinogen,Urine <2.0 mg/dL (<2.0)
[2019-03-23 03:03] LABS: ALT 20 U/L (9-52); AST 29 U/L (14-36); Albumin 4.2 g/dL (3.5-5.0); Alkaline Phosphatase 62 U/L (38-126); Amylase 53 U/L (30-110); Anion Gap 9 mmol/L; Blood Urea Nitrogen 11 mg/dL (7-17); Calcium 9.8 mg/dL (8.4-10.2); Carbon Dioxide 25 mmol/L (22-30); Chloride 105 mmol/L (98-107); Glucose 122 mg/dL (74-99); Lipase 93 U/L (23-300); Sodium 139 mmol/L (137-145); Total Bilirubin 0.4 mg/dL (0.2-1.3); Total Protein 7.5 g/dL (6.3-8.2)
[2019-03-23 03:07] LABS: Potassium 4.3 mmol/L (3.5-5.1)
--- NOTE | 2019-03-23 03:22 | ED ---
Abdominal Pain HPI - General Chief Complaint: Abdominal Pain Stated Complaint: Abdominal Pain Time Seen by Provider: 03/23/19 01:19 Source: patient, family Mode of arrival: ambulatory Limitations: no limitations - History of Present Illness Initial Comments: 39-year-old female patient presents to the emergency department today for evaluation of upper abdominal pain. Patient describes the pain as a dull aching pain. States it does radiate into the left flank. Patient states this started a couple of days ago but seemed to worsen today. She states that she has been nauseated but has not vomited. Denies any fever or chills. States she has had cholecystectomy in the past but denies any other abdominal surgeries. She denies any dark, black, or bloody stools. Denies any chest pain or shortness of breath with this. Patient denies any recent rash, shortness breath, chest pain, diarrhea, constipation, numbness, tingling, dizziness, weakness, hematuria, dysuria, urinary urgency, urinary frequency, headache, visual changes, or any other complaints. - Related Data Home Medications Medication Instructions Recorded Confirmed Albuterol Sulfate [Proair Hfa] 2 puff INHALATION RT-QID PRN 04/02/16 01/06/19 Rizatriptan Benzoate [Maxalt] 10 mg PO BID PRN 03/24/18 01/06/19 Albuterol Nebulized [Ventolin 2.5 mg INHALATION RT-QID PRN 09/03/18 01/06/19 Nebulized] Topiramate [Trokendi Xr] 200 mg PO DAILY 09/03/18 01/06/19 Butalb/APAP/Caff 50-325-40Mg 1 tab PO Q4H PRN 09/04/18 01/06/19 [Fioricet 50-325-40] Escitalopram [Lexapro] 10 mg PO HS 11/19/18 01/08/19 Ibuprofen [Motrin Ib] 200 - 400 mg PO Q6H PRN 11/19/18 01/06/19 Montelukast [Singulair] 10 mg PO DAILY 11/19/18 01/08/19 metFORMIN HCL [Glucophage] 500 mg PO BID 11/19/18 01/08/19 Previous Rx's Medication Instructions Recorded Aspirin 325 mg PO DAILY tab 11/20/18 Pantoprazole [Protonix] 40 mg PO AC-BRKFST 30 Days #30 11/20/18 tablet. Famotidine [Pepcid] 20 mg PO HS #30 tablet 03/23/19 Allergies Allergy/AdvReac Type Severity Reaction Status Date / Time metronidazole [From Flagyl] Allergy Anaphylaxis Verified 03/23/19 01:11 morphine Allergy Rash/Hives Verified 03/23/19 01:11 orange flavor AdvReac Abdominal Verified 03/23/19 01:11 Pain tomato [Tomato] AdvReac Abdominal Verified 03/23/19 01:11 Pain wheat AdvReac Abdominal Verified 03/23/19 01:11 Pain Review of Systems ROS Statement: Those systems with pertinent positive or pertinent negative responses have been documented in the HPI. ROS Other: All systems not noted in ROS Statement are negative. Past Medical History Past Medical History: Asthma, Chest Pain / Angina, Diabetes Mellitus, GERD/Reflux, Hypertension, Pneumonia Additional Past Medical History / Comment(s): HIATAL HERNIA, chronic sinusitis/seasonal allergies,UTI, ATYPICAL CHEST PAIN, 05-20- and in 2018- STRESS TEST NEG., bronchitis, colitis, IBS, migraines, occasional low back pain. KIDNEY STONES History of Any Multi-Drug Resistant Organisms: None Reported Past Surgical History: Section, Cholecystectomy, Tubal Ligation Additional Past Surgical History / Comment(s): sinus surgery, D&C, x 4, EGD/colonoscopy. Past Anesthesia/Blood Transfusion Reactions: Previous Problems w/ Anesthesia, Postoperative Nausea & Vomiting (PONV) Additional Past Anesthesia/Blood Transfusion Reaction / Comment(s): Pt did not go all the way under. Pt could hear, but not feel anything Past Psychological History: Anxiety, Depression Smoking Status: Former smoker - Past Family History Father Family Medical History: Congestive Heart Failure (CHF), Coronary Artery Disease (CAD), Diabetes Mellitus Additional Family Medical History / Comment(s): stents,depression anxiety Mother Family Medical History: Cancer, Diabetes Mellitus, Hypertension Additional Family Medical History / Comment(s): colon cancer, SKIN CANCER, bipolar, split personaltiy disorder. General Exam Limitations: no limitations General appearance: alert, in no apparent distress, other (Physical well- developed, well-nourished adult female patient in no acute distress. Vital signs on presentation are temperature 99.0F, pulse 104, respirations 20, blood pressure 135/83, pulse ox 99% on room air.) Eye exam: Present: normal appearance, PERRL, EOMI. Absent: scleral icterus, conjunctival injection, periorbital swelling ENT exam: Present: normal exam, normal oropharynx, mucous membranes moist Respiratory exam: Present: normal lung sounds bilaterally. Absent: respiratory distress, wheezes, rales, rhonchi, stridor Cardiovascular Exam: Present: regular rate, normal rhythm, normal heart sounds. Absent: systolic murmur, diastolic murmur, rubs, gallop, clicks GI/Abdominal exam: Present: soft, tenderness (Left upper quadrant tenderness), normal bowel sounds. Absent: distended, guarding, rebound, rigid Neurological exam: Present: alert, oriented X3, CN II-XII intact Psychiatric exam: Present: normal affect, normal mood Skin exam: Present: warm, dry, intact, normal color. Absent: rash Course Vital Signs 03/23/19 03/23/19 01:07 03:53 Temperature 99 F Pulse Rate 104 H 70 Respiratory 20 16 Rate Blood Pressure 135/83 144/98 O2 Sat by Pulse 99 100 Oximetry Medical Decision Making - Medical Decision Making 39-year-old female patient presents to the emergency department today for e valuation of upper abdominal pain. Physical examination did reveal left upper quadrant tenderness. Labs reviewed and are unremarkable. Patient was given Pepcid here in the emergency department. Upon reevaluation states that her symptoms are improved. She'll be discharged with this time to follow-up with her primary care physician for recheck. Discussed gastritis as a cause for her symptoms. She'll be started on Pepcid daily. Return parameters were discussed in detail. She verbalizes understanding and agrees with this plan. - Lab Data Result diagrams: 03/23/19 02:25 03/23/19 02:25 Lab Results 03/23/19 03/23/19 03/23/19 Range/Units 02:25 02:25 02:25 WBC 11.6 H (3.8-10.6) k/uL RBC 4.48 (3.80-5.40) m/uL Hgb 11.6 (11.4-16.0) gm/dL Hct 36.5 (34.0-46.0) % MCV 81.6 (80.0-100.0) fL MCH 25.9 (25.0-35.0) pg MCHC 31.8 (31.0-37.0) g/dL RDW 14.5 (11.5-15.5) % Plt Count 224 (150-450) k/uL Neutrophils % 56 % Lymphocytes % 36 % Monocytes % 3 % Eosinophils % 3 % Basophils % 0 % Neutrophils # 6.4 (1.3-7.7) k/uL Lymphocytes # 4.2 (1.0-4.8) k/uL Monocytes # 0.3 (0-1.0) k/uL Eosinophils # 0.4 (0-0.7) k/uL Basophils # 0.1 (0-0.2) k/uL Hypochromasia Slight Sodium 139 (137-145) mmol/L Potassium 4.3 (3.5-5.1) mmol/L Chloride 105 (98-107) mmol/L Carbon Dioxide 25 (22-30) mmol/L Anion Gap 9 mmol/L BUN 11 (7-17) mg/dL Creatinine 0.53 (0.52-1.04) mg/dL Est GFR (CKD-EPI)AfAm >90 (>60 ml/min/1.73 sqM) Est GFR (CKD-EPI)NonAf >90 (>60 ml/min/1.73 sqM) Glucose 122 H (74-99) mg/dL Calcium 9.8 (8.4-10.2) mg/dL Total Bilirubin 0.4 (0.2-1.3) mg/dL AST 29 (14-36) U/L ALT 20 (9-52) U/L Alkaline Phosphatase 62 (38-126) U/L Troponin I <0.012 (0.000-0.034) ng/mL Total Protein 7.5 (6.3-8.2) g/dL Albumin 4.2 (3.5-5.0) g/dL Amylase 53 (30-110) U/L Lipase 93 (23-300) U/L Urine Color Urine Appearance (Clear) Urine pH (5.0-8.0) Ur Specific [place] (1.001-1.035) Urine Protein (Negative) Urine Glucose (UA) (Negative) Urine Ketones (Negative) Urine Blood (Negative) Urine Nitrite (Negative) Urine Bilirubin (Negative) Urine Urobilinogen (<2.0) mg/dL Ur Leukocyte Esterase (Negative) 03/23/19 Range/Units 02:25 WBC (3.8-10.6) k/uL RBC (3.80-5.40) m/uL Hgb (11.4-16.0) gm/dL Hct (34.0-46.0) % MCV (80.0-100.0) fL MCH (25.0-35.0) pg MCHC (31.0-37.0) g/dL RDW (11.5-15.5) % Plt Count (150-450) k/uL Neutrophils % % Lymphocytes % % Monocytes % % Eosinophils % % Basophils % % Neutrophils # (1.3-7.7) k/uL Lymphocytes # (1.0-4.8) k/uL Monocytes # (0-1.0) k/uL Eosinophils # (0-0.7) k/uL Basophils # (0-0.2) k/uL Hypochromasia Sodium (137-145) mmol/L Potassium (3.5-5.1) mmol/L Chloride (98-107) mmol/L Carbon Dioxide (22-30) mmol/L Anion Gap mmol/L BUN (7-17) mg/dL Creatinine (0.52-1.04) mg/dL Est GFR (CKD-EPI)AfAm (>60 ml/min/1.73 sqM) Est GFR (CKD-EPI)NonAf (>60 ml/min/1.73 sqM) Glucose (74-99) mg/dL Calcium (8.4-10.2) mg/dL Total Bilirubin (0.2-1.3) mg/dL AST (14-36) U/L ALT (9-52) U/L Alkaline Phosphatase (38-126) U/L Troponin I (0.000-0.034) ng/mL Total Protein (6.3-8.2) g/dL Albumin (3.5-5.0) g/dL Amylase (30-110) U/L Lipase (23-300) U/L Urine Color Yellow Urine Appearance Turbid H (Clear) Urine pH 5.5 (5.0-8.0) Ur Specific [place] 1.025 (1.001-1.035) Urine Protein Negative (Negative) Urine Glucose (UA) Negative (Negative) Urine Ketones Trace H (Negative) Urine Blood Negative (Negative) Urine Nitrite Negative (Negative) Urine Bilirubin Negative (Negative) Urine Urobilinogen <2.0 (<2.0) mg/dL Ur Leukocyte Esterase Negative (Negative) - EKG Data -: EKG Interpreted by Me EKG Comments: EKG obtained at 02 49 shows normal sinus rhythm with a ventricular rate of 72, [place] interval 170, QRS duration 86, QT 362, QTc 396. No evidence of ST elevation or depression. Disposition Clinical Impression: Abdominal pain Disposition: HOME SELF-CARE Condition: Good Instructions (If sedation given, give patient instructions): Gastritis (ED), Abdominal Pain (ED) Additional Instructions: Take medications as directed. Follow up through primary care physician for recheck in 1-2 days. Return to the emergency department immediately for any new, worsening, or concerning symptoms. Prescriptions: Famotidine [Pepcid] 20 mg PO HS #30 tablet Is patient prescribed a controlled substance at d/c from ED?: No Referrals: Morena Garcia MD [Primary Care Provider] - 1-2 days Time of Disposition: 03:21
[2019-03-23 03:54] VITALS: BP 144/98; PULSE 70; RESP 16
== END 2019-03-23 03:54 | disposition home or self-care (01) ==
LOC: EC 01:06
DX: R10.12 Left upper quadrant pain (principal); R11.0 Nausea; J45.909 Unspecified asthma, uncomplicated; G43.909 Migraine, unspecified, not intractable, without status migrainosus; E11.9 Type 2 diabetes mellitus without complications; I10 Essential (primary) hypertension; F32.9 Major depressive disorder, single episode, unspecified; F41.9 Anxiety disorder, unspecified; Z87.891 Personal history of nicotine dependence; Z79.84 Long term (current) use of oral hypoglycemic drugs; Z79.899 Other long term (current) drug therapy; Z88.5 Allergy status to narcotic agent; Z91.018 Allergy to other foods; Z88.1 Allergy status to other antibiotic agents; Z90.49 Acquired absence of other specified parts of digestive tract; Z98.51 Tubal ligation status
CPT/HCPCS: 36415; 93005; 80053; 82150; 83690; 84484; 85025; 81001; 99284; 96374; 96375 ×2; 96361; J2405; J1885

== ENCOUNTER 2019-05-31 12:17 | Emergency (ER) | payer MEDICAID, OTHER ==
[2019-05-31 12:32] VITALS: TEMP 98.4
[2019-05-31] MEDS ORDERED: SODIUM CHLORIDE 0.9% 1,000 ML IV STA (13:23)
[2019-05-31] MEDS ORDERED: ASPIRIN 81 MG PO STA (13:23)
[2019-05-31] MEDS ORDERED: ONDANSETRON 4 MG/2 ML VIAL IVP STA (13:23)
--- NOTE | 2019-05-31 14:15 | ED ---
Chest Pain HPI - General Chief Complaint: Chest Pain Stated Complaint: chest discomfort Time Seen by Provider: 05/31/19 12:59 Source: patient, RN notes reviewed, old records reviewed, Caregiver Mode of arrival: wheelchair Limitations: no limitations - History of Present Illness Initial Comments: Patient is a 39-year-old female presents emergency department today with episode of chest discomfort and dizziness. Patient reports symptoms started this morning upon awakening. Patient reports that she has hypertension and diabetic. She reports she had a stressful day and had a migraine yesterday. She says plan episode of vomiting. She complains of nausea today. She reports her pain is a 4 out of 10. - Related Data Home Medications Medication Instructions Recorded Confirmed Rizatriptan Benzoate [Maxalt] 10 mg PO BID PRN 03/24/18 05/31/19 Topiramate [Trokendi Xr] 200 mg PO DAILY 09/03/18 05/31/19 Ibuprofen [Motrin Ib] 800 mg PO Q6H PRN 11/19/18 05/31/19 Butalbital/Aspirin/Caffeine 1 cap PO Q4H PRN 05/31/19 05/31/19 [Fiorinal 50-325-40 MG] Escitalopram Oxalate [Lexapro] 10 mg PO HS 05/31/19 05/31/19 Galcanezumab-Gnlm [Emgality] 120 mg SQ Q28D 05/31/19 05/31/19 metFORMIN HCL ER [Glucophage Xr] 500 mg PO PC-SUPPER 05/31/19 05/31/19 Allergies Allergy/AdvReac Type Severity Reaction Status Date / Time metronidazole [From Flagyl] Allergy Anaphylaxis Verified 05/31/19 13:39 morphine Allergy Rash/Hives Verified 05/31/19 13:39 orange flavor AdvReac Abdominal Verified 05/31/19 13:39 Pain tomato [Tomato] AdvReac Abdominal Verified 05/31/19 13:39 Pain wheat AdvReac Abdominal Verified 05/31/19 13:39 Pain Review of Systems ROS Statement: Those systems with pertinent positive or pertinent negative responses have been documented in the HPI. ROS Other: All systems not noted in ROS Statement are negative. EKG Findings - EKG Comments: EKG Findings:: EKG performed at 1243 shows sinus rhythm, no audible stretcher for LVH. Borderline ventricular rate of 84 bpm. Normal is 160 ms. QS duration is 86. QTQTC's recent 439 ms. Past Medical History Past Medical History: Asthma, Chest Pain / Angina, Diabetes Mellitus, GERD/Reflux, Hypertension, Pneumonia Additional Past Medical History / Comment(s): HIATAL HERNIA, chronic sinu sitis/seasonal allergies,UTI, ATYPICAL CHEST PAIN, 7--14 and in 2018-STRESS TEST NEG., bronchitis, colitis, IBS, migraines, occasional low back pain. KIDNEY STONES History of Any Multi-Drug Resistant Organisms: None Reported Past Surgical History: Section, Cholecystectomy, Tubal Ligation Additional Past Surgical History / Comment(s): sinus surgery, D&C, x 4, EGD/colonoscopy. Past Anesthesia/Blood Transfusion Reactions: Previous Problems w/ Anesthesia, Postoperative Nausea & Vomiting (PONV) Additional Past Anesthesia/Blood Transfusion Reaction / Comment(s): Pt did not go all the way under. Pt could hear, but not feel anything Past Psychological History: Anxiety, Depression Smoking Status: Former smoker Past Alcohol Use History: None Reported Past Drug Use History: None Reported - Past Family History Father Family Medical History: Congestive Heart Failure (CHF), Coronary Artery Disease (CAD), Diabetes Mellitus Additional Family Medical History / Comment(s): stents,depression anxiety Mother Family Medical History: Cancer, Diabetes Mellitus, Hypertension Additional Family Medical History / Comment(s): colon cancer, SKIN CANCER, bipolar, split personaltiy disorder. General Exam - General Exam Comments Initial Comments: Alert and oriented 39-year-old female. No distress. General: Well appearing, well nourished, in no distress. Oriented x 3, normal mood and affect . Ambulating without difficulty. Skin: Good turgor, no rash, unusual bruising or prominent lesions Hair: Normal texture and distribution. HEENT: Head: Normocephalic, atraumatic, no visible or palpable masses, depressions, or scaring. Eyes: Visual acuity intact, conjunctiva clear, sclera non-icteric, EOM intact, PERRL. Ears: EACs clear, TMs translucent & cone of light visualized. hearing intact. Nose: No external lesions, mucosa non-inflamed, septum and turbinates normal Mouth: Mucous membranes moist, no mucosal lesions. Teeth/Gums: No obvious caries or periodontal disease. No gingival inflammation or significant resorption. Pharynx: Mucosa non-inflamed, no tonsillar hypertrophy or exudate Neck: Supple, without lesions, bruits, or adenopathy, thyroid non-enlarged and non-tender Heart: No cardiomegaly or thrills; regular rate and rhythm, no murmur or gallop Lungs: Clear to auscultation and percussion Abdomen: Bowel sounds normal, no tenderness, organomegaly, masses, or hernia Back: Spine normal without deformity or tenderness, no CVA tenderness Extremities: No amputations or deformities, cyanosis, edema or varicosities, peripheral pulses intact Musculoskeletal: Normal gait and station. No misalignment, asymmetry, crepitation, defects, tenderness, masses, effusions, decreased range of motion, instability, atrophy or abnormal strength or tone in the head, neck, spine, ribs, pelvis or extremities. Neurologic: CN 2-12 normal. Sensation to pain, touch, and proprioception normal. DTRs normal in upper and lower extremities. No pathologic reflexes. Psychiatric: Oriented X3, intact recent and remote memory, judgment and insight, normal mood and affect. Limitations: no limitations General appearance: alert, in no apparent distress Head exam: Present: atraumatic, normocephalic, normal inspection Eye exam: Present: normal appearance, PERRL, EOMI. Absent: scleral icterus, conjunctival injection, periorbital swelling ENT exam: Present: normal exam, mucous membranes moist Neck exam: Present: normal inspection. Absent: tenderness, meningismus, lymphadenopathy Respiratory exam: Present: normal lung sounds bilaterally. Absent: respiratory distress, wheezes, rales, rhonchi, stridor Cardiovascular Exam: Present: regular rate, normal rhythm, normal heart sounds. Absent: systolic murmur, diastolic murmur, rubs, gallop, clicks GI/Abdominal exam: Present: soft, normal bowel sounds. Absent: distended, tenderness, guarding, rebound, rigid Extremities exam: Present: normal inspection, full ROM, normal capillary refill. Absent: tenderness, pedal edema, joint swelling, calf tenderness Back exam: Present: normal inspection Neurological exam: Present: alert, oriented X3, CN II-XII intact Psychiatric exam: Present: normal affect, normal mood Skin exam: Present: warm, dry, intact, normal color. Absent: rash Course Vital Signs 05/31/19 05/31/19 05/31/19 12:29 16:21 17:15 Temperature 98.4 F Pulse Rate 81 75 80 Respiratory 20 18 18 Rate Blood Pressure 144/74 125/87 118/78 O2 Sat by Pulse 98 96 99 Oximetry Chest Pain MDM - MDM 39-year-old female with atypical chest pain onset this morning she woke up. Patient has a negative troponin 2 chest x-rays normal and EKG is normal. 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 All questions answered return parameters were discussed. Disposition Clinical Impression: Atypical chest pain Disposition: HOME SELF-CARE Condition: Good Instructions (If sedation given, give patient instructions): Chest Pain (ED) Additional Instructions: Patient advised to close follow-up with primary care doctor. Patient should rest, remain hydrated. Follow-up with cardiology as well. Return to the emergency department if any alarming signs or symptoms occur. Is patient prescribed a controlled substance at d/c from ED?: No Referrals: Morena Garcia MD [Primary Care Provider] - 1-2 days Time of Disposition: 18:23
--- NOTE | 2019-05-31 15:06 | XR ---
EXAMINATION TYPE: XR chest 2V DATE OF EXAM: 05/31/2019 COMPARISON: 11/19/2018 HISTORY: Chest pain TECHNIQUE: Frontal and lateral views of the chest are obtained. FINDINGS: There is no focal air space opacity. No evidence for pneumothorax. No pleural effusion. The cardiac silhouette size is within normal limits. The osseous structures are grossly intact. IMPRESSION: 1. No acute cardiopulmonary process.
[2019-05-31 15:19] LABS: ALT 28 U/L (9-52); AST 27 U/L (14-36); African American GFR (CKD) >90 (>60 ml/min/1.73 sqM); Albumin 3.9 g/dL (3.5-5.0); Alkaline Phosphatase 68 U/L (38-126); Anion Gap 9 mmol/L; Blood Urea Nitrogen 10 mg/dL (7-17); Calcium 8.9 mg/dL (8.4-10.2); Carbon Dioxide 22 mmol/L (22-30); Chloride 108 mmol/L (98-107); Glucose 99 mg/dL (74-99); Potassium 4.1 mmol/L (3.5-5.1); Sodium 139 mmol/L (137-145); Total Bilirubin 0.4 mg/dL (0.2-1.3); Total Protein 6.9 g/dL (6.3-8.2)
[2019-05-31 15:24] LABS: Basophils % (A) 0 %; Eosinophils # (A) 0.3 k/uL (0-0.7); Eosinophils % (A) 3 %; HCT 32.7 % (34.0-46.0); HGB 9.9 gm/dL (11.4-16.0); Lymphocytes # (A) 2.9 k/uL (1.0-4.8); Lymphocytes % (A) 33 %; MCH 24.8 pg (25.0-35.0); MCHC 30.3 g/dL (31.0-37.0); MCV 81.8 fL (80.0-100.0); Monocytes # (A) 0.3 k/uL (0-1.0); Monocytes % (A) 4 %; Neutrophils # (A) 5.1 k/uL (1.3-7.7); Neutrophils % (A) 58 %; Platelet Count 220 k/uL (150-450); RDW 14.5 % (11.5-15.5); WBC 8.8 k/uL (3.8-10.6)
[2019-05-31 15:30] LABS: INR 0.9 (<1.2); Prothrombin Time 9.5 sec (9.0-12.0)
[2019-05-31 15:46] LABS: Partial Thromboplastin Time 19.3 sec (22.0-30.0)
[2019-05-31 16:22] VITALS: RESP 18
[2019-05-31 17:17] VITALS: BP 118/78
[2019-05-31 19:16] VITALS: PULSE 87
== END 2019-05-31 19:15 | disposition home or self-care (01) ==
LOC: EC 12:17
DX: R07.89 Other chest pain (principal); R42 Dizziness and giddiness; R11.2 Nausea with vomiting, unspecified; G43.909 Migraine, unspecified, not intractable, without status migrainosus; E11.9 Type 2 diabetes mellitus without complications; F32.9 Major depressive disorder, single episode, unspecified; F41.9 Anxiety disorder, unspecified; Z87.891 Personal history of nicotine dependence; Z79.84 Long term (current) use of oral hypoglycemic drugs; Z79.899 Other long term (current) drug therapy; Z88.1 Allergy status to other antibiotic agents; Z88.5 Allergy status to narcotic agent; Z91.018 Allergy to other foods; Z82.49 Family history of ischemic heart disease and other diseases of the circulatory system
CPT/HCPCS: 36415; 93005; 80053; 83735; 84484; 85025; 85610; 85730; 71046; 99285; 96374; 96361 ×2; J2405

== ENCOUNTER 2019-06-20 17:43 | Emergency (ER) | payer MEDICAID, OTHER ==
[2019-06-20 18:06] VITALS: TEMP 98.3
[2019-06-20] MEDS ORDERED: KETOROLAC 30 MG/ML 1 ML VIAL IVP STA (18:20)
[2019-06-20] MEDS ORDERED: diphenhydrAMINE 50 MG/ML 1 ML VIAL IVP STA (18:20)
[2019-06-20] MEDS ORDERED: ONDANSETRON 4 MG/2 ML VIAL IVP STA (18:20)
[2019-06-20] MEDS ORDERED: SODIUM CHLORIDE 0.9% 1,000 ML IV ONE (18:21)
--- NOTE | 2019-06-20 18:52 | ED ---
Headache HPI - General Chief Complaint: Headache Stated Complaint: Headache Time Seen by Provider: 06/20/19 18:09 Mode of arrival: ambulatory Limitations: no limitations - History of Present Illness Initial Comments: 3-year-old female presenting today for chief complaint migraine. Patient has a significant history of migraine and has had extensive outpatient neurology evaluation. Patient denies history of aneurysm. She does have history of diabetes. Denies history of CVA or TIAs. Patient states that she had a migraine for the past 6 days she states she is due tomorrow for her next monthly shot for migraine prophylaxis. Patient states she is not sure if this is related to that medication wearing off however she has not been able to relieve her migraine with abortive medications. Patient states that there is no changes in characteristic from her chronic migraines. Patient denies any dizziness visual loss weakness of the upper or lower extremities she denies speech changes sensation deficits or any other concerns this time. Patient describes the migraine as a throbbing diffuse headache without radiation. Patient denies fevers patient denies neck stiffness. Upon arrival patient appears well no signs acute distress. Vital signs within acceptable limits. - Related Data Home Medications Medication Instructions Recorded Confirmed Rizatriptan Benzoate [Maxalt] 10 mg PO BID PRN 03/24/18 05/31/19 Topiramate [Trokendi Xr] 200 mg PO DAILY 09/03/18 05/31/19 Ibuprofen [Motrin Ib] 800 mg PO Q6H PRN 11/19/18 05/31/19 Butalbital/Aspirin/Caffeine 1 cap PO Q4H PRN 05/31/19 05/31/19 [Fiorinal 50-325-40 MG] Escitalopram Oxalate [Lexapro] 10 mg PO HS 05/31/19 05/31/19 Galcanezumab-Gnlm [Emgality] 120 mg SQ Q28D 05/31/19 05/31/19 metFORMIN HCL ER [Glucophage Xr] 500 mg PO PC-SUPPER 05/31/19 05/31/19 Allergies Allergy/AdvReac Type Severity Reaction Status Date / Time metronidazole [From Flagyl] Allergy Anaphylaxis Verified 05/31/19 13:39 morphine Allergy Rash/Hives Verified 05/31/19 13:39 orange flavor AdvReac Abdominal Verified 05/31/19 13:39 Pain tomato [Tomato] AdvReac Abdominal Verified 05/31/19 13:39 Pain wheat AdvReac Abdominal Verified 05/31/19 13:39 Pain Review of Systems ROS Statement: Those systems with pertinent positive or pertinent negative responses have been documented in the HPI. ROS Other: All systems not noted in ROS Statement are negative. Past Medical History Past Medical History: Asthma, Chest Pain / Angina, Diabetes Mellitus, GERD/Reflux, Hypertension, Pneumonia Additional Past Medical History / Comment(s): HIATAL HERNIA, chronic sinusitis/seasonal allergies,UTI, ATYPICAL CHEST PAIN, 05-20-14 and in 2018- STRESS TEST NEG., bronchitis, colitis, IBS, migraines, occasional low back pain. KIDNEY STONES History of Any Multi-Drug Resistant Organisms: None Reported Past Surgical History: Section, Cholecystectomy, Tubal Ligation Additional Past Surgical History / Comment(s): sinus surgery, D&C, x 4, EGD/colonoscopy. Past Anesthesia/Blood Transfusion Reactions: Previous Problems w/ Anesthesia, Postoperative Nausea & Vomiting (PONV) Additional Past Anesthesia/Blood Transfusion Reaction / Comment(s): Pt did not go all the way under. Pt could hear, but not feel anything Past Psychological History: Anxiety, Depression Smoking Status: Former smoker Past Alcohol Use History: None Reported Past Drug Use History: None Reported - Past Family History Father Family Medical History: Congestive Heart Failure (CHF), Coronary Artery Disease (CAD), Diabetes Mellitus Additional Family Medical History / Comment(s): stents,depression anxiety Mother Family Medical History: Cancer, Diabetes Mellitus, Hypertension Additional Family Medical History / Comment(s): colon cancer, SKIN CANCER, bipolar, split personaltiy disorder. General Exam - General Exam Comments Initial Comments: General: The patient is awake and alert, in no distress, and does not appear acutely ill. Eye: +3 mm pupils are equal, round and reactive to light, extra-ocular movements are intact. No nystagmus. There is normal conjunctiva bilaterally. No signs of icterus. No APD Ears, nose, mouth and throat: There are moist mucous membranes and no oral lesions. No nuchal rigidity. Neck: The neck is supple, there is no tenderness or JVD. Cardiovascular: There is a regular rate and rhythm. No murmur, rub or gallop is appreciated. Respiratory: Lungs are clear to auscultation, respirations are non-labored, breath sounds are equal. No wheezes, stridor, rales, or rhonchi. Musculoskeletal: Normal ROM, no tenderness. Strength 5/5. Sensation intact. Radial pulses equal bilaterally 2+. Neurological: A&O x 3. CN II-XII intact, There are no obvious motor or sensory deficits. Coordination appears grossly intact. Speech is normal. No pronator drift. Negative Romberg. No gait ataxia. Full strength of the upper and lower extremities equal comparison bilaterally. Full sensation of the upper and lower extremities equal comparison bilaterally. Skin: Skin is warm and dry and no rashes or lesions are noted. Psychiatric: Cooperative, appropriate mood & affect, normal judgment. Limitations: no limitations Course Vital Signs 06/20/19 06/20/19 18:04 18:50 Temperature 98.3 F Pulse Rate 79 82 Respiratory 18 16 Rate Blood Pressure 141/88 135/83 O2 Sat by Pulse 99 100 Oximetry Medical Decision Making - Medical Decision Making 3-year-old female presented for migraine. Denies any abnormal characteristics of this particular migraine. Patient is no focal neurological deficits. No neck stiffness or fevers. Patient states she has been given a migraine cocktail the past and this seems to alleviate symptoms. Patient was provided Toradol Benadryl and Zofran. Patient's migraine has subsided on reevaluation patient patient states she is ready for discharge. After discussing this case but any provider patient was discharged home appearing well Disposition Clinical Impression: Headache Disposition: HOME SELF-CARE Condition: Good Instructions (If sedation given, give patient instructions): Acute Headache (ED) Additional Instructions: Please use medication as discussed. Please follow-up with family doctor in the next 2 days. Please return to emergency room if the symptoms increase or worsen or for any other concerns. Is patient prescribed a controlled substance at d/c from ED?: No Referrals: Morena Garcia MD [Primary Care Provider] - 1-2 days Time of Disposition: 19:13
[2019-06-20 18:53] VITALS: PULSE 82; RESP 16
[2019-06-20 18:54] VITALS: BP 135/83
[2019-06-20] MEDS ORDERED: ONDANSETRON ODT 4 MG TAB PO STA (19:14)
== END 2019-06-20 19:36 | disposition home or self-care (01) ==
LOC: EC 17:43
DX: G43.901 Migraine, unspecified, not intractable, with status migrainosus (principal); E11.9 Type 2 diabetes mellitus without complications; F41.9 Anxiety disorder, unspecified; F32.9 Major depressive disorder, single episode, unspecified; J30.2 Other seasonal allergic rhinitis; Z79.84 Long term (current) use of oral hypoglycemic drugs; Z79.899 Other long term (current) drug therapy; Z88.1 Allergy status to other antibiotic agents; Z88.5 Allergy status to narcotic agent; Z91.018 Allergy to other foods
CPT/HCPCS: 96374; 96375 ×2; 96361; 99283; J1200; J2405; J1885

== ENCOUNTER 2019-09-06 22:29 | Emergency (ER) | payer MEDICAID, OTHER ==
[2019-09-06 22:36] VITALS: RESP 18
--- NOTE | 2019-09-06 22:50 | ED ---
Chest Pain HPI - General Chief Complaint: Chest Pain Stated Complaint: Chest Pressure,SOB Time Seen by Provider: 09/06/19 22:41 Source: patient Mode of arrival: ambulatory Limitations: no limitations - History of Present Illness Initial Comments: This patient is a 39-year-old woman who presents to be evaluated for chest pressure that had come on over the course of this evening. Patient notes she did have a few days of a preceding cough which is nonproductive. She states she has not been feeling well, like she is coming down with something. MD Complaint: chest pain Onset/Timin -: hour(s) Onset: during rest Pain Location: substernal Pain Radiation: none Severity: mild Quality: heaviness Consistency: constant Improves With: nothing Worsens With: nothing Other Symptoms: cough, palpitations Treatments Prior to Arrival: none - Related Data Home Medications Medication Instructions Recorded Confirmed Rizatriptan Benzoate [Maxalt] 10 mg PO BID PRN 03/24/18 09/06/19 Topiramate [Trokendi Xr] 200 mg PO DAILY 09/03/18 09/06/19 Butalbital/Aspirin/Caffeine 1 cap PO Q4H PRN 05/31/19 09/06/19 [Fiorinal 50-325-40 MG] Escitalopram Oxalate [Lexapro] 10 mg PO HS 05/31/19 09/06/19 Galcanezumab-Gnlm [Emgality] 120 mg SQ Q28D 05/31/19 09/06/19 metFORMIN HCL ER [Glucophage Xr] 500 mg PO PC-SUPPER 05/31/19 09/06/19 Dm/PE/Acetaminophen/Doxylamine 1 tab PO DAILY PRN 09/06/19 09/06/19 [Gin-[place] Plus Day-Night Cp] Ferrous Sulfate [Feosol] 325 mg PO DAILY 09/06/19 09/06/19 Nadolol [Corgard] 20 mg PO BID 09/06/19 09/06/19 Previous Rx's Medication Instructions Recorded Albuterol Inhaler [Ventolin Hfa 1 - 2 puff INHALATION Q6HR PRN #1 09/07/19 Inhaler] inhaler Albuterol Nebulized [Ventolin 2.5 mg INHALATION Q6H #30 nebu 09/07/19 Nebulized] Allergies Allergy/AdvReac Type Severity Reaction Status Date / Time metronidazole [From Flagyl] Allergy Anaphylaxis Verified 05/31/19 13:39 morphine Allergy Rash/Hives Verified 05/31/19 13:39 orange flavor AdvReac Abdominal Verified 05/31/19 13:39 Pain tomato [Tomato] AdvReac Abdominal Verified 05/31/19 13:39 Pain wheat AdvReac Abdominal Verified 05/31/19 13:39 Pain Review of Systems ROS Statement: Those systems with pertinent positive or pertinent negative responses have been documented in the HPI. ROS Other: All systems not noted in ROS Statement are negative. Constitutional: Denies: fever, chills Respiratory: Denies: cough, dyspnea Cardiovascular: Reports: chest pain, palpitations. Denies: orthopnea, edema, syncope Gastrointestinal: Denies: abdominal pain, nausea, vomiting Genitourinary: Denies: dysuria, hematuria Musculoskeletal: Denies: back pain Skin: Denies: rash Neurological: Denies: headache, weakness, numbness EKG Findings - EKG Results: EKG: interpreted by ERMD, sinus rhythm (Rate 90 bpm), normal axis, normal QRS, normal ST/T - Blocks, [place], Hypertrophy, ST Abn: Chamber hypertrophy or enlargement: left ventricular hypertrophy or enlargement (LVE) Past Medical History Past Medical History: Asthma, Chest Pain / Angina, Diabetes Mellitus, GERD/Reflux, Hypertension, Pneumonia Additional Past Medical History / Comment(s): HIATAL HERNIA, chronic sinusitis/seasonal allergies,UTI, ATYPICAL CHEST PAIN, 05-20- and in 2018- STRESS TEST NEG., bronchitis, colitis, IBS, migraines, occasional low back pain. KIDNEY STONES History of Any Multi-Drug Resistant Organisms: None Reported Past Surgical History: Section, Cholecystectomy, Tubal Ligation Additional Past Surgical History / Comment(s): sinus surgery, D&C, x 4, EGD/colonoscopy. Past Anesthesia/Blood Transfusion Reactions: Previous Problems w/ Anesthesia, Postoperative Nausea & Vomiting (PONV) Additional Past Anesthesia/Blood Transfusion Reaction / Comment(s): Pt did not go all the way under. Pt could hear, but not feel anything Past Psychological History: Anxiety, Depression Smoking Status: Former smoker Past Alcohol Use History: None Reported Past Drug Use History: None Reported - Past Family History Father Family Medical History: Congestive Heart Failure (CHF), Coronary Artery Disease (CAD), Diabetes Mellitus Additional Family Medical History / Comment(s): stents,depression anxiety Mother Family Medical History: Cancer, Diabetes Mellitus, Hypertension Additional Family Medical History / Comment(s): colon cancer, SKIN CANCER, bipolar, split personaltiy disorder. General Exam Limitations: no limitations General appearance: alert, in no apparent distress Head exam: Present: atraumatic, normocephalic Eye exam: Present: normal appearance. Absent: scleral icterus, conjunctival injection Neck exam: Present: normal inspection, full ROM Respiratory exam: Present: normal lung sounds bilaterally. Absent: respiratory distress, wheezes, rales, rhonchi, stridor Cardiovascular Exam: Present: regular rate, normal rhythm, normal heart sounds. Absent: systolic murmur, diastolic murmur, rubs, gallop GI/Abdominal exam: Present: soft. Absent: distended, tenderness, guarding, rebound, rigid, mass Extremities exam: Present: normal inspection, normal capillary refill. Absent: pedal edema, calf tenderness Back exam: Present: normal inspection. Absent: CVA tenderness (R), CVA tenderness (L) Neurological exam: Present: alert Skin exam: Present: warm, dry, intact, normal color. Absent: rash Course Vital Signs 09/06/19 22:34 Temperature 98.3 F Pulse Rate 92 Respiratory 18 Rate Blood Pressure 136/78 O2 Sat by Pulse 100 Oximetry Disposition Clinical Impression: Chest pain, Bronchitis Disposition: HOME SELF-CARE Condition: Good Instructions (If sedation given, give patient instructions): Chest Pain (ED), Acute Bronchitis (ED) Prescriptions: Albuterol Inhaler [Ventolin Hfa Inhaler] 1 - 2 puff INHALATION Q6HR PRN #1 inhaler PRN Reason: Wheezing Albuterol Nebulized [Ventolin Nebulized] 2.5 mg INHALATION Q6H #30 nebu Is patient prescribed a controlled substance at d/c from ED?: No Referrals: Morena Garcia MD [Primary Care Provider] - 1-2 days
--- NOTE | 2019-09-06 23:22 | XR ---
EXAMINATION TYPE: XR chest 2V DATE OF EXAM: 09/06/2019 COMPARISON: 05/31/2019 HISTORY: Chest pressure TECHNIQUE: Frontal and lateral views of the chest are obtained. FINDINGS: Heart and mediastinum are normal. Lungs are clear. Diaphragm is normal. Bony thorax appear s normal. IMPRESSION: Normal chest. No change.
[2019-09-07 01:13] LABS: Basophils % (A) 0 %; Eosinophils # (A) 0.3 k/uL (0-0.7); Eosinophils % (A) 3 %; HCT 33.8 % (34.0-46.0); HGB 11.2 gm/dL (11.4-16.0); Lymphocytes # (A) 4.5 k/uL (1.0-4.8); Lymphocytes % (A) 40 %; MCH 27.4 pg (25.0-35.0); MCHC 33.2 g/dL (31.0-37.0); MCV 82.7 fL (80.0-100.0); Mean Platelet Volume 6.3; Monocytes # (A) 0.3 k/uL (0-1.0); Monocytes % (A) 3 %; Neutrophils # (A) 5.9 k/uL (1.3-7.7); Neutrophils % (A) 53 %; Platelet Count 280 k/uL (150-450); RBC 4.08 m/uL (3.80-5.40); RDW 14.7 % (11.5-15.5); WBC 11.2 k/uL (3.8-10.6)
[2019-09-07 01:20] LABS: ALT 14 U/L (9-52); AST 15 U/L (14-36); African American GFR (CKD) >90 (>60 ml/min/1.73 sqM); Albumin 3.8 g/dL (3.5-5.0); Alkaline Phosphatase 70 U/L (38-126); Amylase 45 U/L (30-110); Anion Gap 10 mmol/L; Blood Urea Nitrogen 10 mg/dL (7-17); Calcium 9.1 mg/dL (8.4-10.2); Carbon Dioxide 20 mmol/L (22-30); Chloride 109 mmol/L (98-107); Glucose 126 mg/dL (74-99); Potassium 3.8 mmol/L (3.5-5.1); Sodium 139 mmol/L (137-145); Total Bilirubin 0.1 mg/dL (0.2-1.3)
[2019-09-07 01:31] LABS: D-Dimer 0.56 mg/L FEU (<0.60); INR 0.8 (<1.2); Partial Thromboplastin Time 22.5 sec (22.0-30.0); Prothrombin Time 9.3 sec (9.0-12.0)
[2019-09-07 02:07] LABS: Amorphous Sediment,Urine Rare /hpf; Appearance,Urine Cloudy (Clear); Bilirubin,Urine Negative (Negative); Blood,Urine Negative (Negative); Color,Urine Yellow; Glucose,Urine (UA) Negative (Negative); Ketones,Urine Negative (Negative); Leukocyte Esterase,Urine Negative (Negative); Mucus,Urine Rare /hpf; Nitrite,Urine Negative (Negative); PH, Urine 6.5 (5.0-8.0); Protein,Urine Negative (Negative); RBC,Urine 2 /hpf (0-5); Squamous Epithelial Cell,Urine 4 /hpf (0-4); Urobilinogen,Urine <2.0 mg/dL (<2.0); WBC,Urine 13 /hpf (0-5)
[2019-09-07 02:32] VITALS: BP 151/86; PULSE 81; TEMP 98
== END 2019-09-07 02:40 | disposition home or self-care (01) ==
LOC: EC 22:29
DX: J40 Bronchitis, not specified as acute or chronic (principal); E11.9 Type 2 diabetes mellitus without complications; F41.9 Anxiety disorder, unspecified; F32.9 Major depressive disorder, single episode, unspecified; I10 Essential (primary) hypertension; Z79.899 Other long term (current) drug therapy; Z79.84 Long term (current) use of oral hypoglycemic drugs; Z88.1 Allergy status to other antibiotic agents; Z88.5 Allergy status to narcotic agent; Z91.018 Allergy to other foods; Z87.891 Personal history of nicotine dependence
CPT/HCPCS: 36415; 71046; 80053; 81001; 82150; 83690; 83735; 84484; 85025; 85379; 85610; 85730; 93005; 99285

== ENCOUNTER 2019-10-20 22:28 | Emergency (ER) | payer MEDICAID, OTHER ==
[2019-10-20 22:33] VITALS: TEMP 98.5
--- NOTE | 2019-10-20 22:49 | XR ---
EXAMINATION TYPE: XR chest 2V DATE OF EXAM: 10/20/2019 COMPARISON: 08/29/2019 HISTORY: Chest pain TECHNIQUE: FINDINGS: Heart and mediastinum are normal. There is a patchy airspace infiltrate in the right lower lobe. Lef t lung is clear. There are no hilar masses. There is no pleural effusion. Bony thorax appears normal. Impression Right lower lobe pneumonia is new compared to old exam. Normal heart.
[2019-10-20] MEDS ORDERED: DEXAMETHASONE SOD PHOSPHATE 10 MG/ML 1 ML VIAL IM STA (23:07)
[2019-10-20] MEDS ORDERED: AZITHROMYCIN 500 MG TAB PO STA (23:07)
[2019-10-20] MEDS ORDERED: guaiFENesin-DM 600/30MG 1 EACH TAB.ER.12H PO STA (23:07)
[2019-10-20] MEDS ORDERED: IPRATROPIUM-ALBUTEROL 3 ML NEB INHALATION STA (23:08)
--- NOTE | 2019-10-20 23:38 | ED ---
General Adult HPI - General Chief complaint: Upper Respiratory Infection Stated complaint: Shortness of Breath Time Seen by Provider: 10/20/19 22:37 Source: patient Mode of arrival: ambulatory Limitations: no limitations - History of Present Illness Initial comments: 39-year-old female patient with past medical history significant for asthma and diabetes mellitus presents to the emergency department today for evaluation of cough, fever, and right-sided chest discomfort. She is having associated nasal congestion and drainage. Patient states that symptoms have been present for the last 5 days. The patient states she was in to see her primary care physician who diagnosed her with bronchitis. States she has been doing breathing treatments at home every 4 hours. States she has been taking Tylenol and Motrin for fever control but she is not feeling any better. Patient states today she has felt wheezing and discomfort in her right lung when taking deep breaths. Patient denies any recent rash, abdominal pain, nausea, vomiting, diarrhea, constipation, back pain, numbness, tingling, dizziness, weakness, hematuria, dysuria, urinary urgency, urinary frequency, headache, visual changes, or any other complaints. - Related Data Home Medications Medication Instructions Recorded Confirmed Rizatriptan Benzoate [Maxalt] 10 mg PO BID PRN 03/24/18 09/06/19 Topiramate [Trokendi Xr] 200 mg PO DAILY 09/03/18 09/06/19 Butalbital/Aspirin/Caffeine 1 cap PO Q4H PRN 05/31/19 09/06/19 [Fiorinal 50-325-40 MG] Escitalopram Oxalate [Lexapro] 10 mg PO HS 05/31/19 09/06/19 Galcanezumab-Gnlm [Emgality] 120 mg SQ Q28D 05/31/19 09/06/19 metFORMIN HCL ER [Glucophage Xr] 500 mg PO PC-SUPPER 05/31/19 09/06/19 Dm/PE/Acetaminophen/Doxylamine 1 tab PO DAILY PRN 09/06/19 09/06/19 [Gin-[place] Plus Day-Night Cp] Ferrous Sulfate [Feosol] 325 mg PO DAILY 09/06/19 09/06/19 Nadolol [Corgard] 20 mg PO BID 09/06/19 09/06/19 Previous Rx's Medication Instructions Recorded Albuterol Inhaler [Ventolin Hfa 1 - 2 puff INHALATION Q6HR PRN #1 09/07/19 Inhaler] inhaler Albuterol Nebulized [Ventolin 2.5 mg INHALATION Q6H #30 nebu 09/07/19 Nebulized] Azithromycin 250 mg PO DAILY 4 Days #4 tab 10/20/19 guaiFENesin-DM 600/30MG [Mucinex 2 each PO Q12HR #20 tab.er.12h 10/20/19 Dm] Allergies Allergy/AdvReac Type Severity Reaction Status Date / Time metronidazole [From Flagyl] Allergy Anaphylaxis Verified 05/31/19 13:39 morphine Allergy Rash/Hives Verified 05/31/19 13:39 orange flavor AdvReac Abdominal Verified 05/31/19 13:39 Pain tomato [Tomato] AdvReac Abdominal Verified 05/31/19 13:39 Pain wheat AdvReac Abdominal Verified 05/31/19 13:39 Pain Review of Systems ROS Statement: Those systems with pertinent positive or pertinent negative responses have been documented in the HPI. ROS Other: All systems not noted in ROS Statement are negative. Past Medical History Past Medical History: Asthma, Chest Pain / Angina, Diabetes Mellitus, GERD/Reflux, Hypertension, Pneumonia Additional Past Medical History / Comment(s): HIATAL HERNIA, chronic sinusitis/seasonal allergies,UTI, ATYPICAL CHEST PAIN, 05-20- and in 2018- STRESS TEST NEG., bronchitis, colitis, IBS, migraines, occasional low back pain. KIDNEY STONES History of Any Multi-Drug Resistant Organisms: None Reported Past Surgical History: Section, Cholecystectomy, Tubal Ligation Additional Past Surgical History / Comment(s): sinus surgery, D&C, x 4, EGD/colonoscopy. Past Anesthesia/Blood Transfusion Reactions: Previous Problems w/ Anesthesia, Postoperative Nausea & Vomiting (PONV) Additional Past Anesthesia/Blood Transfusion Reaction / Comment(s): Pt did not go all the way under. Pt could hear, but not feel anything Past Psychological History: Anxiety, Depression Smoking Status: Former smoker Past Alcohol Use History: None Reported Past Drug Use History: None Reported - Past Family History Father Family Medical History: Congestive Heart Failure (CHF), Coronary Artery Disease (CAD), Diabetes Mellitus Additional Family Medical History / Comment(s): stents,depression anxiety Mother Family Medical History: Cancer, Diabetes Mellitus, Hypertension Additional Family Medical History / Comment(s): colon cancer, SKIN CANCER, bipolar, split personaltiy disorder. General Exam Limitations: no limitations General appearance: alert, in no apparent distress, other (This is a well- developed, well-nourished adult female patient in no acute distress. Vital signs upon presentation are temperature 98.5F, pulse 71, respirations 18, blood pressure 159/94, pulse ox 98% on room air.) Eye exam: Present: normal appearance, PERRL, EOMI. Absent: scleral icterus, conjunctival injection, periorbital swelling ENT exam: Present: normal exam, normal oropharynx, mucous membranes moist Respiratory exam: Present: other (Crackles in the right posterior lung base. No accessory muscle use.). Absent: respiratory distress, wheezes, rales, rhonchi, stridor Cardiovascular Exam: Present: regular rate, normal rhythm, normal heart sounds. Absent: systolic murmur, diastolic murmur, rubs, gallop, clicks GI/Abdominal exam: Present: soft, normal bowel sounds. Absent: distended, tenderness, guarding, rebound, rigid Neurological exam: Present: alert, oriented X3, CN II-XII intact Psychiatric exam: Present: normal affect, normal mood Skin exam: Present: warm, dry, intact, normal color. Absent: rash Course Vital Signs 10/20/19 10/20/19 10/20/19 22:29 23:32 23:38 Temperature 98.5 F Pulse Rate 71 81 Respiratory 18 19 Rate Blood Pressure 159/94 O2 Sat by Pulse 98 Oximetry 10/20/19 10/20/19 23:48 23:50 Temperature Pulse Rate 81 92 Respiratory 22 Rate Blood Pressure 151/91 O2 Sat by Pulse 99 Oximetry Medical Decision Making - Medical Decision Making 29-year-old female patient presented to the emergency department today for evaluation of cough and fever. Physical examination did reveal crackles at the right posterior lung base. Oxygen saturation was satisfactory at 98%. Currently afebrile normal heart rate. Influenza testing was negative. Chest x- ray did show evidence for right lower lobe pneumonia. She'll be given an IM dose of Rocephin and 500 mg of azithromycin here in the emergency department. She is also given a dose of Decadron, DuoNeb, and Mucinex DM. She'll be discharged with prescription for azithromycin and Mucinex. She is urged to continue breathing treatments every 4-6 hours. Alternate Tylenol Motrin for pain and fever control. She is instructed to follow-up with her primary care physician for recheck in 1-2 days. Return parameters were discussed in detail. She verbalizes understanding and agrees with this plan. - Lab Data Lab Results 10/20/19 Range/Units 22:35 Influenza Type A RNA Not Detected (Not Detectd) Influenza Type B (PCR) Not Detected (Not Detectd) - Radiology Data Radiology results: report reviewed, image reviewed Two-view x-ray of the chest is obtained. Report was reviewed in its entirety. Impression by Dr. Paredes shows right lower lobe pneumonia new compared to old exam. Normal heart. Disposition Clinical Impression: Right lower lobe pneumonia Disposition: HOME SELF-CARE Condition: Good Instructions (If sedation given, give patient instructions): Pneumonia (ED) Additional Instructions: continue breathing treatments every 4 hours. A complete antibiotic prescription and full. Take Mucinex as directed. Continue home promethazine. Follow-up with your primary care physician for recheck in 1-2 days. Return to the emergency department immediately for any new, worsening, or concerning symptoms. Prescriptions: Azithromycin 250 mg PO DAILY 4 Days #4 tab guaiFENesin-DM 600/30MG [Mucinex Dm] 2 each PO Q12HR #20 tab.er.12h Is patient prescribed a controlled substance at d/c from ED?: No Referrals: Morena Garcia MD [Primary Care Provider] - 1-2 days Time of Disposition: 23:38
[2019-10-20] MEDS ORDERED: cefTRIAXone 1,000 MG VIAL (IM USE) IM STA (23:42)
[2019-10-20 23:53] VITALS: BP 151/91; PULSE 92; RESP 22
== END 2019-10-21 00:03 | disposition home or self-care (01) ==
LOC: EC 22:28
DX: J18.1 Lobar pneumonia, unspecified organism (principal); F41.9 Anxiety disorder, unspecified; F32.9 Major depressive disorder, single episode, unspecified; E11.9 Type 2 diabetes mellitus without complications; I10 Essential (primary) hypertension; Z79.84 Long term (current) use of oral hypoglycemic drugs; Z79.899 Other long term (current) drug therapy; Z88.1 Allergy status to other antibiotic agents; Z88.5 Allergy status to narcotic agent; Z91.018 Allergy to other foods; Z87.891 Personal history of nicotine dependence
CPT/HCPCS: 94640; 87502; 71046; 99285; 96372 ×2; J1100; J0696

== ENCOUNTER 2019-10-23 14:55 | Emergency (ER) | payer MEDICAID, OTHER ==
[2019-10-23 15:05] VITALS: TEMP 98.5
[2019-10-23] MEDS ORDERED: IPRATROPIUM-ALBUTEROL 3 ML NEB INHALATION STA (15:28)
--- NOTE | 2019-10-23 15:49 | XR ---
EXAMINATION TYPE: XR chest 2V DATE OF EXAM: 10/23/2019 COMPARISON: 10/20/2019 HISTORY: Cough. Pneumonia. TECHNIQUE: 2 views FINDINGS: Heart and mediastinum are normal. There is a minimal infiltrate in the right lower lobe. Th e other lung dominguez are clear. There are no hilar masses. Bony thorax is intact. IMPRESSION: Minimal right lower lobe pneumonia shows significant clearing compared to last exam.
[2019-10-23] MEDS ORDERED: predniSONE 50 MG TAB PO STA (16:51)
[2019-10-23] MEDS ORDERED: ALBUTEROL NEBULIZED 2.5 MG/3 ML INHALATION STA (16:51)
[2019-10-23 16:56] VITALS: RESP 16
[2019-10-23 17:04] LABS: ALT 21 U/L (4-34); AST 23 U/L (14-36); African American GFR (CKD) >90 (>60 ml/min/1.73 sqM); Albumin 3.6 g/dL (3.5-5.0); Alkaline Phosphatase 64 U/L (38-126); Anion Gap 9 mmol/L; Blood Urea Nitrogen 11 mg/dL (7-17); Calcium 9.4 mg/dL (8.4-10.2); Carbon Dioxide 24 mmol/L (22-30); Chloride 106 mmol/L (98-107); Glucose 128 mg/dL (74-99); Non-African American GFR(CKD) >90 (>60 ml/min/1.73 sqM); Potassium 3.7 mmol/L (3.5-5.1); Sodium 139 mmol/L (137-145); Total Bilirubin 0.3 mg/dL (0.2-1.3); Total Protein 6.6 g/dL (6.3-8.2)
[2019-10-23 17:09] LABS: Basophils % (A) 0 %; Eosinophils # (A) 0.2 k/uL (0-0.7); Eosinophils % (A) 3 %; HCT 34.6 % (34.0-46.0); HGB 11.3 gm/dL (11.4-16.0); Lymphocytes # (A) 3.5 k/uL (1.0-4.8); Lymphocytes % (A) 50 %; MCH 26.3 pg (25.0-35.0); MCHC 32.5 g/dL (31.0-37.0); MCV 80.7 fL (80.0-100.0); Mean Platelet Volume 7.6; Monocytes # (A) 0.3 k/uL (0-1.0); Monocytes % (A) 4 %; Neutrophils # (A) 2.8 k/uL (1.3-7.7); Neutrophils % (A) 41 %; Platelet Count 218 k/uL (150-450); RDW 14.1 % (11.5-15.5)
[2019-10-23 17:12] VITALS: PULSE 85
[2019-10-23 17:49] LABS: Amorphous Sediment,Urine Few /hpf; Appearance,Urine Cloudy (Clear); Bilirubin,Urine Negative (Negative); Blood,Urine Negative (Negative); Color,Urine Light Yellow; Glucose,Urine (UA) Negative (Negative); Ketones,Urine Negative (Negative); Leukocyte Esterase,Urine Negative (Negative); Mucus,Urine Occasional /hpf; Nitrite,Urine Negative (Negative); PH, Urine 7.5 (5.0-8.0); Protein,Urine Negative (Negative); RBC,Urine 1 /hpf (0-5); Specific Gravity,Urine 1.012 (1.001-1.035); Squamous Epithelial Cell,Urine <1 /hpf (0-4); Urobilinogen,Urine <2.0 mg/dL (<2.0); WBC,Urine 1 /hpf (0-5)
[2019-10-23] MEDS ORDERED: BENZONATATE 100 MG CAP PO STA (18:06)
--- NOTE | 2019-10-23 18:06 | ED ---
General Adult HPI - General Source: patient, RN notes reviewed, old records reviewed Mode of arrival: wheelchair Limitations: no limitations <Justin Asencio - Last Filed: 10/23/19 18:03> <Maddie Aguilar - Last Filed: 10/25/19 14:26> - General Chief complaint: Shortness of Breath Stated complaint: Recheck Pneumonia SOB Time Seen by Provider: 10/23/19 15:08 - History of Present Illness Initial comments: 39-year-old female patient past history significant for asthma presents ED chief complaint of cough, motions of breath, mild left parasternal discomfort. Patient reports that she was seen here 3 days ago and diagnosed with pneumonia. Reports that since then she has been having persistent coughing, some mild shortness of breath with coughing and some mild left parasternal discomfort with coughing. Has been using albuterol at home with mild improvement. Has been taking antibiotics as directed. Denies any other complaints. Denies any chance of being . Denies any risk factors for PE. Systemic: Pt denies fatigue, fever/chills, rash. Pt denies weakness, night sweats, weight loss. Neuro: Pt denies headache, visual disturbances, syncope or pre-syncope. HEENT: Pt denies ocular discharge or irritation, otalgia, rhinorrhea, pharyngitis or notable lymphadenopathy. Cardiopulmonary: Pt denies chest pain, heart palpitations, dyspnea on exertion. Abdominal/GI: Pt denies abdominal pain, n/v/d. : Pt denies dysuria, burning w/ urination, frequency/urgency. Denies new onset urinary or bowel incontinence. MSK: Pt denies myalgia, loss of strength or function in extremities. Neuro: Pt denies new onset weakness, paresthesias. (Jusitn Asencio) - Related Data Home Medications Medication Instructions Recorded Confirmed Rizatriptan Benzoate [Maxalt] 10 mg PO BID PRN 03/24/18 09/06/19 Topiramate [Trokendi Xr] 200 mg PO DAILY 09/03/18 09/06/19 Butalbital/Aspirin/Caffeine 1 cap PO Q4H PRN 05/31/19 09/06/19 [Fiorinal 50-325-40 MG] Escitalopram Oxalate [Lexapro] 10 mg PO HS 05/31/19 09/06/19 Galcanezumab-Gnlm [Emgality] 120 mg SQ Q28D 05/31/19 09/06/19 metFORMIN HCL ER [Glucophage Xr] 500 mg PO PC-SUPPER 05/31/19 09/06/19 Dm/PE/Acetaminophen/Doxylamine 1 tab PO DAILY PRN 09/06/19 09/06/19 [Gin-[place] Plus Day-Night Cp] Ferrous Sulfate [Feosol] 325 mg PO DAILY 09/06/19 09/06/19 Nadolol [Corgard] 20 mg PO BID 09/06/19 09/06/19 Previous Rx's Medication Instructions Recorded Albuterol Inhaler [Ventolin Hfa 1 - 2 puff INHALATION Q6HR PRN #1 09/07/19 Inhaler] inhaler Albuterol Nebulized [Ventolin 2.5 mg INHALATION Q6H #30 nebu 09/07/19 Nebulized] Azithromycin 250 mg PO DAILY 4 Days #4 tab 10/20/19 guaiFENesin-DM 600/30MG [Mucinex 2 each PO Q12HR #20 tab.er.12h 10/20/19 Dm] Benzonatate [Tessalon Perles] 100 mg PO TID PRN #20 capsule 10/23/19 predniSONE 50 mg PO DAILY #4 tab 10/23/19 Allergies Allergy/AdvReac Type Severity Reaction Status Date / Time metronidazole [From Flagyl] Allergy Anaphylaxis Verified 10/23/19 15:05 morphine Allergy Rash/Hives Verified 10/23/19 15:05 orange flavor AdvReac Abdominal Verified 10/23/19 15:05 Pain tomato [Tomato] AdvReac Abdominal Verified 10/23/19 15:05 Pain wheat AdvReac Abdominal Verified 10/23/19 15:05 Pain Review of Systems ROS Other: All systems not noted in ROS Statement are negative. <Justin Asencio - Last Filed: 10/23/19 18:03> ROS Other: All systems not noted in ROS Statement are negative. <Maddie Aguilar - Last Filed: 10/25/19 14:26> ROS Statement: Those systems with pertinent positive or pertinent negative responses have been documented in the HPI. Past Medical History Past Medical History: Asthma, Chest Pain / Angina, Diabetes Mellitus, GERD/Re flux, Hypertension, Pneumonia Additional Past Medical History / Comment(s): HIATAL HERNIA, chronic sinusitis/seasonal allergies,UTI, ATYPICAL CHEST PAIN, 7- and in 2018-S TRESS TEST NEG., bronchitis, colitis, IBS, migraines, occasional low back pain. KIDNEY STONES History of Any Multi-Drug Resistant Organisms: None Reported Past Surgical History: Section, Cholecystectomy, Tubal Ligation Additional Past Surgical History / Comment(s): sinus surgery, D&C, x 4, EGD/colonoscopy. Past Anesthesia/Blood Transfusion Reactions: Previous Problems w/ Anesthesia, Postoperative Nausea & Vomiting (PONV) Additional Past Anesthesia/Blood Transfusion Reaction / Comment(s): Pt did not go all the way under. Pt could hear, but not feel anything Past Psychological History: Anxiety, Depression Smoking Status: Former smoker Past Alcohol Use History: None Reported Past Drug Use History: None Reported - Past Family History Father Family Medical History: Congestive Heart Failure (CHF), Coronary Artery Disease (CAD), Diabetes Mellitus Additional Family Medical History / Comment(s): stents,depression anxiety Mother Family Medical History: Cancer, Diabetes Mellitus, Hypertension Additional Family Medical History / Comment(s): colon cancer, SKIN CANCER, bipolar, split personaltiy disorder. <Justin Asencio - Last Filed: 10/23/19 18:03> General Exam Limitations: no limitations <Justin Asencio - Last Filed: 10/23/19 18:03> - General Exam Comments Initial Comments: Constitutional: NAD, AOX3, Pt has pleasant affect. HEENT: NC/AT, trachea midline, neck supple, no lymphadenopathy. Posterior pharynx non erythematous, without exudates. External ears appear normal, without discharge. Mucous membranes moist. Eyes PERRLA, EOM intact. There is no scleral icterus. No pallor noted. Cardiopulmonary: RRR, no murmurs, rubs or gallops, no JVD noted. Wheezing noted in anterior posterior lung dominguez. Significant improved after breathing treatments. Unlabored respirations.. No peripheral edema. Abdominal exam: Abdomen soft and non-distended. Abdomen non-tender to palpation in all 4 quadrants. Bowel sounds active in LLQ. No hepatosplenomegaly. No ecc hymosis Neuro: CN II-XII grossly intact. No nuchal rigidity. No raccon eyes, no kumar sign, no hemotympanum. No cervical spinal tenderness. MSK: No posterior calf tenderness bilaterally, homans sign negative bilaterally. Posterior tibialis and radial pulse +2 bilaterally. Sensation intact in upper and lower extremities. Full active ROM in upper and lower extremities, 5/5 stregnth. (Justin Asencio) Course Vital Signs 10/23/19 10/23/19 10/23/19 15:03 15:19 16:06 Temperature 98.5 F Pulse Rate 83 84 Respiratory 18 18 Rate Blood Pressure 166/94 O2 Sat by Pulse 98 Oximetry 10/23/19 10/23/19 10/23/19 16:26 16:49 17:10 Temperature Pulse Rate 84 84 85 Respiratory 16 Rate Blood Pressure 113/87 O2 Sat by Pulse 100 Oximetry 10/23/19 10/23/19 17:23 18:18 Temperature 98.5 F Pulse Rate 85 85 Respiratory 16 Rate Blood Pressure 118/78 O2 Sat by Pulse 100 Oximetry Medical Decision Making - Lab Data Result diagrams: 10/23/19 16:35 10/23/19 16:35 - EKG Data -: EKG Interpreted by Hi (and Dr. Aguilar ) <Justin Asencio - Last Filed: 10/23/19 18:03> - Lab Data Result diagrams: 10/23/19 16:35 10/23/19 16:35 <Maddie Aguilar - Last Filed: 10/25/19 14:26> - Medical Decision Making 39-year-old female patient past history significant for asthma presents ED chief complaint of cough, motions of breath, mild left parasternal discomfort. Patient reports that she was seen here 3 days ago and diagnosed with pneumonia. Reports that since then she has been having persistent coughing, some mild shortness of breath with coughing and some mild left parasternal discomfort with coughing. Has been using albuterol at home with mild improvement. Has been taking antibiotics as directed. Denies any other complaints. Denies any chance of being . Denies any risk factors for PE. Pt VSS, afebrile. Physical exam displayed: RRR, no murmurs, rubs or gallops, no JVD noted. Wheezing noted in anterior posterior lung dominguez. Significant improved after breathing grant tments. Unlabored respirations.. No peripheral edema. Patient will signs are stable, afebrile. Patient is PERC negative. EKG nonischemic. Laboratory investigations noncompressive. Troponin negative. Chest x-ray displayed significant improvement. Patient likely experiencing asthma exacerbation. Initiated on steroids. Patient will be discharged with burst steroid treatment. Will continue antibiotics and return to ER physician worsens. Will follow up with primary care provider on Friday. Case discussed with Dr. Aguilar. (Justin Asencio) I was available for consultation in the emergency department. The history and physical exam were done by the midlevel provider. I was consulted for this patients care. I reviewed the case with the midlevel provider and based on their presentation of the patient, I agree with the assessment, medical decision making and plan of care as documented. Chart was dictated using [employer] dictation software. Attempts were made to correct any dictation errors however some typographical errors may persist. (Maddie Aguilar) - Lab Data Lab Results 10/23/19 10/23/19 10/23/19 Range/Units 16:35 16:35 16:35 WBC 7.0 (3.8-10.6) k/uL RBC 4.30 (3.80-5.40) m/uL Hgb 11.3 L (11.4-16.0) gm/dL Hct 34.6 (34.0-46.0) % MCV 80.7 (80.0-100.0) fL MCH 26.3 (25.0-35.0) pg MCHC 32.5 (31.0-37.0) g/dL RDW 14.1 (11.5-15.5) % Plt Count 218 (150-450) k/uL Neutrophils % 41 % Lymphocytes % 50 % Monocytes % 4 % Eosinophils % 3 % Basophils % 0 % Neutrophils # 2.8 (1.3-7.7) k/uL Lymphocytes # 3.5 (1.0-4.8) k/uL Monocytes # 0.3 (0-1.0) k/uL Eosinophils # 0.2 (0-0.7) k/uL Basophils # 0.0 (0-0.2) k/uL Sodium 139 (137-145) mmol/L Potassium 3.7 (3.5-5.1) mmol/L Chloride 106 (98-107) mmol/L Carbon Dioxide 24 (22-30) mmol/L Anion Gap 9 mmol/L BUN 11 (7-17) mg/dL Creatinine 0.63 (0.52-1.04) mg/dL Est GFR (CKD-EPI)AfAm >90 (>60 ml/min/1.73 sqM) Est GFR (CKD-EPI)NonAf >90 (>60 ml/min/1.73 sqM) Glucose 128 H (74-99) mg/dL Calcium 9.4 (8.4-10.2) mg/dL Total Bilirubin 0.3 (0.2-1.3) mg/dL AST 23 (14-36) U/L ALT 21 (4-34) U/L Alkaline Phosphatase 64 (38-126) U/L Troponin I <0.012 (0.000-0.034) ng/mL Total Protein 6.6 (6.3-8.2) g/dL Albumin 3.6 (3.5-5.0) g/dL Urine Color Urine Appearance (Clear) Urine pH (5.0-8.0) Ur Specific [place] (1.001-1.035) Urine Protein (Negative) Urine Glucose (UA) (Negative) Urine Ketones (Negative) Urine Blood (Negative) Urine Nitrite (Negative) Urine Bilirubin (Negative) Urine Urobilinogen (<2.0) mg/dL Ur Leukocyte Esterase (Negative) Urine RBC (0-5) /hpf Urine WBC (0-5) /hpf Ur Squamous Epith Cells (0-4) /hpf Amorphous Sediment (None) /hpf Urine Mucus (None) /hpf Urine HCG, Qual (Not Detectd) 10/23/19 10/23/19 Range/Units 17:30 17:30 WBC (3.8-10.6) k/uL RBC (3.80-5.40) m/uL Hgb (11.4-16.0) gm/dL Hct (34.0-46.0) % MCV (80.0-100.0) fL MCH (25.0-35.0) pg MCHC (31.0-37.0) g/dL RDW (11.5-15.5) % Plt Count (150-450) k/uL Neutrophils % % Lymphocytes % % Monocytes % % Eosinophils % % Basophils % % Neutrophils # (1.3-7.7) k/uL Lymphocytes # (1.0-4.8) k/uL Monocytes # (0-1.0) k/uL Eosinophils # (0-0.7) k/uL Basophils # (0-0.2) k/uL Sodium (137-145) mmol/L Potassium (3.5-5.1) mmol/L Chloride (98-107) mmol/L Carbon Dioxide (22-30) mmol/L Anion Gap mmol/L BUN (7-17) mg/dL Creatinine (0.52-1.04) mg/dL Est GFR (CKD-EPI)AfAm (>60 ml/min/1.73 sqM) Est GFR (CKD-EPI)NonAf (>60 ml/min/1.73 sqM) Glucose (74-99) mg/dL Calcium (8.4-10.2) mg/dL Total Bilirubin (0.2-1.3) mg/dL AST (14-36) U/L ALT (4-34) U/L Alkaline Phosphatase (38-126) U/L Troponin I (0.000-0.034) ng/mL Total Protein (6.3-8.2) g/dL Albumin (3.5-5.0) g/dL Urine Color Light Yellow Urine Appearance Cloudy H (Clear) Urine pH 7.5 (5.0-8.0) Ur Specific [place] 1.012 (1.001-1.035) Urine Protein Negative (Negative) Urine Glucose (UA) Negative (Negative) Urine Ketones Negative (Negative) Urine Blood Negative (Negative) Urine Nitrite Negative (Negative) Urine Bilirubin Negative (Negative) Urine Urobilinogen <2.0 (<2.0) mg/dL Ur Leukocyte Esterase Negative (Negative) Urine RBC 1 (0-5) /hpf Urine WBC 1 (0-5) /hpf Ur Squamous Epith Cells <1 (0-4) /hpf Amorphous Sediment Few H (None) /hpf Urine Mucus Occasional H (None) /hpf Urine HCG, Qual Not Detected (Not Detectd) - EKG Data EKG Comments: Ventricular rate 80,. Full 166, QRS 90, QT/QTC 360/4:15. Normal sensation, nor mal EKG, no concern for acute ischemia, no change from prior. (Justin Asencio) Disposition Is patient prescribed a controlled substance at d/c from ED?: No <Justin Asencio - Last Filed: 10/23/19 18:03> <Maddie Aguilar - Last Filed: 10/25/19 14:26> Clinical Impression: Asthma exacerbation, Cough, Pneumonia Disposition: HOME SELF-CARE Condition: Stable Instructions (If sedation given, give patient instructions): Asthma (ED), Acute Cough (ED) Additional Instructions: Follow-up with primary care provider Friday. Take antibiotics as directed. Take steroids as directed. Use breathing treatments as needed. Return to ER if condition worsens. Prescriptions: predniSONE 50 mg PO DAILY #4 tab Benzonatate [Tessalon Perles] 100 mg PO TID PRN #20 capsule PRN Reason: Cough Referrals: Morena Garcia MD [Primary Care Provider] - 1-2 days
[2019-10-23 18:19] VITALS: BP 118/78
== END 2019-10-23 18:21 | disposition home or self-care (01) ==
LOC: EC 14:55
DX: J45.901 Unspecified asthma with (acute) exacerbation (principal); J18.9 Pneumonia, unspecified organism; F41.9 Anxiety disorder, unspecified; F32.9 Major depressive disorder, single episode, unspecified; E11.9 Type 2 diabetes mellitus without complications; I10 Essential (primary) hypertension; G43.909 Migraine, unspecified, not intractable, without status migrainosus; Z79.1 Long term (current) use of non-steroidal anti-inflammatories (NSAID); Z79.899 Other long term (current) drug therapy; Z79.84 Long term (current) use of oral hypoglycemic drugs; Z79.82 Long term (current) use of aspirin; Z88.5 Allergy status to narcotic agent; Z91.018 Allergy to other foods; Z87.891 Personal history of nicotine dependence; Z88.1 Allergy status to other antibiotic agents
CPT/HCPCS: 36415; 94640 ×2; 80053; 84484; 85025; 81001; 81025; 71046; 99285; J7512

== ENCOUNTER 2020-03-04 00:42 | Emergency (ER) | payer MEDICAID, OTHER ==
[2020-03-04 00:51] VITALS: TEMP 98.1
[2020-03-04] MEDS ORDERED: KETOROLAC 30 MG/ML 1 ML VIAL IVP STA (01:27)
[2020-03-04] MEDS ORDERED: METOCLOPRAMIDE 5 MG/ML 2 ML VIAL IVP STA (01:27)
[2020-03-04] MEDS ORDERED: diphenhydrAMINE 50 MG/ML 1 ML VIAL IVP STA (01:27)
[2020-03-04] MEDS ORDERED: SODIUM CHLORIDE 0.9% 1,000 ML IV ONE (01:27)
--- NOTE | 2020-03-04 01:32 | ED ---
SOB HPI - General Chief Complaint: Shortness of Breath Stated Complaint: Headache, SOB Time Seen by Provider: 03/04/20 01:06 Source: patient Mode of arrival: ambulatory Limitations: no limitations - History of Present Illness Initial Comments: This patient is a 40-year-old woman who presents to be evaluated for constellation of symptoms that include nonproductive cough, some shortness of breath, and a headache. The initial thing that came on was headache approximately 4 days ago. Patient states that she does usually get migraines, but this headache was not resolving with her usual Maxalt and Fiorinal. She states that also over the past 1-2 days she has had a bit of nonproductive cough, and today she was feeling a little short of breath. 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 She has not had fever or chills. No sputum production. No chest pain. MD Complaint: shortness of breath, cough Onset/Timin -: days(s) Consistency: constant Improves With: nothing Worsens With: nothing - Related Data Home Medications Medication Instructions Recorded Confirmed Rizatriptan Benzoate [Maxalt] 10 mg PO BID PRN 03/24/18 09/06/19 Topiramate [Trokendi Xr] 200 mg PO DAILY 09/03/18 09/06/19 Butalbital/Aspirin/Caffeine 1 cap PO Q4H PRN 05/31/19 09/06/19 [Fiorinal 50-325-40 MG] Escitalopram Oxalate [Lexapro] 10 mg PO HS 05/31/19 09/06/19 Galcanezumab-Gnlm [Emgality] 120 mg SQ Q28D 05/31/19 09/06/19 metFORMIN HCL ER [Glucophage Xr] 500 mg PO PC-SUPPER 05/31/19 09/06/19 Dm/PE/Acetaminophen/Doxylamine 1 tab PO DAILY PRN 09/06/19 09/06/19 [Gin-[place] Plus Day-Night Cp] Ferrous Sulfate [Feosol] 325 mg PO DAILY 09/06/19 09/06/19 Nadolol [Corgard] 20 mg PO BID 09/06/19 09/06/19 Previous Rx's Medication Instructions Recorded Albuterol Inhaler (Bulk) [Ventolin 1 - 2 puff INHALATION Q6HR PRN #1 09/07/19 Hfa Inhaler (Bulk)] inhaler Albuterol Nebulized [Ventolin 2.5 mg INHALATION Q6H #30 nebu 09/07/19 Nebulized] Azithromycin 250 mg PO DAILY 4 Days #4 tab 10/20/19 guaiFENesin-DM 600/30MG [Mucinex 2 each PO Q12HR #20 tab.er.12h 10/20/19 Dm] Benzonatate [Tessalon Perles] 100 mg PO TID PRN #20 capsule 10/23/19 predniSONE 50 mg PO DAILY #4 tab 10/23/19 Allergies Allergy/AdvReac Type Severity Reaction Status Date / Time metronidazole [From Flagyl] Allergy Anaphylaxis Verified 03/04/20 00:51 morphine Allergy Rash/Hives Verified 03/04/20 00:51 orange flavor AdvReac Abdominal Verified 03/04/20 00:51 Pain tomato [Tomato] AdvReac Abdominal Verified 03/04/20 00:51 Pain wheat AdvReac Abdominal Verified 03/04/20 00:51 Pain Review of Systems ROS Statement: Those systems with pertinent positive or pertinent negative responses have been documented in the HPI. ROS Other: All systems not noted in ROS Statement are negative. Constitutional: Denies: fever, chills ENT: Reports: congestion. Denies: hearing loss Respiratory: Reports: cough, dyspnea. Denies: wheezes, hemoptysis Cardiovascular: Denies: chest pain, palpitations, orthopnea Gastrointestinal: Denies: abdominal pain, nausea, vomiting, diarrhea Genitourinary: Denies: dysuria, hematuria Skin: Denies: rash Neurological: Reports: as per HPI, headache. Denies: weakness, numbness, paresthesias, confusion Past Medical History Past Medical History: Asthma, Chest Pain / Angina, Diabetes Mellitus, GERD/Reflux, Hypertension, Pneumonia Additional Past Medical History / Comment(s): HIATAL HERNIA, chronic sinusitis/seasonal allergies,UTI, ATYPICAL CHEST PAIN, 05-20- and in 2018- STRESS TEST NEG., bronchitis, colitis, IBS, migraines, occasional low back pain. KIDNEY STONES, History of Any Multi-Drug Resistant Organisms: None Reported Past Surgical History: Section, Cholecystectomy, Tubal Ligation Additional Past Surgical History / Comment(s): sinus surgery, D&C, x 4, EGD/colonoscopy. Past Anesthesia/Blood Transfusion Reactions: Previous Problems w/ Anesthesia, Postoperative Nausea & Vomiting (PONV) Additional Past Anesthesia/Blood Transfusion Reaction / Comment(s): Pt did not go all the way under. Pt could hear, but not feel anything Past Psychological History: Anxiety, Depression Smoking Status: Former smoker Past Alcohol Use History: None Reported, Occasional Past Drug Use History: None Reported - Past Family History Father Family Medical History: Congestive Heart Failure (CHF), Coronary Artery Disease (CAD), Diabetes Mellitus Additional Family Medical History / Comment(s): stents,depression anxiety Mother Family Medical History: Cancer, Diabetes Mellitus, Hypertension Additional Family Medical History / Comment(s): colon cancer, SKIN CANCER, bipolar, split personaltiy disorder. General Exam Limitations: no limitations General appearance: alert, in no apparent distress Head exam: Present: atraumatic, normocephalic Eye exam: Present: normal appearance, PERRL, EOMI. Absent: scleral icterus, conjunctival injection ENT exam: Present: normal oropharynx Neck exam: Present: normal inspection, full ROM. Absent: meningismus Respiratory exam: Present: normal lung sounds bilaterally. Absent: respiratory distress, wheezes, rales, rhonchi, stridor Cardiovascular Exam: Present: regular rate, normal rhythm, normal heart sounds. Absent: systolic murmur, diastolic murmur, rubs, gallop GI/Abdominal exam: Present: soft. Absent: distended, tenderness, guarding, rebound, rigid, mass Extremities exam: Present: normal inspection, normal capillary refill. Absent: pedal edema, calf tenderness Back exam: Present: normal inspection. Absent: CVA tenderness (R), CVA tenderness (L) Neurological exam: Present: alert, oriented X3, CN II-XII intact Skin exam: Present: warm, dry, intact, normal color. Absent: rash Course Vital Signs 03/04/20 00:48 Temperature 98.1 F Pulse Rate 80 Respiratory 18 Rate Blood Pressure 159/98 O2 Sat by Pulse 97 Oximetry Medical Decision Making - Lab Data Lab Results 03/04/20 Range/Units 02:28 Coronavirus (PCR) Not Detected (Not Detectd) Disposition Clinical Impression: Upper respiratory infection, Hypertension Disposition: HOME SELF-CARE Condition: Good Instructions (If sedation given, give patient instructions): Upper Respiratory Infection (ED), Hypertension (ED) Is patient prescribed a controlled substance at d/c from ED?: No Referrals: Morena Garcia MD [Primary Care Provider] - 1-2 days
--- NOTE | 2020-03-04 01:41 | XR ---
EXAMINATION TYPE: XR chest 1V DATE OF EXAM: 03/04/2020 COMPARISON: 10/23/2019 HISTORY: Short of breath TECHNIQUE: FINDINGS: Heart and mediastinum are normal. Lungs are clear. Diaphragm is normal. Bony thorax appears normal. IMPRESSION: Normal chest. No change.
[2020-03-04 03:22] VITALS: BP 154/77; PULSE 93; RESP 20
== END 2020-03-04 03:22 | disposition home or self-care (01) ==
LOC: EC 00:42
DX: J06.9 Acute upper respiratory infection, unspecified (principal); I10 Essential (primary) hypertension; Z20.828 Contact with and (suspected) exposure to other viral communicable diseases; E11.9 Type 2 diabetes mellitus without complications; F41.9 Anxiety disorder, unspecified; F32.9 Major depressive disorder, single episode, unspecified; Z79.84 Long term (current) use of oral hypoglycemic drugs; Z79.899 Other long term (current) drug therapy; Z88.1 Allergy status to other antibiotic agents; Z88.5 Allergy status to narcotic agent; Z91.018 Allergy to other foods; Z87.891 Personal history of nicotine dependence
CPT/HCPCS: 87635; 71045; 99285; 96374; 96375 ×2; 96361; J1200; J2765; J1885

== ENCOUNTER → 2020-05-30 | Outpatient (CLI) | payer MEDICAID, OTHER | END | disposition home or self-care (01) | LOC: LABWHC1 11:40 | PROVIDERS: ATTEND Pediatrics Pediatric Infectious Diseases | DX: Z11.59 Encounter for screening for other viral diseases (principal) | CPT/HCPCS: U0003; C9803 ==

== ENCOUNTER 2020-06-19 20:10 | Emergency (ER) | payer MEDICAID, OTHER ==
[2020-06-19 20:15] VITALS: RESP 16
--- NOTE | 2020-06-19 20:39 | ED ---
General Adult HPI - General Chief complaint: Abdominal Pain Stated complaint: Abdominal pain Time Seen by Provider: 06/19/20 20:26 Source: patient Mode of arrival: ambulatory Limitations: no limitations - History of Present Illness Initial comments: Dictation was produced using [employer] dictation software. please excuse any grammatical, word or spelling errors. This patient was cared for during a federal and state declared state of emergency secondary to Covid 19 Chief Complaint: 40-year-old female presents with left lower quadrant abdominal pain History of Present Illness: 40-year-old female she is not sure if she has history of diverticulitis. She thinks is either diverticulitis or ulcerative colitis. Presents today with left lower quadrant abdominal pain. States that the pain is persistent and located to left lower quadrant. She denies any constitutional symptoms. She has history of bilateral tubal ligation. She does have history of fibroids. No vaginal discharge or vaginal bleeding. She had one episode of diarrhea but she reports she has a history of IBS. Several months ago patient had similar symptoms with high temperatures. She was never told if she had diverticulitis or ulcerative colitis. She reports she is due for her menstrual period in 3 days. The ROS documented in this emergency department record has been reviewed and confirmed by me. Those systems with pertinent positive or negative responses have been documented in the HPI. All other systems are other negative and/or noncontributory. PHYSICAL EXAM: General Impression: Alert and oriented x3, not in acute distress HEENT: Normocephalic atraumatic, extra-ocular movements intact, pupils equal and reactive to light bilaterally, mucous membranes moist. Cardiovascular: Heart regular rate and rhythm Chest: Able to complete full sentences, no retractions, no tachypnea Abdomen: abdomen soft, exquisite tenderness to the left lower quadrant, non- distended, no organomegaly Musculoskeletal: Pulses present and equal in all extremities, no peripheral edema Motor: no focal deficits noted Neurological: CN II-XII grossly intact, no focal motor or sensory deficits noted Skin: Intact with no visualized rashes Psych: Normal affect and mood ED course: 40-year-old female presents with left lower quadrant abdominal pain. Vital signs upon arrival are within acceptable limits. Computed tomography scan of the abdomen and pelvis shows large renal calculus that is nonobstructing. There is also possible focal mild uncomplicated acute colitis to the proximal sigmoid colon. There also is concern of cystic changes seen on the left ovary. Laboratory evaluation obtained. Mild leukocytosis of 11.1 likely secondary to stress. Patient does have baseline mild leukocytosis. Metabolic panel is negative. Urinalysis negative. HCG is negative. Patient is well-appearing at bedside. At this point is unclear what is causing patient's symptoms could be from the colitis versus the left ovary. Nonetheless patient's well-appearing at bedside patient not have any nausea and vomiting. Patient told to follow-up with primary care physician P she is given outpatient referral to gastroenterology for further diagnosis and treatment of colitis. Patient given analgesia. She is also told to follow-up with gynecology for unspecified left ovarian cyst. Patient agreeable to plan. She is given prescription for analgesia. - Related Data Home Medications Medication Instructions Recorded Confirmed Rizatriptan Benzoate [Maxalt] 10 mg PO BID PRN 03/24/18 09/06/19 Topiramate [Trokendi Xr] 200 mg PO DAILY 09/03/18 09/06/19 Butalbital/Aspirin/Caffeine 1 cap PO Q4H PRN 05/31/19 09/06/19 [Fiorinal 50-325-40 MG] Escitalopram Oxalate [Lexapro] 10 mg PO HS 05/31/19 09/06/19 Galcanezumab-Gnlm [Emgality] 120 mg SQ Q28D 05/31/19 09/06/19 metFORMIN HCL ER [Glucophage Xr] 500 mg PO PC-SUPPER 05/31/19 09/06/19 Dm/PE/Acetaminophen/Doxylamine 1 tab PO DAILY PRN 09/06/19 09/06/19 [Gin-[place] Plus Day-Night Cp] Ferrous Sulfate [Feosol] 325 mg PO DAILY 09/06/19 09/06/19 Nadolol [Corgard] 20 mg PO BID 09/06/19 09/06/19 Previous Rx's Medication Instructions Recorded Albuterol Inhaler (Mhu) [Ventolin 1 - 2 puff INHALATION Q6HR PRN #1 09/07/19 Hfa Inhaler (Mhu)] inhaler Albuterol Nebulized [Ventolin 2.5 mg INHALATION Q6H #30 nebu 09/07/19 Nebulized] Azithromycin 250 mg PO DAILY 4 Days #4 tab 10/20/19 guaiFENesin-DM 600/30MG [Mucinex 2 each PO Q12HR #20 tab.er.12h 10/20/19 Dm] Benzonatate [Tessalon Perles] 100 mg PO TID PRN #20 capsule 10/23/19 predniSONE 50 mg PO DAILY #4 tab 10/23/19 HYDROcodone/APAP 5-325MG [[place] 1 tab PO Q6HR PRN 3 Days #12 tab 06/19/20 5-325] Allergies Allergy/AdvReac Type Severity Reaction Status Date / Time metronidazole [From Flagyl] Allergy Anaphylaxis Verified 06/19/20 20:15 morphine Allergy Rash/Hives Verified 06/19/20 20:15 orange flavor AdvReac Abdominal Verified 06/19/20 20:15 Pain tomato [Tomato] AdvReac Abdominal Verified 06/19/20 20:15 Pain wheat AdvReac Abdominal Verified 06/19/20 20:15 Pain Review of Systems ROS Statement: Those systems with pertinent positive or pertinent negative responses have been documented in the HPI. ROS Other: All systems not noted in ROS Statement are negative. Past Medical History Past Medical History: Asthma, Chest Pain / Angina, Diabetes Mellitus, GERD/Refl ux, Hypertension, Pneumonia Additional Past Medical History / Comment(s): HIATAL HERNIA, chronic sinusitis/seasonal allergies,UTI, ATYPICAL CHEST PAIN, 05-20- and in 2018-STR ESS TEST NEG., bronchitis, colitis, IBS, migraines, occasional low back pain. KIDNEY STONES, History of Any Multi-Drug Resistant Organisms: None Reported Past Surgical History: Section, Cholecystectomy, Tubal Ligation Additional Past Surgical History / Comment(s): sinus surgery, D&C, x 4, EGD/colonoscopy. Past Anesthesia/Blood Transfusion Reactions: Previous Problems w/ Anesthesia, Postoperative Nausea & Vomiting (PONV) Additional Past Anesthesia/Blood Transfusion Reaction / Comment(s): Pt did not go all the way under. Pt could hear, but not feel anything Past Psychological History: Anxiety, Depression Smoking Status: Never smoker Past Alcohol Use History: Occasional Past Drug Use History: None Reported - Past Family History Father Family Medical History: Congestive Heart Failure (CHF), Coronary Artery Disease (CAD), Diabetes Mellitus Additional Family Medical History / Comment(s): stents,depression anxiety Mother Family Medical History: Cancer, Diabetes Mellitus, Hypertension Additional Family Medical History / Comment(s): colon cancer, SKIN CANCER, bipolar, split personaltiy disorder. General Exam Limitations: no limitations Course Vital Signs 06/19/20 20:13 Temperature 98.4 F Pulse Rate 100 Respiratory 16 Rate Blood Pressure 108/72 O2 Sat by Pulse 99 Oximetry Medical Decision Making - Lab Data Result diagrams: 06/19/20 20:50 06/19/20 20:50 Lab Results 06/19/20 06/19/20 06/19/20 Range/Units 20:36 20:36 20:50 WBC 11.1 H (3.8-10.6) k/uL RBC 4.53 (3.80-5.40) m/uL Hgb 11.5 (11.4-16.0) gm/dL Hct 36.1 (34.0-46.0) % MCV 79.7 L (80.0-100.0) fL MCH 25.3 (25.0-35.0) pg MCHC 31.7 (31.0-37.0) g/dL RDW 15.2 (11.5-15.5) % Plt Count 274 (150-450) k/uL Neutrophils % 57 % Lymphocytes % 35 % Monocytes % 3 % Eosinophils % 3 % Basophils % 0 % Neutrophils # 6.3 (1.3-7.7) k/uL Lymphocytes # 3.9 (1.0-4.8) k/uL Monocytes # 0.3 (0-1.0) k/uL Eosinophils # 0.3 (0-0.7) k/uL Basophils # 0.1 (0-0.2) k/uL Hypochromasia Slight Sodium (137-145) mmol/L Potassium (3.5-5.1) mmol/L Chloride (98-107) mmol/L Carbon Dioxide (22-30) mmol/L Anion Gap mmol/L BUN (7-17) mg/dL Creatinine (0.52-1.04) mg/dL Est GFR (CKD-EPI)AfAm (>60 ml/min/1.73 sqM) Est GFR (CKD-EPI)NonAf (>60 ml/min/1.73 sqM) Glucose (74-99) mg/dL Calcium (8.4-10.2) mg/dL Urine Color Yellow Urine Appearance Cloudy H (Clear) Urine pH 7.0 (5.0-8.0) Ur Specific [place] 1.023 (1.001-1.035) Urine Protein Negative (Negative) Urine Glucose (UA) Negative (Negative) Urine Ketones Negative (Negative) Urine Blood Negative (Negative) Urine Nitrite Negative (Negative) Urine Bilirubin Negative (Negative) Urine Urobilinogen <2.0 (<2.0) mg/dL Ur Leukocyte Esterase Small H (Negative) Urine RBC 1 (0-5) /hpf Urine WBC 3 (0-5) /hpf Ur Squamous Epith Cells 3 (0-4) /hpf Amorphous Sediment Rare H (None) /hpf Urine Mucus Rare H (None) /hpf Urine HCG, Qual Not Detected (Not Detectd) 06/19/20 Range/Units 20:50 WBC (3.8-10.6) k/uL RBC (3.80-5.40) m/uL Hgb (11.4-16.0) gm/dL Hct (34.0-46.0) % MCV (80.0-100.0) fL MCH (25.0-35.0) pg MCHC (31.0-37.0) g/dL RDW (11.5-15.5) % Plt Count (150-450) k/uL Neutrophils % % Lymphocytes % % Monocytes % % Eosinophils % % Basophils % % Neutrophils # (1.3-7.7) k/uL Lymphocytes # (1.0-4.8) k/uL Monocytes # (0-1.0) k/uL Eosinophils # (0-0.7) k/uL Basophils # (0-0.2) k/uL Hypochromasia Sodium 136 L (137-145) mmol/L Potassium 4.2 (3.5-5.1) mmol/L Chloride 105 (98-107) mmol/L Carbon Dioxide 24 (22-30) mmol/L Anion Gap 7 mmol/L BUN 12 (7-17) mg/dL Creatinine 0.55 (0.52-1.04) mg/dL Est GFR (CKD-EPI)AfAm >90 (>60 ml/min/1.73 sqM) Est GFR (CKD-EPI)NonAf >90 (>60 ml/min/1.73 sqM) Glucose 116 H (74-99) mg/dL Calcium 9.3 (8.4-10.2) mg/dL Urine Color Urine Appearance (Clear) Urine pH (5.0-8.0) Ur Specific [place] (1.001-1.035) Urine Protein (Negative) Urine Glucose (UA) (Negative) Urine Ketones (Negative) Urine Blood (Negative) Urine Nitrite (Negative) Urine Bilirubin (Negative) Urine Urobilinogen (<2.0) mg/dL Ur Leukocyte Esterase (Negative) Urine RBC (0-5) /hpf Urine WBC (0-5) /hpf Ur Squamous Epith Cells (0-4) /hpf Amorphous Sediment (None) /hpf Urine Mucus (None) /hpf Urine HCG, Qual (Not Detectd) Disposition Clinical Impression: Abdominal pain Disposition: HOME SELF-CARE Condition: Fair Instructions (If sedation given, give patient instructions): Abdominal Pain (ED) Additional Instructions: Today you had a computed tomography scan of her abdomen to evaluate your left lower quadrant abdominal pain. On that CT there was a finding of cystic changes to the left ovary and also inflammation to the sigmoid colon. These are both organs that could be sources of ear pain. The rest of your studies did not identify any high risk features. However, you should follow-up with GI and gynecology on an outpatient basis. Prescriptions: HYDROcodone/APAP 5-325MG [[place] 5-325] 1 tab PO Q6HR PRN 3 Days #12 tab PRN Reason: Severe Pain Is patient prescribed a controlled substance at d/c from ED?: Yes If prescribed controlled substance>3 days was MAPS reviewed?: Prescribed <3 Days Referrals: Morena Garcia MD [Primary Care Provider] - 1-2 days Derek Gomez MD [STAFF PHYSICIAN] - 1-2 days Time of Disposition: 22:26
[2020-06-19 20:54] LABS: Amorphous Sediment,Urine Rare /hpf; Appearance,Urine Cloudy (Clear); Bilirubin,Urine Negative (Negative); Blood,Urine Negative (Negative); Color,Urine Yellow; Glucose,Urine (UA) Negative (Negative); Ketones,Urine Negative (Negative); Leukocyte Esterase,Urine Small (Negative); Mucus,Urine Rare /hpf; Nitrite,Urine Negative (Negative); Protein,Urine Negative (Negative); RBC,Urine 1 /hpf (0-5); Specific Gravity,Urine 1.023 (1.001-1.035); Squamous Epithelial Cell,Urine 3 /hpf (0-4); Urobilinogen,Urine <2.0 mg/dL (<2.0); WBC,Urine 3 /hpf (0-5)
[2020-06-19 20:58] LABS: Basophils # (A) 0.1 k/uL (0-0.2); Basophils % (A) 0 %; Eosinophils # (A) 0.3 k/uL (0-0.7); Eosinophils % (A) 3 %; HCT 36.1 % (34.0-46.0); HGB 11.5 gm/dL (11.4-16.0); Hypochromasia Slight; Lymphocytes # (A) 3.9 k/uL (1.0-4.8); Lymphocytes % (A) 35 %; MCH 25.3 pg (25.0-35.0); MCHC 31.7 g/dL (31.0-37.0); MCV 79.7 fL (80.0-100.0); Mean Platelet Volume 8.5; Monocytes # (A) 0.3 k/uL (0-1.0); Monocytes % (A) 3 %; Neutrophils # (A) 6.3 k/uL (1.3-7.7); Neutrophils % (A) 57 %; Platelet Count 274 k/uL (150-450); RBC 4.53 m/uL (3.80-5.40); RDW 15.2 % (11.5-15.5); WBC 11.1 k/uL (3.8-10.6)
[2020-06-19 21:07] LABS: African American GFR (CKD) >90 (>60 ml/min/1.73 sqM); Anion Gap 7 mmol/L; Blood Urea Nitrogen 12 mg/dL (7-17); Calcium 9.3 mg/dL (8.4-10.2); Carbon Dioxide 24 mmol/L (22-30); Chloride 105 mmol/L (98-107); Glucose 116 mg/dL (74-99); Non-African American GFR(CKD) >90 (>60 ml/min/1.73 sqM); Potassium 4.2 mmol/L (3.5-5.1); Sodium 136 mmol/L (137-145)
--- NOTE | 2020-06-19 22:02 | CT ---
EXAMINATION TYPE: CT abdomen pelvis w con DATE OF EXAM: 06/19/2020 HISTORY: LLQ pain CT DLP: 1868.1mGycm Automated Exposure Control for Dose Reduction was Utilized. CONTRAST: CT scan of the abdomen and pelvis is performed without oral but with IV Contrast, patient injected wi th 100 mL of Isovue 300. COMPARISON: None. FINDINGS: LUNG BASES: Cholecystectomy clips are present.. LIVER/GB: No significant abnormality is appreciated. PANCREAS: No significant abnormality is seen. SPLEEN: No significant abnormality is seen. ADRENALS: No significant abnormality is seen. KIDNEYS: Persistent 11 to 12 mm calculus lower pole left renal pelvis coronal image 62 and single 2 m m calculus inferior to this coronal image 61 symmetric cortical medullary uptake and excretion withou t hydronephrosis seen bilaterally. A few small simple appearing thin-walled cysts bilaterally are pre sent. BOWEL: Normal-appearing appendix from cecum. Suboptimal evaluation without enteric contrast. Mild wal l thickening proximal sigmoid colon presumed on product of poor distention. UTERUS/ADNEXA: Anteverted uterus. Cystic change left ovary axial image 62. Few scattered pelvic phleb oliths bilaterally. LYMPH NODES: No greater than 1cm abdominal or pelvic lymph nodes are appreciated. OSSEOUS STRUCTURES: No significant abnormality is seen. OTHER: Tiny fat-containing umbilical hernia. IMPRESSION: 1. There is a large 11 to 12 mm lower pelvic left renal calculus and additional nonobstructing tiny l eft renal calculus. No hydronephrosis or delayed excretion in either kidney. 2. Possible focal mild uncomplicated acute colitis proximal sigmoid colon level versus product of poo r distention, correlate clinically. 3. Asymmetric Cystic change left ovary can be better evaluated and characterized with pelvic ultrasou nd if desired.
[2020-06-19] MEDS ORDERED: ACET/COD 300 MG/30 MG STARTER PACK 6 TAB BTL PO STA (22:27)
[2020-06-19 23:02] VITALS: BP 133/78; PULSE 83; TEMP 98.3
== END 2020-06-19 23:05 | disposition home or self-care (01) ==
LOC: EC 20:10
DX: R10.32 Left lower quadrant pain (principal); R19.7 Diarrhea, unspecified; J45.909 Unspecified asthma, uncomplicated; Z32.02 Encounter for pregnancy test, result negative; E11.9 Type 2 diabetes mellitus without complications; I10 Essential (primary) hypertension; K21.9 Gastro-esophageal reflux disease without esophagitis; F41.9 Anxiety disorder, unspecified; F32.9 Major depressive disorder, single episode, unspecified; N83.202 Unspecified ovarian cyst, left side; N20.0 Calculus of kidney; Z79.84 Long term (current) use of oral hypoglycemic drugs; Z79.899 Other long term (current) drug therapy; Z88.1 Allergy status to other antibiotic agents; Z88.5 Allergy status to narcotic agent; Z91.018 Allergy to other foods
CPT/HCPCS: 36415; 80048; 85025; 81001; 81025; 74177; 99284; Q9967

== ENCOUNTER 2020-08-18 19:25 | Emergency (ER) | payer MEDICAID, OTHER ==
[2020-08-18 19:40] VITALS: BP 144/87; PULSE 96; RESP 18; TEMP 98.3
[2020-08-18] MEDS ORDERED: ACET/COD 300 MG/30 MG STARTER PACK 6 TAB BTL PO STA (19:46)
[2020-08-18] MEDS ORDERED: CEPHALEXIN 500MG STARTER PACK 4 CAP BTL PO STA (19:46)
[2020-08-18] MEDS ORDERED: DIPH,PERTUS(ACELL)TETVAC-LF 0.5 ML VIAL IM ONE (19:46)
--- NOTE | 2020-08-18 20:13 | XR ---
EXAMINATION TYPE: XR hand complete RT DATE OF EXAM: 08/18/2020 COMPARISON: NONE HISTORY: Puncture wound. Pain. TECHNIQUE: 3 views FINDINGS: I see no fracture nor dislocation. There is some appears intact. There is no sign of radiop aque foreign body. There are no erosions. IMPRESSION: Negative right hand exam. No fracture.
--- NOTE | 2020-08-18 20:14 | ED ---
Recheck HPI - General Chief Complaint: Recheck/Abnormal Lab/Rx Stated Complaint: puncture wound Time Seen by Provider: 08/18/20 19:41 Source: patient Mode of arrival: ambulatory Limitations: no limitations - History of Present Illness Initial Comments: 40-year-old female presenting for redness swelling of her right hand after puncture wound. Patient states yesterday evening less than 24 hours ago she states she punctured her right hand near the thumb part of the palm on a nail that was poking out of a drawer. She states she does not believe it went in very far. She states it was not stuck in her hand she does not believe it was [place]. Patient states that she was some redness increasing swelling and it felt tingly today. Denies loss of sensation or weakness. She states she still able to fully range the thumb denies any thumb swelling. She denies a fever chills general malaise. Patient states she is a prediabetic. Patient is unsure last tetanus remaining review of systems negative upon arrival patient appears nontoxic in no acute distress. - Related Data Home Medications Medication Instructions Recorded Confirmed Rizatriptan Benzoate [Maxalt] 10 mg PO BID PRN 03/24/18 09/06/19 Topiramate [Trokendi Xr] 200 mg PO DAILY 09/03/18 09/06/19 Butalbital/Aspirin/Caffeine 1 cap PO Q4H PRN 05/31/19 09/06/19 [Fiorinal 50-325-40 MG] Escitalopram Oxalate [Lexapro] 10 mg PO HS 05/31/19 09/06/19 Galcanezumab-Gnlm [Emgality] 120 mg SQ Q28D 05/31/19 09/06/19 metFORMIN HCL ER [Glucophage Xr] 500 mg PO PC-SUPPER 05/31/19 09/06/19 Dm/PE/Acetaminophen/Doxylamine 1 tab PO DAILY PRN 09/06/19 09/06/19 [Gin-[place] Plus Day-Night Cp] Ferrous Sulfate [Feosol] 325 mg PO DAILY 09/06/19 09/06/19 Nadolol [Corgard] 20 mg PO BID 09/06/19 09/06/19 Previous Rx's Medication Instructions Recorded Albuterol Inhaler (Mhu) [Ventolin 1 - 2 puff INHALATION Q6HR PRN #1 10/29/19 Hfa Inhaler (Mhu)] inhaler Albuterol Nebulized [Ventolin 2.5 mg INHALATION Q6H #30 nebu 09/07/19 Nebulized] Azithromycin 250 mg PO DAILY 4 Days #4 tab 10/20/19 guaiFENesin-DM 600/30MG [Mucinex 2 each PO Q12HR #20 tab.er.12h 10/20/19 Dm] Benzonatate [Tessalon Perles] 100 mg PO TID PRN #20 capsule 10/23/19 predniSONE 50 mg PO DAILY #4 tab 10/23/19 HYDROcodone/APAP 5-325MG [[place] 1 tab PO Q6HR PRN 3 Days #12 tab 06/19/20 5-325] Cephalexin [Keflex] 500 mg PO Q6HR 7 Days #28 cap 08/18/20 Allergies Allergy/AdvReac Type Severity Reaction Status Date / Time metronidazole [From Flagyl] Allergy Anaphylaxis Verified 08/18/20 19:41 morphine Allergy Rash/Hives Verified 08/18/20 19:41 orange flavor AdvReac Abdominal Verified 08/18/20 19:41 Pain tomato [Tomato] AdvReac Abdominal Verified 08/18/20 19:41 Pain wheat AdvReac Abdominal Verified 08/18/20 19:41 Pain Review of Systems ROS Statement: Those systems with pertinent positive or pertinent negative responses have been documented in the HPI. ROS Other: All systems not noted in ROS Statement are negative. Past Medical History Past Medical History: Asthma, Chest Pain / Angina, Diabetes Mellitus, GERD/Reflux, Hypertension, Pneumonia Additional Past Medical History / Comment(s): HIATAL HERNIA, chronic sinusitis/seasonal allergies,UTI, ATYPICAL CHEST PAIN, 05-20- and in 2018- STRESS TEST NEG., bronchitis, colitis, IBS, migraines, occasional low back pain. KIDNEY STONES, History of Any Multi-Drug Resistant Organisms: None Reported Past Surgical History: Section, Cholecystectomy, Tubal Ligation Additional Past Surgical History / Comment(s): sinus surgery, D&C, x 4, EGD/colonoscopy. Past Anesthesia/Blood Transfusion Reactions: Previous Problems w/ Anesthesia, Postoperative Nausea & Vomiting (PONV) Additional Past Anesthesia/Blood Transfusion Reaction / Comment(s): Pt did not go all the way under. Pt could hear, but not feel anything Past Psychological History: Anxiety, Depression Smoking Status: Never smoker Past Alcohol Use History: Occasional Past Drug Use History: None Reported - Past Family History Father Family Medical History: Congestive Heart Failure (CHF), Coronary Artery Disease (CAD), Diabetes Mellitus Additional Family Medical History / Comment(s): stents,depression anxiety Mother Family Medical History: Cancer, Diabetes Mellitus, Hypertension Additional Family Medical History / Comment(s): colon cancer, SKIN CANCER, bipolar, split personaltiy disorder. General Exam - General Exam Comments Initial Comments: General: The patient is awake and alert, in no distress, and does not appear acutely ill. Eye: Pupils are equal, round and reactive to light, extra-ocular movements are intact. No nystagmus. There is normal conjunctiva bilaterally. No signs of icterus. Musculoskeletal: On inspection of the right hand there is some mild redness surrounding a small pencil point size scab, suspected puncture. There is no active bleeding, or fluctuant areas. Patient has no fusiform swelling or limitation of ROM of the digits of the right hand. no drainage appreciated. No significant tenderness to active or passive flexion. There is tenderness to palpation of the puncture site. mild warmth. No extension proximally, redness localized to area of puncture. Strength 5/5. Sensation intact. Radial pulses equal bilaterally 2+. Neurological: A&O x 3. CN II-XII intact, There are no obvious motor or sensory deficits. Coordination appears grossly intact. Speech is normal. Skin: Skin is warm and dry and no rashes or lesions are noted. Psychiatric: Cooperative, appropriate mood & affect, normal judgment. Limitations: no limitations Course Vital Signs 08/18/20 19:36 Temperature 98.3 F Pulse Rate 96 Respiratory 18 Rate Blood Pressure 144/87 O2 Sat by Pulse 98 Oximetry Medical Decision Making - Medical Decision Making No findings suggestive of a flexor tenosynovitis at this time. There is evidence of a puncture wound with surrounding mild cellulitis. Patient be treated with antibiotics tetanus was updated x-ray obtained to rule out retained foreign body no evidence of radiopaque foreign body at this time. This could've serious infection with puncture was discussed at length with patient I discussed return parameters patient verbalizes understanding of discharge with antibiotics which were initiated in the emergency department. Patient is agreeable to this care plan I discussed the case by attending provider Dr. Salmeron who is agreeable to care plan and discharge. Disposition Clinical Impression: Puncture wound Disposition: HOME SELF-CARE Condition: Good Instructions (If sedation given, give patient instructions): Puncture Wound (ED) Additional Instructions: Please use medication as discussed. Please follow-up with family doctor in the next 2 days, take antibiotics as discussed and monitor closely for finger swelling, drainage, increasing swelling/redness pain. Please return to emergency room if the symptoms increase or worsen or for any other concerns. Prescriptions: Cephalexin [Keflex] 500 mg PO Q6HR 7 Days #28 cap Is patient prescribed a controlled substance at d/c from ED?: No Referrals: Morena Garcia MD [Primary Care Provider] - 1-2 days Time of Disposition: 20:14
== END 2020-08-18 20:20 | disposition home or self-care (01) ==
LOC: EC 19:25
DX: S61.431A Puncture wound without foreign body of right hand, initial encounter (principal); L03.113 Cellulitis of right upper limb; F41.9 Anxiety disorder, unspecified; F32.9 Major depressive disorder, single episode, unspecified; E11.9 Type 2 diabetes mellitus without complications; K21.9 Gastro-esophageal reflux disease without esophagitis; I10 Essential (primary) hypertension; Z23 Encounter for immunization; Z86.69 Personal history of other diseases of the nervous system and sense organs; Z79.84 Long term (current) use of oral hypoglycemic drugs; Z79.899 Other long term (current) drug therapy; W45.0XXA Nail entering through skin, initial encounter; Z88.5 Allergy status to narcotic agent; Z88.8 Allergy status to other drugs, medicaments and biological substances; Z91.018 Allergy to other foods
CPT/HCPCS: 90471; 90715; 99283

== ENCOUNTER 2020-08-28 15:59 | Emergency (ER) | payer MEDICAID, OTHER ==
[2020-08-28] MEDS ORDERED: ONDANSETRON 4 MG/2 ML VIAL IVP STA (16:33)
[2020-08-28] MEDS ORDERED: KETOROLAC 15 MG/ML 1 ML VIAL IVP STA (16:33)
[2020-08-28] MEDS ORDERED: SODIUM CHLORIDE 0.9% 1,000 ML IV STA (16:33)
[2020-08-28 16:58] LABS: Appearance,Urine Cloudy (Clear); Bacteria,Urine Rare /hpf; Bilirubin,Urine Negative (Negative); Blood,Urine Trace (Negative); Color,Urine Yellow; Glucose,Urine (UA) Negative (Negative); Hyaline Casts,Urine 1 /lpf (0-2); Ketones,Urine Trace (Negative); Leukocyte Esterase,Urine Trace (Negative); Mucus,Urine Rare /hpf; Nitrite,Urine Negative (Negative); PH, Urine 6.5 (5.0-8.0); Protein,Urine Trace (Negative); RBC,Urine 14 /hpf (0-5); Specific Gravity,Urine 1.025 (1.001-1.035); Squamous Epithelial Cell,Urine 15 /hpf (0-4); Urobilinogen,Urine <2.0 mg/dL (<2.0); WBC,Urine 7 /hpf (0-5)
[2020-08-28 17:00] LABS: ALT 25 U/L (4-34); AST 27 U/L (14-36); African American GFR (CKD) >90 (>60 ml/min/1.73 sqM); Alkaline Phosphatase 82 U/L (38-126); Anion Gap 8 mmol/L; Blood Urea Nitrogen 10 mg/dL (7-17); Calcium 9.2 mg/dL (8.4-10.2); Carbon Dioxide 23 mmol/L (22-30); Chloride 105 mmol/L (98-107); Glucose 141 mg/dL (74-99); Non-African American GFR(CKD) >90 (>60 ml/min/1.73 sqM); Potassium 4.4 mmol/L (3.5-5.1); Sodium 136 mmol/L (137-145); Total Bilirubin 0.4 mg/dL (0.2-1.3); Total Protein 7.1 g/dL (6.3-8.2)
[2020-08-28 17:16] LABS: Basophils % (A) 0 %; Eosinophils # (A) 0.3 k/uL (0-0.7); Eosinophils % (A) 2 %; HCT 37.8 % (34.0-46.0); HGB 11.8 gm/dL (11.4-16.0); Hypochromasia Slight; Lymphocytes # (A) 2.6 k/uL (1.0-4.8); Lymphocytes % (A) 22 %; MCH 25.4 pg (25.0-35.0); MCHC 31.3 g/dL (31.0-37.0); MCV 81.1 fL (80.0-100.0); Mean Platelet Volume 8.1; Monocytes # (A) 0.4 k/uL (0-1.0); Monocytes % (A) 4 %; Neutrophils # (A) 8.3 k/uL (1.3-7.7); Neutrophils % (A) 70 %; Platelet Count 287 k/uL (150-450); RBC 4.66 m/uL (3.80-5.40); RDW 14.8 % (11.5-15.5); WBC 11.8 k/uL (3.8-10.6)
--- NOTE | 2020-08-28 18:07 | CT ---
EXAMINATION TYPE: CT abdomen pelvis w con DATE OF EXAM: 08/28/2020 COMPARISON: 06/19/2020. HISTORY: Left sided flank and Abdominal pain with urination changes and N/V CT DLP: 1938.1 mGycm Automated exposure control for dose reduction was used. TECHNIQUE: Helical acquisition of images was performed from the lung bases through the pelvis. CONTRAST: Performed without Oral Contrast and with IV Contrast, patient injected with 100 mL of Isovue 300. FINDINGS: LUNG BASES: No significant abnormality is appreciated. LIVER/GB: No significant abnormality is appreciated. Hepatic steatosis and cholecystectomy noted. PANCREAS: No significant abnormality is seen. SPLEEN: No significant abnormality is seen. ADRENALS: No significant abnormality is seen. KIDNEYS: 7 mm obstructing calculus at the left UPJ with moderate hydronephrosis. Additional nonobstru cting punctate left renal calculus in the lower pole. No right hydronephrosis or nephrolithiasis. Mul tiple bilateral simple appearing renal cysts measuring up to 1.2 cm. No follow-up is needed. FREE AIR: No free air is visualized. RETROPERITONEAL ADENOPATHY: None visualized REPRODUCTIVE ORGANS: No significant abnormality is seen URINARY BLADDER: No significant abnormality is seen. PELVIC ADENOPATHY: None visualized. OSSEOUS STRUCTURES: No significant abnormality is seen. BOWEL: No significant abnormality is seen. OTHER: None. IMPRESSION: 7 MM OBSTRUCTING LEFT UPJ CALCULUS WITH MODERATE HYDRONEPHROSIS. Findings appear to be interval migra tion of previous large stone seen in the renal pelvis. Additional nonobstructing punctate left renal calculus.
--- NOTE | 2020-08-28 18:27 | ED ---
Abdominal Pain HPI - General Chief Complaint: Abdominal Pain Stated Complaint: back/abd/pain/nausea Time Seen by Provider: 08/28/20 16:33 Source: patient Limitations: no limitations - History of Present Illness Initial Comments: Patient is a 40-year-old female presenting to the emergency department with a chief complaint of flank pain. Patient reports she woke up this morning with sudden onset of left-sided flank pain that is now gradually radiating to the left side of the abdomen. Patient also reports nausea with multiple episodes of not bilious and nonbloody vomiting. Patient states several years ago she was diagnosed with kidney stones in her left kidney but has never had issues since. She denies any night sweats fevers or chills. She denies hematuria, hematoche angela or melena. She denies increased urgency frequency or dysuria. Denies any vaginal symptoms. Surgical history of cholecystectomy and multiple C-sections. - Related Data Home Medications Medication Instructions Recorded Confirmed Rizatriptan Benzoate [Maxalt] 10 mg PO BID PRN 03/24/18 09/06/19 Topiramate [Trokendi Xr] 200 mg PO DAILY 09/03/18 09/06/19 Butalbital/Aspirin/Caffeine 1 cap PO Q4H PRN 05/31/19 09/06/19 [Fiorinal 50-325-40 MG] Escitalopram Oxalate [Lexapro] 10 mg PO HS 05/31/19 09/06/19 Galcanezumab-Gnlm [Emgality] 120 mg SQ Q28D 05/31/19 09/06/19 metFORMIN HCL ER [Glucophage Xr] 500 mg PO PC-SUPPER 05/31/19 09/06/19 Dm/PE/Acetaminophen/Doxylamine 1 tab PO DAILY PRN 09/06/19 09/06/19 [Gin-[place] Plus Day-Night Cp] Ferrous Sulfate [Feosol] 325 mg PO DAILY 09/06/19 09/06/19 Nadolol [Corgard] 20 mg PO BID 09/06/19 09/06/19 Previous Rx's Medication Instructions Recorded Albuterol Inhaler (Mhu) [Ventolin 1 - 2 puff INHALATION Q6HR PRN #1 09/07/19 Hfa Inhaler (Mhu)] inhaler Albuterol Nebulized [Ventolin 2.5 mg INHALATION Q6H #30 nebu 09/07/19 Nebulized] Azithromycin 250 mg PO DAILY 4 Days #4 tab 10/20/19 guaiFENesin-DM 600/30MG [Mucinex 2 each PO Q12HR #20 tab.er.12h 10/20/19 Dm] Benzonatate [Tessalon Perles] 100 mg PO TID PRN #20 capsule 10/23/19 predniSONE 50 mg PO DAILY #4 tab 10/23/19 HYDROcodone/APAP 5-325MG [[place] 1 tab PO Q6HR PRN 3 Days #12 tab 06/19/20 5-325] Cephalexin [Keflex] 500 mg PO Q6HR 7 Days #28 cap 08/18/20 Allergies Allergy/AdvReac Type Severity Reaction Status Date / Time metronidazole [From Flagyl] Allergy Anaphylaxis Verified 08/28/20 16:08 morphine Allergy Rash/Hives Verified 08/28/20 16:08 orange flavor AdvReac Abdominal Verified 08/28/20 16:08 Pain tomato [Tomato] AdvReac Abdominal Verified 08/28/20 16:08 Pain wheat AdvReac Abdominal Verified 08/28/20 16:08 Pain Review of Systems ROS Statement: Those systems with pertinent positive or pertinent negative responses have been documented in the HPI. ROS Other: All systems not noted in ROS Statement are negative. Past Medical History Past Medical History: Asthma, Chest Pain / Angina, Diabetes Mellitus, GERD/Reflux, Hypertension, Pneumonia Additional Past Medical History / Comment(s): HIATAL HERNIA, chronic sinusitis/seasonal allergies,UTI, ATYPICAL CHEST PAIN, 05-20- and in 2018- STRESS TEST NEG., bronchitis, colitis, IBS, migraines, occasional low back pain. KIDNEY STONES, History of Any Multi-Drug Resistant Organisms: None Reported Past Surgical History: Section, Cholecystectomy, Tubal Ligation Additional Past Surgical History / Comment(s): sinus surgery, D&C, x 4, EGD/colonoscopy. Past Anesthesia/Blood Transfusion Reactions: Previous Problems w/ Anesthesia, Postoperative Nausea & Vomiting (PONV) Additional Past Anesthesia/Blood Transfusion Reaction / Comment(s): Pt did not go all the way under. Pt could hear, but not feel anything Past Psychological History: Anxiety, Depression Smoking Status: Never smoker Past Alcohol Use History: Occasional Past Drug Use History: None Reported - Past Family History Father Family Medical History: Congestive Heart Failure (CHF), Coronary Artery Disease (CAD), Diabetes Mellitus Additional Family Medical History / Comment(s): stents,depression anxiety Mother Family Medical History: Cancer, Diabetes Mellitus, Hypertension Additional Family Medical History / Comment(s): colon cancer, SKIN CANCER, bipolar, split personaltiy disorder. General Exam Limitations: no limitations General appearance: alert, in no apparent distress, in distress Head exam: Present: atraumatic, normocephalic, normal inspection Eye exam: Present: normal appearance, PERRL, EOMI Pupils: Present: normal accommodation ENT exam: Present: normal exam, normal oropharynx, mucous membranes moist, TM's normal bilaterally, normal external ear exam Neck exam: Present: normal inspection, full ROM. Absent: tenderness Respiratory exam: Present: normal lung sounds bilaterally. Absent: respiratory distress, wheezes, rales Cardiovascular Exam: Present: regular rate, normal rhythm, normal heart sounds GI/Abdominal exam: Present: soft, tenderness (Left flank). Absent: distended, guarding, rebound, rigid Extremities exam: Present: normal inspection, full ROM, normal capillary refill. Absent: tenderness Back exam: Present: normal inspection, full ROM, tenderness, CVA tenderness (L). Absent: CVA tenderness (R) Neurological exam: Present: alert, oriented X3, normal gait Psychiatric exam: Present: normal affect, normal mood Skin exam: Present: warm, dry, intact, normal color Course Vital Signs 08/28/20 16:05 Temperature 98.1 F Pulse Rate 72 Respiratory 18 Rate Blood Pressure 153/89 O2 Sat by Pulse 97 Oximetry Medical Decision Making - Medical Decision Making Patient is a 40-year-old female presenting to the emergency department with a chief complaint abdominal pain. On physical examination, patient has left CVA tenderness along with left flank pain. Symptomatic control was provided with IV fluids, antiemetics and analgesia. CBC is unremarkable. UA reveals trace amounts of blood with slight elevation in red blood cells. CT of abdomen and pelvis reveals a 7 mm stone that is obstructing in the left UPJ with mild hydronephrosis. Patient to be discharged with Tylenol 3 starter pack and Zofran starter pack. She will also be given a prescription of Zofran and Flomax. She was advised to follow with urologist. Strict return parameters were thoroughly discussed the patient is understanding and agreeable. Case discussed with physician. - Lab Data Result diagrams: 08/28/20 16:42 08/28/20 16:42 Lab Results 08/28/20 08/28/20 08/28/20 Range/Units 16:42 16:42 16:42 WBC 11.8 H (3.8-10.6) k/uL RBC 4.66 (3.80-5.40) m/uL Hgb 11.8 (11.4-16.0) gm/dL Hct 37.8 (34.0-46.0) % MCV 81.1 (80.0-100.0) fL MCH 25.4 (25.0-35.0) pg MCHC 31.3 (31.0-37.0) g/dL RDW 14.8 (11.5-15.5) % Plt Count 287 (150-450) k/uL Neutrophils % 70 % Lymphocytes % 22 % Monocytes % 4 % Eosinophils % 2 % Basophils % 0 % Neutrophils # 8.3 H (1.3-7.7) k/uL Lymphocytes # 2.6 (1.0-4.8) k/uL Monocytes # 0.4 (0-1.0) k/uL Eosinophils # 0.3 (0-0.7) k/uL Basophils # 0.0 (0-0.2) k/uL Hypochromasia Slight Sodium 136 L (137-145) mmol/L Potassium 4.4 (3.5-5.1) mmol/L Chloride 105 (98-107) mmol/L Carbon Dioxide 23 (22-30) mmol/L Anion Gap 8 mmol/L BUN 10 (7-17) mg/dL Creatinine 0.69 (0.52-1.04) mg/dL Est GFR (CKD-EPI)AfAm >90 (>60 ml/min/1.73 sqM) Est GFR (CKD-EPI)NonAf >90 (>60 ml/min/1.73 sqM) Glucose 141 H (74-99) mg/dL Calcium 9.2 (8.4-10.2) mg/dL Total Bilirubin 0.4 (0.2-1.3) mg/dL AST 27 (14-36) U/L ALT 25 (4-34) U/L Alkaline Phosphatase 82 (38-126) U/L Troponin I (0.000-0.034) ng/mL Total Protein 7.1 (6.3-8.2) g/dL Albumin 4.0 (3.5-5.0) g/dL Lipase 122 (23-300) U/L Urine Color Yellow Urine Appearance Cloudy H (Clear) Urine pH 6.5 (5.0-8.0) Ur Specific [place] 1.025 (1.001-1.035) Urine Protein Trace H (Negative) Urine Glucose (UA) Negative (Negative) Urine Ketones Trace H (Negative) Urine Blood Trace H (Negative) Urine Nitrite Negative (Negative) Urine Bilirubin Negative (Negative) Urine Urobilinogen <2.0 (<2.0) mg/dL Ur Leukocyte Esterase Trace H (Negative) Urine RBC 14 H (0-5) /hpf Urine WBC 7 H (0-5) /hpf Ur Squamous Epith Cells 15 H (0-4) /hpf Urine Bacteria Rare H (None) /hpf Hyaline Casts 1 (0-2) /lpf Urine Mucus Rare H (None) /hpf Urine HCG, Qual (Not Detectd) 08/28/20 08/28/20 Range/Units 16:49 16:49 WBC (3.8-10.6) k/uL RBC (3.80-5.40) m/uL Hgb (11.4-16.0) gm/dL Hct (34.0-46.0) % MCV (80.0-100.0) fL MCH (25.0-35.0) pg MCHC (31.0-37.0) g/dL RDW (11.5-15.5) % Plt Count (150-450) k/uL Neutrophils % % Lymphocytes % % Monocytes % % Eosinophils % % Basophils % % Neutrophils # (1.3-7.7) k/uL Lymphocytes # (1.0-4.8) k/uL Monocytes # (0-1.0) k/uL Eosinophils # (0-0.7) k/uL Basophils # (0-0.2) k/uL Hypochromasia Sodium (137-145) mmol/L Potassium (3.5-5.1) mmol/L Chloride (98-107) mmol/L Carbon Dioxide (22-30) mmol/L Anion Gap mmol/L BUN (7-17) mg/dL Creatinine (0.52-1.04) mg/dL Est GFR (CKD-EPI)AfAm (>60 ml/min/1.73 sqM) Est GFR (CKD-EPI)NonAf (>60 ml/min/1.73 sqM) Glucose (74-99) mg/dL Calcium (8.4-10.2) mg/dL Total Bilirubin (0.2-1.3) mg/dL AST (14-36) U/L ALT (4-34) U/L Alkaline Phosphatase (38-126) U/L Troponin I <0.012 (0.000-0.034) ng/mL Total Protein (6.3-8.2) g/dL Albumin (3.5-5.0) g/dL Lipase (23-300) U/L Urine Color Urine Appearance (Clear) Urine pH (5.0-8.0) Ur Specific [place] (1.001-1.035) Urine Protein (Negative) Urine Glucose (UA) (Negative) Urine Ketones (Negative) Urine Blood (Negative) Urine Nitrite (Negative) Urine Bilirubin (Negative) Urine Urobilinogen (<2.0) mg/dL Ur Leukocyte Esterase (Negative) Urine RBC (0-5) /hpf Urine WBC (0-5) /hpf Ur Squamous Epith Cells (0-4) /hpf Urine Bacteria (None) /hpf Hyaline Casts (0-2) /lpf Urine Mucus (None) /hpf Urine HCG, Qual Not Detected (Not Detectd) Disposition Clinical Impression: Renal stone, Hydronephrosis Disposition: HOME SELF-CARE Condition: Stable Instructions (If sedation given, give patient instructions): Kidney Stones (ED) Additional Instructions: Take prescribed medication as directed. Follow-up with urologist. Return to emergency department if symptoms worsen. Is patient prescribed a controlled substance at d/c from ED?: No Referrals: Morena Garcia MD [Primary Care Provider] - 1-2 days Karthik Hearn MD [STAFF PHYSICIAN] - 1-2 days Time of Disposition: 18:43
[2020-08-28] MEDS ORDERED: ONDANSETRON 4 MG ODT STARTER PACK 2 TAB BTL PO STA (18:43)
[2020-08-28] MEDS ORDERED: TAMSULOSIN 0.4 MG CAP.ER.24H PO STA (18:43)
[2020-08-28] MEDS ORDERED: ACET/COD 300 MG/30 MG STARTER PACK 6 TAB BTL PO STA (18:43)
[2020-08-28 18:54] VITALS: BP 148/68; PULSE 77; RESP 19; TEMP 98.4
== END 2020-08-28 18:58 | disposition home or self-care (01) ==
LOC: EC 15:59
DX: N13.2 Hydronephrosis with renal and ureteral calculous obstruction (principal); E11.9 Type 2 diabetes mellitus without complications; I10 Essential (primary) hypertension; F41.9 Anxiety disorder, unspecified; F32.9 Major depressive disorder, single episode, unspecified; Z79.84 Long term (current) use of oral hypoglycemic drugs; Z79.899 Other long term (current) drug therapy; Z88.1 Allergy status to other antibiotic agents; Z88.5 Allergy status to narcotic agent; Z91.018 Allergy to other foods; Z90.49 Acquired absence of other specified parts of digestive tract; Z98.51 Tubal ligation status
CPT/HCPCS: 36415; 93005; 80053; 83690; 84484; 85025; 81001; 81025; 74177; 99284; 96374; 96375; 96361; J2405; J1885; S0119; Q9967

== ENCOUNTER 2020-08-31 13:44 | Day surgery (SDC) | payer MEDICAID, OTHER ==
--- NOTE | 2020-08-31 10:48 | P.GSHP ---
History of Present Illness H&P Date: 08/31/20 Chief Complaint: Left hydronephrosis secondary to renal calculus The patient is a 40-year-old female who developed severe left flank and left upper quadrant pain associated with nausea and vomiting on 08/27/2020. She was seen in the [facility] emergency room. A computed tomography scan of the abdomen and pelvis identified a 9 x 12 mm calculus at the left ureteropelvic junction secondary hydronephrosis. The calculus had been located in the left lower pole on a computed tomography scan of the abdomen with IV contrast done on 06/19/2020. She has been treated with Zofran for her nausea and Aleve and Tylenol No. 3 for pain. Unfortunately her pain has been so severe that she cannot work. She was seen by me on August 30. I reviewed treatment options for the calculus. Due to her obesity I do not feel that ESWL is a great option. I discussed both percutaneous nephrostolithotomy and ureteroscopy with lithotripsy and the patient favors the percutaneous approach. Unfortunately this procedure cannot be scheduled in the near future. Cystoscopy with placement of a double-J catheter performed to decompress the patient and relieve her acute pain. Patient has no history of recurrent urinary tract infections. Her sister has had kidney stones. - Constitutional Constitutional: Denies chills, Denies fever - Cardiovascular Cardiovascular: Denies chest pain, Denies shortness of breath - Respiratory Respiratory: Denies cough, Denies wheezing - Gastrointestinal Gastrointestinal: Reports as per HPI - Genitourinary (Female) Genitourinary: Reports as per HPI Past Medical History Past Medical History: Asthma, Chest Pain / Angina, Diabetes Mellitus, GERD/Reflux, Hypertension, Pneumonia Additional Past Medical History / Comment(s): HIATAL HERNIA, chronic sinusitis/seasonal allergies,UTI, ATYPICAL CHEST PAIN, 7--14 and in 2018- STRESS TEST NEG., bronchitis, colitis, IBS, migraines, occasional low back pain. KIDNEY STONES, History of Any Multi-Drug Resistant Organisms: None Reported Past Surgical History: Section, Cholecystectomy, Tubal Ligation Additional Past Surgical History / Comment(s): sinus surgery, D&C, x 4, EGD/colonoscopy. Past Anesthesia/Blood Transfusion Reactions: Previous Problems w/ Anesthesia, Postoperative Nausea & Vomiting (PONV) Additional Past Anesthesia/Blood Transfusion Reaction / Comment(s): Pt did not go all the way under. Pt could hear, but not feel anything Past Psychological History: Anxiety, Depression Smoking Status: Never smoker Past Alcohol Use History: Occasional Past Drug Use History: None Reported - Past Family History Father Family Medical History: Congestive Heart Failure (CHF), Coronary Artery Disease (CAD), Diabetes Mellitus Additional Family Medical History / Comment(s): stents,depression anxiety Mother Family Medical History: Cancer, Diabetes Mellitus, Hypertension Additional Family Medical History / Comment(s): colon cancer, SKIN CANCER, bipolar, split personaltiy disorder. Medications and Allergies Home Medications Medication Instructions Recorded Confirmed Type Rizatriptan Benzoate [Maxalt] 10 mg PO BID PRN 03/24/18 09/06/19 History Topiramate [Trokendi Xr] 200 mg PO DAILY 09/03/18 09/06/19 History Butalbital/Aspirin/Caffeine 1 cap PO Q4H PRN 05/31/19 09/06/19 History [Fiorinal 50-325-40 MG] Escitalopram Oxalate [Lexapro] 10 mg PO HS 05/31/19 09/06/19 History Galcanezumab-Gnlm [Emgality] 120 mg SQ Q28D 05/31/19 09/06/19 History metFORMIN HCL ER [Glucophage Xr] 500 mg PO PC-SUPPER 05/31/19 09/06/19 History Dm/PE/Acetaminophen/Doxylamine 1 tab PO DAILY PRN 09/06/19 09/06/19 History [Gin-[place] Plus Day-Night Cp] Ferrous Sulfate [Feosol] 325 mg PO DAILY 09/06/19 09/06/19 History Nadolol [Corgard] 20 mg PO BID 09/06/19 09/06/19 History Albuterol Inhaler (Mhu) [Ventolin 1 - 2 puff INHALATION Q6HR PRN #1 09/07/19 Rx Hfa Inhaler (Mhu)] inhaler Albuterol Nebulized [Ventolin 2.5 mg INHALATION Q6H #30 nebu 09/07/19 Rx Nebulized] Azithromycin 250 mg PO DAILY 4 Days #4 tab 10/20/19 Rx guaiFENesin-DM 600/30MG [Mucinex 2 each PO Q12HR #20 tab.er.12h 10/20/19 Rx Dm] Benzonatate [Tessalon Perles] 100 mg PO TID PRN #20 capsule 10/23/19 Rx predniSONE 50 mg PO DAILY #4 tab 10/23/19 Rx HYDROcodone/APAP 5-325MG [[place] 1 tab PO Q6HR PRN 3 Days #12 tab 06/19/20 Rx 5-325] Cephalexin [Keflex] 500 mg PO Q6HR 7 Days #28 cap 08/18/20 Rx Ondansetron Odt [Zofran Odt] 4 mg PO Q8HR PRN #20 tab 08/29/20 Rx Tamsulosin [Flomax] 0.4 mg PO DAILY #7 cap 08/29/20 Rx Allergies Allergy/AdvReac Type Severity Reaction Status Date / Time metronidazole [From Flagyl] Allergy Anaphylaxis Verified 08/28/20 16:08 morphine Allergy Rash/Hives Verified 08/28/20 16:08 orange flavor AdvReac Abdominal Verified 08/28/20 16:08 Pain tomato [Tomato] AdvReac Abdominal Verified 08/28/20 16:08 Pain wheat AdvReac Abdominal Verified 08/28/20 16:08 Pain Surgical - Exam - General well developed, well nourished, moderate distress, obese - Neck no masses, no lymphadectomy - Respiratory normal expansion, normal respiratory effort, clear to auscultation - Cardiovascular Rhythm: regular Abnormal Heart Sounds: no systolic murmur, no diastolic murmur - Abdomen Abdomen: soft, no tender, no organomegaly Assessment and Plan (1) Hydronephrosis concurrent with and due to calculi of kidney and ureter Narrative/Plan: The patient's left flank pain, nausea and vomiting are secondary to an obstructive calculus at the left ureteral pelvic junction. A left double-J catheter will be placed to temporarily decompress the kidney prior to eventual treatment of the calculus via either percutaneous nephrostolithotomy or ureteroscopy with lithotripsy. I do not feel that ESWL would be the optimal treatment due to the patient's obesity. Status: Acute Code(s): N13.2 - HYDRONEPHROSIS WITH RENAL AND URETERAL CALCULOUS OBSTRUCTION SNOMED Code(s): 996247005
[2020-08-31 14:30] VITALS: RESP 16; TEMP 97.9
[2020-08-31] MEDS ORDERED: LACTATED RINGERS 1,000 ML IV ONE (14:30)
[2020-08-31] MEDS ORDERED: ONDANSETRON 4 MG/2 ML VIAL ONE (14:37)
[2020-08-31 15:00] LABS: Glucose,Whole Blood 112 mg/dL (75-99)
[2020-08-31] MEDS ORDERED: DEXAMETHASONE SOD PHOSPHATE 10 MG/ML 1 ML VIAL IV ONE (15:00)
[2020-08-31] MEDS ORDERED: SCOPOLAMINE 1.5MG/72HR PATCH TRANSDERM ONE (15:01)
[2020-08-31] MEDS ORDERED: fentaNYL (PF) 50 MCG/ML 2 ML AMP ONE (15:37)
[2020-08-31] MEDS ORDERED: MIDAZOLAM 2 MG/2 ML VIAL ONE (15:37)
[2020-08-31] MEDS ORDERED: PROPOFOL 10 MG/ML 20 ML VIAL IV ONE (15:37)
[2020-08-31] MEDS ORDERED: SODIUM CHLORIDE 0.9% 100 ML with ceFAZolin 1,000 MG IV ONE ×2 (15:43)
--- NOTE | 2020-08-31 16:36 | P.OP ---
Date of Procedure: 08/31/20 Preoperative Diagnosis: Left hydronephrosis secondary to calculus at left ureteropelvic junction Postoperative Diagnosis: Left hydronephrosis secondary to calculus at left ureteropelvic junction Procedure(s) Performed: Cystoscopy with placement of left double-J catheter Anesthesia: MAC Surgeon: Nilo Lopez Pathology: none sent Condition: stable Disposition: PACU Indications for Procedure: The patient is a 40-year-old female who developed severe left flank pain coupled with nausea and vomiting 2 days ago secondary to a 9 x 12 mm calculus at the left uretero- pelvic junction. Placement of a double-J catheter is planned to relieve the patient's pain prior to definitive treatment of the calculus. Description of Procedure: The patient was taken to the operating suite where intravenous sedation was given. She was placed in the dorsal lithotomy position with her legs suspended from padded Andrew stirrups. Pneumatic compression stockings were applied to the lower legs. The genitalia was prepped with Betadine solution and draped in a sterile fashion. The external genitalia and urethral meatus were unremarkable. The 22-Lao cystoscope sheath with obturator was passed through the urethra and into the bladder. The bladder was examined. Both ureteral orifices were of normal location and configuration. The bladder was free of tumor foreign body and diverticulum. Using fluoroscopic guidance a straight 0.035 Glidewire was advanced through the left ureteral orifice and up to the region of the left renal pelvis. A 22 cm x 6-Lao double-J catheter was advanced over the Glidewire and positioned so that the proximal end coiled in the region of the pelvis and the distal and coiled in the bladder. In doing this it appeared that the calculus, or calculi were displaced up into the renal pelvis. The bladder was drained and the cystoscope was withdrawn. The patient tolerated the procedure well and left the operative room awake and in satisfactory condition. Treatment of the left renal calculus or calculi will be set up sometime within the next few weeks.
[2020-08-31 16:59] VITALS: BP 132/92; PULSE 75
--- NOTE | 2020-09-01 12:17 | FL ---
EXAMINATION TYPE: FL guidance operating room DATE OF EXAM: 08/31/2020 CLINICAL HISTORY: Cystoscopy with left sided stent placement. TECHNIQUE: Fluoroscopy. COMPARISON: None. FINDINGS: Fluoroscopic guidance was provided during procedure performed by Dr. Lopez. A total of 3 seconds of fluoroscopic time was utilized during the procedure and 1 spot image acquired. IMPRESSION: As Above.
== END 2020-08-31 17:08 | disposition home or self-care (01) ==
LOC: OR 13:44
PROVIDERS: ATTEND Urology
DX: N13.2 Hydronephrosis with renal and ureteral calculous obstruction (principal); E11.9 Type 2 diabetes mellitus without complications; J45.909 Unspecified asthma, uncomplicated; K21.9 Gastro-esophageal reflux disease without esophagitis; I10 Essential (primary) hypertension; K44.9 Diaphragmatic hernia without obstruction or gangrene; J32.9 Chronic sinusitis, unspecified; K58.9 Irritable bowel syndrome, unspecified; G43.909 Migraine, unspecified, not intractable, without status migrainosus; F41.9 Anxiety disorder, unspecified; F32.9 Major depressive disorder, single episode, unspecified; K08.89 Other specified disorders of teeth and supporting structures; Z88.5 Allergy status to narcotic agent; Z88.1 Allergy status to other antibiotic agents; Z68.42 Body mass index [BMI] 45.0-49.9, adult; Z84.1 Family history of disorders of kidney and ureter; Z87.01 Personal history of pneumonia (recurrent); Z87.440 Personal history of urinary (tract) infections; Z87.09 Personal history of other diseases of the respiratory system; Z87.19 Personal history of other diseases of the digestive system; Z87.442 Personal history of urinary calculi; Z98.890 Other specified postprocedural states; Z91.89 Other specified personal risk factors, not elsewhere classified; E66.01 Morbid (severe) obesity due to excess calories; Z79.899 Other long term (current) drug therapy; Z79.52 Long term (current) use of systemic steroids; Z91.02 Food additives allergy status; Z91.018 Allergy to other foods; Z87.891 Personal history of nicotine dependence; Z87.11 Personal history of peptic ulcer disease; Z90.49 Acquired absence of other specified parts of digestive tract; Z98.51 Tubal ligation status; Z82.49 Family history of ischemic heart disease and other diseases of the circulatory system; Z83.3 Family history of diabetes mellitus; Z81.8 Family history of other mental and behavioral disorders; Z80.0 Family history of malignant neoplasm of digestive organs; Z80.8 Family history of malignant neoplasm of other organs or systems
CPT/HCPCS: 52332; C1769; C2625; J2250; J1100; J2405; J0690; J3010; J2704

== ENCOUNTER 2020-09-06 09:04 | Day surgery (SDC) | payer MEDICAID, OTHER ==
--- NOTE | 2020-09-05 20:43 | P.GSHP ---
History of Present Illness H&P Date: 09/05/20 Chief Complaint: Left renal calculus The patient is a 40-year-old female with a history of intractable left flank and left upper quadrant pain related to a 9 x 12 mm calculus which was impacted at the left ureteropelvic junction on a CT scan on 08/28/2020. She underwent cyst oscopy with placement of a left double-J catheter on 08/31 but has been unable to tolerate the double-J catheter and return to work. She had originally hoped to have the calculus treated via percutaneous nephrostolithotomy but unfortunately the procedure cannot be scheduled for several weeks. In view of this she has elected to proceed with left ureteroscopy with lithotripsy. She is admitted for this purpose. The remainder of the history and physical exam is unchanged from that as noted on 08/31/2020. Past Medical History Past Medical History: Asthma, Chest Pain / Angina, Diabetes Mellitus, GERD/Reflux, Hypertension, Pneumonia Additional Past Medical History / Comment(s): KIDNEY STONES. DDD. NO MEDS FOR BP AT THIS TIME. HIATAL HERNIA, chronic sinusitis/seasonal allergies. UTI. Bronchitis. Colitis, IBS. Migraines. Occasional low back pain. History of Any Multi-Drug Resistant Organisms: None Reported Past Surgical History: Section, Cholecystectomy, Tubal Ligation Additional Past Surgical History / Comment(s): 08/31/20 CYSTO LEFT DOUBLE J CATHETER INSERTED. Sinus surgery, D&C, x 4, EGD/colonoscopy. Past Anesthesia/Blood Transfusion Reactions: Previous Problems w/ Anesthesia, Postoperative Nausea & Vomiting (PONV) Additional Past Anesthesia/Blood Transfusion Reaction / Comment(s): Pt did not go all the way under. Pt could hear, but not feel anything Past Psychological History: Anxiety, Depression Additional Psychological History / Comment(s): Works as a [employer] at [employer] Smoking Status: Former smoker Past Alcohol Use History: Occasional Additional Past Alcohol Use History / Comment(s): STARTED SMOKING AGE 22,QUIT 2012, SMOKED 1/2 TO 1 PPD. Past Drug Use History: None Reported Additional Drug Use History / Comment(s): STOPPED MARIJANA 2005 - Past Family History Father Family Medical History: Congestive Heart Failure (CHF), Coronary Artery Disease (CAD), Diabetes Mellitus Additional Family Medical History / Comment(s): stents,depression anxiety Mother Family Medical History: Cancer, Diabetes Mellitus, Hypertension Additional Family Medical History / Comment(s): colon cancer, SKIN CANCER, bipolar, split personaltiy disorder. Medications and Allergies Home Medications Medication Instructions Recorded Confirmed Type Rizatriptan Benzoate [Maxalt] 10 mg PO BID PRN 03/24/18 09/05/20 History Escitalopram Oxalate [Lexapro] 10 mg PO HS 05/31/19 09/05/20 History Albuterol Inhaler (Mhu) [Ventolin 1 - 2 puff INHALATION Q6HR PRN #1 09/07/19 09/05/20 Rx Hfa Inhaler (Mhu)] inhaler Tamsulosin [Flomax] 0.4 mg PO DAILY #7 cap 08/29/20 09/05/20 Rx Acetaminophen-Codeine 300-30mg 1 tab PO Q6H PRN #5 tablet 08/31/20 09/05/20 Rx [Tylenol w/codeine #3] Galcanezumab-Gnlm [Emgality Pen] 1 ml SQ DIRECTED 08/31/20 09/05/20 History Ubrogepant [Ubrelvy] 50 mg PO QMONTHLY PRN 08/31/20 09/05/20 History Ondansetron [Zofran] 4 mg PO Q6H PRN 09/05/20 09/05/20 History Allergies Allergy/AdvReac Type Severity Reaction Status Date / Time metronidazole [From Flagyl] Allergy Anaphylaxis Verified 09/05/20 14:01 morphine Allergy Rash/Hives Verified 09/05/20 14:01 orange flavor AdvReac Abdominal Verified 09/05/20 14:01 Pain tomato [Tomato] AdvReac Abdominal Verified 09/05/20 14:01 Pain wheat AdvReac Abdominal Verified 09/05/20 14:01 Pain Assessment and Plan (1) Hydronephrosis concurrent with and due to calculi of kidney and ureter Narrative/Plan: The patient will undergo cystoscopy with left ureteroscopy and lithotripsy under general anesthesia. She is aware of the operative risks which include anesthesia, bleeding, infection, inability to move all calculus fragments and the possible need for a double-J catheter postop. Status: Acute Code(s): N13.2 - HYDRONEPHROSIS WITH RENAL AND URETERAL CALCULOUS OBSTRUCTION SNOMED Code(s): 513806349
[~2020-09-06 09:04] MED LIST changes: +MIDAZOLAM 2 MG/2 ML VIAL IV PRN; +ONDANSETRON 4 MG/2 ML VIAL IVP PRN
[2020-09-06 09:26] VITALS: RESP 16; TEMP 98
[2020-09-06] MEDS ORDERED: ONDANSETRON 4 MG/2 ML VIAL ONE (09:47)
[2020-09-06] MEDS ORDERED: LIDOCAINE 1% (10MG/ML) FOR IV START INTRADERMA ONE (09:58)
[2020-09-06 10:02] LABS: Glucose,Whole Blood 139 mg/dL (75-99)
[2020-09-06] MEDS ORDERED: DEXAMETHASONE SOD PHOSPHATE 10 MG/ML 1 ML VIAL IV ONE (10:02)
[2020-09-06] MEDS ORDERED: SCOPOLAMINE 1.5MG/72HR PATCH TRANSDERM ONE (10:03)
[2020-09-06] MEDS ORDERED: PROPOFOL 10 MG/ML 20 ML VIAL IV ONE (10:42)
[2020-09-06] MEDS ORDERED: fentaNYL (PF) 50 MCG/ML 2 ML AMP ONE (10:42)
[2020-09-06] MEDS ORDERED: LIDOCAINE 1% INJ 10MG/ML (20 ML MDV) ONE (10:42)
[2020-09-06] MEDS ORDERED: SUCCINYLCHOLINE CHLORIDE 100 MG/5 ML SYR IV ONE (10:42)
[2020-09-06] MEDS ORDERED: ALBUTEROL INHALER 60 PUFF/8 GM INHALER (MHU) INHALATION ONE (10:42)
[2020-09-06] MEDS ORDERED: MIDAZOLAM 2 MG/2 ML VIAL ONE (10:42)
[2020-09-06] MEDS ORDERED: PHENYLEPHRINE-0.9% NACL SYG 1 MG/10 ML SYRINGE ONE (10:42)
[2020-09-06] MEDS ORDERED: LACTATED RINGERS 1,000 ML IV ONE ×2 (12:03→13:35)
--- NOTE | 2020-09-06 12:15 | P.OP ---
Date of Procedure: 09/06/20 Preoperative Diagnosis: Left renal calculus Postoperative Diagnosis: Left renal calculus Procedure(s) Performed: Cystoscopy with left ureteroscopy, removal of left double-J catheter and left ureteroscopy with lithotripsy. Anesthesia: VICKIEA Surgeon: Nilo Lopez Estimated Blood Loss (ml): 0 Pathology: none sent Condition: stable Disposition: PACU Indications for Procedure: The patient is a 40-year-old female with a history of urolithiasis who developed severe left flank pain 1 week ago secondary to a 9 x 12 mm calculus which was located at the left ureteropelvic junction. A left double-J catheter was placed on 08/31. Left ureteroscopy with lithotripsy is planned for treatment of the calculus. Description of Procedure: The patient was taken the operating suite where adequate general anesthesia via orotracheal intubation was instituted. She was placed in the dorsal lithotomy position with her legs suspended from padded Andrew stirrups. Pneumatic compression stockings were applied to the lower legs. The genitalia was prepped with Betadine solution and draped in sterile fashion. The external genitalia and urethral meatus were unremarkable. The 22-Uzbek cystoscope sheath with 30 lens was passed through the urethra and into the blad roberto. The bladder was examined. Protruding from the left ureteral orifice was the distal coiled end of the double-J catheter. The remainder the bladder was unremarkable. The end of the double-J catheter was grasped with biopsy forceps and pulled out of the bladder through the urethra. A 0.035 straight Glidewire was then advanced through the double-J catheter and up to the region of the renal pelvis. The double-J catheter was then removed. A 13-Uzbek ureteral reentry sheath with 11-Uzbek obturator was then advanced over the Glidewire and advanced proximally using fluoroscopic guidance until the proximal end of the reentry sheath was in the proximal left ureter. The obturator and Glidewire were removed. Ureteroscopy was performed using the flexible digital ureteroscope. The proximal ureter was unremarkable. Renal pelvis was examined. The calculus was located in a right mid pole calyx. Lithotripsy was then performed using the 200 fiber and the holmium laser at a setting of 40 cps and 400 mJ. A dusting technique was used. The calculus was successfully broken down into multiple fragments less than 1 mm in size. I attempted to grasp the largest calculus fragment but this was too small to be retrieved. All calyces were reexamined to ensure that no other fragments remained. The left ureter was examined as the ureteroscope and reentry sheath were then removed. There did not appear to be any significant edema and it was elected not to replace the double-J catheter. The patient tolerated procedure well and left the operative room awake and in satisfactory condition. There was no blood loss. Patient was seen back in follow-up in 1-2 weeks.
[2020-09-06] MEDS: fentaNYL (PF) 50 MCG/ML 2 ML AMP IV PRN ×2 (12:48→12:53)
[2020-09-06] MEDS ORDERED: ONDANSETRON 4 MG/2 ML VIAL IVP ONE (13:05)
[2020-09-06] MEDS ORDERED: HYDROmorphone 0.5 MG/0.5 ML SYRINGE IVP ONE ×2 (13:11→13:16)
[2020-09-06 13:18] LABS: Glucose,Whole Blood 173 mg/dL (75-99)
[2020-09-06] MEDS ORDERED: Acetaminophen-Codeine 300-30mg TAB ONE (14:17)
[2020-09-06 14:20] VITALS: BP 159/82; PULSE 100
[2020-09-06] MEDS ORDERED: Acetaminophen-Codeine 300-30mg TAB PO ONE (14:21)
--- NOTE | 2020-09-06 14:39 | FL ---
EXAMINATION TYPE: FL guidance operating room DATE OF EXAM: 09/06/2020 CLINICAL HISTORY: Left kidney stone TECHNIQUE: Fluoroscopy. COMPARISON: None. FINDINGS: Fluoroscopic guidance was provided during procedure for performing physician. A total of 11 seconds of fluoroscopic time was utilized during the procedure and 1 spot image was acquired. IMPRESSION: As Above.
== END 2020-09-06 14:48 | disposition home or self-care (01) ==
LOC: OR 09:04
PROVIDERS: ATTEND Urology
DX: N20.0 Calculus of kidney (principal); Z46.6 Encounter for fitting and adjustment of urinary device; J45.909 Unspecified asthma, uncomplicated; E11.9 Type 2 diabetes mellitus without complications; K21.9 Gastro-esophageal reflux disease without esophagitis; I10 Essential (primary) hypertension; M51.9 Unspecified thoracic, thoracolumbar and lumbosacral intervertebral disc disorder; K44.9 Diaphragmatic hernia without obstruction or gangrene; J32.9 Chronic sinusitis, unspecified; K58.9 Irritable bowel syndrome, unspecified; F41.9 Anxiety disorder, unspecified; F32.9 Major depressive disorder, single episode, unspecified; I25.10 Atherosclerotic heart disease of native coronary artery without angina pectoris; G43.909 Migraine, unspecified, not intractable, without status migrainosus; Z88.5 Allergy status to narcotic agent; Z88.1 Allergy status to other antibiotic agents; Z87.01 Personal history of pneumonia (recurrent); Z87.442 Personal history of urinary calculi; Z87.09 Personal history of other diseases of the respiratory system; Z87.440 Personal history of urinary (tract) infections; Z87.19 Personal history of other diseases of the digestive system; Z98.890 Other specified postprocedural states; Z90.49 Acquired absence of other specified parts of digestive tract; Z98.51 Tubal ligation status; Z91.89 Other specified personal risk factors, not elsewhere classified; Z87.898 Personal history of other specified conditions; Z87.891 Personal history of nicotine dependence; Z79.899 Other long term (current) drug therapy; Z91.02 Food additives allergy status; Z91.018 Allergy to other foods; Z82.49 Family history of ischemic heart disease and other diseases of the circulatory system; Z83.3 Family history of diabetes mellitus; Z81.8 Family history of other mental and behavioral disorders; Z80.0 Family history of malignant neoplasm of digestive organs; Z80.8 Family history of malignant neoplasm of other organs or systems
CPT/HCPCS: 81025; 52353; C1769; J2250; J1100; J2405; J0690; J2001; J3010; J2370; J0330; J2704; J1170

== ENCOUNTER 2020-11-26 22:05 | Emergency (ER) | payer MEDICAID, OTHER ==
[2020-11-26 22:11] VITALS: TEMP 98.3
[2020-11-26] MEDS ORDERED: SODIUM CHLORIDE 0.9% 1,000 ML IV STA (22:24)
--- NOTE | 2020-11-26 22:44 | ED ---
Chest Pain HPI - General Chief Complaint: Chest Pain Stated Complaint: Chest Pain Time Seen by Provider: 11/26/20 22:20 Source: patient, RN notes reviewed, old records reviewed Mode of arrival: ambulatory Limitations: no limitations - History of Present Illness Initial Comments: This is a 40-year-old female DF for evaluation with no specific medical history, patient initiated coronavirus year ago no real travel history. Patient coming of body aches and pains without fever. Symptoms began while at work today would've been persistent and episodic throughout the day intermittent and occasionally patient feels better. But she does have some back pain bodyaches, patient denying any recent fevers, no history of heart disease. Patient states she feels like prior episodes were she's had some mild pneumonia. But currently no shortness of breath no cough. MD Complaint: chest pain -: hour(s) Onset: during rest Pain Location: substernal Pain Radiation: back Severity: mild Severity scale (1-10): 2 Quality: heaviness Consistency: constant Improves With: nothing Worsens With: nothing Context: recent illness Anginal Symptoms: dyspnea Other Symptoms: cough Treatments Prior to Arrival: none - Related Data Home Medications Medication Instructions Recorded Confirmed Rizatriptan Benzoate [Maxalt] 10 mg PO BID PRN 03/24/18 09/06/20 Escitalopram Oxalate [Lexapro] 10 mg PO HS 05/31/19 09/06/20 Galcanezumab-Gnlm [Emgality Pen] 1 ml SQ DIRECTED 08/31/20 09/06/20 Ubrogepant [Ubrelvy] 50 mg PO QMONTHLY PRN 08/31/20 09/06/20 Ondansetron [Zofran] 4 mg PO Q6H PRN 09/05/20 09/06/20 Previous Rx's Medication Instructions Recorded Albuterol Inhaler (Mhu) [Ventolin 1 - 2 puff INHALATION Q6HR PRN #1 09/07/19 Hfa Inhaler (Mhu)] inhaler Tamsulosin [Flomax] 0.4 mg PO DAILY #7 cap 08/29/20 Acetaminophen-Codeine 300-30mg 1 tab PO Q6H PRN #5 tablet 08/31/20 [Tylenol w/codeine #3] Allergies Allergy/AdvReac Type Severity Reaction Status Date / Time metronidazole [From Flagyl] Allergy Anaphylaxis Verified 11/26/20 22:10 morphine Allergy Rash/Hives Verified 11/26/20 22:10 orange flavor AdvReac Abdominal Verified 11/26/20 22:10 Pain tomato [Tomato] AdvReac Abdominal Verified 11/26/20 22:10 Pain wheat AdvReac Abdominal Verified 11/26/20 22:10 Pain Review of Systems ROS Statement: Those systems with pertinent positive or pertinent negative responses have been documented in the HPI. ROS Other: All systems not noted in ROS Statement are negative. EKG Findings - EKG Comments: EKG Findings:: EKG shows sinus rhythm 99, HI 152 QRS 92 QTC 462 Past Medical History Past Medical History: Asthma, Chest Pain / Angina, Diabetes Mellitus, GERD/Reflux, Hypertension, Pneumonia Additional Past Medical History / Comment(s): KIDNEY STONES. DDD. NO MEDS FOR BP AT THIS TIME. HIATAL HERNIA, chronic sinusitis/seasonal allergies. UTI. Bronchitis. Colitis, IBS. Migraines. Occasional low back pain. History of Any Multi-Drug Resistant Organisms: None Reported Past Surgical History: Section, Cholecystectomy, Tubal Ligation Additional Past Surgical History / Comment(s): 08/31/20 CYSTO LEFT DOUBLE J CATHETER INSERTED. Sinus surgery, D&C, x 4, EGD/colonoscopy. Past Anesthesia/Blood Transfusion Reactions: Previous Problems w/ Anesthesia, Postoperative Nausea & Vomiting (PONV) Additional Past Anesthesia/Blood Transfusion Reaction / Comment(s): Pt did not go all the way under. Pt could hear, but not feel anything Past Psychological History: Anxiety, Depression Smoking Status: Former smoker Past Alcohol Use History: Occasional Past Drug Use History: None Reported - Past Family History Father Family Medical History: Congestive Heart Failure (CHF), Coronary Artery Disease (CAD), Diabetes Mellitus Additional Family Medical History / Comment(s): stents,depression anxiety Mother Family Medical History: Cancer, Diabetes Mellitus, Hypertension Additional Family Medical History / Comment(s): colon cancer, SKIN CANCER, bipolar, split personaltiy disorder. General Exam Limitations: no limitations General appearance: alert, in no apparent distress, obese Head exam: Present: atraumatic, normocephalic, normal inspection Eye exam: Present: normal appearance, PERRL, EOMI. Absent: scleral icterus, conjunctival injection, periorbital swelling ENT exam: Present: normal exam, mucous membranes moist Neck exam: Present: normal inspection. Absent: tenderness, meningismus, lymphadenopathy Respiratory exam: Present: normal lung sounds bilaterally. Absent: respiratory distress, wheezes, rales, rhonchi, stridor Cardiovascular Exam: Present: regular rate, normal rhythm, normal heart sounds. Absent: systolic murmur, diastolic murmur, rubs, gallop, clicks GI/Abdominal exam: Present: soft, normal bowel sounds. Absent: distended, tenderness, guarding, rebound, rigid Extremities exam: Present: normal inspection, full ROM, normal capillary refill. Absent: tenderness, pedal edema, joint swelling, calf tenderness Back exam: Present: normal inspection Neurological exam: Present: alert, oriented X3, CN II-XII intact Psychiatric exam: Present: normal affect, normal mood Skin exam: Present: warm, dry, intact, normal color. Absent: rash Course Vital Signs 11/26/20 11/26/20 11/27/20 22:06 23:13 00:33 Temperature 98.3 F Pulse Rate 96 93 Pulse Rate [ 86 Lumber Loader ] Respiratory 22 18 Rate Blood Pressure 156/84 163/91 O2 Sat by Pulse 98 99 Oximetry - Reevaluation(s) Reevaluation #1: Medical record is reviewed Patient has adequate symptom control currently, symptoms improved Patient is feeling better Spoke patient regarding findings, questions answered Chest Pain MDM - MDM 40 female with mild anxiety, nonspecific pain bodyaches pain chest pain. No acute findings here in the ER patient can be discharged home Disposition Clinical Impression: Chest pain, Viral syndrome Disposition: HOME SELF-CARE Condition: Good Instructions (If sedation given, give patient instructions): Chest Pain (ED), Costochondritis (ED) Is patient prescribed a controlled substance at d/c from ED?: No Referrals: Morena Garcia MD [Primary Care Provider] - 1-2 days
--- NOTE | 2020-11-26 22:45 | XR ---
EXAMINATION TYPE: XR chest 1V portable DATE OF EXAM: 11/26/2020 COMPARISON: 03/04/2020 HISTORY: Difficulty breathing TECHNIQUE: FINDINGS: There is no heart failure nor confluent pneumonic infiltrate. Costophrenic angles are clear . There are chest leads. Heart size appears normal. Exam limited by patient's size. IMPRESSION: No active cardiopulmonary disease. No change.
[2020-11-26 23:06] LABS: Basophils % (A) 0 %; Eosinophils # (A) 0.4 k/uL (0-0.7); Eosinophils % (A) 3 %; HCT 32.8 % (34.0-46.0); HGB 10.2 gm/dL (11.4-16.0); Hypochromasia Slight; Lymphocytes # (A) 3.5 k/uL (1.0-4.8); Lymphocytes % (A) 28 %; MCH 23.8 pg (25.0-35.0); MCHC 31.2 g/dL (31.0-37.0); MCV 76.1 fL (80.0-100.0); Mean Platelet Volume 8.8; Microcytosis Slight; Monocytes # (A) 0.3 k/uL (0-1.0); Monocytes % (A) 2 %; Neutrophils # (A) 8.2 k/uL (1.3-7.7); Neutrophils % (A) 65 %; Platelet Count 207 k/uL (150-450); RDW 15.1 % (11.5-15.5); WBC 12.5 k/uL (3.8-10.6)
[2020-11-26 23:16] LABS: ALT 21 U/L (4-34); AST 26 U/L (14-36); African American GFR (CKD) >90 (>60 ml/min/1.73 sqM); Alkaline Phosphatase 89 U/L (38-126); Anion Gap 6 mmol/L; Blood Urea Nitrogen 9 mg/dL (7-17); Carbon Dioxide 24 mmol/L (22-30); Chloride 104 mmol/L (98-107); Creatine Kinase 124 U/L (30-135); Glucose 136 mg/dL (74-99); Magnesium 1.9 mg/dL (1.6-2.3); Non-African American GFR(CKD) >90 (>60 ml/min/1.73 sqM); Potassium 4.3 mmol/L (3.5-5.1); Sodium 134 mmol/L (137-145); Total Bilirubin 0.4 mg/dL (0.2-1.3); Total Protein 7.7 g/dL (6.3-8.2)
[2020-11-26 23:21] LABS: INR 0.9 (<1.2); Prothrombin Time 9.5 sec (9.0-12.0)
[2020-11-26 23:25] LABS: Partial Thromboplastin Time 19.8 sec (22.0-30.0)
[2020-11-27 00:37] VITALS: BP 163/91; PULSE 93; RESP 18
== END 2020-11-27 00:58 | disposition home or self-care (01) ==
LOC: EC 22:05
DX: B34.9 Viral infection, unspecified (principal); R07.9 Chest pain, unspecified; E11.9 Type 2 diabetes mellitus without complications; I10 Essential (primary) hypertension; J45.909 Unspecified asthma, uncomplicated; K21.9 Gastro-esophageal reflux disease without esophagitis; F41.9 Anxiety disorder, unspecified; F32.9 Major depressive disorder, single episode, unspecified; Z79.899 Other long term (current) drug therapy; Z88.1 Allergy status to other antibiotic agents; Z88.5 Allergy status to narcotic agent; Z91.018 Allergy to other foods; Z87.891 Personal history of nicotine dependence
CPT/HCPCS: 36415; 71045; 80053; 82550; 83735; 83880; 84484; 85025; 85610; 85730; 86140; 93005; 96360; 96361; 99285

== ENCOUNTER 2020-12-18 14:34 | Observation (INO) | payer MEDICAID, OTHER ==
[2020-12-18] MEDS ORDERED: ASPIRIN 81 MG PO STA (15:03)
[2020-12-18] MEDS ORDERED: NITROGLYCERIN SL TABS 0.4 MG TAB SUBLINGUAL PRN ×2 (15:14→16:43)
--- NOTE | 2020-12-18 15:21 | ED ---
Chest Pain HPI - General Chief Complaint: Chest Pain Stated Complaint: chest pain Time Seen by Provider: 12/18/20 14:56 Source: EMS Mode of arrival: EMS Limitations: no limitations - History of Present Illness Initial Comments: [id number] female with history of hypertension, prediabetes presenting today for chief complaint of chest pressure that began around 1:50 PM this afternoon. Patient states that around 1:50 PM she was sitting down when she developed a tightness in her chest. She states it was middle to left side. Patient states she can tingling in her left fingers and felt nauseated and slightly short of breath. Patient denies pain with deep inspiration leg swelling Pain recent surgeries hemoptysis history of DVT or pulmonary embolism. Patient states on Friday when walking on the treadmill she had some pain with exertion. Patient states this subsided after resting. Patient states that today the pain did not subside after resting and that she called EMS to come to the ER. Patient states she took a 324 mg aspirin prior to arrival. Patient states she was not given any nitroglycerin by EMS. - Related Data Home Medications Medication Instructions Recorded Confirmed Rizatriptan Benzoate [Maxalt] 10 mg PO BID PRN 03/24/18 12/18/20 Galcanezumab-Gnlm [Emgality Pen] 120 mg SQ QMONTHLY 08/31/20 12/18/20 ARIPiprazole [Abilify] 2 mg PO HS 12/18/20 12/18/20 Albuterol Sulfate [Proair Hfa] 2 puff INHALATION RT-Q6H PRN 12/18/20 12/18/20 Ascorbic Acid [Vitamin C] 500 mg PO DAILY 12/18/20 12/18/20 Butalbital/Aspirin/Caffeine 1 cap PO Q6H PRN 12/18/20 12/18/20 [Fiorinal 50-325-40 MG] Ergocalciferol (Vitamin D2) 1,250 mcg PO TH 12/18/20 12/18/20 [Drisdol (50,000 Iu)] Escitalopram Oxalate [Lexapro] 20 mg PO HS 12/18/20 12/18/20 Hydrochlorothiazide 12.5 mg PO DAILY 12/18/20 12/18/20 [hydroCHLOROthiazide] [employer] Novalere FPer 3 cap PO DAILY 12/18/20 12/18/20 Meg[employer] Blood Builder 1 cap PO DAILY 12/18/20 12/18/20 Resiratory [employer] Defense 2 cap PO DAILY 12/18/20 12/18/20 Ubrogepant [Ubrelvy] 100 mg PO BID PRN 12/18/20 12/18/20 traZODone HCL 50 - 100 mg PO HS 12/18/20 12/18/20 Allergies Allergy/AdvReac Type Severity Reaction Status Date / Time metronidazole [From Flagyl] Allergy Anaphylaxis Verified 12/18/20 15:27 morphine Allergy Rash/Hives Verified 12/18/20 15:27 orange flavor AdvReac Abdominal Verified 12/18/20 15:27 Pain tomato [Tomato] AdvReac Abdominal Verified 12/18/20 15:27 Pain wheat AdvReac Abdominal Verified 12/18/20 15:27 Pain Review of Systems ROS Statement: Those systems with pertinent positive or pertinent negative responses have been documented in the HPI. ROS Other: All systems not noted in ROS Statement are negative. Past Medical History Past Medical History: Asthma, Chest Pain / Angina, Diabetes Mellitus, GERD/Reflux, Hypertension, Pneumonia Additional Past Medical History / Comment(s): KIDNEY STONES. DDD. NO MEDS FOR BP AT THIS TIME. HIATAL HERNIA, chronic sinusitis/seasonal allergies. UTI. Bronchitis. Colitis, IBS. Migraines. Occasional low back pain. History of Any Multi-Drug Resistant Organisms: None Reported Past Surgical History: Section, Cholecystectomy, Tubal Ligation Additional Past Surgical History / Comment(s): 08/31/20 CYSTO LEFT DOUBLE J CATHETER INSERTED. Sinus surgery, D&C, x 4, EGD/colonoscopy. Past Anesthesia/Blood Transfusion Reactions: Previous Problems w/ Anesthesia, Postoperative Nausea & Vomiting (PONV) Additional Past Anesthesia/Blood Transfusion Reaction / Comment(s): Pt did not go all the way under. Pt could hear, but not feel anything Past Psychological History: Anxiety, Depression Smoking Status: Former smoker Past Alcohol Use History: Occasional Past Drug Use History: None Reported - Past Family History Father Family Medical History: Congestive Heart Failure (CHF), Coronary Artery Disease (CAD), Diabetes Mellitus Additional Family Medical History / Comment(s): stents,depression anxiety Mother Family Medical History: Cancer, Diabetes Mellitus, Hypertension Additional Family Medical History / Comment(s): colon cancer, SKIN CANCER, bipolar, split personaltiy disorder. General Exam - General Exam Comments Initial Comments: General: The patient is awake and alert, in no distress Eye: Pupils are equal, round and reactive to light, extra-ocular movements are intact. No nystagmus. There is normal conjunctiva bilaterally. No signs of icterus. Ears, nose, mouth and throat: There are moist mucous membranes and no oral lesions. Neck: The neck is supple, there is no tenderness or JVD. Cardiovascular: There is a regular rate and rhythm. No murmur, rub or gallop is appreciated. Respiratory: Lungs are clear to auscultation, respirations are non-labored, breath sounds are equal. No wheezes, stridor, rales, or rhonchi. Gastrointestinal: Soft, non-distended, non-tender abdomen without masses or organomegaly noted. There is no rebound or guarding present. Musculoskeletal: Normal ROM, no tenderness. Strength 5/5. Sensation intact. Radial and DP pulses equal bilaterally 2+. Neurological: A&O x 3. CN II-XII intact, There are no obvious motor or sensory deficits. Coordination appears grossly intact. Speech is normal. Skin: Skin is warm and dry and no rashes or lesions are noted. lower extremity edema pain or swelling Psychiatric: Cooperative, appropriate mood & affect, normal judgment. Limitations: no limitations Course Vital Signs 12/18/20 12/18/20 12/18/20 14:35 14:39 16:10 Temperature 99.0 F Pulse Rate 87 85 Pulse Rate [ 82 Aluminum Pourer ] Respiratory 16 16 16 Rate Blood Pressure 147/93 116/85 O2 Sat by Pulse 100 100 Oximetry Chest Pain MDM - MDM 40-year-old feel presents for chest pain. Patient had chest pain shortly prior to arrival. Initial troponin negative EKG no specific findings with ST elevation. EKG reviewd with attending Dr. Salmeron. Repeat reviewed by attending-- no change. Patient lungs clear. CXR clear.Patient has no additional complaints. Discussed labs with attneding who is agreeable to admission/care guzman n. Disposition Clinical Impression: Chest pressure Disposition: ADMITTED IP TO THIS HOSP Condition: Stable Instructions (If sedation given, give patient instructions): Chest Pain (ED) Is patient prescribed a controlled substance at d/c from ED?: No Referrals: Morena Garcia MD [Primary Care Provider] - 1-2 days Time of Disposition: 16:43 Decision to Admit Reason: Admit from EC Decision Date: 12/18/20 Decision Time: 16:43
[2020-12-18 15:32] LABS: ALT 21 U/L (4-34); AST 24 U/L (14-36); African American GFR (CKD) >90 (>60 ml/min/1.73 sqM); Albumin 3.9 g/dL (3.5-5.0); Alkaline Phosphatase 72 U/L (38-126); Anion Gap 10 mmol/L; Blood Urea Nitrogen 11 mg/dL (7-17); Calcium 9.2 mg/dL (8.4-10.2); Carbon Dioxide 23 mmol/L (22-30); Chloride 103 mmol/L (98-107); Glucose 108 mg/dL (74-99); Non-African American GFR(CKD) >90 (>60 ml/min/1.73 sqM); Potassium 4.2 mmol/L (3.5-5.1); Sodium 136 mmol/L (137-145); Total Bilirubin 0.3 mg/dL (0.2-1.3); Total Protein 7.2 g/dL (6.3-8.2)
[2020-12-18 15:49] LABS: Anisocytosis Slight; Basophils % (A) 0 %; Eosinophils # (A) 0.3 k/uL (0-0.7); Eosinophils % (A) 3 %; HCT 35.5 % (34.0-46.0); HGB 11.6 gm/dL (11.4-16.0); Lymphocytes # (A) 3.2 k/uL (1.0-4.8); Lymphocytes % (A) 30 %; MCH 25.6 pg (25.0-35.0); MCHC 32.7 g/dL (31.0-37.0); MCV 78.2 fL (80.0-100.0); Mean Platelet Volume 7.9; Microcytosis Slight; Monocytes # (A) 0.3 k/uL (0-1.0); Monocytes % (A) 3 %; Neutrophils # (A) 6.6 k/uL (1.3-7.7); Neutrophils % (A) 63 %; Platelet Count 234 k/uL (150-450); RBC 4.54 m/uL (3.80-5.40); RDW 16.5 % (11.5-15.5); WBC 10.5 k/uL (3.8-10.6)
[2020-12-18 16:03] LABS: INR 0.9 (<1.2)
[2020-12-18 16:04] LABS: Partial Thromboplastin Time 22.1 sec (22.0-30.0); Prothrombin Time 9.4 sec (9.0-12.0)
[2020-12-18] MEDS ORDERED: ONDANSETRON 4 MG/2 ML VIAL IVP STA (16:04)
--- NOTE | 2020-12-18 16:05 | XR ---
EXAMINATION TYPE: XR chest 2V DATE OF EXAM: 12/18/2020 COMPARISON: 11/26/2020 HISTORY: Chest pain TECHNIQUE: Frontal and lateral views of the chest are obtained. FINDINGS: There is no focal air space opacity. No evidence for pneumothorax. No pleural effusion. The cardiac silhouette size is within normal limits. The osseous structures are grossly intact. IMPRESSION: 1. No acute cardiopulmonary process.
[2020-12-18] MEDS ORDERED: SUMAtriptan succinate 50 MG TAB PO PRN (18:15)
[2020-12-18] MEDS ORDERED: ALBUTEROL NEBULIZED 2.5 MG/3 ML INHALATION PRN (18:15)
[2020-12-18] MEDS ORDERED: ACETAMINOPHEN TAB 325 MG TAB PO PRN (18:17)
[2020-12-18] MEDS ORDERED: ESCITALOPRAM 20 MG TAB PO SCH (21:00)
[2020-12-18] MEDS ORDERED: ARIPiprazole 2 MG TAB PO SCH (21:00)
[2020-12-18] MEDS ORDERED: traZODone HCL 100 MG TAB PO SCH (21:00)
[2020-12-19 02:37] LABS: Cholesterol 165 mg/dL (<200); HDL Cholesterol 63 mg/dL (40-60); LDL Cholesterol,Calculated 79 mg/dL (0-99); Triglycerides 115 mg/dL (<150)
[2020-12-19 07:42] VITALS: RESP 16
--- NOTE | 2020-12-19 08:36 | CONS ---
CONSULTATION Mrs. Maciel is a 40-year-old female with known history of hypertension, prediabetes and a family history of premature coronary artery disease who presented to the hospital with symptoms of chest discomfort. She is followed by Dr. Monreal at [facility], has no history of documented coronary artery disease. According to her, she was seen by him about 2 years ago. On the weekend, she had some chest discomfort while going up the stairs and on her treadmill. Subsequently yesterday she had some discomfort at rest that lasted for a couple hours and felt dyspneic and some dizziness. She had no palpitation. No syncope. She has no PND, no orthopnea. She has occasional peripheral edema. She has no history of congestive heart failure or documented obstructive coronary artery disease. According to her, she had a CT angiogram that was unremarkable in 2016. Her coronary risk factors are remarkable for hypertension, family history of premature coronary artery disease, remote history of smoking. She has borderline hyperlipidemia according to her. MEDICATIONS: Her medications at home included trazodone, Maxalt, hydrochlorothiazide 12.5 mg daily, Fiorinal on p.r.n. basis, Abilify, ProAir. REVIEW OF SYSTEMS: RESPIRATORY SYSTEM: She has history of asthma. No recent wheezing or cough. GI SYSTEM: No recent GI bleeding. She has history of peptic ulcer disease and hiatal hernia. SYSTEM: No dysuria or hematuria. NERVOUS SYSTEM: No history of stroke or seizure. PHYSICAL EXAMINATION: A 40-year-old female, alert, oriented, in no apparent distress. Blood pressure 125/80 with the heart rate in the 70s. HEAD: Normocephalic. EYES: Sclerae anicteric. NECK: Good upstroke. No bruit. No jugular venous distention. LUNGS: Clear to auscultation. HEART: Regular rate and rhythm. S1, S2. No S3 with systolic murmur 1/6 heard at the left upper sternal border. No diastolic murmur. No rub. ABDOMEN: Soft, obese, nontender. Positive bowel sounds. No organomegaly. EXTREMITIES: No edema. Intact distal pulses. LAB DATA: Lab data revealed troponin less than 0.012 for 3 samples. Cholesterol 165, LDL of 79. BUN and creatinine 11 and 0.54. Hemoglobin of 11.6. EKG revealed sinus mechanism, normal axis and intervals. T-wave inversion in leads 3 that was noted in the past. Chest x-ray shows no acute infiltrate. IMPRESSION: 1. Chest discomfort has atypical features for ischemic heart disease probably noncardiac. 2. History of hypertension. 3. Remote history of smoking. RECOMMENDATION: From the cardiac standpoint, I would recommend to proceed with a stress echocardiogram to assess her status and guide her treatment and depending on the testing, further recommendation will be made. Thank you for this consult. We will follow with you. MMODL / IJN: [id number] /
[2020-12-19] MEDS ORDERED: ASCORBIC ACID 500 MG TAB PO SCH (09:00)
[2020-12-19] MEDS ORDERED: ASPIRIN 81 MG PO SCH (09:00)
[2020-12-19] MEDS ORDERED: ASPIRIN 325 MG TAB PO SCH (09:00)
[2020-12-19] MEDS ORDERED: hydroCHLOROthiazide 12.5 MG CAP PO SCH (09:00)
--- NOTE | 2020-12-19 11:45 | ECHOF ---
Referral Reason: MEASUREMENTS -------- HEIGHT: 152.4 cm WEIGHT: 109.8 kg BP: 125/84 IVSd: 1.3 cm (0.6 - 1.1) LVIDd: 3.8 cm (3.9 - 5.3) LVPWd: 1.3 cm (0.6 - 1.1) IVSs: 1.6 cm LVIDs: 3.0 cm LVPWs: 1.4 cm LA Diam: 3.6 cm (2.7 - 3.8) LAESV Index (A-L): 27.03 ml/m Ao Diam: 2.7 cm (2.0 - 3.7) AV Cusp: 1.7 cm (1.5 - 2.6) LA Diam: 3.7 cm (2.7 - 3.8) MV EXCURSION: 20.824 mm (> 18.000) MV EF SLOPE: 137 mm/s (70 - 150) EPSS: 0.4 cm MV E David: 0.95 m/s MV DecT: 124 ms MV A David: 0.76 m/s MV E/A Ratio: 1.25 RAP: 5.00 mmHg RVSP: 16.65 mmHg FINDINGS -------- Sinus rhythm. This was a technically adequate study. The left ventricular size is normal. There is mild concentric left ventricular hypertrophy. Overa ll left ventricular systolic function is normal with, an EF between 55 - 60 %. The right ventricle is normal in size. Normal LA size by volume 22+/-6 ml/m2. The right atrial size is normal. The aortic valve is trileaflet, and appears structurally normal. No aortic stenosis or regurgitation. The mitral valve is normal. There is trace mitral regurgitation. The tricuspid valve appears structurally normal. Trace tricuspid regurgitation present. Right mihir tricular systolic pressure is normal at < 35 mmHg. There is no pulmonic regurgitation present. The aortic root size is normal. There is no pericardial effusion. CONCLUSIONS -------- 1. There is mild concentric left ventricular hypertrophy. 2. Overall left ventricular systolic function is normal with, an EF between 55 - 60 %. 3. Normal LA size by volume 22+/-6 ml/m2. 4. The aortic valve is trileaflet, and appears structurally normal. No aortic stenosis or regurgitati on. 5. There is trace mitral regurgitation. 6. Trace tricuspid regurgitation present. 7. There is no pericardial effusion. [employer] COMPLIANCE DIRECTOR: Chelsey Schwartz RDCS
[2020-12-19 13:52] VITALS: BP 124/74; PULSE 88; TEMP 97.9
--- NOTE | 2020-12-19 14:39 | ECHOS ---
STRESS ECHOCARDIOGRAM LUMASON: Vial INDICATIONS: Chest pain MEDICATIONS: BASELINE HEART RATE: 88 BASELINE BLOOD PRESSURE: 117/56 MAXIMUM HEART RATE: 158 MAXIMUM BLOOD PRESSURE: 134/75 85% MPHR: 152 100% MPHR: 179 METS: 7.1 MAXIMUM STAGE REACHED: 2 TOTAL EXERCISE TIME: 6:00 CLINICAL INFORMATION: Baseline rhythm sinus mechanism, rate of 88, normal axis and intervals, T-wave inversion inferiorly. Baseline blood pressure 117/56 mmHg. Patient exercised on Raf protocol for 6 minutes reaching peak rate 158 beats per minute which is equal to 88% maximum predicted heart rate. Peak blood pressure 134/75 mmHg. Test was terminated secondary to fatigue. There was no chest pain. Electrocardiograph monitoring revealed no evidence of diagnostic ischemic ST deviation. Baseline echocardiogram revealed normal wall motion. At peak exercise, there was normal wall motion augmentation with no hypokinesis or dyskinesis. CONCLUSION: 1. Average exercise tolerance with normal electrocardiograph response to exercise. 2. Normal stress echocardiogram with no evidence of stress-induced ischemia. MMODL / IJN: [id number] /
--- NOTE | 2020-12-20 01:23 | P.HPIM ---
History of Present Illness Please consider this note as combined H&P and discharge summary Diagnoses: Chest pain, with negative stress test and cardiology clearance. Negative d- dimer. Chest pain completely resolved prior to discharge History of left kidney stone and status post lithotripsy Hypertension Questionable Type 2 diabetes mellitus. Last documented hemoglobin A1c was 6.1 and 2018. Patient is not on diabetes medication History of gastroesophageal reflux disease Asthma, not active fissure Morbid obesity with BMI of 48.6 History of hiatal hernia History of anxiety, depression.not an active issue Hospital course This is a pleasant 40 years old -Prydeinig female with past medical history of left kidney stone status post lithotripsy. Asthma, diabetes mellitus, hypertension, gastroesophageal reflux disease. Hiatal hernia status post EGD and colonoscopy about 5 years ago. Also patient has been evaluated by devops consultant about one year ago for chest pain, also she had a negative stress test done in 2015 and 2016. This time patient presents with chest pain which felt like pressure in the middle, nonradiating associated with some exertional dyspnea and dizziness. Patient has been evaluated by devops consultant and she underwent stress test which was negative. D-dimer was checked and it was within the reference range at 0.59. Vitas looks stable, CBC, INR, BMP and liver enzymes are unremarkable. Troponins 3 are negative with less than 0.012. Echocardiogram from 11/21/18 showing ejection fraction of 55-60%. Chest x-ray: Not in acute process. Prior to discharge patient denies chest pain or dyspnea or dizziness. No change in urine or bowel habits. No fever. No other complaints Patient was cleared for discharge by devops consultant Problems and management plan were discussed with the patient and he verbalized understanding and acceptance Patient was found stable and can be discharged home however he needs follow-up as an outpatient. Patient was instructed to follow up with PCP Dr. edmondson within one week and patient agrees Patient was instructed to follow up with devops consultant Dr. Rowe in 2 weeks and patient agrees Physical exam -Gen: patient is a AAOx3, no distress. Obese CVS: S1-S2, RRR, no murmur Lungs: B/L CTA, no wheezing Abdomen: soft, no distention, no tenderness, positive bowel sounds Extremity: no leg edema or induration Time spent more than 35 minutes Review of Systems CONSTITUTIONAL: No fever, no malaise, no fatigue. HEENT: No recent visual problems or hearing problems. Denied any sore throat. CARDIOVASCULAR: No orthopnea, PND, no palpitations, no syncope. PULMONARY: No shortness of breath, no cough, no hemoptysis. GASTROINTESTINAL: No diarrhea, no nausea, no vomiting, no abdominal pain. Normoactive bowel sounds. NEUROLOGICAL: No headaches, no weakness, no numbness. HEMATOLOGICAL: Denies any bleeding or petechiae. GENITOURINARY: Denies any burning micturition, frequency, or urgency. MUSCULOSKELETAL/RHEUMATOLOGICAL: Denies any joint pain, swelling, or any muscle pain. ENDOCRINE: Denies any polyuria or polydipsia. Past Medical History Past Medical History: Asthma, Chest Pain / Angina, Diabetes Mellitus, GERD/R eflux, Hypertension, Pneumonia Additional Past Medical History / Comment(s): KIDNEY STONES. DDD. NO MEDS FOR BP AT THIS TIME. HIATAL HERNIA, chronic sinusitis/seasonal allergies. UTI. Bronchitis. Colitis, IBS. Migraines. Occasional low back pain. History of Any Multi-Drug Resistant Organisms: None Reported Past Surgical History: Section, Cholecystectomy, Tubal Ligation Additional Past Surgical History / Comment(s): 08/31/20 CYSTO LEFT DOUBLE J CATHETER INSERTED. Sinus surgery, D&C, x 4, EGD/colonoscopy. Past Anesthesia/Blood Transfusion Reactions: Previous Problems w/ Anesthesia, Postoperative Nausea & Vomiting (PONV) Additional Past Anesthesia/Blood Transfusion Reaction / Comment(s): Pt did not go all the way under. 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 Past Drug Use History: None Reported Additional Drug Use History / Comment(s): STOPPED MARIJANA 2005 - Past Family History Father Family Medical History: Congestive Heart Failure (CHF), Coronary Artery Disease (CAD), Diabetes Mellitus Additional Family Medical History / Comment(s): stents,depression anxiety Mother Family Medical History: Cancer, Diabetes Mellitus, Hypertension Additional Family Medical History / Comment(s): colon cancer, SKIN CANCER, bipolar, split personaltiy disorder. Medications and Allergies Home Medications Medication Instructions Recorded Confirmed Type Rizatriptan Benzoate [Maxalt] 10 mg PO BID PRN 03/24/18 12/18/20 History Galcanezumab-Gnlm [Emgality Pen] 120 mg SQ QMONTHLY 08/31/20 12/18/20 History ARIPiprazole [Abilify] 2 mg PO HS 12/18/20 12/18/20 History Albuterol Sulfate [Proair Hfa] 2 puff INHALATION RT-Q6H PRN 12/18/20 12/18/20 History Ascorbic Acid [Vitamin C] 500 mg PO DAILY 12/18/20 12/18/20 History Butalbital/Aspirin/Caffeine 1 cap PO Q6H PRN 12/18/20 12/18/20 History [Fiorinal 50-325-40 MG] Ergocalciferol (Vitamin D2) 1,250 mcg PO TH 12/18/20 12/18/20 History [Drisdol (50,000 Iu)] Escitalopram Oxalate [Lexapro] 20 mg PO HS 12/18/20 12/18/20 History Hydrochlorothiazide 12.5 mg PO DAILY 12/18/20 12/18/20 History [hydroCHLOROthiazide] [employer] Stored Belly Burner 3 cap PO DAILY 12/18/20 12/18/20 History [employer] Blood Builder 1 cap PO DAILY 12/18/20 12/18/20 History Resiratory [employer] Defense 2 cap PO DAILY 12/18/20 12/18/20 History Ubrogepant [Ubrelvy] 100 mg PO BID PRN 12/18/20 12/18/20 History traZODone HCL 50 - 100 mg PO HS 12/18/20 12/18/20 History Allergies Allergy/AdvReac Type Severity Reaction Status Date / Time metronidazole [From Flagyl] Allergy Anaphylaxis Verified 12/18/20 15:27 morphine Allergy Rash/Hives Verified 12/18/20 15:27 Physical Exam Vitals: Vital Signs Temp Pulse Pulse Pulse Resp BP BP 12/19/20 07:39 98.6 F 75 16 125/84 12/19/20 01:51 98.0 F 84 18 98/64 12/18/20 20:32 98.0 F 84 18 114/79 12/18/20 17:36 88 18 148/91 12/18/20 16:10 85 16 116/85 12/18/20 14:39 82 16 12/18/20 14:35 99.0 F 87 16 147/93 Pulse Ox 12/19/20 07:39 98 12/19/20 01:51 96 12/18/20 20:32 98 12/18/20 17:36 96 12/18/20 16:10 100 12/18/20 14:39 12/18/20 14:35 100 Intake and Output 12/18/20 12/19/20 12/19/20 22:59 06:59 14:59 Other: # Voids 3 2 Weight 112.945 kg GENERAL: The patient is alert and oriented x3, not in any acute distress. Well developed, well nourished. HEENT: Pupils are round and equally reacting to light. EOMI. No scleral icterus. No conjunctival pallor. Normocephalic, atraumatic. No pharyngeal erythema. No thyromegaly. CARDIOVASCULAR: S1 and S2 present. No murmurs, rubs, or gallops. PULMONARY: Chest is clear to auscultation, no wheezing or crackles. ABDOMEN: Soft, nontender, nondistended, normoactive bowel sounds. No palpable organomegaly. MUSCULOSKELETAL: No joint swelling or deformity. EXTREMITIES: No cyanosis, clubbing, or pedal edema. NEUROLOGICAL: Gross neurological examination did not reveal any focal deficits. SKIN: No rashes. No petechiae Results CBC & Chem 7: 12/18/20 15:40 12/18/20 14:55 Labs: Abnormal Lab Results - Last 24 Hours (Table) 12/18/20 12/18/20 12/18/20 Range/Units 14:55 14:55 15:40 MCV 78.2 L (80.0-100.0) fL RDW 16.5 H (11.5-15.5) % Sodium 136 L (137-145) mmol/L Glucose 108 H (74-99) mg/dL HDL Cholesterol 63 H (40-60) mg/dL Thrombosis Risk Factor Assmnt - Choose All That Apply Any of the Below Risk Factors Present?: Yes Each Factor Represents 1 point: Age 41-60 years, Obesity (BMI >25) Other Risk Factors: No Thrombosis Risk Factor Assessment Total Risk Factor Score: 2 Thrombosis Risk Factor Assessment Level: Low Risk
[2020-12-21] MEDS ORDERED: ERGOCALCIFEROL 1,250 MCG (50,000 IU) CAPSULE PO SCH (09:00)
== END 2020-12-19 16:10 | disposition home or self-care (01) ==
LOC: EC 14:34 → 6NMEDSUR 16:43
PROVIDERS: ADMIT Hospitalist; ATTEND Hospitalist
DX: R07.89 Other chest pain (principal); I10 Essential (primary) hypertension; R73.03 Prediabetes; R06.02 Shortness of breath; R11.0 Nausea; R20.2 Paresthesia of skin; R42 Dizziness and giddiness; R06.09 Other forms of dyspnea; R60.0 Localized edema; J45.909 Unspecified asthma, uncomplicated; K21.9 Gastro-esophageal reflux disease without esophagitis; J32.9 Chronic sinusitis, unspecified; K44.9 Diaphragmatic hernia without obstruction or gangrene; M54.5 Low back pain; G43.909 Migraine, unspecified, not intractable, without status migrainosus; K58.9 Irritable bowel syndrome, unspecified; Z90.49 Acquired absence of other specified parts of digestive tract; F32.9 Major depressive disorder, single episode, unspecified; F41.9 Anxiety disorder, unspecified; Z87.01 Personal history of pneumonia (recurrent); Z87.442 Personal history of urinary calculi; Z87.440 Personal history of urinary (tract) infections; Z87.19 Personal history of other diseases of the digestive system; Z87.09 Personal history of other diseases of the respiratory system; Z87.11 Personal history of peptic ulcer disease; Z87.891 Personal history of nicotine dependence; E66.01 Morbid (severe) obesity due to excess calories; Z68.42 Body mass index [BMI] 45.0-49.9, adult; Z79.899 Other long term (current) drug therapy; Z88.1 Allergy status to other antibiotic agents; Z91.02 Food additives allergy status; Z88.5 Allergy status to narcotic agent; Z91.018 Allergy to other foods; Z82.49 Family history of ischemic heart disease and other diseases of the circulatory system; Z83.3 Family history of diabetes mellitus; Z81.8 Family history of other mental and behavioral disorders; Z80.0 Family history of malignant neoplasm of digestive organs; Z80.8 Family history of malignant neoplasm of other organs or systems; Z20.822 Contact with and (suspected) exposure to COVID-19
CPT/HCPCS: 93005 ×2; 96374; 99285; 36415; 93306; 93351; 85379; 80061; 80053; 83735; 84484; 85025; 85610; 85730; 87635; 71046; G0378 ×2; J2405

== ENCOUNTER → 2022-03-27 | Outpatient (CLI) | payer MEDICAID ==
[2022-03-27 16:25] LABS: Basophils # (A) 0.1 k/uL (0-0.2); Basophils % (A) 1 %; Eosinophils # (A) 0.3 k/uL (0-0.7); Eosinophils % (A) 4 %; HGB 11.9 gm/dL (11.4-16.0); Hypochromasia Slight; Lymphocytes # (A) 3.2 k/uL (1.0-4.8); Lymphocytes % (A) 37 %; MCH 25.7 pg (25.0-35.0); MCHC 31.2 g/dL (31.0-37.0); MCV 82.4 fL (80.0-100.0); Mean Platelet Volume 9.6; Monocytes # (A) 0.3 k/uL (0-1.0); Monocytes % (A) 3 %; Neutrophils # (A) 4.6 k/uL (1.3-7.7); Neutrophils % (A) 54 %; Platelet Count 177 k/uL (150-450); RBC 4.61 m/uL (3.80-5.40); WBC 8.5 k/uL (3.8-10.6)
[2022-03-28 01:35] LABS: % Iron Saturation 5.03 (12.00-45.00); ALT 28 U/L (8-44); AST 23 U/L (13-35); African American GFR (CKD) 123.6 (60.0-200.0); Albumin 4.3 g/dL (3.8-4.9); Albumin/Globulin Ratio 1.55 (1.60-3.17); Alkaline Phosphatase 78 U/L (41-126); BUN/Creat Ratio 16.98 Ratio (12.00-20.00); Blood Urea Nitrogen 11.7 mg/dL (9.0-27.0); Calcium 9.1 mg/dL (8.7-10.3); Carbon Dioxide 23.2 mmol/L (20.0-27.5); Chloride 103 mmol/L (96-109); Ferritin 7.8 ng/mL (10.0-291.0); Globulin 2.8 g/dL (1.6-3.3); Glucose 134 mg/dL (70-110); Iron 23 ug/dL (50-170); Non-African American GFR(CKD) 106.7 (60.0-200.0); Potassium 4.3 mmol/L (3.5-5.5); Sodium 137 mmol/L (135-145); Total Bilirubin <0.15 mg/dL (0.30-1.20); Total Iron Binding Capacity 459 ug/dL (228-460); Total Protein 7.1 g/dL (6.2-8.2)
== END | disposition home or self-care (01) ==
LOC: LABWHC1 14:58
PROVIDERS: ATTEND Family Medicine
DX: E11.65 Type 2 diabetes mellitus with hyperglycemia (principal); R79.89 Other specified abnormal findings of blood chemistry
CPT/HCPCS: 36415; 80053; 82607; 82728; 82746; 83540; 83550; 85025

== ENCOUNTER 2022-08-04 04:59 | Emergency (ER) | payer MEDICAID ==
[2022-08-04 05:29] VITALS: BP 107/73; PULSE 77; RESP 20; TEMP 98.1
== END 2022-08-04 06:04 | disposition left against medical advice (07) ==
LOC: EC 04:59
DX: Z53.21 Procedure and treatment not carried out due to patient leaving prior to being seen by health care provider (principal)
CPT/HCPCS: 87635; 99499

== ENCOUNTER → 2022-10-02 | Outpatient (CLI) | payer MEDICAID, OTHER ==
--- NOTE | 2022-10-02 07:25 | MM ---
Reason for Exam: Clinical finding. Last mammogram was performed 7 year(s) and 5 month(s) ago. Patient History: Menarche at age 11. First Full-Term at age 14. Patient used Hormonal Contraceptives for 15 years. Maternal aunt had breast cancer. Last menstrual period: 09/05/2022 Risk Values: Adrienne 5 year model risk: 0.5%. NCI Lifetime model risk: 7.1%. Tissue Density: The breast tissue is heterogeneously dense. This may lower the sensitivity of mammography. Findings: Analyzed By CAD. No evidence for distinct mass or distortion. No suspicious calcifications. Overall Assessment: Incomplete: need additional imaging evaluation, BI-RAD 0 Management: Diagnostic Breast Ultrasound of the right breast. A clinical breast exam by your physician is recommended on an annual basis and results should be correlated with mammographic findings. This exam should not preclude additional follow-up of suspicious palpable abnormalities. Results were given to the patient verbally at the time of exam. Electronically signed and approved by: Cornelio Ariza M.D. Radiologis
--- NOTE | 2022-10-02 08:14 | USB ---
Patient History: Menarche at age 11. First Full-Term at age 14. Patient used Hormonal Contraceptives for 15 years. Maternal aunt had breast cancer. Risk Values: Adrienne 5 year model risk: 0.5%. NCI Lifetime model risk: 7.1%. Technique: Method: Targeted. Prior Study Comparison: 05/02/2015 Bilateral Diagnostic Mammogram, [facility]. Findings: The lower outer quadrant of the right breast, the axilla of the right breast and the retroareolar of the right breast were scanned. 2 subcutaneous lesions are noted at the site of clinical concern measuring 9 mm and 3 mm respectively. These are likely reflective of sebaceous cyst. Six-month follow-up and clinical correlation advised.. Overall Assessment: Probably benign, BI-RAD 3 Management: Diagnostic Breast Ultrasound of the right breast in 6 months. A clinical breast exam by your physician is recommended on an annual basis and results should be correlated with mammographic findings. This exam should not preclude additional follow-up of suspicious palpable abnormalities. Results were given to the patient verbally at the time of exam. Electronically signed and approved by: Cornelio Ariza M.D. Radiologis
== END | disposition home or self-care (01) ==
LOC: RADMAMWWP 06:56
PROVIDERS: ATTEND Family Medicine
DX: L98.9 Disorder of the skin and subcutaneous tissue, unspecified (principal); N63.13 Unspecified lump in the right breast, lower outer quadrant; Z80.3 Family history of malignant neoplasm of breast
CPT/HCPCS: 77062; 77066

== ENCOUNTER 2023-02-07 10:34 | Emergency (ER) | payer MEDICAID, OTHER ==
[2023-02-07 11:14] VITALS: TEMP 98.2
[2023-02-07] MEDS ORDERED: SODIUM CHLORIDE 0.9% 1,000 ML IV STA (12:28)
[2023-02-07 12:57] LABS: Basophils % (A) 1 %; Eosinophils # (A) 0.2 k/uL (0-0.7); Eosinophils % (A) 2 %; HGB 12.2 gm/dL (11.4-16.0); Lymphocytes # (A) 2.8 k/uL (1.0-4.8); Lymphocytes % (A) 33 %; MCH 25.5 pg (25.0-35.0); MCHC 32.2 g/dL (31.0-37.0); MCV 79.3 fL (80.0-100.0); Mean Platelet Volume 8.7; Monocytes # (A) 0.3 k/uL (0-1.0); Monocytes % (A) 4 %; Neutrophils # (A) 5.1 k/uL (1.3-7.7); Neutrophils % (A) 60 %; Platelet Count 265 k/uL (150-450); RDW 14.8 % (11.5-15.5); WBC 8.5 k/uL (3.8-10.6)
[2023-02-07 12:59] LABS: Appearance,Urine Clear (Clear); Bilirubin,Urine Negative (Negative); Blood,Urine Negative (Negative); Color,Urine Yellow; Glucose,Urine (UA) Negative (Negative); Ketones,Urine 3+ (Negative); Leukocyte Esterase,Urine Negative (Negative); Nitrite,Urine Negative (Negative); Protein,Urine Trace (Negative); Specific Gravity,Urine 1.027 (1.001-1.035); Urobilinogen,Urine <2.0 mg/dL (<2.0)
[2023-02-07 13:36] LABS: ALT 28 U/L (4-34); AST 22 U/L (14-36); African American GFR (CKD) >90 (>60 ml/min/1.73 sqM); Albumin 4.3 g/dL (3.5-5.0); Alkaline Phosphatase 81 U/L (38-126); Amylase 56 U/L (30-110); Anion Gap 7 mmol/L; Blood Urea Nitrogen 10 mg/dL (7-17); Calcium 9.2 mg/dL (8.4-10.2); Carbon Dioxide 31 mmol/L (22-30); Chloride 102 mmol/L (98-107); Glucose 110 mg/dL (74-99); Lipase 87 U/L (23-300); Non-African American GFR(CKD) >90 (>60 ml/min/1.73 sqM); Potassium 4.5 mmol/L (3.5-5.1); Sodium 140 mmol/L (137-145); Total Bilirubin 0.5 mg/dL (0.2-1.3); Total Protein 7.7 g/dL (6.3-8.2)
[2023-02-07] MEDS ORDERED: ONDANSETRON 4 MG/2 ML VIAL IVP STA (14:04)
[2023-02-07] MEDS ORDERED: FAMOTIDINE 20 MG/2 ML VIAL IV STA (14:04)
[2023-02-07] MEDS ORDERED: DICYCLOMINE 10 MG/ML 2 ML AMP IM STA (14:06)
--- NOTE | 2023-02-07 14:15 | ED ---
Nausea/Vomiting/Diarrhea HPI - General Chief complaint: Nausea/Vomiting/Diarrhea Stated complaint: NVD Time Seen by Provider: 02/07/23 12:28 Source: patient, RN notes reviewed Mode of arrival: ambulatory Limitations: no limitations - History of Present Illness Initial comments: This is a 43-year-old female who presents to the emergency department for ger sea, vomiting, and diarrhea. States that the symptoms started 2 days ago. She has not thrown up yet today, because she states that there is nothing left. She has however had dry heaves. Denies any associated abdominal pain. She has not taken anything for her symptoms. States that overall she feels dehydrated and unwell. Denies any sick contacts. Denies any fevers, chills, sore throat, cough, dyspnea, chest pain, palpitations, abdominal pain, back pain, or headaches. MD complaint: nausea, vomiting, diarrhea Onset/Timin -: days(s) Associated Abdominal Pain: No - Related Data Home Medications Medication Instructions Recorded Confirmed RX: Escitalopram Oxalate [Lexapro] 20 mg PO HS 12/18/20 01/04/23 RX: Propranolol [Inderal] 20 mg PO DAILY PRN 12/13/22 01/04/23 RX: traZODone HCL 150 mg PO HS 12/13/22 01/04/23 Escitalopram [Lexapro] 5 mg PO HS 01/04/23 01/04/23 Previous Rx's Medication Instructions Recorded Ondansetron Odt [Zofran Odt] 4 mg PO Q8HR PRN #15 tab 02/07/23 Allergies Allergy/AdvReac Type Severity Reaction Status Date / Time metronidazole [From Flagyl] Allergy Anaphylaxis Verified 01/04/23 15:10 morphine Allergy Rash/Hives Verified 01/04/23 15:10 Review of Systems ROS Statement: Those systems with pertinent positive or pertinent negative responses have been documented in the HPI. ROS Other: All systems not noted in ROS Statement are negative. Past Medical History Past Medical History: Asthma, Chest Pain / Angina, Diabetes Mellitus, GERD/Reflux, Hypertension, Pneumonia Additional Past Medical History / Comment(s): KIDNEY STONES. DDD. NO MEDS FOR BP AT THIS TIME. HIATAL HERNIA, chronic sinusitis/seasonal allergies. UTI. Bronchitis. Colitis, IBS. Migraines. Occasional low back pain. History of Any Multi-Drug Resistant Organisms: None Reported Past Surgical History: Section, Cholecystectomy, Heart Catheterization, Tubal Ligation Additional Past Surgical History / Comment(s): 08/31/20 CYSTO LEFT DOUBLE J CATHETER INSERTED. Sinus surgery, D&C, x 4, EGD/colonoscopy. Past Anesthesia/Blood Transfusion Reactions: Previous Problems w/ Anesthesia, Postoperative Nausea & Vomiting (PONV) Additional Past Anesthesia/Blood Transfusion Reaction / Comment(s): Pt did not go all the way under. Pt could hear, but not feel anything Past Psychological History: Anxiety, Depression Smoking Status: Former smoker, Vaper Past Alcohol Use History: Occasional Past Drug Use History: None Reported - Past Family History Father Family Medical History: Congestive Heart Failure (CHF), Coronary Artery Disease (CAD), Diabetes Mellitus Additional Family Medical History / Comment(s): stents,depression anxiety Mother Family Medical History: Cancer, Diabetes Mellitus, Hypertension Additional Family Medical History / Comment(s): colon cancer, SKIN CANCER, bipolar, split personaltiy disorder. General Exam Limitations: no limitations General appearance: alert, in no apparent distress Head exam: Present: atraumatic, normocephalic, normal inspection Respiratory exam: Present: normal lung sounds bilaterally. Absent: respiratory distress, wheezes, rales, rhonchi, stridor Cardiovascular Exam: Present: regular rate, normal rhythm, normal heart sounds. Absent: systolic murmur, diastolic murmur, rubs, gallop, clicks GI/Abdominal exam: Present: soft, normal bowel sounds. Absent: distended, tenderness, guarding, rebound, rigid Neurological exam: Present: alert, oriented X3, CN II-XII intact Psychiatric exam: Present: normal affect, normal mood Skin exam: Present: warm, dry, intact, normal color. Absent: rash Course Vital Signs 02/07/23 02/07/23 11:11 16:22 Temperature 98.2 F Pulse Rate 80 87 Respiratory 20 18 Rate Blood Pressure 136/87 134/87 O2 Sat by Pulse 97 98 Oximetry Medical Decision Making - Medical Decision Making This is a 43-year-old female who presents to the emergency department for nausea and vomiting. Was pt. sent in by a medical professional or institution? @ -No Did you speak to anyone other than the patient for history? @ -No Did you review nursing and triage notes? @ -Yes, and I agree, it is accurate with regards to the patient's symptoms. Were old charts reviewed? @ -No Differential Diagnosis? @ -Differential Nausea and Vomiting: Gastroenteritis, cholecystitis, appendicitis, pancreatitis, migraine, benign positional vertigo, food borne illness, pyelonephritis, irritable bowel syndrome, influenza, Covid, GERD, incarcerated hernia, intestinal obstruction, this is not meant to be an all-inclusive list. What testing was considered but not performed? (CT, X-rays, U/S, labs)? Why? @ -None What meds were considered but not given? Why? @ -None Did you discuss the management of the patient with other professionals? @ -No Did you reconcile home meds? @ -No Was smoking cessation discussed for >3mins.? @ -No Was critical care preformed (if so, how long)? @ -No Were there social determinants of health that impacted care today? How? (Homelessness, low income, unemployed, alcoholism, drug addiction, transportation, low edu. Level, literacy, decrease access to med. care, chcf, rehab)? @ -No Was there de-escalation of care discussed even if they declined? (Discuss DNR or withdrawal of care, Hospice)? @ -No What co-morbidities impacted this encounter? (DM, HTN, Smoking, COPD, CAD, Cancer, CVA, Hep., AIDS, mental health diagnosis, sleep apnea, morbid obesity)? @ -DM, GERD, morbid obesity Was patient admitted / discharged? @ -Discharge. Lab work obtained and found to be nonactionable. Urinalysis reveals ketones consistent with dehydration. Patient given a liter bolus of IV fluids, Pepcid, and Zofran, with resolution of symptoms. Advised that symptoms are most likely related to a viral gastroenteritis. Prescription for Zofran provided with dosing instructions reviewed. She is otherwise advised to remain well-hydrated and slowly advance her diet as tolerated. Undiagnosed new problem with uncertain prognosis? @ -None Drug Therapy requiring intensive monitoring for toxicity (Heparin, Nitro, Insulin, Cardizem)? @ -None Were any procedures done? @ -None Diagnosis/symptom? @ -Gastroenteritis Acute, or Chronic, or Acute on Chronic? @ -Acute Uncomplicated (without systemic symptoms) or Complicated (systemic symptoms)? @ -Uncomplicated Side effects of treatment? @ -None Exacerbation, Progression, or Severe Exacerbation] @ -Not applicable Poses a threat to life or bodily function? @ -No Return precautions reviewed in depth, the patient is instructed to return to the emergency department with any new, worsening, or concerning symptoms. Patient verbalized understanding. This case was discussed in detail with the attending ED physician, Dr. Craig. Presentation, findings, and treatment plan discussed in detail as well. - Lab Data Result diagrams: 02/07/23 12:02/07/23 12: Lab Results 02/07/23 02/07/23 02/07/23 Range/Units 12: 12: 12: WBC 8.5 (3.8-10.6) k/uL RBC 4.80 (3.80-5.40) m/uL Hgb 12.2 (11.4-16.0) gm/dL Hct 38.0 (34.0-46.0) % MCV 79.3 L (80.0-100.0) fL MCH 25.5 (25.0-35.0) pg MCHC 32.2 (31.0-37.0) g/dL RDW 14.8 (11.5-15.5) % Plt Count 265 (150-450) k/uL MPV 8.7 Neutrophils % 60 % Lymphocytes % 33 % Monocytes % 4 % Eosinophils % 2 % Basophils % 1 % Neutrophils # 5.1 (1.3-7.7) k/uL Lymphocytes # 2.8 (1.0-4.8) k/uL Monocytes # 0.3 (0-1.0) k/uL Eosinophils # 0.2 (0-0.7) k/uL Basophils # 0.0 (0-0.2) k/uL Sodium 140 (137-145) mmol/L Potassium 4.5 (3.5-5.1) mmol/L Chloride 102 (98-107) mmol/L Carbon Dioxide 31 H (22-30) mmol/L Anion Gap 7 mmol/L BUN 10 (7-17) mg/dL Creatinine 0.71 (0.52-1.04) mg/dL Est GFR (CKD-EPI)AfAm >90 (>60 ml/min/1.73 sqM) Est GFR (CKD-EPI)NonAf >90 (>60 ml/min/1.73 sqM) Glucose 110 H (74-99) mg/dL Calcium 9.2 (8.4-10.2) mg/dL Total Bilirubin 0.5 (0.2-1.3) mg/dL AST 22 (14-36) U/L ALT 28 (4-34) U/L Alkaline Phosphatase 81 (38-126) U/L Total Protein 7.7 (6.3-8.2) g/dL Albumin 4.3 (3.5-5.0) g/dL Amylase 56 (30-110) U/L Lipase 87 (23-300) U/L Urine Color Yellow Urine Appearance Clear (Clear) Urine pH 6.0 (5.0-8.0) Ur Specific [place] 1.027 (1.001-1.035) Urine Protein Trace H (Negative) Urine Glucose (UA) Negative (Negative) Urine Ketones 3+ H (Negative) Urine Blood Negative (Negative) Urine Nitrite Negative (Negative) Urine Bilirubin Negative (Negative) Urine Urobilinogen <2.0 (<2.0) mg/dL Ur Leukocyte Esterase Negative (Negative) Influenza Type A (PCR) (Not Detectd) Influenza Type B (PCR) (Not Detectd) RSV (PCR) (Not Detectd) SARS-CoV-2 (PCR) (Not Detectd) 02/07/23 Range/Units 14:26 WBC (3.8-10.6) k/uL RBC (3.80-5.40) m/uL Hgb (11.4-16.0) gm/dL Hct (34.0-46.0) % MCV (80.0-100.0) fL MCH (25.0-35.0) pg MCHC (31.0-37.0) g/dL RDW (11.5-15.5) % Plt Count (150-450) k/uL MPV Neutrophils % % Lymphocytes % % Monocytes % % Eosinophils % % Basophils % % Neutrophils # (1.3-7.7) k/uL Lymphocytes # (1.0-4.8) k/uL Monocytes # (0-1.0) k/uL Eosinophils # (0-0.7) k/uL Basophils # (0-0.2) k/uL Sodium (137-145) mmol/L Potassium (3.5-5.1) mmol/L Chloride (98-107) mmol/L Carbon Dioxide (22-30) mmol/L Anion Gap mmol/L BUN (7-17) mg/dL Creatinine (0.52-1.04) mg/dL Est GFR (CKD-EPI)AfAm (>60 ml/min/1.73 sqM) Est GFR (CKD-EPI)NonAf (>60 ml/min/1.73 sqM) Glucose (74-99) mg/dL Calcium (8.4-10.2) mg/dL Total Bilirubin (0.2-1.3) mg/dL AST (14-36) U/L ALT (4-34) U/L Alkaline Phosphatase (38-126) U/L Total Protein (6.3-8.2) g/dL Albumin (3.5-5.0) g/dL Amylase (30-110) U/L Lipase (23-300) U/L Urine Color Urine Appearance (Clear) Urine pH (5.0-8.0) Ur Specific [place] (1.001-1.035) Urine Protein (Negative) Urine Glucose (UA) (Negative) Urine Ketones (Negative) Urine Blood (Negative) Urine Nitrite (Negative) Urine Bilirubin (Negative) Urine Urobilinogen (<2.0) mg/dL Ur Leukocyte Esterase (Negative) Influenza Type A (PCR) Not Detected (Not Detectd) Influenza Type B (PCR) Not Detected (Not Detectd) RSV (PCR) Not Detected (Not Detectd) SARS-CoV-2 (PCR) Not Detected (Not Detectd) Disposition Clinical Impression: Gastroenteritis Disposition: HOME SELF-CARE Instructions (If sedation given, give patient instructions): Gastroenteritis (ED), Acute Nausea and Vomiting (ED) Additional Instructions: Return to the emergency department with any new, worsening, or concerning sy mptoms. Take the Zofran up to every 8 hours as needed for nausea and vomiting. Make sure that you remain well-hydrated and slowly advance your diet as tolerated. Follow up with your primary care provider in 1-2 days. Prescriptions: Ondansetron Odt [Zofran Odt] 4 mg PO Q8HR PRN #15 tab PRN Reason: Nausea And Vomiting Is patient prescribed a controlled substance at d/c from ED?: No Referrals: Morena Garcia MD [Primary Care Provider] - 1-2 days
[2023-02-07] MEDS ORDERED: ONDANSETRON 4 MG ODT STARTER PACK 2 TAB BTL PO STA (15:08)
[2023-02-07 16:23] VITALS: BP 134/87; PULSE 87; RESP 18
== END 2023-02-07 16:23 | disposition home or self-care (01) ==
LOC: EC 10:34
DX: K52.9 Noninfective gastroenteritis and colitis, unspecified (principal); I10 Essential (primary) hypertension; E11.9 Type 2 diabetes mellitus without complications; F32.A Depression, unspecified; F41.9 Anxiety disorder, unspecified; J45.909 Unspecified asthma, uncomplicated; K21.9 Gastro-esophageal reflux disease without esophagitis; F17.290 Nicotine dependence, other tobacco product, uncomplicated; Z79.899 Other long term (current) drug therapy; Z88.1 Allergy status to other antibiotic agents; Z88.5 Allergy status to narcotic agent; Z20.822 Contact with and (suspected) exposure to COVID-19
CPT/HCPCS: 36415; 80053; 82150; 83690; 85025; 81003; 87636; 99284; 96372; 96374; 96375; 96361 ×2; J0500; J2405

== ENCOUNTER 2023-05-09 15:40 | Emergency (ER) | payer MEDICAID, OTHER ==
[2023-05-09 17:32] LABS: Anisocytosis Slight; Basophils % (A) 0 %; Eosinophils # (A) 0.2 k/uL (0-0.7); Eosinophils % (A) 3 %; HCT 34.9 % (34.0-46.0); HGB 11.4 gm/dL (11.4-16.0); Hypochromasia Slight; Lymphocytes # (A) 3.2 k/uL (1.0-4.8); Lymphocytes % (A) 34 %; MCH 25.2 pg (25.0-35.0); MCHC 32.6 g/dL (31.0-37.0); MCV 77.4 fL (80.0-100.0); Mean Platelet Volume 7.4; Microcytosis Slight; Monocytes # (A) 0.4 k/uL (0-1.0); Monocytes % (A) 4 %; Neutrophils # (A) 5.3 k/uL (1.3-7.7); Neutrophils % (A) 57 %; Platelet Count 240 k/uL (150-450); RBC 4.51 m/uL (3.80-5.40); RDW 16.2 % (11.5-15.5); WBC 9.2 k/uL (3.8-10.6)
[2023-05-09 17:41] LABS: ALT 24 U/L (4-34); AST 28 U/L (14-36); African American GFR (CKD) >90 (>60 ml/min/1.73 sqM); Alkaline Phosphatase 76 U/L (38-126); Anion Gap 9 mmol/L; Blood Urea Nitrogen 9 mg/dL (7-17); Calcium 9.2 mg/dL (8.4-10.2); Carbon Dioxide 22 mmol/L (22-30); Chloride 104 mmol/L (98-107); Glucose 96 mg/dL (74-99); INR 0.9 (<1.2); Non-African American GFR(CKD) >90 (>60 ml/min/1.73 sqM); Partial Thromboplastin Time 22.7 sec (22.0-30.0); Potassium 4.4 mmol/L (3.5-5.1); Prothrombin Time 9.5 sec (9.0-12.0); Sodium 135 mmol/L (137-145); Total Bilirubin 0.4 mg/dL (0.2-1.3); Total Protein 7.4 g/dL (6.3-8.2)
[2023-05-09 17:57] LABS: HCG,Quantitative Serum <2.4 mIU/mL
[2023-05-09 18:10] LABS: Appearance,Urine Clear (Clear); Bilirubin,Urine Negative (Negative); Blood,Urine Large (Negative); Color,Urine Yellow; Glucose,Urine (UA) Negative (Negative); Ketones,Urine Negative (Negative); Leukocyte Esterase,Urine Trace (Negative); Nitrite,Urine Negative (Negative); PH, Urine 5.5 (5.0-8.0); Protein,Urine Negative (Negative); RBC,Urine >182 /hpf (0-5); Urobilinogen,Urine <2.0 mg/dL (<2.0); WBC,Urine 29 /hpf (0-5)
[2023-05-09 18:28] VITALS: RESP 16; TEMP 98
--- NOTE | 2023-05-09 18:28 | US ---
EXAMINATION TYPE: US transvaginal DATE OF EXAM: 05/09/2023 COMPARISON: NONE CLINICAL INDICATION: Female, 43 years old with history of vaginal bleed; spotting since April 22 (17 d ays), heavy vaginal bleeding for 2 days. Tubal ligation TECHNIQUE: Transvaginal (TV). Date of LMP: 03/08/23 EXAM MEASUREMENTS: Uterus: 10.0 x 5.6 x 6.9 cm Endometrial Stripe: 0.7 cm Right Ovary: unable to visualize Left Ovary: unable to visualize 1. Uterus: Anteverted heterogeneous. possible fibroid fundus = 4.4 x 4.1 x 5.7cm 2. Endometrium: appears wnl 3. Right Ovary: Obscured by overlying bowel gas 4. Left Ovary: Obscured by overlying bowel gas 5. Bilateral Adnexa: wnl 6. Posterior cul-de-sac: wnl IMPRESSION: Probable leiomyomatous change of the uterus.
--- NOTE | 2023-05-09 18:54 | ED ---
Female Urogenital HPI - General Chief complaint: Urogenital Stated complaint: Dizziness Time Seen by Provider: 05/09/23 16:10 Source: patient Mode of arrival: ambulatory - History of Present Illness Initial comments: 43-year-old female with past medical history of asthma, diabetes who presents to the emergency room reporting heavy vaginal bleeding. States that her symptoms started on April 23. She was having light spotting. Became heavier on the . Admits to generalized malaise. Has mild pelvic cramping. No history of irregular menstrual cycles. No vaginal discharge. No concern for . No urinary or bowel complaints. No other alleviating, precipitating or modifying factors Last Menstrual Period: 03/08/23 - Related Data Home Medications Medication Instructions Recorded Confirmed Escitalopram Oxalate [Lexapro] 20 mg PO HS 12/18/20 05/09/23 Escitalopram [Lexapro] 5 mg PO HS 01/04/23 05/09/23 Galcanezumab-Gnlm [Emgality Pen] 120 mg SQ Q30D 05/09/23 05/09/23 traZODone HCL 200 mg PO HS 05/09/23 05/09/23 Allergies Allergy/AdvReac Type Severity Reaction Status Date / Time metronidazole [From Flagyl] Allergy Rash all Verified 05/09/23 17:02 over morphine Allergy Rash/Hives Verified 05/09/23 17:02 Review of Systems ROS Statement: Those systems with pertinent positive or pertinent negative responses have been documented in the HPI. ROS Other: All systems not noted in ROS Statement are negative. Past Medical History Past Medical History: Asthma, Chest Pain / Angina, Diabetes Mellitus, GERD/Reflux, Hypertension, Pneumonia Additional Past Medical History / Comment(s): KIDNEY STONES. DDD. NO MEDS FOR B P AT THIS TIME. HIATAL HERNIA, chronic sinusitis/seasonal allergies. UTI. Bronchitis. Colitis, IBS. Migraines. Occasional low back pain. History of Any Multi-Drug Resistant Organisms: None Reported Past Surgical History: Section, Cholecystectomy, Heart Catheterization, Tubal Ligation Additional Past Surgical History / Comment(s): 08/31/20 CYSTO LEFT DOUBLE J CATHETER INSERTED. Sinus surgery, D&C, x 4, EGD/colonoscopy. Past Anesthesia/Blood Transfusion Reactions: Previous Problems w/ Anesthesia, Postoperative Nausea & Vomiting (PONV) Additional Past Anesthesia/Blood Transfusion Reaction / Comment(s): Pt did not go all the way under. Pt could hear, but not feel anything Past Psychological History: Anxiety, Depression Smoking Status: Former smoker Past Alcohol Use History: None Reported, Occasional Past Drug Use History: None Reported - Past Family History Father Family Medical History: Congestive Heart Failure (CHF), Coronary Artery Disease (CAD), Diabetes Mellitus Additional Family Medical History / Comment(s): stents,depression anxiety Mother Family Medical History: Cancer, Diabetes Mellitus, Hypertension Additional Family Medical History / Comment(s): colon cancer, SKIN CANCER, bipolar, split personaltiy disorder. General Exam General appearance: alert, in no apparent distress Head exam: Present: atraumatic, normocephalic, normal inspection Eye exam: Present: normal appearance, PERRL, EOMI. Absent: scleral icterus, conjunctival injection, periorbital swelling ENT exam: Present: normal exam, mucous membranes moist Neck exam: Present: normal inspection. Absent: tenderness, meningismus, lymphadenopathy Respiratory exam: Present: normal lung sounds bilaterally. Absent: respiratory distress, wheezes, rales, rhonchi, stridor Cardiovascular Exam: Present: regular rate, normal rhythm, normal heart sounds. Absent: systolic murmur, diastolic murmur, rubs, gallop, clicks GI/Abdominal exam: Present: soft, normal bowel sounds. Absent: distended, tenderness, guarding, rebound, rigid Extremities exam: Present: normal inspection, full ROM, normal capillary refill. Absent: tenderness, pedal edema, joint swelling, calf tenderness Back exam: Present: normal inspection Neurological exam: Present: alert, oriented X3, CN II-XII intact Psychiatric exam: Present: normal affect, normal mood Skin exam: Present: warm, dry, intact, normal color. Absent: rash Course Vital Signs 05/09/23 05/09/23 05/09/23 16:02 17:00 18:27 Temperature 98.3 F 97.9 F 98 F Pulse Rate 71 64 65 Respiratory 18 16 16 Rate Blood Pressure 130/83 136/87 137/90 O2 Sat by Pulse 97 98 98 Oximetry 05/09/23 19:21 Temperature 98 F Pulse Rate 67 Respiratory 16 Rate Blood Pressure 135/84 O2 Sat by Pulse 98 Oximetry Medical Decision Making - Medical Decision Making Was pt. sent in by a medical professional or institution (Dr., PA, TELETYPE TECHNICIAN, urgent care, hospital, or correction...) When possible be specific @ -No Did you speak to anyone other than the patient for history (EMS, parent, family, police, friend...)? What history was obtained from this source @ -No Did you review nursing and triage notes (agree or disagree)? Why? @ -I reviewed and agree with nursing and triage notes Were old charts reviewed (outside hosp., previous admission, EMS record, old EKG, old radiological studies, urgent care reports/EKG's, correction records)? Report findings @ -No old charts were reviewed Differential Diagnosis (chest pain, altered mental status, abdominal pain women, abdominal pain men, vaginal bleeding, weakness, fever, dyspnea, syncope, headache, dizziness, GI bleed, back pain, seizure, CVA, palpatations, mental health, musculoskeletal)? @ -Differential Vaginal Bleeding: Spontaneous , threatened , molar , ectopic , bloody show, incompetent cervix, abruptioplacenta, placenta previa, uterine rupture, dysfunctional uterine bleeding, hemorrhage, uterine fibroids, this is not meant to be an all-inclusive list. EKG interpreted by me (3pts min.). @ -Not completed X-rays interpreted by me (1pt min.). @ -None done CT interpreted by me (1pt min.). @ -None done U/S interpreted by me (1pt. min.). @ -Which demonstrates fibroid uterus What testing was considered but not performed or refused? (CT, X-rays, U/S, labs)? Why? @ -None What meds were considered but not given or refused? Why? @ -None Did you discuss the management of the patient with other professionals (professionals i.e. , PA, TELETYPE TECHNICIAN, lab, RT, psych nurse, social and human services assistant, shank cementer hand, te acher, communications officer, case management social worker)? Give summary @ -No Was smoking cessation discussed for >3mins.? @ -No Was critical care preformed (if so, how long)? @ -No Were there social determinants of health that impacted care today? How? (Homelessness, low income, unemployed, alcoholism, drug addiction, transportation, low edu. Level, literacy, decrease access to med. care, usp, rehab)? @ -No Was there de-escalation of care discussed even if they declined (Discuss DNR or withdrawal of care, Hospice)? DNR status @ -No What co-morbidities impacted this encounter? (DM, HTN, Smoking, COPD, CAD, Cancer, CVA, ARF, Chemo, Hep., AIDS, mental health diagnosis, sleep apnea, morbid obesity)? @ -None Was patient admitted / discharged? Hospital course, mention meds given and rou te, prescriptions, significant lab abnormalities, going to OR and other pertinent info. @ -Upon arrival patient is placed into room 26. A thorough history and physical exam was performed. IV access is established laboratory studies were conducted. Hemoglobin is 11.4. Urine does demonstrate blood. Ultrasound is performed which answers fibroid uterus. Did discuss results with the patient. She needs to follow up with SENIOR ANDROID DEVELOPER at this time for management of her fibroids. Return for any new or worsening symptoms. Patient agreeable to the plan was discharged in stable condition Undiagnosed new problem with uncertain prognosis? @ -No Drug Therapy requiring intensive monitoring for toxicity (Heparin, Nitro, Insulin, Cardizem)? @ -No Were any procedures done? @ -No Diagnosis/symptom? @ -Dysfunctional uterine bleeding, fibroid uterus Acute, or Chronic, or Acute on Chronic? @ -Acute Uncomplicated (without systemic symptoms) or Complicated (systemic symptoms)? @ -Complicated Side effects of treatment? @ -No Exacerbation, Progression, or Severe Exacerbation? @ -No Poses a threat to life or bodily function? How? (Chest pain, [place], [place], pneumonia, PE, COPD, DKA, ARF, appy, cholecystitis, CVA, Diverticulitis, Homicidal, Suicidal, threat to staff... and all critical care pts) @ -No - Lab Data Result diagrams: 05/09/23 17:10 05/09/23 17:10 Lab Results 05/09/23 05/09/23 05/09/23 Range/Units 17:10 17:10 17:10 WBC 9.2 (3.8-10.6) k/uL RBC 4.51 (3.80-5.40) m/uL Hgb 11.4 (11.4-16.0) gm/dL Hct 34.9 (34.0-46.0) % MCV 77.4 L (80.0-100.0) fL MCH 25.2 (25.0-35.0) pg MCHC 32.6 (31.0-37.0) g/dL RDW 16.2 H (11.5-15.5) % Plt Count 240 (150-450) k/uL MPV 7.4 Neutrophils % 57 % Lymphocytes % 34 % Monocytes % 4 % Eosinophils % 3 % Basophils % 0 % Neutrophils # 5.3 (1.3-7.7) k/uL Lymphocytes # 3.2 (1.0-4.8) k/uL Monocytes # 0.4 (0-1.0) k/uL Eosinophils # 0.2 (0-0.7) k/uL Basophils # 0.0 (0-0.2) k/uL Hypochromasia Slight Anisocytosis Slight Microcytosis Slight PT 9.5 (9.0-12.0) sec INR 0.9 (<1.2) APTT 22.7 (22.0-30.0) sec Sodium (137-145) mmol/L Potassium (3.5-5.1) mmol/L Chloride (98-107) mmol/L Carbon Dioxide (22-30) mmol/L Anion Gap mmol/L BUN (7-17) mg/dL Creatinine (0.52-1.04) mg/dL Est GFR (CKD-EPI)AfAm (>60 ml/min/1.73 sqM) Est GFR (CKD-EPI)NonAf (>60 ml/min/1.73 sqM) Glucose (74-99) mg/dL Calcium (8.4-10.2) mg/dL Total Bilirubin (0.2-1.3) mg/dL AST (14-36) U/L ALT (4-34) U/L Alkaline Phosphatase (38-126) U/L Total Protein (6.3-8.2) g/dL Albumin (3.5-5.0) g/dL HCG, Quant mIU/mL Urine Color Yellow Urine Appearance Clear (Clear) Urine pH 5.5 (5.0-8.0) Ur Specific [place] 1.010 (1.001-1.035) Urine Protein Negative (Negative) Urine Glucose (UA) Negative (Negative) Urine Ketones Negative (Negative) Urine Blood Large H (Negative) Urine Nitrite Negative (Negative) Urine Bilirubin Negative (Negative) Urine Urobilinogen <2.0 (<2.0) mg/dL Ur Leukocyte Esterase Trace H (Negative) Urine RBC >182 H (0-5) /hpf Urine WBC 29 H (0-5) /hpf 05/09/23 Range/Units 17:10 WBC (3.8-10.6) k/uL RBC (3.80-5.40) m/uL Hgb (11.4-16.0) gm/dL Hct (34.0-46.0) % MCV (80.0-100.0) fL MCH (25.0-35.0) pg MCHC (31.0-37.0) g/dL RDW (11.5-15.5) % Plt Count (150-450) k/uL MPV Neutrophils % % Lymphocytes % % Monocytes % % Eosinophils % % Basophils % % Neutrophils # (1.3-7.7) k/uL Lymphocytes # (1.0-4.8) k/uL Monocytes # (0-1.0) k/uL Eosinophils # (0-0.7) k/uL Basophils # (0-0.2) k/uL Hypochromasia Anisocytosis Microcytosis PT (9.0-12.0) sec INR (<1.2) APTT (22.0-30.0) sec Sodium 135 L (137-145) mmol/L Potassium 4.4 (3.5-5.1) mmol/L Chloride 104 (98-107) mmol/L Carbon Dioxide 22 (22-30) mmol/L Anion Gap 9 mmol/L BUN 9 (7-17) mg/dL Creatinine 0.62 (0.52-1.04) mg/dL Est GFR (CKD-EPI)AfAm >90 (>60 ml/min/1.73 sqM) Est GFR (CKD-EPI)NonAf >90 (>60 ml/min/1.73 sqM) Glucose 96 (74-99) mg/dL Calcium 9.2 (8.4-10.2) mg/dL Total Bilirubin 0.4 (0.2-1.3) mg/dL AST 28 (14-36) U/L ALT 24 (4-34) U/L Alkaline Phosphatase 76 (38-126) U/L Total Protein 7.4 (6.3-8.2) g/dL Albumin 4.0 (3.5-5.0) g/dL HCG, Quant <2.4 mIU/mL Urine Color Urine Appearance (Clear) Urine pH (5.0-8.0) Ur Specific [place] (1.001-1.035) Urine Protein (Negative) Urine Glucose (UA) (Negative) Urine Ketones (Negative) Urine Blood (Negative) Urine Nitrite (Negative) Urine Bilirubin (Negative) Urine Urobilinogen (<2.0) mg/dL Ur Leukocyte Esterase (Negative) Urine RBC (0-5) /hpf Urine WBC (0-5) /hpf Disposition Clinical Impression: Leiomyoma, Abnormal vaginal bleeding Disposition: HOME SELF-CARE Condition: Stable Instructions (If sedation given, give patient instructions): Abnormal (Dysfunctional) Uterine Bleeding (ED) Additional Instructions: Please follow-up with your SENIOR ANDROID DEVELOPER. Return for any new or worsening symptoms Is patient prescribed a controlled substance at d/c from ED?: No Referrals: Morena Garcia MD [Primary Care Provider] - 1-2 days Mary Perez DO [Doctor of Osteopathic Medicine] - 1-2 days Time of Disposition: 18:54
[2023-05-09 19:22] VITALS: BP 135/84; PULSE 67
== END 2023-05-09 19:23 | disposition home or self-care (01) ==
LOC: EC 15:40
DX: D21.9 Benign neoplasm of connective and other soft tissue, unspecified (principal); N93.9 Abnormal uterine and vaginal bleeding, unspecified; I10 Essential (primary) hypertension; J45.909 Unspecified asthma, uncomplicated; F41.9 Anxiety disorder, unspecified; F32.A Depression, unspecified; E11.9 Type 2 diabetes mellitus without complications; Z79.899 Other long term (current) drug therapy; Z87.891 Personal history of nicotine dependence; Z88.1 Allergy status to other antibiotic agents; Z88.5 Allergy status to narcotic agent
CPT/HCPCS: 36415; 76830; 80053; 81001; 84702; 85025; 85610; 85730; 99284

== ENCOUNTER 2023-07-16 11:01 | Emergency (ER) | payer MEDICAID, OTHER ==
[2023-07-16] MEDS ORDERED: SODIUM CHLORIDE 0.9% 1,000 ML IV STA (12:02)
[2023-07-16] MEDS ORDERED: ONDANSETRON 4 MG/2 ML VIAL IVP STA (12:02)
[2023-07-16] MEDS ORDERED: KETOROLAC 15 MG/ML 1 ML VIAL IVP STA (12:03)
--- NOTE | 2023-07-16 12:09 | ED ---
General Adult HPI - General Chief complaint: Dizziness Stated complaint: dizziness,SOB Time Seen by Provider: 07/16/23 11:57 Source: patient, RN notes reviewed Mode of arrival: ambulatory Limitations: no limitations - History of Present Illness Initial comments: 43-year-old female presents emergency Department with chief complaint of feeling lightheaded, dizzy palpitations. Patient states symptoms started today she is scheduled to see her PCP for a lump in her left arm. Patient states that she is advised to come here for further evaluation. Patient states that she just feels off. She did have slight nausea no abdominal pain no back pain no chest pain only palpitations. She did feel short breath has had some recent illness feeling - Related Data Home Medications Medication Instructions Recorded Confirmed Escitalopram Oxalate [Lexapro] 20 mg PO HS 12/18/20 05/09/23 Escitalopram [Lexapro] 5 mg PO HS 01/04/23 05/09/23 Galcanezumab-Gnlm [Emgality Pen] 120 mg SQ Q30D 05/09/23 05/09/23 traZODone HCL 200 mg PO HS 05/09/23 05/09/23 Allergies Allergy/AdvReac Type Severity Reaction Status Date / Time metronidazole [From Flagyl] Allergy Rash all Verified 07/16/23 11:50 over morphine Allergy Rash/Hives Verified 07/16/23 11:50 Review of Systems ROS Statement: Those systems with pertinent positive or pertinent negative responses have been documented in the HPI. ROS Other: All systems not noted in ROS Statement are negative. Past Medical History Past Medical History: Asthma, Chest Pain / Angina, Diabetes Mellitus, GERD/Reflux, Hypertension, Pneumonia Additional Past Medical History / Comment(s): KIDNEY STONES. DDD. NO MEDS FOR BP AT THIS TIME. HIATAL HERNIA, chronic sinusitis/seasonal allergies. UTI. Bronchitis. Colitis, IBS. Migraines. Occasional low back pain. History of Any Multi-Drug Resistant Organisms: None Reported Past Surgical History: Section, Cholecystectomy, Heart Catheterization, Tubal Ligation Additional Past Surgical History / Comment(s): 08/31/20 CYSTO LEFT DOUBLE J CATHETER INSERTED. Sinus surgery, D&C, x 4, EGD/colonoscopy. Past Anesthesia/Blood Transfusion Reactions: Previous Problems w/ Anesthesia, Postoperative Nausea & Vomiting (PONV) Additional Past Anesthesia/Blood Transfusion Reaction / Comment(s): Pt did not go all the way under. Pt could hear, but not feel anything Past Psychological History: Anxiety, Depression Smoking Status: Former smoker Past Alcohol Use History: None Reported, Occasional Past Drug Use History: None Reported - Past Family History Father Family Medical History: Congestive Heart Failure (CHF), Coronary Artery Disease (CAD), Diabetes Mellitus Additional Family Medical History / Comment(s): stents,depression anxiety Mother Family Medical History: Cancer, Diabetes Mellitus, Hypertension Additional Family Medical History / Comment(s): colon cancer, SKIN CANCER, bipo lar, split personaltiy disorder. General Exam Limitations: no limitations General appearance: alert, in no apparent distress Head exam: Present: atraumatic, normocephalic, normal inspection Eye exam: Present: normal appearance, PERRL, EOMI. Absent: scleral icterus, conjunctival injection, periorbital swelling ENT exam: Present: normal exam, normal oropharynx, mucous membranes moist Neck exam: Present: normal inspection, full ROM. Absent: tenderness, meningismus, lymphadenopathy Respiratory exam: Present: normal lung sounds bilaterally. Absent: respiratory distress, wheezes, rales, rhonchi, stridor Cardiovascular Exam: Present: regular rate, normal rhythm, normal heart sounds. Absent: systolic murmur, diastolic murmur, rubs, gallop, clicks GI/Abdominal exam: Present: soft, normal bowel sounds. Absent: distended, tenderness, guarding, rebound, rigid Course Vital Signs 07/16/23 07/16/23 11:48 11:50 Temperature 98.5 F 97.7 F Pulse Rate 72 88 Respiratory 20 18 Rate Blood Pressure 125/82 127/71 O2 Sat by Pulse 99 97 Oximetry EKG Findings - EKG Comments: EKG Findings:: EKG performed at 12:36 sinus rhythm with rate of 62 AR 171 QRS 102 QT/QTC 39/404 there is an inverted T-wave in lead 3 which noted on prior EK G. - EKG Results: EKG: interpreted by ERMD Medical Decision Making - Medical Decision Making Was pt. sent in by a medical professional or institution (, PA, CHOPPER OPERATOR, urgent care, hospital, or fdc...) When possible be specific @ -No Did you speak to anyone other than the patient for history (EMS, parent, family, police, friend...)? What history was obtained from this source @ -No Did you review nursing and triage notes (agree or disagree)? Why? @ -I reviewed and agree with nursing and triage notes Were old charts reviewed (outside hosp., previous admission, EMS record, old EKG, old radiological studies, urgent care reports/EKG's, fdc records)? Report findings @ -No old charts were reviewed Differential Diagnosis (chest pain, altered mental status, abdominal pain women, abdominal pain men, vaginal bleeding, weakness, fever, dyspnea, syncope, headache, dizziness, GI bleed, back pain, seizure, CVA, palpatations, mental h ealth, musculoskeletal)? @ -[nDifferential Palpitations Ventricular arrhythmias, atrial arrhythmias, myocardial infarction, anemia, thyrotoxicosis, electrolyte imbalance, hypokalemia, pulmonary embolism, pulmonary disease, drugs, alcohol, anxiety, stress.... This is not meant to be an all-inclusive list.this EKG interpreted by me (3pts min.). @ -As above X-rays interpreted by me (1pt min.). @ -Chest x-ray showed no acute process CT interpreted by me (1pt min.). @ -None done U/S interpreted by me (1pt. min.). @ -None done What testing was considered but not performed or refused? (CT, X-rays, U/S, labs)? Why? @ -None What meds were considered but not given or refused? Why? @ -None Did you discuss the management of the patient with other professionals (professionals i.e. , PA, CHOPPER OPERATOR, lab, RT, psych nurse, social work nurse, senior biostatistician, teacher, chief privacy officer, correctional casework specialist)? Give summary @ -No Was smoking cessation discussed for >3mins.? @ -No Was critical care preformed (if so, how long)? @ -No Were there social determinants of health that impacted care today? How? (Homelessness, low income, unemployed, alcoholism, drug addiction, transportation, low edu. Level, literacy, decrease access to med. care, correction, r ehab)? @ -No Was there de-escalation of care discussed even if they declined (Discuss DNR or withdrawal of care, Hospice)? DNR status @ -No What co-morbidities impacted this encounter? (DM, HTN, Smoking, COPD, CAD, Cancer, CVA, ARF, Chemo, Hep., AIDS, mental health diagnosis, sleep apnea, morbid obesity)? @ -None Was patient admitted / discharged? Hospital course, mention meds given and route, prescriptions, significant lab abnormalities, going to OR and other pertinent info. @ -Discharge patient feels improved after IV fluids, patient does show mild signs of dehydration patient's laboratory studies hours unremarkable. Patient does have noted lymph node on the left arm. She is to follow-up with no improvement return parameters discussed. Undiagnosed new problem with uncertain prognosis? @ -No Drug Therapy requiring intensive monitoring for toxicity (Heparin, Nitro, Insulin, Cardizem)? @ -No Were any procedures done? @ -No Diagnosis/symptom? @ -Palpitations, dizziness, left axilla lymph node Acute, or Chronic, or Acute on Chronic? @ -Acute Uncomplicated (without systemic symptoms) or Complicated (systemic symptoms)? @ -complicated Side effects of treatment? @ -No Exacerbation, Progression, or Severe Exacerbation? @ -No Poses a threat to life or bodily function? How? (Chest pain, [place], [place], pneumonia, PE, COPD, DKA, ARF, appy, cholecystitis, CVA, Diverticulitis, Homicidal, Suicidal, threat to staff... and all critical care pts) @ -No - Lab Data Result diagrams: 07/16/23 12:22 07/16/23 12:22 Lab Results 07/16/23 07/16/23 07/16/23 Range/Units 12:22 12:22 12:22 WBC 7.6 (3.8-10.6) k/uL RBC 4.53 (3.80-5.40) m/uL Hgb 11.1 L (11.4-16.0) gm/dL Hct 35.4 (34.0-46.0) % MCV 78.1 L (80.0-100.0) fL MCH 24.6 L (25.0-35.0) pg MCHC 31.5 (31.0-37.0) g/dL RDW 16.3 H (11.5-15.5) % Plt Count 255 (150-450) k/uL MPV 8.1 Neutrophils % 57 % Lymphocytes % 36 % Monocytes % 3 % Eosinophils % 3 % Basophils % 0 % Neutrophils # 4.3 (1.3-7.7) k/uL Lymphocytes # 2.7 (1.0-4.8) k/uL Monocytes # 0.2 (0-1.0) k/uL Eosinophils # 0.2 (0-0.7) k/uL Basophils # 0.0 (0-0.2) k/uL Hypochromasia Slight Anisocytosis Slight Microcytosis Slight Sodium 135 L (137-145) mmol/L Potassium 5.1 (3.5-5.1) mmol/L Chloride 104 (98-107) mmol/L Carbon Dioxide 24 (22-30) mmol/L Anion Gap 7 mmol/L BUN 10 (7-17) mg/dL Creatinine 0.59 (0.52-1.04) mg/dL Est GFR (CKD-EPI)AfAm >90 (>60 ml/min/1.73 sqM) Est GFR (CKD-EPI)NonAf >90 (>60 ml/min/1.73 sqM) Glucose 102 H (74-99) mg/dL Calcium 9.0 (8.4-10.2) mg/dL Magnesium 1.9 (1.6-2.3) mg/dL Total Bilirubin 0.7 (0.2-1.3) mg/dL AST 38 H (14-36) U/L ALT 26 (4-34) U/L Alkaline Phosphatase 58 (38-126) U/L Troponin I (0.000-0.034) ng/mL Total Protein 7.4 (6.3-8.2) g/dL Albumin 3.9 (3.5-5.0) g/dL Urine Color Yellow Urine Appearance Cloudy H (Clear) Urine pH 6.5 (5.0-8.0) Ur Specific [place] 1.026 (1.001-1.035) Urine Protein Trace H (Negative) Urine Glucose (UA) Negative (Negative) Urine Ketones 2+ H (Negative) Urine Blood Negative (Negative) Urine Nitrite Negative (Negative) Urine Bilirubin Negative (Negative) Urine Urobilinogen <2.0 (<2.0) mg/dL Ur Leukocyte Esterase Trace H (Negative) Urine RBC <1 (0-5) /hpf Urine WBC 3 (0-5) /hpf Ur Squamous Epith Cells 9 H (0-4) /hpf Urine Bacteria Rare H (None) /hpf Urine Mucus Few H (None) /hpf Influenza Type A (PCR) (Not Detectd) Influenza Type B (PCR) (Not Detectd) RSV (PCR) (Not Detectd) SARS-CoV-2 (PCR) (Not Detectd) 07/16/23 07/16/23 Range/Units 12:22 12:22 WBC (3.8-10.6) k/uL RBC (3.80-5.40) m/uL Hgb (11.4-16.0) gm/dL Hct (34.0-46.0) % MCV (80.0-100.0) fL MCH (25.0-35.0) pg MCHC (31.0-37.0) g/dL RDW (11.5-15.5) % Plt Count (150-450) k/uL MPV Neutrophils % % Lymphocytes % % Monocytes % % Eosinophils % % Basophils % % Neutrophils # (1.3-7.7) k/uL Lymphocytes # (1.0-4.8) k/uL Monocytes # (0-1.0) k/uL Eosinophils # (0-0.7) k/uL Basophils # (0-0.2) k/uL Hypochromasia Anisocytosis Microcytosis Sodium (137-145) mmol/L Potassium (3.5-5.1) mmol/L Chloride (98-107) mmol/L Carbon Dioxide (22-30) mmol/L Anion Gap mmol/L BUN (7-17) mg/dL Creatinine (0.52-1.04) mg/dL Est GFR (CKD-EPI)AfAm (>60 ml/min/1.73 sqM) Est GFR (CKD-EPI)NonAf (>60 ml/min/1.73 sqM) Glucose (74-99) mg/dL Calcium (8.4-10.2) mg/dL Magnesium (1.6-2.3) mg/dL Total Bilirubin (0.2-1.3) mg/dL AST (14-36) U/L ALT (4-34) U/L Alkaline Phosphatase (38-126) U/L Troponin I <0.012 (0.000-0.034) ng/mL Total Protein (6.3-8.2) g/dL Albumin (3.5-5.0) g/dL Urine Color Urine Appearance (Clear) Urine pH (5.0-8.0) Ur Specific [place] (1.001-1.035) Urine Protein (Negative) Urine Glucose (UA) (Negative) Urine Ketones (Negative) Urine Blood (Negative) Urine Nitrite (Negative) Urine Bilirubin (Negative) Urine Urobilinogen (<2.0) mg/dL Ur Leukocyte Esterase (Negative) Urine RBC (0-5) /hpf Urine WBC (0-5) /hpf Ur Squamous Epith Cells (0-4) /hpf Urine Bacteria (None) /hpf Urine Mucus (None) /hpf Influenza Type A (PCR) Not Detected (Not Detectd) Influenza Type B (PCR) Not Detected (Not Detectd) RSV (PCR) Not Detected (Not Detectd) SARS-CoV-2 (PCR) Not Detected (Not Detectd) Disposition Clinical Impression: Lightheaded, Palpitations, Left axillary pain Disposition: HOME SELF-CARE Condition: Stable Instructions (If sedation given, give patient instructions): Dizziness (ED) Additional Instructions: Please return to the Emergency Department if symptoms worsen or any other concerns. Is patient prescribed a controlled substance at d/c from ED?: No Referrals: Morena Garcia MD [Primary Care Provider] - 1-2 days Time of Disposition: 13:52
[2023-07-16 12:17] VITALS: RESP 18; TEMP 97.7
[2023-07-16 12:29] LABS: Anisocytosis Slight; Basophils % (A) 0 %; Eosinophils # (A) 0.2 k/uL (0-0.7); Eosinophils % (A) 3 %; HCT 35.4 % (34.0-46.0); HGB 11.1 gm/dL (11.4-16.0); Hypochromasia Slight; Lymphocytes # (A) 2.7 k/uL (1.0-4.8); Lymphocytes % (A) 36 %; MCH 24.6 pg (25.0-35.0); MCHC 31.5 g/dL (31.0-37.0); MCV 78.1 fL (80.0-100.0); Mean Platelet Volume 8.1; Microcytosis Slight; Monocytes # (A) 0.2 k/uL (0-1.0); Monocytes % (A) 3 %; Neutrophils # (A) 4.3 k/uL (1.3-7.7); Neutrophils % (A) 57 %; Platelet Count 255 k/uL (150-450); RBC 4.53 m/uL (3.80-5.40); RDW 16.3 % (11.5-15.5); WBC 7.6 k/uL (3.8-10.6)
[2023-07-16 12:40] LABS: Appearance,Urine Cloudy (Clear); Bacteria,Urine Rare /hpf; Bilirubin,Urine Negative (Negative); Blood,Urine Negative (Negative); Color,Urine Yellow; Glucose,Urine (UA) Negative (Negative); Ketones,Urine 2+ (Negative); Leukocyte Esterase,Urine Trace (Negative); Mucus,Urine Few /hpf; Nitrite,Urine Negative (Negative); PH, Urine 6.5 (5.0-8.0); Protein,Urine Trace (Negative); RBC,Urine <1 /hpf (0-5); Specific Gravity,Urine 1.026 (1.001-1.035); Squamous Epithelial Cell,Urine 9 /hpf (0-4); Urobilinogen,Urine <2.0 mg/dL (<2.0); WBC,Urine 3 /hpf (0-5)
[2023-07-16 12:46] LABS: ALT 26 U/L (4-34); African American GFR (CKD) >90 (>60 ml/min/1.73 sqM); Albumin 3.9 g/dL (3.5-5.0); Anion Gap 7 mmol/L; Blood Urea Nitrogen 10 mg/dL (7-17); Carbon Dioxide 24 mmol/L (22-30); Chloride 104 mmol/L (98-107); Glucose 102 mg/dL (74-99); Non-African American GFR(CKD) >90 (>60 ml/min/1.73 sqM); Sodium 135 mmol/L (137-145); Total Bilirubin 0.7 mg/dL (0.2-1.3); Total Protein 7.4 g/dL (6.3-8.2)
[2023-07-16 13:09] LABS: Magnesium 1.9 mg/dL (1.6-2.3); Potassium 5.1 mmol/L (3.5-5.1)
[2023-07-16 13:10] LABS: AST 38 U/L (14-36); Alkaline Phosphatase 58 U/L (38-126)
--- NOTE | 2023-07-16 13:23 | XR ---
EXAMINATION TYPE: XR chest 2V DATE OF EXAM: 07/16/2023 COMPARISON: 01/04/2023 TECHNIQUE: PA and lateral views submitted. HISTORY: Shortness of breath FINDINGS: The lungs are clear and there is no pneumothorax, pleural effusion, or focal pneumonia. Heart size normal and no overt failure. AC joint arthropathy. Surgical clips in the abdomen.. IMPRESSION: 1. No acute process.
[2023-07-16 14:01] VITALS: BP 127/78; PULSE 69
== END 2023-07-16 14:06 | disposition home or self-care (01) ==
LOC: EC 11:01
DX: R42 Dizziness and giddiness (principal); R00.2 Palpitations; M79.622 Pain in left upper arm; E11.9 Type 2 diabetes mellitus without complications; I10 Essential (primary) hypertension; J45.909 Unspecified asthma, uncomplicated; F32.A Depression, unspecified; F41.9 Anxiety disorder, unspecified; Z20.822 Contact with and (suspected) exposure to COVID-19; Z79.899 Other long term (current) drug therapy; Z88.1 Allergy status to other antibiotic agents; Z88.5 Allergy status to narcotic agent; Z87.891 Personal history of nicotine dependence
CPT/HCPCS: 36415; 93005; 80053; 83735; 84484; 85025; 81001; 87636; 71046; 99284; 96374; 96375; 96361; J2405; J1885

== ENCOUNTER 2023-07-25 05:28 | Emergency (ER) | payer MEDICAID, OTHER ==
[2023-07-25 05:37] VITALS: TEMP 98.7
[2023-07-25 06:14] LABS: Anisocytosis Slight; Basophils % (A) 0 %; Eosinophils # (A) 0.2 k/uL (0-0.7); Eosinophils % (A) 2 %; HCT 34.6 % (34.0-46.0); HGB 11.1 gm/dL (11.4-16.0); Hypochromasia Slight; Lymphocytes % (A) 28 %; MCH 25.2 pg (25.0-35.0); MCV 78.8 fL (80.0-100.0); Mean Platelet Volume 8.4; Microcytosis Slight; Monocytes # (A) 0.3 k/uL (0-1.0); Monocytes % (A) 4 %; Neutrophils # (A) 4.7 k/uL (1.3-7.7); Neutrophils % (A) 64 %; Platelet Count 217 k/uL (150-450); RBC 4.39 m/uL (3.80-5.40); RDW 16.2 % (11.5-15.5); WBC 7.3 k/uL (3.8-10.6)
[2023-07-25 06:25] LABS: ALT 24 U/L (4-34); AST 26 U/L (14-36); African American GFR (CKD) >90 (>60 ml/min/1.73 sqM); Albumin 3.8 g/dL (3.5-5.0); Alkaline Phosphatase 66 U/L (38-126); Anion Gap 7 mmol/L; Blood Urea Nitrogen 10 mg/dL (7-17); Calcium 8.9 mg/dL (8.4-10.2); Carbon Dioxide 25 mmol/L (22-30); Chloride 103 mmol/L (98-107); Glucose 132 mg/dL (74-99); Non-African American GFR(CKD) >90 (>60 ml/min/1.73 sqM); Potassium 3.7 mmol/L (3.5-5.1); Sodium 135 mmol/L (137-145); Total Bilirubin 0.5 mg/dL (0.2-1.3)
--- NOTE | 2023-07-25 06:27 | ED ---
General Adult HPI - General Chief complaint: Chest Pain Stated complaint: Chest discomfort,jittery Time Seen by Provider: 07/25/23 05:40 Source: patient Mode of arrival: wheelchair - History of Present Illness Initial comments: This is a 43-year-old female with a past medical history including asthma, GERD, diabetes and hypertension presents emergency department for central chest pressure and "feeling off." The patient stated this happened at 4:30 this morning and has been persistent. The patient stated that the pain does not radiate and stays to the center of her chest. The patient stated that she did not experience any similar episodes in the past. The patient denied any nausea, vomiting and diaphoresis. The patient was otherwise resting in bed comfortably without any acute distress. - Related Data Home Medications Medication Instructions Recorded Confirmed Escitalopram Oxalate [Lexapro] 20 mg PO HS 12/18/20 05/09/23 Escitalopram [Lexapro] 5 mg PO HS 01/04/23 05/09/23 Galcanezumab-Gnlm [Emgality Pen] 120 mg SQ Q30D 05/09/23 05/09/23 traZODone HCL 200 mg PO HS 05/09/23 05/09/23 Previous Rx's Medication Instructions Recorded Cephalexin [Keflex] 500 mg PO Q6HR #28 cap 07/16/23 Allergies Allergy/AdvReac Type Severity Reaction Status Date / Time metronidazole [From Flagyl] Allergy Rash all Verified 07/25/23 05:36 over morphine Allergy Rash/Hives Verified 07/25/23 05:36 Review of Systems ROS Statement: Those systems with pertinent positive or pertinent negative responses have been documented in the HPI. ROS Other: All systems not noted in ROS Statement are negative. Past Medical History Past Medical History: Asthma, Chest Pain / Angina, Diabetes Mellitus, GERD/Reflux, Hypertension, Pneumonia Additional Past Medical History / Comment(s): KIDNEY STONES. DDD. NO MEDS FOR BP AT THIS TIME. HIATAL HERNIA, chronic sinusitis/seasonal allergies. UTI. Bronchitis. Colitis, IBS. Migraines. Occasional low back pain. History of Any Multi-Drug Resistant Organisms: None Reported Past Surgical History: Section, Cholecystectomy, Heart Catheterization, Tubal Ligation Additional Past Surgical History / Comment(s): 08/31/20 CYSTO LEFT DOUBLE J CATHETER INSERTED. Sinus surgery, D&C, x 4, EGD/colonoscopy. Past Anesthesia/Blood Transfusion Reactions: Previous Problems w/ Anesthesia, Postoperative Nausea & Vomiting (PONV) Additional Past Anesthesia/Blood Transfusion Reaction / Comment(s): Pt did not go all the way under. Pt could hear, but not feel anything Past Psychological History: ADD/ADHD, Anxiety, Depression Smoking Status: Former smoker Past Alcohol Use History: None Reported, Occasional Past Drug Use History: None Reported - Past Family History Father Family Medical History: Congestive Heart Failure (CHF), Coronary Artery Disease (CAD), Diabetes Mellitus Additional Family Medical History / Comment(s): stents,depression anxiety Mother Family Medical History: Cancer, Diabetes Mellitus, Hypertension Additional Family Medical History / Comment(s): colon cancer, SKIN CANCER, bipolar, split personaltiy disorder. General Exam Limitations: no limitations General appearance: alert, in no apparent distress, obese Head exam: Present: atraumatic, normocephalic, normal inspection Eye exam: Present: normal appearance, PERRL Pupils: Present: normal accommodation ENT exam: Present: normal exam, normal oropharynx, mucous membranes moist Neck exam: Present: normal inspection, full ROM Respiratory exam: Present: normal lung sounds bilaterally Cardiovascular Exam: Present: regular rate, normal rhythm, normal heart sounds GI/Abdominal exam: Present: soft, normal bowel sounds Extremities exam: Present: normal inspection, full ROM Back exam: Present: normal inspection, full ROM Neurological exam: Present: alert, oriented X3, CN II-XII intact Psychiatric exam: Present: normal affect, normal mood Skin exam: Present: warm, dry Course Vital Signs 07/25/23 05:34 Temperature 98.7 F Pulse Rate 84 Respiratory 19 Rate Blood Pressure 149/82 O2 Sat by Pulse 99 Oximetry EKG Findings - EKG Comments: EKG Findings:: An EKG was obtained and was interpreted by myself showing a rate of 76, CA interval 166, QRS duration 102 and QTC of 400. This EKG showed a normal sinus rhythm with no ST segment elevation or depression noted. Medical Decision Making - Medical Decision Making Was pt. sent in by a medical professional or institution (, PA, DRY FINISHER, urgent care, hospital, or [facility]...) When possible be specific @ -No Did you speak to anyone other than the patient for history (EMS, parent, family, police, friend...)? What history was obtained from this source @ -No Did you review nursing and triage notes (agree or disagree)? Why? @ -I reviewed and agree with nursing and triage notes Were old charts reviewed (outside hosp., previous admission, EMS record, old EKG, old radiological studies, urgent care reports/EKG's, [facility] records)? Report findings @ -No old charts were reviewed Differential Diagnosis (chest pain, altered mental status, abdominal pain women, abdominal pain men, vaginal bleeding, weakness, fever, dyspnea, syncope, headache, dizziness, GI bleed, back pain, seizure, CVA, palpatations, mental health)? @ -ACS, pneumonia, pneumothorax EKG interpreted by me (3pts min.). @ -As above X-rays interpreted by me (1pt min.). @ -Chest x-ray was obtained and was interpreted by myself showing no acute process. CT interpreted by me (1pt min.). @ -None done U/S interpreted by me (1pt. min.). @ -None done What testing was considered but not performed or refused? (CT, X-rays, U/S, labs)? Why? @ -None What meds were considered but not given or refused? Why? @ -None Did you discuss the management of the patient with other professionals (professionals i.e. , PA, DRY FINISHER, lab, RT, psych nurse, healthcare social worker, senior embedded software engineer, teacher, security officer, registered nurse hh case manager)? Give summary @ -No Was smoking cessation discussed for >3mins.? @ -No Was critical care preformed (if so, how long)? @ -No Were there social determinants of health that impacted care today? How? (Homelessness, low income, unemployed, alcoholism, drug addiction, transportation, low edu. Level, literacy, decrease access to med. care, custodial, rehab)? @ -No Was there de-escalation of care discussed even if they declined (Discuss DNR or withdrawal of care, Hospice)? DNR status @ -No What co-morbidities impacted this encounter? (DM, HTN, Smoking, COPD, CAD, Cancer, CVA, ARF, Chemo, Hep., AIDS, mental health diagnosis, sleep apnea, morbid obesity)? @ -None Was patient admitted / discharged? Hospital course, mention meds given and route, prescriptions, significant lab abnormalities, going to OR and other pertinent info. @ -The patient was seen and evaluated emergency department. Physical exam, the patient was resting in bed without any acute distress. Vital signs admission were stable. Due to the nature the patient's complaints, laboratory workup and chest x-ray was obtained. All workup including labs were within normal limits and negative. On reevaluation, the patient stated that she had continued "feeling sent off" but denied any active chest pain. Due to the patient's negative workup, the patient was stable for discharge home. The patient was advised to follow-up with her primary care physician for further workup and evaluations report back to the emergency department if her pain became acutely worse. The patient was agreeable to this and all her questions were answered. The patient was discharged home in stable condition. Undiagnosed new problem with uncertain prognosis? @ -No Drug Therapy requiring intensive monitoring for toxicity (Heparin, Nitro, Insulin, Cardizem)? @ -No Were any procedures done? @ -No Diagnosis/symptom? @ -Atypical chest pain Acute, or Chronic, or Acute on Chronic? @ -Acute Uncomplicated (without systemic symptoms) or Complicated (systemic symptoms)? @ -Uncomplicated Side effects of treatment? @ -No Exacerbation, Progression, or Severe Exacerbation? @ -No Poses a threat to life or bodily function? How? (Chest pain, [place], [place], pneumonia, PE, COPD, DKA, ARF, appy, cholecystitis, CVA, Diverticulitis, Homicidal, Suicidal, threat to staff... and all critical care pts) @ -No - Lab Data Result diagrams: 07/25/23 06:03 07/25/23 06:03 Lab Results 07/25/23 07/25/23 07/25/23 Range/Units 06:03 06:03 06:03 WBC 7.3 (3.8-10.6) k/uL RBC 4.39 (3.80-5.40) m/uL Hgb 11.1 L (11.4-16.0) gm/dL Hct 34.6 (34.0-46.0) % MCV 78.8 L (80.0-100.0) fL MCH 25.2 (25.0-35.0) pg MCHC 32.0 (31.0-37.0) g/dL RDW 16.2 H (11.5-15.5) % Plt Count 217 (150-450) k/uL MPV 8.4 Neutrophils % 64 % Lymphocytes % 28 % Monocytes % 4 % Eosinophils % 2 % Basophils % 0 % Neutrophils # 4.7 (1.3-7.7) k/uL Lymphocytes # 2.0 (1.0-4.8) k/uL Monocytes # 0.3 (0-1.0) k/uL Eosinophils # 0.2 (0-0.7) k/uL Basophils # 0.0 (0-0.2) k/uL Hypochromasia Slight Anisocytosis Slight Microcytosis Slight PT 9.5 (9.0-12.0) sec INR 0.9 (<1.2) APTT 22.5 (22.0-30.0) sec Sodium 135 L (137-145) mmol/L Potassium 3.7 (3.5-5.1) mmol/L Chloride 103 (98-107) mmol/L Carbon Dioxide 25 (22-30) mmol/L Anion Gap 7 mmol/L BUN 10 (7-17) mg/dL Creatinine 0.67 (0.52-1.04) mg/dL Est GFR (CKD-EPI)AfAm >90 (>60 ml/min/1.73 sqM) Est GFR (CKD-EPI)NonAf >90 (>60 ml/min/1.73 sqM) Glucose 132 H (74-99) mg/dL Calcium 8.9 (8.4-10.2) mg/dL Magnesium 2.0 (1.6-2.3) mg/dL Total Bilirubin 0.5 (0.2-1.3) mg/dL AST 26 (14-36) U/L ALT 24 (4-34) U/L Alkaline Phosphatase 66 (38-126) U/L Troponin I (0.000-0.034) ng/mL NT-Pro-B Natriuret Pep <20 pg/mL Total Protein 7.0 (6.3-8.2) g/dL Albumin 3.8 (3.5-5.0) g/dL 07/25/23 Range/Units 06:03 WBC (3.8-10.6) k/uL RBC (3.80-5.40) m/uL Hgb (11.4-16.0) gm/dL Hct (34.0-46.0) % MCV (80.0-100.0) fL MCH (25.0-35.0) pg MCHC (31.0-37.0) g/dL RDW (11.5-15.5) % Plt Count (150-450) k/uL MPV Neutrophils % % Lymphocytes % % Monocytes % % Eosinophils % % Basophils % % Neutrophils # (1.3-7.7) k/uL Lymphocytes # (1.0-4.8) k/uL Monocytes # (0-1.0) k/uL Eosinophils # (0-0.7) k/uL Basophils # (0-0.2) k/uL Hypochromasia Anisocytosis Microcytosis PT (9.0-12.0) sec INR (<1.2) APTT (22.0-30.0) sec Sodium (137-145) mmol/L Potassium (3.5-5.1) mmol/L Chloride (98-107) mmol/L Carbon Dioxide (22-30) mmol/L Anion Gap mmol/L BUN (7-17) mg/dL Creatinine (0.52-1.04) mg/dL Est GFR (CKD-EPI)AfAm (>60 ml/min/1.73 sqM) Est GFR (CKD-EPI)NonAf (>60 ml/min/1.73 sqM) Glucose (74-99) mg/dL Calcium (8.4-10.2) mg/dL Magnesium (1.6-2.3) mg/dL Total Bilirubin (0.2-1.3) mg/dL AST (14-36) U/L ALT (4-34) U/L Alkaline Phosphatase (38-126) U/L Troponin I <0.012 (0.000-0.034) ng/mL NT-Pro-B Natriuret Pep pg/mL Total Protein (6.3-8.2) g/dL Albumin (3.5-5.0) g/dL Disposition Clinical Impression: Atypical chest pain Disposition: HOME SELF-CARE Condition: Stable Instructions (If sedation given, give patient instructions): Chest Pain (DC) Is patient prescribed a controlled substance at d/c from ED?: No Referrals: Morena Garcia MD [Primary Care Provider] - 1-2 days Time of Disposition: 06:50
[2023-07-25 06:33] LABS: NT-Pro-B-Type Natriuretic Pept <20 pg/mL
[2023-07-25 06:43] LABS: INR 0.9 (<1.2); Partial Thromboplastin Time 22.5 sec (22.0-30.0); Prothrombin Time 9.5 sec (9.0-12.0)
[2023-07-25 07:18] VITALS: BP 132/78; PULSE 64; RESP 18
--- NOTE | 2023-07-25 07:28 | XR ---
EXAMINATION TYPE: XR chest 2V DATE OF EXAM: 07/25/2023 COMPARISON: 07/16/2023 HISTORY: Chest pain TECHNIQUE: Frontal and lateral views of the chest are obtained. FINDINGS: There is no focal air space opacity. No evidence for pneumothorax. No pleural effusion. The cardiac silhouette size is within normal limits. The osseous structures are grossly intact. IMPRESSION: 1. No acute cardiopulmonary process.
== END 2023-07-25 07:18 | disposition home or self-care (01) ==
LOC: EC 05:28
DX: R07.89 Other chest pain (principal); J45.909 Unspecified asthma, uncomplicated; E11.9 Type 2 diabetes mellitus without complications; I10 Essential (primary) hypertension; F41.9 Anxiety disorder, unspecified; F90.9 Attention-deficit hyperactivity disorder, unspecified type; F32.A Depression, unspecified; Z87.891 Personal history of nicotine dependence; Z79.899 Other long term (current) drug therapy; Z88.5 Allergy status to narcotic agent; Z88.8 Allergy status to other drugs, medicaments and biological substances; Z88.1 Allergy status to other antibiotic agents; Z90.49 Acquired absence of other specified parts of digestive tract
CPT/HCPCS: 36415; 71046; 80053; 83735; 83880; 84484; 85025; 85610; 85730; 93005; 99285

== ENCOUNTER 2023-11-15 11:06 | Emergency (ER) | payer MEDICAID ==
[2023-11-15 11:24] VITALS: PULSE 78; TEMP 98.4
--- NOTE | 2023-11-15 11:32 | ED ---
General Adult HPI - General Chief complaint: Upper Respiratory Infection Stated complaint: sob congestion Source: patient Mode of arrival: ambulatory Limitations: no limitations - History of Present Illness Initial comments: Quick note: patient woke up yesterday with a raspy voice and slight cough. Today is worse and she doesn't feel well. She has coughed up green phlegm. Sometimes has pain with coughing. NO chest pain at baseline or when not coughing. Home test was negative for COVID yesterday. Patient has a history of asthma. HPI: See above, no change - Related Data Home Medications Medication Instructions Recorded Confirmed Escitalopram Oxalate [Lexapro] 20 mg PO HS 12/18/20 05/09/23 Escitalopram [Lexapro] 5 mg PO HS 01/04/23 05/09/23 Galcanezumab-Gnlm [Emgality Pen] 120 mg SQ Q30D 05/09/23 05/09/23 traZODone HCL 200 mg PO HS 05/09/23 05/09/23 Previous Rx's Medication Instructions Recorded Cephalexin [Keflex] 500 mg PO Q6HR #28 cap 07/16/23 Allergies Allergy/AdvReac Type Severity Reaction Status Date / Time metronidazole [From Flagyl] Allergy Rash all Verified 11/15/23 11:21 over morphine Allergy Rash/Hives Verified 11/15/23 11:21 Review of Systems ROS Statement: Those systems with pertinent positive or pertinent negative responses have been documented in the HPI. ROS Other: All systems not noted in ROS Statement are negative. Past Medical History Past Medical History: Asthma, Chest Pain / Angina, Diabetes Mellitus, GERD/Reflux, Hypertension, Pneumonia Additional Past Medical History / Comment(s): KIDNEY STONES. DDD. NO MEDS FOR BP AT THIS TIME. HIATAL HERNIA, chronic sinusitis/seasonal allergies. UTI. Bronchitis. Colitis, IBS. Migraines. Occasional low back pain. History of Any Multi-Drug Resistant Organisms: None Reported Past Surgical History: Section, Cholecystectomy, Heart Catheterization, Tubal Ligation Additional Past Surgical History / Comment(s): 08/31/20 CYSTO LEFT DOUBLE J CATHETER INSERTED. Sinus surgery, D&C, x 4, EGD/colonoscopy. Past Anesthesia/Blood Transfusion Reactions: Previous Problems w/ Anesthesia, Postoperative Nausea & Vomiting (PONV) Additional Past Anesthesia/Blood Transfusion Reaction / Comment(s): Pt did not go all the way under. Pt could hear, but not feel anything Past Psychological History: ADD/ADHD, Anxiety, Depression Smoking Status: Former smoker Past Alcohol Use History: None Reported Past Drug Use History: None Reported - Past Family History Father Family Medical History: Congestive Heart Failure (CHF), Coronary Artery Disease (CAD), Diabetes Mellitus Additional Family Medical History / Comment(s): stents,depression anxiety Mother Family Medical History: Cancer, Diabetes Mellitus, Hypertension Additional Family Medical History / Comment(s): colon cancer, SKIN CANCER, bipolar, split personaltiy disorder. General Exam - General Exam Comments Initial Comments: Physical exam (visual): patient well appearing, no distress. Lungs CTAB Limitations: no limitations General appearance: alert, in no apparent distress Head exam: Present: atraumatic Eye exam: Present: normal appearance, PERRL, EOMI. Absent: scleral icterus, conjunctival injection, periorbital swelling ENT exam: Present: normal exam, mucous membranes moist Neck exam: Present: normal inspection, full ROM. Absent: tenderness, meningismus, lymphadenopathy Respiratory exam: Present: normal lung sounds bilaterally. Absent: respiratory distress, wheezes, rales, rhonchi, stridor Cardiovascular Exam: Present: regular rate, normal rhythm, normal heart sounds. Absent: systolic murmur, diastolic murmur, rubs, gallop, clicks GI/Abdominal exam: Present: soft, normal bowel sounds. Absent: distended, tenderness, guarding, rebound, rigid Neurological exam: Present: alert Course Vital Signs 11/15/23 11:19 Temperature 98.4 F Pulse Rate 78 Respiratory 18 Rate Blood Pressure 132/90 O2 Sat by Pulse 97 Oximetry Medical Decision Making - Medical Decision Making Was pt. sent in by a medical professional or institution (, PA, MANAGER JAVA, urgent care, hospital, or retirement...) When possible be specific @ -[No] Did you speak to anyone other than the patient for history (EMS, parent, family, police, friend...)? What history was obtained from this source @ -family Did you review nursing and triage notes (agree or disagree)? Why? @ -[I reviewed and agree with nursing and triage notes] Were old charts reviewed (outside hosp., previous admission, EMS record, old EKG, old radiological studies, urgent care reports/EKG's, retirement records)? Report findings @ -[No old charts were reviewed] Differential Diagnosis (chest pain, altered mental status, abdominal pain women, abdominal pain men, vaginal bleeding, weakness, fever, dyspnea, syncope, headache, dizziness, GI bleed, back pain, seizure, CVA, palpatations, mental health)? @ -[not applicable] EKG interpreted by me (3pts min.). @ -Not done X-rays interpreted by me (1pt min.). @ -[None done] CT interpreted by me (1pt min.). @ -[None done] U/S interpreted by me (1pt. min.). @ -[None done] What testing was considered but not performed or refused? (CT, X-rays, U/S, labs)? Why? @ -Chest x-ray of but this just started and she is not having any shortness of breath, fever What meds were considered but not given or refused? Why? @ -[None] Did you discuss the management of the patient with other professionals (professionals i.e. , PA, MANAGER JAVA, lab, RT, psych nurse, social media designer, agriculture extension specialist, teacher, personal banking officer, piano case and bench assembler)? Give summary @ -[No] Was smoking cessation discussed for >3mins.? @ -[No] Was critical care preformed (if so, how long)? @ -[No] Were there social determinants of health that impacted care today? How? (Homelessness, low income, unemployed, alcoholism, drug addiction, transportation, low edu. Level, literacy, decrease access to med. care, [facility], rehab)? @ -[No] Was there de-escalation of care discussed even if they declined (Discuss DNR or withdrawal of care, Hospice)? DNR status @ -[No] What co-morbidities impacted this encounter? (DM, HTN, Smoking, COPD, CAD, Cancer, CVA, ARF, Chemo, Hep., AIDS, mental health diagnosis, sleep apnea, morbid obesity)? @ -DM Was patient admitted / discharged? Hospital course, mention meds given and route, prescriptions, significant lab abnormalities, going to OR and other pertinent info. @ Patient was seen in the waiting room. Lung sounds are clear. Nor citrate distress. Vitals are stable. Influenza RSV and COVID-19 are negative. Offered chest x-ray however she does not have fever cough she declines at this time. She will be discharged home to follow up with primary care. Given her history of asthma we will send her with albuterol however we will hold off on steroids as it messes with her diabetes and she is not having any wheezing Undiagnosed new problem with uncertain prognosis? @ IDrug Therapy requiring intensive monitoring for toxicity (Heparin, Nitro, Insulin, Cardizem)? @ -[No] Were any procedures done? @ -[No] Diagnosis/symptom? @ -[cough, upper respiratory infection Acute, or Chronic, or Acute on Chronic? @ --acute Uncomplicated (without systemic symptoms) or Complicated (systemic symptoms)? @ -[default] Side effects of treatment? @ -[No] Exacerbation, Progression, or Severe Exacerbation? @ -[No] Poses a threat to life or bodily function? How? (Chest pain, [place], [place], pneumonia, PE, COPD, DKA, ARF, appy, cholecystitis, CVA, Diverticulitis, Homicidal, Suicidal, threat to staff... and all critical care pts) @ -[No] - Lab Data Lab Results 11/15/23 Range/Units 11:23 Influenza Type A (PCR) Not Detected (Not Detectd) Influenza Type B (PCR) Not Detected (Not Detectd) RSV (PCR) Not Detected (Not Detectd) SARS-CoV-2 (PCR) Not Detected (Not Detectd) Disposition Clinical Impression: Cough Disposition: HOME SELF-CARE Condition: Good Instructions (If sedation given, give patient instructions): Upper Respiratory Infection (ED) Additional Instructions: Please follow up with PCP on Friday. Return to the ER for any worsening symptoms. Is patient prescribed a controlled substance at d/c from ED?: No Referrals: Morena Garcia MD [Primary Care Provider] - 1-2 days Time of Disposition: 12:44
[2023-11-15 13:14] VITALS: BP 134/88; RESP 20
== END 2023-11-15 12:54 | disposition home or self-care (01) ==
LOC: EC 11:06
DX: R05.9 Cough, unspecified (principal); J45.909 Unspecified asthma, uncomplicated; E11.9 Type 2 diabetes mellitus without complications; I10 Essential (primary) hypertension; F90.9 Attention-deficit hyperactivity disorder, unspecified type; F41.9 Anxiety disorder, unspecified; F32.A Depression, unspecified; Z87.891 Personal history of nicotine dependence; Z79.899 Other long term (current) drug therapy; Z88.5 Allergy status to narcotic agent; Z88.8 Allergy status to other drugs, medicaments and biological substances; Z20.822 Contact with and (suspected) exposure to COVID-19
CPT/HCPCS: 87636; 99284

== ENCOUNTER 2023-12-11 20:09 | Emergency (ER) | payer MEDICAID ==
[2023-12-11 20:29] VITALS: BP 108/70; PULSE 70; RESP 18; TEMP 98.7
--- NOTE | 2023-12-11 20:51 | XR ---
EXAMINATION TYPE: XR chest 2V DATE OF EXAM: 12/11/2023 8:42 PM CLINICAL INDICATION:Female, 43 years old with history of Respiratory symptoms; [facility] COMPARISON: Chest radiographs from and 1522 TECHNIQUE: XR chest 2V Frontal and lateral views of the chest. FINDINGS: Lungs/Pleura: There is no evidence of pleural effusion, focal consolidation, or pneumothorax. Pulmonary vascularity: Unremarkable. Heart/mediastinum: Cardiomediastinal silhouette is unremarkable. Musculoskeletal: No acute osseous pathology. IMPRESSION: No acute cardiopulmonary disease/process.
--- NOTE | 2023-12-11 21:30 | ED ---
URI HPI - General Chief Complaint: Upper Respiratory Infection Stated Complaint: Cough, Lung Pain Time Seen by Provider: 12/11/23 21:12 Source: patient Limitations: no limitations - History of Present Illness Initial Comments: 43-year-old female presenting with chief complaint of cough. Patient started with a cough on Friday, it is now and the cough is getting worse. She is having chills without fevers. She also admits to headache and generalized body pain. Patient does have history of asthma, however she is having no shortness of breath. No chest pain. She does have a bit of back pain with coughing. No lower extremity swelling, hormone use, history of blood clots, history of cancer, recent surgery or travel, palpitations, weakness. - Related Data Home Medications Medication Instructions Recorded Confirmed Escitalopram Oxalate [Lexapro] 20 mg PO HS 12/18/20 05/09/23 Escitalopram [Lexapro] 5 mg PO HS 01/04/23 05/09/23 Galcanezumab-Gnlm [Emgality Pen] 120 mg SQ Q30D 05/09/23 05/09/23 traZODone HCL 200 mg PO HS 05/09/23 05/09/23 Previous Rx's Medication Instructions Recorded Cephalexin [Keflex] 500 mg PO Q6HR #28 cap 07/16/23 Albuterol Inhaler [Ventolin Hfa 1 - 2 puff INHALATION Q6HR PRN #1 11/15/23 Inhaler] each Albuterol Nebulized [Ventolin 2.5 mg INHALATION Q6H 6 Days #75 ml 11/15/23 Nebulized] Allergies Allergy/AdvReac Type Severity Reaction Status Date / Time metronidazole [From Flagyl] Allergy Rash all Verified 12/11/23 20:23 over morphine Allergy Rash/Hives Verified 12/11/23 20:23 Review of Systems ROS Statement: Those systems with pertinent positive or pertinent negative responses have been documented in the HPI. ROS Other: All systems not noted in ROS Statement are negative. Past Medical History Past Medical History: Asthma, Chest Pain / Angina, Diabetes Mellitus, GERD/Reflux, Hypertension, Pneumonia Additional Past Medical History / Comment(s): KIDNEY STONES. DDD. NO MEDS FOR BP AT THIS TIME. HIATAL HERNIA, chronic sinusitis/seasonal allergies. UTI. Bronchitis. Colitis, IBS. Migraines. Occasional low back pain. History of Any Multi-Drug Resistant Organisms: None Reported Past Surgical History: Section, Cholecystectomy, Heart Catheterization, Tubal Ligation Additional Past Surgical History / Comment(s): 08/31/20 CYSTO LEFT DOUBLE J CATHETER INSERTED. Sinus surgery, D&C, x 4, EGD/colonoscopy. Past Anesthesia/Blood Transfusion Reactions: Previous Problems w/ Anesthesia, Postoperative Nausea & Vomiting (PONV) Additional Past Anesthesia/Blood Transfusion Reaction / Comment(s): Pt did not go all the way under. Pt could hear, but not feel anything Past Psychological History: ADD/ADHD, Anxiety, Depression Smoking Status: Former smoker Past Alcohol Use History: None Reported Past Drug Use History: None Reported - Past Family History Father Family Medical History: Congestive Heart Failure (CHF), Coronary Artery Disease (CAD), Diabetes Mellitus Additional Family Medical History / Comment(s): stents,depression anxiety Mother Family Medical History: Cancer, Diabetes Mellitus, Hypertension Additional Family Medical History / Comment(s): colon cancer, SKIN CANCER, bipolar, split personaltiy disorder. General Exam Limitations: no limitations General appearance: alert, in no apparent distress Head exam: Present: atraumatic, normocephalic Eye exam: Present: normal appearance, EOMI Neck exam: Present: normal inspection Respiratory exam: Present: normal lung sounds bilaterally. Absent: respiratory distress, wheezes, rales, rhonchi, stridor Cardiovascular Exam: Present: regular rate, normal rhythm, normal heart sounds. Absent: systolic murmur, diastolic murmur, rubs, gallop, clicks Extremities exam: Present: normal inspection. Absent: pedal edema Neurological exam: Present: alert, oriented X3 Psychiatric exam: Present: normal affect, normal mood Skin exam: Present: warm, dry Course Vital Signs 12/11/23 20:19 Temperature 98.7 F Pulse Rate 70 Respiratory 18 Rate Blood Pressure 108/70 O2 Sat by Pulse 99 Oximetry Medical Decision Making - Medical Decision Making Was pt. sent in by a medical professional or institution (, PA, COFFEE SHOP ATTENDANT, urgent c are, hospital, or jail...) When possible be specific @ -No Did you speak to anyone other than the patient for history (EMS, parent, family, police, friend...)? What history was obtained from this source @ -No Did you review nursing and triage notes (agree or disagree)? Why? @ -I reviewed and agree with nursing and triage notes Were old charts reviewed (outside hosp., previous admission, EMS record, old EKG, old radiological studies, urgent care reports/EKG's, jail records)? Report findings @ -No old charts were reviewed Differential Diagnosis (chest pain, altered mental status, abdominal pain women, abdominal pain men, vaginal bleeding, weakness, fever, dyspnea, syncope, headache, dizziness, GI bleed, back pain, seizure, CVA, palpatations, mental health, musculoskeletal)? @ -Differential includes upper respiratory tract infection, pneumonia, bronchitis, pulmonary embolism, this is not an all-inclusive list EKG interpreted by me (3pts min.). @ -As above X-rays interpreted by me (1pt min.). @ -X-ray shows no acute cardiopulmonary disease or process CT interpreted by me (1pt min.). @ -None done U/S interpreted by me (1pt. min.). @ -None done What testing was considered but not performed or refused? (CT, X-rays, U/S, labs)? Why? @ -None What meds were considered but not given or refused? Why? @ -None Did you discuss the management of the patient with other professionals (professionals i.e. , PA, COFFEE SHOP ATTENDANT, lab, RT, psych nurse, social service assistant, psychiatric orderly, teacher, marine safety officer, case mgr)? Give summary @ -No Was smoking cessation discussed for >3mins.? @ -No Was critical care preformed (if so, how long)? @ -No Were there social determinants of health that impacted care today? How? (Homelessness, low income, unemployed, alcoholism, drug addiction, transportation, low edu. Level, literacy, decrease access to med. care, residential, rehab)? @ -No Was there de-escalation of care discussed even if they declined (Discuss DNR or withdrawal of care, Hospice)? DNR status @ -No What co-morbidities impacted this encounter? (DM, HTN, Smoking, COPD, CAD, Cancer, CVA, ARF, Chemo, Hep., AIDS, mental health diagnosis, sleep apnea, morbid obesity)? @ -None Was patient admitted / discharged? Hospital course, mention meds given and route, prescriptions, significant lab abnormalities, going to OR and other pertinent info. @ -43-year-old female with history of asthma presenting with chief complaint of cough, headache, body aches. Symptoms have been ongoing for the last 3 days. Workup was initiated by triage, she is negative for influenza, RSV, and COVID. Chest x-ray shows no acute process. On physical exam heart and lungs are clear to auscultation. Negative PERC criteria and Wells criteria. Patient is educated on today's findings and supportive management of URI. Follow-up with PCP. Report back to ER with any new or worsening symptoms. Discussed return parameters and answered all questions. Patient conveyed verbal understanding and agreed to the plan. I discussed this case in detail with my attending Dr. Martinez Undiagnosed new problem with uncertain prognosis? @ -No Drug Therapy requiring intensive monitoring for toxicity (Heparin, Nitro, Insulin, Cardizem)? @ -No Were any procedures done? @ -No Diagnosis/symptom? @ -URI Acute, or Chronic, or Acute on Chronic? @ -Acute Uncomplicated (without systemic symptoms) or Complicated (systemic symptoms)? @ -Uncomplicated Side effects of treatment? @ -No Exacerbation, Progression, or Severe Exacerbation? @ -No Poses a threat to life or bodily function? How? (Chest pain, [place], [place], pneumonia, PE, COPD, DKA, ARF, appy, cholecystitis, CVA, Diverticulitis, Homicidal, Suicidal, threat to staff... and all critical care pts) @ -No - Lab Data Lab Results 12/11/23 Range/Units 20:25 Influenza Type A (PCR) Not Detected (Not Detectd) Influenza Type B (PCR) Not Detected (Not Detectd) RSV (PCR) Not Detected (Not Detectd) SARS-CoV-2 (PCR) Not Detected (Not Detectd) Disposition Clinical Impression: Acute upper respiratory infection Disposition: HOME SELF-CARE Condition: Good Instructions (If sedation given, give patient instructions): Upper Respiratory Infection (ED) Additional Instructions: Follow-up with PCP. Report back to ER with any new or worsening symptoms. Is patient prescribed a controlled substance at d/c from ED?: No Referrals: Morena Garcia MD [Primary Care Provider] - 1-2 days Time of Disposition: 21:30
== END 2023-12-11 21:40 | disposition home or self-care (01) ==
LOC: EC 20:09
DX: J06.9 Acute upper respiratory infection, unspecified (principal); E11.9 Type 2 diabetes mellitus without complications; I10 Essential (primary) hypertension; J45.909 Unspecified asthma, uncomplicated; F32.A Depression, unspecified; F41.9 Anxiety disorder, unspecified; Z20.822 Contact with and (suspected) exposure to COVID-19; Z79.899 Other long term (current) drug therapy; Z88.1 Allergy status to other antibiotic agents; Z88.5 Allergy status to narcotic agent; Z87.891 Personal history of nicotine dependence
CPT/HCPCS: 71046; 87636; 99283

== ENCOUNTER → 2023-12-17 | Outpatient (CLI) | payer MEDICAID ==
--- NOTE | 2023-12-17 09:41 | XR ---
EXAMINATION TYPE: XR chest 2V DATE OF EXAM: 12/17/2023 COMPARISON: NONE TECHNIQUE: PA and lateral views submitted. HISTORY: Cough FINDINGS: The lungs are clear and there is no pneumothorax, pleural effusion, or focal pneumonia. Heart size normal and no overt failure. Osseous structures demonstrate hypertrophic and degenerative changes of the spine. Soft tissue artifact overlying the chest bilaterally. There are surgical clips in the uppe r abdomen. IMPRESSION: 1. No acute process.
== END | disposition home or self-care (01) ==
LOC: RADXRWHC 09:22
PROVIDERS: ATTEND Family Medicine
DX: R05.9 Cough, unspecified (principal)
CPT/HCPCS: 71046

== ENCOUNTER 2023-12-29 05:54 | Emergency (ER) | payer MEDICAID ==
--- NOTE | 2023-12-29 06:42 | ED ---
Chest Pain HPI - General Chief Complaint: Chest Pain Stated Complaint: chest pain Time Seen by Provider: 12/29/23 06:09 Source: patient, RN notes reviewed Mode of arrival: ambulatory Limitations: no limitations - History of Present Illness Initial Comments: This is a 43-year-old female who presents to the emergency department for chest pain. States that she was not sleeping well last night, and was tossing and turning quite a lot. Around 4 AM she started to develop discomfort in the left side her chest. Describes it as a dull and aching sensation. She initially felt like pain was going into the shoulder or jaw, however states that this may have just been related to stress, as she does not have any pain there now. Denies any shortness of breath. She did have chest pain a year ago and had a cardiac catheterization. The cardiac catheterization was fairly normal and no stents were placed. States that the pain then felt different, in that it was more so in the center of her chest and under the left breast. Reports a family history of cardiac disease in her father. MD Complaint: chest pain - Related Data Home Medications Medication Instructions Recorded Confirmed Escitalopram Oxalate [Lexapro] 20 mg PO HS 12/18/20 05/09/23 Escitalopram [Lexapro] 5 mg PO HS 01/04/23 05/09/23 Galcanezumab-Gnlm [Emgality Pen] 120 mg SQ Q30D 05/09/23 05/09/23 traZODone HCL 200 mg PO HS 05/09/23 05/09/23 Previous Rx's Medication Instructions Recorded Cephalexin [Keflex] 500 mg PO Q6HR #28 cap 07/16/23 Albuterol Inhaler [Ventolin Hfa 1 - 2 puff INHALATION Q6HR PRN #1 11/15/23 Inhaler] each Albuterol Nebulized [Ventolin 2.5 mg INHALATION Q6H 6 Days #75 ml 11/15/23 Nebulized] methylPREDNISolone Dose Pack 4 mg PO DIRECTED #1 packet 12/12/23 [Medrol Dose Pack] Allergies Allergy/AdvReac Type Severity Reaction Status Date / Time metronidazole [From Flagyl] Allergy Rash all Verified 12/11/23 20:23 over morphine Allergy Rash/Hives Verified 12/11/23 20:23 Review of Systems ROS Statement: Those systems with pertinent positive or pertinent negative responses have been documented in the HPI. ROS Other: All systems not noted in ROS Statement are negative. Past Medical History Past Medical History: Asthma, Chest Pain / Angina, Diabetes Mellitus, GERD/Reflux, Hypertension, Pneumonia Additional Past Medical History / Comment(s): KIDNEY STONES. DDD. NO MEDS FOR BP AT THIS TIME. HIATAL HERNIA, chronic sinusitis/seasonal allergies. UTI. Bronchitis. Colitis, IBS. Migraines. Occasional low back pain. History of Any Multi-Drug Resistant Organisms: None Reported Past Surgical History: Section, Cholecystectomy, Heart Catheterization, Tubal Ligation Additional Past Surgical History / Comment(s): 08/31/20 CYSTO LEFT DOUBLE J CATHETER INSERTED. Sinus surgery, D&C, x 4, EGD/colonoscopy. Past Anesthesia/Blood Transfusion Reactions: Previous Problems w/ Anesthesia, Postoperative Nausea & Vomiting (PONV) Additional Past Anesthesia/Blood Transfusion Reaction / Comment(s): Pt did not go all the way under. Pt could hear, but not feel anything Past Psychological History: ADD/ADHD, Anxiety, Depression Smoking Status: Former smoker Past Alcohol Use History: None Reported Past Drug Use History: None Reported - Past Family History Father Family Medical History: Congestive Heart Failure (CHF), Coronary Artery Disease (CAD), Diabetes Mellitus Additional Family Medical History / Comment(s): stents,depression anxiety Mother Family Medical History: Cancer, Diabetes Mellitus, Hypertension Additional Family Medical History / Comment(s): colon cancer, SKIN CANCER, bipolar, split personaltiy disorder. General Exam Limitations: no limitations General appearance: alert, in no apparent distress Head exam: Present: atraumatic, normocephalic, normal inspection Respiratory exam: Present: normal lung sounds bilaterally. Absent: respiratory distress, wheezes, rales, rhonchi, stridor Cardiovascular Exam: Present: regular rate, normal rhythm, normal heart sounds. Absent: systolic murmur, diastolic murmur, rubs, gallop, clicks Neurological exam: Present: alert, oriented X3, CN II-XII intact Psychiatric exam: Present: normal affect, normal mood Skin exam: Present: warm, dry, intact, normal color. Absent: rash Course Vital Signs 12/29/23 12/29/23 12/29/23 06:06 07:49 10:51 Temperature 98.6 F 98.1 F Pulse Rate 87 71 80 Respiratory 18 18 18 Rate Blood Pressure 122/82 138/65 128/85 O2 Sat by Pulse 98 98 100 Oximetry Chest Pain MDM - MDM This is a 43-year-old female who presents to the emergency department for chest pain. Was pt. sent in by a medical professional or institution? @ -No Did you speak to anyone other than the patient for history? @ -No Did you review nursing and triage notes? @ -Yes, and I agree, it is accurate with regards to the patient's symptoms. Were old charts reviewed? @ -Cardiac catheterization from 12/14/22 demonstrating normal coronary arteries and mildly elevated left sided filling pressures. Differential Diagnosis? @ -Differential Chest Pain: Stable Angina, Unstable Angina, STEMI, NSTEMI Aortic Dissection, Pneumothorax, Musculoskeletal, Esophageal Spasm GERD, Cholecystitis, Pancreatitis, Zoster, this is not meant to be an all-inclusive list. EKG interpreted by me (3pts min.)? @ -EKG interpreted by me demonstrating the following: Sinus rhythm. Ventricular rate 87 beats per minute, DC interval 162 ms, QRS duration 91 ms, QTC 420 ms. X-rays interpreted by me (1pt min.)? @ -Chest x-ray obtained, my interpretation identifies no localized consolidations or infiltrates. CT interpreted by me (1pt min.)? @ -Not obtained U/S interpreted by me (1pt. min.)? @ -Not obtained What testing was considered but not performed? (CT, X-rays, U/S, labs)? Why? @ -None What meds were considered but not given? Why? @ -None Did you discuss the management of the patient with other professionals? @ -No Did you reconcile home meds? @ -No Was smoking cessation discussed for >3mins.? @ -No Was critical care preformed (if so, how long)? @ -No Were there social determinants of health that impacted care today? How? (Homelessness, low income, unemployed, alcoholism, drug addiction, transporta tion, low edu. Level, literacy, decrease access to med. care, long-term, rehab)? @ -No Was there de-escalation of care discussed even if they declined? (Discuss DNR or withdrawal of care, Hospice)? @ -No What co-morbidities impacted this encounter? (DM, HTN, Smoking, COPD, CAD, Cancer, CVA, Hep., AIDS, mental health diagnosis, sleep apnea, morbid obesity)? @ -DM, morbid obesity Was patient admitted / discharged? @ -Discharged. Lab work obtained and found to be unremarkable, including a negative tropinin. Chest x-ray reveals no acute process. Heart score is 2. Patient was given 324mg of aspirin and nitroglycerin without relief in symptoms. She was then given a dose of Toradol with some improvement. Discussed with the patient that at this time the cardiac workup is unremarkable and we discussed the options of admission for cardiac observation vs second troponin. Patient requested to proceed with second troponin. Repeat troponin obtained at the 3 hour gini and this was negative as well. Patient comfortable with discharge home at that point. She is advised to follow up with her primary care provider for reevaluation. Undiagnosed new problem with uncertain prognosis? @ -None Drug Therapy requiring intensive monitoring for toxicity (Heparin, Nitro, Insulin, Cardizem)? @ -None Were any procedures done? @ -None Diagnosis/symptom? @ -Atypical chest pain Acute, or Chronic, or Acute on Chronic? @ -Acute Uncomplicated (without systemic symptoms) or Complicated (systemic symptoms)? @ -Uncomplicated Side effects of treatment? @ -None Exacerbation, Progression, or Severe Exacerbation] @ -Not applicable Poses a threat to life or bodily function? @ -No Return precautions reviewed in depth, the patient is instructed to return to the emergency department with any new, worsening, or concerning symptoms. Patient verbalized understanding. This case was discussed in detail with the attending ED physician, Dr. Baugh. Presentation, findings, and treatment plan discussed in detail as well. Disposition Clinical Impression: Chest pain Disposition: HOME SELF-CARE Instructions (If sedation given, give patient instructions): Chest Pain (ED), Noncardiac Chest Pain (ED) Additional Instructions: Return to the emergency department with any new, worsening, or concerning symptoms. Follow up with your primary care provider in 1-2 days. Is patient prescribed a controlled substance at d/c from ED?: No Referrals: Morena Garcia MD [Primary Care Provider] - 1-2 days Time of Disposition: 10:40
[2023-12-29] MEDS: ASPIRIN 81 MG PO STA (06:45)
[2023-12-29] MEDS: NITROGLYCERIN SL TABS 0.4 MG TAB SUBLINGUAL STA (06:45)
[2023-12-29 06:46] LABS: Basophils % (A) 0 %; Eosinophils # (A) 0.1 k/uL (0-0.7); Eosinophils % (A) 1 %; HCT 36.7 % (34.0-46.0); HGB 11.7 gm/dL (11.4-16.0); Lymphocytes # (A) 3.8 k/uL (1.0-4.8); Lymphocytes % (A) 39 %; MCH 26.8 pg (25.0-35.0); MCHC 31.8 g/dL (31.0-37.0); MCV 84.2 fL (80.0-100.0); Mean Platelet Volume 7.9; Monocytes # (A) 0.4 k/uL (0-1.0); Monocytes % (A) 4 %; Neutrophils # (A) 5.4 k/uL (1.3-7.7); Neutrophils % (A) 55 %; Platelet Count 245 k/uL (150-450); RBC 4.36 m/uL (3.80-5.40); RDW 14.7 % (11.5-15.5); WBC 9.8 k/uL (3.8-10.6)
--- NOTE | 2023-12-29 06:50 | XR ---
EXAMINATION TYPE: XR chest 2V DATE OF EXAM: 12/29/2023 COMPARISON: Chest x-ray December 17, 2023 HISTORY: Chest pain. TECHNIQUE: Frontal and lateral views of the chest are obtained. FINDINGS: Overlying EKG leads on current study. There Is no focal air space opacity, pleural effusio n, or pneumothorax seen. The cardiac silhouette size is stable and within normal limits. The osseo us structures are intact. Cholecystectomy clips are noted on lateral view. IMPRESSION: No acute process. No significant change from prior.
[2023-12-29 06:59] VITALS: RESP 18
[2023-12-29 06:59] LABS: INR 0.9 (<1.2); Partial Thromboplastin Time 21.5 sec (22.0-30.0)
[2023-12-29 07:07] LABS: ALT 26 U/L (4-34); AST 24 U/L (14-36); African American GFR (CKD) >90 (>60 ml/min/1.73 sqM); Albumin 3.7 g/dL (3.5-5.0); Alkaline Phosphatase 67 U/L (38-126); Anion Gap 8 mmol/L; Blood Urea Nitrogen 8 mg/dL (7-17); Calcium 8.8 mg/dL (8.4-10.2); Carbon Dioxide 21 mmol/L (22-30); Chloride 108 mmol/L (98-107); Glucose 117 mg/dL (74-99); Non-African American GFR(CKD) >90 (>60 ml/min/1.73 sqM); Sodium 137 mmol/L (137-145); Total Bilirubin 0.7 mg/dL (0.2-1.3); Total Protein 6.8 g/dL (6.3-8.2)
[2023-12-29] MEDS: KETOROLAC 15 MG/ML 1 ML VIAL IVP STA (07:51)
[2023-12-29 11:15] VITALS: BP 128/85; PULSE 80; TEMP 98.1
== END 2023-12-29 10:54 | disposition home or self-care (01) ==
LOC: EC 05:54
DX: R07.89 Other chest pain (principal); E66.01 Morbid (severe) obesity due to excess calories; J45.909 Unspecified asthma, uncomplicated; E11.9 Type 2 diabetes mellitus without complications; I10 Essential (primary) hypertension; F32.A Depression, unspecified; F41.9 Anxiety disorder, unspecified; Z79.899 Other long term (current) drug therapy; Z88.1 Allergy status to other antibiotic agents; Z88.5 Allergy status to narcotic agent; Z90.49 Acquired absence of other specified parts of digestive tract; Z68.41 Body mass index [BMI] 40.0-44.9, adult; Z87.891 Personal history of nicotine dependence
CPT/HCPCS: 36415; 93005; 80053; 83735; 84484; 85025; 85610; 85730; 84703; 71046; 99285; 96374; J1885

== ENCOUNTER 2024-04-08 21:17 | Emergency (ER) | payer MEDICAID ==
--- NOTE | 2024-04-08 21:40 | ED ---
General Adult HPI - General Chief complaint: Chest Pain Stated complaint: KATIUSKA chest discomfort Time Seen by Provider: 04/08/24 21:36 Source: patient Mode of arrival: wheelchair Limitations: no limitations - History of Present Illness Initial comments: Patient is 44-year-old woman who presents with 2 days of upper respiratory symptoms developing. She complains of cough, rhinorrhea, postnasal drip, and chest pain with cough Onset/Timin -: days(s) Location: chest Quality: aching Consistency: intermittent (Cough) Improves with: none Worsens with: other (Cough) Associated Symptoms: chest pain Treatments Prior to Arrival: other (Tylenol) - Related Data Home Medications Medication Instructions Recorded Confirmed Escitalopram Oxalate [Lexapro] 20 mg PO HS 12/18/20 05/09/23 Escitalopram [Lexapro] 5 mg PO HS 01/04/23 05/09/23 Galcanezumab-Gnlm [Emgality Pen] 120 mg SQ Q30D 05/09/23 05/09/23 traZODone HCL 200 mg PO HS 05/09/23 05/09/23 Previous Rx's Medication Instructions Recorded Cephalexin [Keflex] 500 mg PO Q6HR #28 cap 07/16/23 Albuterol Inhaler [Ventolin Hfa 1 - 2 puff INHALATION Q6HR PRN #1 11/15/23 Inhaler] each Albuterol Nebulized [Ventolin 2.5 mg INHALATION Q6H 6 Days #75 ml 11/15/23 Nebulized] methylPREDNISolone Dose Pack 4 mg PO DIRECTED #1 packet 12/12/23 [Medrol Dose Pack] Benzonatate [Tessalon Perles] 100 mg PO TID PRN #20 capsule 04/08/24 methylPREDNISolone [Medrol Dose 0 mg PO DIRECTED #1 packet 04/08/24 Pack] Allergies Allergy/AdvReac Type Severity Reaction Status Date / Time metronidazole [From Flagyl] Allergy Rash all Verified 04/08/24 21:28 over morphine Allergy Rash/Hives Verified 04/08/24 21:28 Review of Systems ROS Statement: Those systems with pertinent positive or pertinent negative responses have been documented in the HPI. ROS Other: All systems not noted in ROS Statement are negative. Constitutional: Denies: fever, chills ENT: Reports: congestion. Denies: ear pain, throat pain, hearing loss Respiratory: Reports: cough. Denies: dyspnea, wheezes, hemoptysis Cardiovascular: Reports: chest pain. Denies: palpitations, edema Gastrointestinal: Denies: abdominal pain, vomiting, diarrhea Genitourinary: Denies: dysuria, hematuria Musculoskeletal: Denies: back pain Skin: Denies: rash Neurological: Denies: headache, weakness Past Medical History Past Medical History: Asthma, Chest Pain / Angina, Diabetes Mellitus, GERD/Reflux, Hypertension, Pneumonia Additional Past Medical History / Comment(s): KIDNEY STONES. DDD. NO MEDS FOR BP AT THIS TIME. HIATAL HERNIA, chronic sinusitis/seasonal allergies. UTI. Bronchitis. Colitis, IBS. Migraines. Occasional low back pain. History of Any Multi-Drug Resistant Organisms: None Reported Past Surgical History: Section, Cholecystectomy, Heart Catheterization, Tubal Ligation Additional Past Surgical History / Comment(s): 08/31/20 CYSTO LEFT DOUBLE J CATHETER INSERTED. Sinus surgery, D&C, x 4, EGD/colonoscopy. Past Anesthesia/Blood Transfusion Reactions: Previous Problems w/ Anesthesia, Postoperative Nausea & Vomiting (PONV) Additional Past Anesthesia/Blood Transfusion Reaction / Comment(s): Pt did not go all the way under. Pt could hear, but not feel anything Past Psychological History: ADD/ADHD, Anxiety, Depression Smoking Status: Former smoker Past Alcohol Use History: None Reported Past Drug Use History: None Reported - Past Family History Father Family Medical History: Congestive Heart Failure (CHF), Coronary Artery Disease (CAD), Diabetes Mellitus Additional Family Medical History / Comment(s): stents,depression anxiety Mother Family Medical History: Cancer, Diabetes Mellitus, Hypertension Additional Family Medical History / Comment(s): colon cancer, SKIN CANCER, bipolar, split personaltiy disorder. General Exam Limitations: no limitations General appearance: alert, in no apparent distress Head exam: Present: atraumatic, normocephalic Eye exam: Present: normal appearance. Absent: scleral icterus, conjunctival injection ENT exam: Present: mucous membranes moist, other (Mild injection of the pharynx) Neck exam: Present: normal inspection, full ROM, lymphadenopathy. Absent: tenderness, meningismus Respiratory exam: Present: normal lung sounds bilaterally. Absent: respiratory distress, wheezes, rales, rhonchi, stridor, accessory muscle use Cardiovascular Exam: Present: regular rate, normal rhythm, normal heart sounds. Absent: systolic murmur, diastolic murmur, rubs, gallop GI/Abdominal exam: Present: soft. Absent: distended, tenderness, guarding, rebound, rigid, mass Extremities exam: Present: normal inspection, normal capillary refill. Absent: pedal edema, calf tenderness Back exam: Present: normal inspection. Absent: CVA tenderness (R), CVA tenderness (L) Neurological exam: Present: alert Skin exam: Present: warm, dry, intact, normal color. Absent: rash Course Vital Signs 04/08/24 04/08/24 21:23 23:02 Temperature 98.3 F 98.4 F Pulse Rate 82 79 Respiratory 17 20 Rate Blood Pressure 122/86 123/85 O2 Sat by Pulse 99 98 Oximetry EKG Findings - EKG Results: EKG: interpreted by MARCK, sinus rhythm (Rate 80 bpm), normal axis, normal QRS, normal ST/T, no acute changes Medical Decision Making - Medical Decision Making The patient had chest x-ray that I interpreted as negative for acute infiltrate, pneumothorax, congestive heart failure. Was pt. sent in by a medical professional or institution (, PA, REGIONAL MEDICAL DIRECTOR, urgent care, hospital, or longterm...) When possible be specific @ -[No] Did you speak to anyone other than the patient for history (EMS, parent, family, police, friend...)? What history was obtained from this source @ -[No] Did you review nursing and triage notes (agree or disagree)? Why? @ -[I reviewed and agree with nursing and triage notes] Were old charts reviewed (outside hosp., previous admission, EMS record, old EKG, old radiological studies, urgent care reports/EKG's, longterm records)? Report findings @ -[No old charts were reviewed] Differential Diagnosis (chest pain, altered mental status, abdominal pain women, abdominal pain men, vaginal bleeding, weakness, fever, dyspnea, syncope, headache, dizziness, GI bleed, back pain, seizure, CVA, palpatations, mental health, musculoskeletal)? @ -[not applicable] EKG interpreted by me (3pts min.). @ -[As above] X-rays interpreted by me (1pt min.). @ -[I interpreted as above CT interpreted by me (1pt min.). @ -[None done] U/S interpreted by me (1pt. min.). @ -[None done] What testing was considered but not performed or refused? (CT, X-rays, U/S, labs)? Why? @ -[None] What meds were considered but not given or refused? Why? @ -[None] Did you discuss the management of the patient with other professionals (professionals i.e. DrSaw, PA, REGIONAL MEDICAL DIRECTOR, lab, RT, psych nurse, manager social responsibility, ladies underwear operator, teacher, medical officer psychiatry, case mgr)? Give summary @ -[No] Was smoking cessation discussed for >3mins.? @ -[No] Was critical care preformed (if so, how long)? @ -[No] Were there social determinants of health that impacted care today? How? (Homelessness, low income, unemployed, alcoholism, drug addiction, transportation, low edu. Level, literacy, decrease access to med. care, fpc, rehab)? @ -[No] Was there de-escalation of care discussed even if they declined (Discuss DNR or withdrawal of care, Hospice)? DNR status @ -[No] What co-morbidities impacted this encounter? (DM, HTN, Smoking, COPD, CAD, Cancer, CVA, ARF, Chemo, Hep., AIDS, mental health diagnosis, sleep apnea, morbid obesity)? @ -[None] Was patient admitted / discharged? Hospital course, mention meds given and route, prescriptions, significant lab abnormalities, going to OR and other pertinent info. @ -[hospital course] Undiagnosed new problem with uncertain prognosis? @ -[No] Drug Therapy requiring intensive monitoring for toxicity (Heparin, Nitro, Insulin, Cardizem)? @ -[No] Were any procedures done? @ -[No] Diagnosis/symptom? @ -[Bronchitis Acute, or Chronic, or Acute on Chronic? @ -[Acute Uncomplicated (without systemic symptoms) or Complicated (systemic symptoms)? @ -[Uncomplicated Side effects of treatment? @ -[No] Exacerbation, Progression, or Severe Exacerbation? @ -[No] Poses a threat to life or bodily function? How? (Chest pain, [place], [place], pneumonia, PE, COPD, DKA, ARF, appy, cholecystitis, CVA, Diverticulitis, Homicidal, Suicidal, threat to staff... and all critical care pts) @ -[No] - Lab Data Lab Results 04/08/24 Range/Units 21:41 Influenza Type A (PCR) Not Detected (Not Detectd) Influenza Type B (PCR) Not Detected (Not Detectd) RSV (PCR) Not Detected (Not Detectd) SARS-CoV-2 (PCR) Not Detected (Not Detectd) Disposition Clinical Impression: Bronchitis Disposition: HOME SELF-CARE Condition: Good Instructions (If sedation given, give patient instructions): Acute Bronchitis (ED) Prescriptions: methylPREDNISolone [Medrol Dose Pack] 0 mg PO DIRECTED #1 packet Benzonatate [Tessalon Perles] 100 mg PO TID PRN #20 capsule PRN Reason: Cough Is patient prescribed a controlled substance at d/c from ED?: No Referrals: Morena Garcia MD [Primary Care Provider] - 1-2 days
--- NOTE | 2024-04-08 22:47 | XR ---
EXAM: XR Chest, 2 Views CLINICAL HISTORY: ITS.REASON XR Reason: chest pain TECHNIQUE: Frontal and lateral views of the chest. COMPARISON: No relevant prior studies available. FINDINGS: Lungs: Unremarkable. No consolidation. Pleural space: Unremarkable. No pneumothorax. Heart: Unremarkable. No cardiomegaly. Mediastinum: Unremarkable. Normal mediastinal contour. Bones/joints: Unremarkable. No acute fracture. IMPRESSION: No consolidation.
[2024-04-08 23:20] VITALS: BP 123/85; PULSE 79; RESP 20; TEMP 98.4
== END 2024-04-08 23:06 | disposition home or self-care (01) ==
LOC: EC 21:17
DX: J40 Bronchitis, not specified as acute or chronic (principal); Z87.891 Personal history of nicotine dependence; Z88.1 Allergy status to other antibiotic agents; Z88.5 Allergy status to narcotic agent; Z90.49 Acquired absence of other specified parts of digestive tract
CPT/HCPCS: 71046; 87636; 93005; 99285

== ENCOUNTER 2024-08-14 16:34 | Emergency (ER) | payer OTHER, MEDICAID ==
[2024-08-14 16:43] VITALS: BP 138/82; PULSE 86; RESP 17; TEMP 98.2
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
[2024-08-14] MEDS: IBUPROFEN 600 MG TAB PO STA (17:43)
== END 2024-08-14 18:52 | disposition home or self-care (01) ==
LOC: EC 16:34
CPT/HCPCS: 71046; 71120; 93005; 99285

== ENCOUNTER → 2024-08-24 | Outpatient (CLI) | payer MEDICAID, OTHER ==
--- NOTE | 2024-08-24 14:18 | XR ---
EXAMINATION TYPE: XR cervical spine limited DATE OF EXAM: 08/24/2024 COMPARISON: NONE HISTORY: Pain TECHNIQUE: 3 views are submitted. FINDINGS: The odontoid is intact. There are no compression deformities. The prevertebral soft tissue structur es are within normal limits. Soft tissue artifact limits assessment soft tissues of neck. Slight ret rolisthesis C2-C3, C3-C4. Mild degenerative disc disease C6-C7. IMPRESSION: 1. Mild degenerative disc disease C6-C7 consider follow-up MRI. [facility], , 08/24/2024 2:15 PM
--- NOTE | 2024-08-24 14:19 | XR ---
EXAMINATION TYPE: XR thoracic spine 2V DATE OF EXAM: 08/24/2024 COMPARISON: NONE HISTORY: Pain TECHNIQUE: 3 views submitted FINDINGS: Alignment is anatomic. There is no compression deformities. Vertebral body height and disc interspa edgar are maintained. Multilevel mild hypertrophic and degenerative disc disease. IMPRESSION: 1. Multilevel mild hypertrophic and degenerative disc disease. [facility], , 08/24/2024 2:16 PM
== END | disposition home or self-care (01) ==
LOC: RADXRMAIN 13:35
PROVIDERS: ATTEND Family Medicine
CPT/HCPCS: 72040; 72070

== ENCOUNTER → 2024-10-05 | Outpatient (CLI) | payer MEDICAID | END | disposition home or self-care (01) | LOC: LABPRL 09:37 | PROVIDERS: ATTEND Internal Medicine Gastroenterology | DX: R19.4 Change in bowel habit (principal) | CPT/HCPCS: 82653; 83630; 87045; 87046 ==

== ENCOUNTER 2024-11-08 15:03 | Emergency (ER) | payer MEDICAID ==
[2024-11-08 15:13] VITALS: RESP 18
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
--- NOTE | 2024-11-08 17:00 | XR ---
EXAMINATION TYPE: XR chest 2V DATE OF EXAM: 11/08/2024 4:53 PM COMPARISON: 08/14/2024 CLINICAL INDICATION: Female, 44 years old with history of CP, TECHNIQUE: XR chest 2V view(s) obtained. FINDINGS: The heart size is normal. The pulmonary vasculature is normal. The lungs are clear. IMPRESSION: 1. No acute pulmonary process. [facility], , 11/08/2024 4:58 PM
[2024-11-08 21:12] VITALS: TEMP 98
[2024-11-08 22:51] VITALS: BP 154/99; PULSE 59
[2024-11-08 23:09] LABS: Amorphous Sediment,Urine Moderate /hpf; Appearance,Urine Cloudy (Clear); Bacteria,Urine Occasional /hpf; Bilirubin,Urine Negative (Negative); Blood,Urine Negative (Negative); Color,Urine Yellow; Glucose,Urine (UA) Negative (Negative); Ketones,Urine Negative (Negative); Leukocyte Esterase,Urine Negative (Negative); Mucus,Urine Many /hpf; Nitrite,Urine Negative (Negative); PH, Urine 5.5 (5.0-8.0); Protein,Urine Trace (Negative); RBC,Urine 2 /hpf (0-5); Specific Gravity,Urine 1.026 (1.001-1.035); Squamous Epithelial Cell,Urine 15 /hpf (0-4); Urobilinogen,Urine <2.0 mg/dL (<2.0); WBC,Urine 3 /hpf (0-5)
== END 2024-11-08 23:08 | disposition home or self-care (01) ==
LOC: EC 15:03
DX: R07.89 Other chest pain (principal); Z87.891 Personal history of nicotine dependence; Z88.5 Allergy status to narcotic agent; Z88.1 Allergy status to other antibiotic agents; Z11.52 Encounter for screening for COVID-19
CPT/HCPCS: 71046; 81001; 81025; 87636; 93005; 99284

== ENCOUNTER → 2024-12-13 | Outpatient (CLI) | payer OTHER, MEDICAID ==
[2024-12-13 11:25] VITALS: BP 131/80; PULSE 82; RESP 16
--- NOTE | 2024-12-13 16:17 | P.PAINPG ---
Objective - Vital Signs Vital signs: Vital Signs Temp Pulse 82 12/13/24 11:21 Resp 16 12/13/24 11:21 BP 131/80 12/13/24 11:21 Pulse Ox 96 12/13/24 11:21 FiO2 Intake & Output 12/12/24 12/13/24 12/13/24 18:59 06:59 18:59 Weight 109.316 kg PQRS Measure Charge Sheet Mode of Arrival: Ambulatory Comment: HISTORY OF PRESENT ILLNESS: A 44 yr old female w fiance at side as a referral from Dr Montano presents today w severe and chronic secondary to radiculopathy, spondylosis and facet arthropathy without myelopathy for evaluation. Pt states pain level is provoked at 10 /10 in intensity, intermittent, localized in the cervical spine, predominantly axial, sharp in character w occasional shooting pain towards the UEs and mid back. Pain is provoked by overhead reaching. Pain is alleviated by PT since Sep 2024 which she is currently in, physician guided home exercises4-5 times weekly since Oct 2024, medications (Robaxin, Ibu), [place] Shanks Topical, repositioning and rest . Cervical disability score at 24. Pt is disinterested in injections as she has a new diagnosis of NIDDM II. PMH: OA, Asthma, Angina, NIDDM II, GERD, HTN, Nephrolithiasis, IBS, HH, Seasonal Allergies, MDD/ Anxiety/ ADD/ ADHD PSH: C- Section x4, D&C, Cholecystectomy, Heart Catheterization, Tubal Ligation, Cystoscopy w J Cath (2019), Sinus Surgery, EGD/ Colonoscopy SH: Former tobacco user, No ETOH abuse, No illicit drug use FH: Fa- CHF, CAD. Mo- Colon/ Skin CA, Bipolar All: See list Meds: See list REVIEW OF ORGAN SYSTEMS: CONSTITUTIONAL: No fevers or chills. No recent weight loss. NEUROLOGICAL: + numbness and tingling along the distal extremities. No seizure disorders or headaches. MUSCULOSKELETAL: + pain PSYCHIATRIC: Denies current depression or suicidal thoughts. Physical Examinations : Constitutional : Cooperative , not in acute distress . Neurologic : Cranial nerve II to XII intact. No focal neurological deficits. Psychiatric : alert & oriented x 3. Matching mood & appropriate affect. Judgment & insight intact. Musculoskeletal : Cervical Spine Motor strength in the deltoid and biceps: Normal right side. Normal Left side Motor strength biceps and the wrist extensors: Normal right side . Normal left side Motor strength in the triceps muscle: Normal right side. Normal left side Deep tendon reflexes: Normal at the biceps. Normal at Brachioradialis. Normal at triceps Vertebral body tenderness to deep palpation over C6 Taut bands w twitch response over R C4-T4 Cervical facet loading test: positive bilaterally Spurling test: positive bilaterally Neck distraction test: positive bilaterally Chetan sign: positive bilaterally Lumbar spine Motor strength lower extremities ,thigh and legs 5/5 Right side , 5/5 Left side Deep tendon reflexes : Normal Knee Jerk. Normal Ankle Jerk Vertebral body tenderness over Marrero Test positive Lumbar facet Loading Test: positive Right / positive Left Range of motion of the lumbar spine Flexion 30 degrees, extension 10 degrees Straight Leg Raise test: Left/ Right positive at degrees Odalis test: positive right / positive left. Severe tenderness over the Sacroiliac joint on the Right / Left sides Gaenslen test: positive bilaterally Seated flexion test: positive bilaterally. Sacral spine : Severe tenderness over the Sacroiliac joint: right side / left side Range of motion: Flexion of the lumbar spine <60 degrees Range of motion: Extension of the lumbar spine <20 degrees Gaenslen's Test positive Odalis test: positive right side / left side Thigh Thrust Test Sacral Thrust Test Imaging: MRI non contrast cervical spine from 10/14/24 reviewed Assessment/ Plan : C6-C7 radiculopathy Recommendation of JAVIER C6-C7 #1 though pt is disinterested at this time. [place] 5/325mg #18 NR Use, side effects, adverse reactions, safe storage discussed. Risks, benefits of procedure discussed and patient verbalized understanding. Admits to anti- coagulant use or medical history of diabetes. Protocol for discontinuation/ continuation of medications brook procedure discussed. All questions answered. I have spent greater than 30 minutes on patient care today. Dr Cordova was available by phone for the evaluation of this patient. The time was used to review the medical records including relevant urine studies and Prescription history (MAPs), review of the available imaging, evaluation and examination of the patient, coordination of care with the medical staff and if applicable referring physicians, as well as creation of the medical record - Pain Location Left Lower Neck Non-Pharmacological Interventions: Heat, Inactivity, Physical Therapy, Position/Reposition Pharmacological Interventions: PRN Medication, Topical Medication PQRS Narrative: Smoking Status Former smoker Blood Pressure 131/80 Pain Intensity [Left Lower 10 Neck] Scale Used Numeric (1 - 10) Hx Alcohol Use (MH) No Home Medications: Ambulatory Orders Escitalopram Oxalate [Lexapro] 20 mg PO HS 12/18/20 Escitalopram [Lexapro] 5 mg PO HS 01/04/23 Galcanezumab-Gnlm [Emgality Pen] 120 mg SQ Q30D 05/09/23 traZODone HCL 200 mg PO HS 05/09/23 Cephalexin [Keflex] 500 mg PO Q6HR #28 cap 07/16/23 Albuterol Inhaler [Ventolin Hfa Inhaler] 1 - 2 puff INHALATION Q6HR PRN #1 each 11/15/23 Albuterol Nebulized [Ventolin Nebulized] 2.5 mg INHALATION Q6H 6 Days #75 ml 11/15/23 methylPREDNISolone Dose Pack [Medrol Dose Pack] 4 mg PO DIRECTED #1 packet 12/12/23 Benzonatate [Tessalon Perles] 100 mg PO TID PRN #20 capsule 04/08/24 methylPREDNISolone [Medrol Dose Pack] 0 mg PO DIRECTED #1 packet 04/08/24 HYDROcodone/APAP 5-325MG [[place] 5-325] 1 tab PO Q4HR PRN 3 Days #18 tab 12/13/24 Controlled Substance Measures - Controlled Substance Measures Is patient prescribed a controlled substance at discharge?: Yes When asked, does pt state using other controlled substances?: Yes If prescribed controlled substance>3 days was MAPS reviewed?: Prescribed <3 Days
== END ==
LOC: PNWHC3 10:59
PROVIDERS: ATTEND Specialist
DX: M54.12 Radiculopathy, cervical region (principal); Z87.891 Personal history of nicotine dependence; Z88.3 Allergy status to other anti-infective agents; Z88.5 Allergy status to narcotic agent
CPT/HCPCS: 99211

== ENCOUNTER → 2025-01-28 | Outpatient (CLI) | payer MEDICAID ==
--- NOTE | 2025-01-28 11:53 | MM ---
Reason for Exam: Additional evaluation requested from prior study. Last mammogram was performed 2 year(s) and 4 month(s) ago. Patient History: Menarche at age 11. First Full-Term at age 14. Patient used Hormonal Contraceptives for 15 years. Maternal aunt had breast cancer. Risk Values: Adrienne 5 year model risk: 0.6%. NCI Lifetime model risk: 6.9%. Tissue Density: There are scattered areas of fibroglandular density. Findings: Analyzed By CAD. There are a few tiny scattered benign-appearing round calcifications bilaterally redemonstrated. No suspicious new mass or distortion in either breast. Overall Assessment: Benign, BI-RAD 2 Management: Screening Mammogram of both breasts in 1 year. Manage patient's symptoms clinically. Return to routine follow-up. Results were given to the patient verbally at the time of exam. Patient should continue monthly self-breast exams. A clinical breast exam by your physician is recommended on an annual basis. This exam should not preclude additional follow-up of suspicious palpable abnormalities. Note on Adrienne scores and lifetime risk: 1. A Adrienne score greater than 3% is considered moderate risk. If this is the case, consider specialist referral to assess eligibility for a risk reducing agent. 2. If overall lifetime risk for the development of breast cancer is 20% or higher, the patient may qualify for future screening with alternating mammogram and breast MRI. [facility], , 01/28/2025 11:24 AM. Electronically signed and approved by: José Luis Vega M.D.
== END | disposition home or self-care (01) ==
LOC: RADMAMWWP 11:04
PROVIDERS: ATTEND Family Medicine
DX: R92.8 Other abnormal and inconclusive findings on diagnostic imaging of breast (principal); R92.323 Mammographic fibroglandular density, bilateral breasts; Z92.0 Personal history of contraception; Z80.3 Family history of malignant neoplasm of breast
CPT/HCPCS: 77062; 77066

== ENCOUNTER → 2025-02-24 | Outpatient (CLI) | payer MEDICAID | END | disposition home or self-care (01) | LOC: LABWHC1 13:32 | PROVIDERS: ATTEND Family Medicine | DX: N92.6 Irregular menstruation, unspecified (principal) | CPT/HCPCS: 36415; 84702 ==

== ENCOUNTER → 2025-06-08 | Outpatient (CLI) | payer MEDICAID ==
[2025-06-08 18:25] LABS: Basophils # (A) 0.04 X 10*3/uL (0.00-0.10); Basophils % (A) 0.5 %; Eosinophils # (A) 0.18 X 10*3/uL (0.04-0.35); Eosinophils % (A) 2.5 %; HCT 39.9 % (37.2-46.3); HGB 12.8 g/dL (12.0-15.0); Immature Grans, Automated 0.30 %; Lymphocytes # (A) 2.67 X 10*3/uL (0.90-5.00); Lymphocytes % (A) 36.5 %; MCH 27.9 pg (27.0-32.0); MCHC 32.1 g/dL (32.0-37.0); MCV 86.9 FL (80.0-97.0); Monocytes # (A) 0.35 X 10*3/uL (0.20-1.00); Monocytes % (A) 4.8 %; NRBC Per 100 WBC 0 X 10*3/uL (0.00-0.01); Neutrophils # (A) 4.06 X 10*3/uL (1.80-7.70); Neutrophils % (A) 55.4 %; Platelet Count 248 X 10*3/uL (140-440); RBC 4.59 X 10*6/uL (4.10-5.20); RDW 13.4 % (11.5-14.5); WBC 7.32 X 10*3/uL (4.50-10.00)
[2025-06-08 19:50] LABS: ALT 22 U/L (8-44); AST 18 U/L (13-35); Albumin 4.0 g/dL (3.8-4.9); Albumin/Globulin Ratio 1.43 Ratio (1.60-3.17); Alkaline Phosphatase 74 U/L (41-126); Anion Gap 11.20 mmol/L (4.00-12.00); BUN/Creat Ratio 15.17 Ratio (12.00-20.00); Blood Urea Nitrogen 9.1 mg/dL (9.0-27.0); Calcium 8.9 mg/dL (8.7-10.3); Carbon Dioxide 18.8 mmol/L (21.6-31.8); Chloride 109 mmol/L (96-109); Cholesterol 171.00 mg/dL (0.00-200.00); Globulin 2.8 g/dL (1.6-3.3); Glucose 81 mg/dL (70-110); HDL Cholesterol 60.20 mg/dL (40.00-60.00); LDL Cholesterol,Calculated 90.8 mg/dL (0.0-131.0); Potassium 4.2 mmol/L (3.5-5.5); Sodium 139 mmol/L (135-145); Total Protein 6.8 g/dL (6.2-8.2); Triglycerides 100.00 mg/dL (0.00-149.00); VLDL Calculation 20.00 mg/dL (5.00-40.00)
[2025-06-08 19:51] LABS: Vitamin B12 280.0 pg/mL (200.0-944.0)
== END | disposition home or self-care (01) ==
LOC: LABWHC1 12:30
PROVIDERS: ATTEND Family Medicine
DX: E11.65 Type 2 diabetes mellitus with hyperglycemia (principal); E78.5 Hyperlipidemia, unspecified
CPT/HCPCS: 36415; 80053; 80061; 82043; 82306; 82570; 82607; 82746; 84443; 85025